=== PATIENT | male | born 1930 | race Caucasian/White ===

== ENCOUNTER 2017-04-20 13:19 | Inpatient (IN) | payer OTHER ==
--- NOTE | 2017-04-20 13:35 | PDOC ---
History of Present Illness - General Chief Complaint: Pain Stated Complaint: ABD PAIN Time Seen by Provider: 04/20/17 13:33 History Source: Patient Exam Limitations: Clinical Condition, Dementia - History of Present Illness Initial Comments: 04/20/17 14:03 Patient is a 87M with history of CHF with pacemaker, benign intracranial tumor, and diverticulitis sent here today by his PMD for dehydration. He's also complaining today of abdominal pain and shortness of breath. His son is complaining of AMS. At 01/27, he was found to be on too little diuretics with resultant severe leg, ankle and foot swelling, so his diuretics were increased. His PMD evaluation suggested dehydration so he was sent into the hospital. His abdominal pain has been going on for the past several weeks and is located in the suprapubic region. He denies nausea, vomiting, fevers, and chills. He endorses constipation, last bowel movement 1-2 days ago. His shortness of breath has been for the past 2 weeks as well. He denies associated chest pain, endorses cough. His son states that while he has some baseline dementia, but that has also worsened the past couple of weeks. Past History - Past Medical History Allergies/Adverse Reactions: Allergies Allergy/AdvReac Type Severity Reaction Status Date / Time No Known Drug Allergies Allergy Verified 04/20/17 13:23 Home Medications: Ambulatory Orders Furosemide [Lasix -] 40 mg PO BID 02/22/16 Metoprolol Succinate 50 mg PO DAILY 02/22/16 Potassium Chloride 20 meq PO HS 02/22/16 Simvastatin [Zocor -] 40 mg PO HS 02/22/16 Warfarin Na [Coumadin -] 5 mg PO HS 02/22/16 Metolazone [Zaroxolyn -] 2.5 mg PO DAILY 04/20/17 Anemia: No Asthma: No Cancer: No Cardiac Disorders: Yes CVA: No COPD: (hx pneumonia- MULTIPLE) CHF: No Dementia: No Diabetes: No GI Disorders: No Disorders: No HTN: Yes Hypercholesterolemia: Yes Liver Disease: No Seizures: No Thyroid Disease: No - Surgical History Abdominal Surgery: No Appendectomy: Yes Cardiac Surgery: Yes (PACEMAKER) Cholecystectomy: No Lung Surgery: No Neurologic Surgery: No Orthopedic Surgery: Yes (wrist) - Psycho/Social/Smoking Cessation Hx Anxiety: No Suicidal Ideation: No Smoking Status: No Smoking History: Never smoked Number of Cigarettes Smoked Daily: 0 Information on smoking cessation initiated: No Hx Alcohol Use: No Drug/Substance Use Hx: No Substance Use Type: None Hx Substance Use Treatment: No Review of Systems - Review of Systems Comments:: 04/20/17 14:15 GENERAL/CONSTITUTIONAL: No fever or chills. HEAD, EYES, EARS, NOSE AND THROAT: No change in vision. No ear pain or discharge. No sore throat. CARDIOVASCULAR: No chest pain. Positive for shortness of breath RESPIRATORY: Positive for cough. Negative for wheezing, or hemoptysis. GASTROINTESTINAL: No nausea, vomiting, diarrhea. Positive for constipation. GENITOURINARY: No dysuria, frequency, or change in urination. SKIN: No rash NEUROLOGIC: No headache, vertigo, loss of consciousness, or change in strength/ sensation. ENDOCRINE: No increased thirst. Positive for 30 pound weight loss in past year ALLERGIC/IMMUNOLOGIC: No hives or skin allergy. *Physical Exam - Vital Signs Last Vital Signs Temp Pulse Resp BP Pulse Ox 97.5 F L 70 18 106/62 98 04/20/17 13:21 04/20/17 13:21 04/20/17 13:21 04/20/17 13:21 04/20/17 13:21 - Physical Exam Comments: 04/20/17 14:16 GENERAL: Awake, alert, and fully oriented, in no acute distress HEAD: No signs of trauma, normocephalic, atraumatic EYES: PERRLA, EOMI, sclera anicteric, conjunctiva clear ENT: Auricles normal inspection, hearing grossly normal, nares patent, oropharynx clear without exudates. Dry mucosa LUNGS: No distress, speaks full sentences, clear to auscultation bilaterally HEART: Regular rate and rhythm, normal S1 and S2, no murmurs, rubs or gallops, peripheral pulses normal and equal bilaterally. ABDOMEN: Suprapubic tenderness. No guarding, no rebound. No masses EXTREMITIES: Normal inspection, Normal range of motion, no edema. No clubbing or cyanosis. NEUROLOGICAL: Cranial nerves II through XII grossly intact. Normal speech, no focal sensorimotor deficits SKIN: Warm, Dry, no rashes or lesions noted. ED Treatment Course - LABORATORY CBC & Chemistry Diagram: 04/20/17 14:33 04/20/17 14:33 Medical Decision Making - Medical Decision Making 04/20/17 15:25 87M with history CHF s/p pacemaker, and diverticulitis sent here today by his PMD for dehydration. Associated AMS and lower abdominal pain. 04/20/17 16:11 Laboratory Tests 04/20/17 04/20/17 04/20/17 14:33 14:33 14:33 WBC 10.5 H D Sodium 130 L Potassium 3.1 L Chloride 76 L D Carbon Dioxide 43 H D BUN 94 H D Creatinine 1.6 H D Calcium 10.3 H Total Bilirubin 2.0 H D Troponin I 0.10 H B-Natriuretic Peptide 4648.76 H Lipase 459 H Urine Nitrite Negative Ur Leukocyte Esterase Negative Labs show leukocytosis, signs of dehydration, BUN 94 CR 1.6 positive trop to 0.1. Bili of 2.0. Elevated lipase. Elevated BNP. UA show no signs of infection. CT changed to without IV contrast due to Cr >1.5. EKG shows paced rhythm with PVCs. Normal rate, normal axis. No ST elevation equivalents. 04/20/17 20:[address] scan area, patient attempted to get up to go to the bathroom and fell, but was caught by his son before hitting floor. Placed back in bed and brought back to ED. Vital signs stable and normal. EKG shows no changes, still paced rhythm with no ST elevation equivalents. 04/20/17 20:[address] evidence of acute intracranial pathology. 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 The left mid abdominal mesentery is not well visualized on the current exam due to beam hardening artifact arising from intraluminal contrast within several small bowel loops. A 2.8 cm right renal cortical cyst is noted which demonstrates slightly increased intraluminal density in comparison to a 2013 CT study. This appearance is probably incidental in nature and secondary to a small amount of internal debris. Correlate with nonemergent sonography to exclude a developing soft tissue component. This cyst appears unchanged in overall size and configuration. Small bilateral inguinal hernias containing fat only. Very small umbilical hernia containing fat only. Stable at least moderate elevation of the left diaphragm. The partially imaged left upper chest demonstrates a small tubular focus which could be on the basis of bronchial mucoid impaction. Patient discussed with Dr Carranza. Admitted to observation. *DC/Admit/Observation/Transfer Diagnosis at time of Disposition: Dehydration - Discharge Dispostion Condition at time of disposition: Stable Admit: Yes
[2017-04-20] MEDS ORDERED: SODIUM CHLORIDE 500 ML IV STA ×2 (13:55→16:01)
--- NOTE | 2017-04-20 14:21 | PDOC ---
Attending Attestation - Resident Resident Name: Zach Choi - ED Attending Attestation I have performed the following: I have examined & evaluated the patient, The case was reviewed & discussed with the resident, I agree w/resident's findings & plan, Exceptions are as noted - HPI HPI: 04/20/17 14:14 87-year-old male with past medical history of coronary disease, CHF, pneumonia, hyperlipidemia, cardiac pacemaker, diverticulitis sent in from patient's office Dr. Hardin for weakness. Approximate one month ago, the patient has had significant fluid overload and his Lasix was doubled from 40 mg to 80 mg. Since then, the patient's been persistently urinating. Has persistent urinary frequency. In the last several days, the patient been having worsening lethargy and generalized weakness. Has recently developed superpubic discomfort. Denies fevers or chills. Denies headaches. Does have a history of brain tumor which is benign. Patient is also complaining of left-sided abdominal pain given the history of diverticulitis. Denies diarrhea. - Physicial Exam PE: 04/20/17 14:25 GENERAL: Awake, alert, and fully oriented, in no acute distress. HEAD: No signs of trauma EYES: PERRLA, EOMI, sclera anicteric, conjunctiva clear ENT: Auricles normal inspection, hearing grossly normal, nares patent, oropharynx clear without exudates. NECK: Normal ROM, supple, no lymphadenopathy, JVD, or masses LUNGS: Breath sounds equal, clear to auscultation bilaterally. No wheezes, and no crackles HEART: Regular rate and rhythm, normal S1 and S2, no murmurs, rubs or gallops ABDOMEN: TTP Suprapubic, LLQ. Soft, normoactive bowel sounds. No guarding, no rebound. No masses EXTREMITIES: Normal range of motion, no edema. No clubbing or cyanosis. No cords, erythema, or tenderness NEUROLOGICAL: Cranial nerves II through XII grossly intact. Normal speech, normal gait SKIN: Warm, Dry, normal turgor, no rashes or lesions noted. - Medical Decision Making 04/20/17 14:25 Vital Signs Temp Pulse Resp BP Pulse Ox 97.5 F L 70 18 106/62 98 04/20/17 13:21 04/20/17 13:21 04/20/17 13:21 04/20/17 13:21 04/20/17 13:21 I agree with the presence plan to rule out diverticulitis, urinary tract infection. The patient appears dry overall and essentially secondary to diuresis from Lasix. We'll obtain labs, trial IV fluids, urinalysis, CAT scan head and abdomen pelvis. Reassess. 04/20/17 16:00 CBC, BMP 04/20/17 14:33 04/20/17 14:33 CMP Sodium 130 mmol/L (136-145) L 04/20/17 14:33 Potassium 3.1 mmol/L (3.5-5.1) L 04/20/17 14:33 Chloride 76 mmol/L (98-107) L D 04/20/17 14:33 Carbon Dioxide 43 mmol/L (21-32) H D 04/20/17 14:33 Anion Gap 11 (8-16) 04/20/17 14:33 BUN 94 mg/dL (7-18) H D 04/20/17 14:33 Creatinine 1.6 mg/dL (0.7-1.3) H D 04/20/17 14:33 Creat Clearance w eGFR 41.19 (>60) 04/20/17 14:33 Random Glucose 105 mg/dL (74-106) 04/20/17 14:33 Calcium 10.3 mg/dL (8.5-10.1) H 04/20/17 14:33 Total Bilirubin 2.0 mg/dL (0.2-1.0) H D 04/20/17 14:33 AST 25 U/L (15-37) D 04/20/17 14:33 ALT 26 U/L (12-78) 04/20/17 14:33 Alkaline Phosphatase 111 U/L (45-117) D 04/20/17 14:33 Creatine Kinase 69 IU/L (39-308) 04/20/17 14:33 Troponin I 0.10 ng/ml (0.00-0.05) H 04/20/17 14:33 B-Natriuretic Peptide 4648.76 pg/ml (5-450) H 04/20/17 14:33 Total Protein 7.9 g/dl (6.4-8.2) D 04/20/17 14:33 Albumin 4.4 g/dl (3.4-5.0) D 04/20/17 14:33 Lipase 459 U/L (73-393) H 04/20/17 14:33 Pt noted to have MARIELY, elevated BNP. WBC 10.5 ECG is paced. Pt is also hemoconcentrated. BUN 94/ Cr 1.6 Pt likely with pre-renal failure in setting of over diuresis. Patient will need to be admitted to the hospital for further management. Heart Score/ECG Review - ECG Intrepretation Comment:: 04/20/17 16:00 Paced
[2017-04-20 15:04] LABS: BASOPHIL 0.4 % (0-2.0); EOSINOPHIL 0.6 % (0-4.5); MCH 28.7 pg (25.7-33.7); MCHC 33.5 g/dl (32.0-35.9); MEAN CELL VOLUME 85.5 fl (80-96); MEAN PLT VOLUME 11.1 fl (7.5-11.1); NEUTROPHILS 67.9 % (42.8-82.8); PLATELET COUNT 168 K/MM3 (134-434); RDW 17.9 % (11.9-15.9); WHITE BLOOD COUNT 10.5 K/mm3 (4.0-10.0)
[2017-04-20 15:07] LABS: URINE APPEARANCE CLEAR; URINE BILIRUBIN NEGATIVE (NEGATIVE); URINE BLOOD NEGATIVE (NEGATIVE); URINE COLOR LT. YELLOW; URINE GLUCOSE (UA) NEGATIVE (NEGATIVE); URINE KETONE NEGATIVE (NEGATIVE); URINE LEUK ESTERASE NEGATIVE (NEGATIVE); URINE NITRITE NEGATIVE (NEGATIVE); URINE PROTEIN NEGATIVE (NEGATIVE); URINE UROBILINOGEN 0.2 mg/dL (0.2-1.0)
[2017-04-20 15:45] LABS: ALBUMIN 4.4 g/dl (3.4-5.0); ANION GAP 11 (8-16); CALCIUM 10.3 mg/dL (8.5-10.1); CO2 43 mmol/L (21-32); CREATININE 1.6 mg/dL (0.7-1.3); GLUCOSE,RANDOM 105 mg/dL (74-106); SGOT/AST 25 U/L (15-37); SGPT/ALT 26 U/L (12-78); TOT PROT 7.9 g/dl (6.4-8.2)
[2017-04-20 15:49] LABS: ALK PHOS 111 U/L (45-117); CPK 69 IU/L (39-308)
[2017-04-20] MEDS ORDERED: POTASSIUM CHLORIDE ORAL LIQUID 20 MEQ/15 ML PO ONE (21:49)
[2017-04-20] MEDS ORDERED: POTASSIUM CHLORIDE TABS 20 MEQ TABLET.ER (FP) PO ONE ×2 (21:53)
--- NOTE | 2017-04-20 21:54 | HP ---
CHIEF COMPLAINT: Confusion, Weakness, AMS, Abdominal Pain PCP: Dr. Cee HISTORY OF PRESENT ILLNESS: This is a 87 y/o male with a past medical history of CHF, PM, Hypercholesterolemia. Who presents to the ED from the PMDs office for Dehydration, confusion, weakness, abdominal pain. Per ED records: His son is complaining of AMS. At 01/27, he was found to be on too little diuretics with resultant severe leg, ankle and foot swelling, so his diuretics were increased. His PMD evaluation suggested dehydration so he was sent into the hospital. His abdominal pain has been going on for the past several weeks and is located in the suprapubic region. He denies nausea, vomiting, fevers, and chills. He endorses constipation, last bowel movement 1-2 days ago. His shortness of breath has been for the past 2 weeks as well. He denies associated chest pain, endorses cough. His son states that while he has some baseline dementia, but that has also worsened the past couple of weeks. ER course was notable for: (1) NA- 130, K 3.1 (2) CT Brain- No acute ICH (3) CTAP- Left sided- colonic Diverticulosis Recent Travel: None PAST MEDICAL HISTORY: CHF Hypercholesterolemia Benign Intracranial Tumor Pneumonia Diverticulitis PAST SURGICAL HISTORY: Pacemaker Wrist Social History: Smoking: Never Alcohol: None Drugs: None Lives with family Family History: Non-Contributory Allergies No Known Drug Allergies Allergy (Verified 04/20/17 13:23) HOME MEDICATIONS: Home Medications Medication Instructions Recorded Furosemide [Lasix -] 40 mg PO BID 02/22/16 Metoprolol Succinate 50 mg PO DAILY 02/22/16 Potassium Chloride 20 meq PO HS 02/22/16 Simvastatin [Zocor -] 40 mg PO HS 02/22/16 Warfarin Na [Coumadin -] 5 mg PO HS 02/22/16 Metolazone [Zaroxolyn -] 2.5 mg PO DAILY 04/20/17 REVIEW OF SYSTEMS CONSTITUTIONAL: Absent: fever, chills, diaphoresis, generalized weakness, malaise, loss of appetite, weight change HEENT: Absent: rhinorrhea, nasal congestion, throat pain, throat swelling, difficulty swallowing, mouth swelling, ear pain, eye pain, visual changes CARDIOVASCULAR: Absent: chest pain, syncope, palpitations, irregular heart rate, lightheadedness , peripheral edema RESPIRATORY: Absent: cough, shortness of breath, dyspnea with exertion, orthopnea, wheezing, stridor, hemoptysis GASTROINTESTINAL: abdominal pain Absent: abdominal distension, nausea, vomiting, diarrhea, constipation, melena, hematochezia GENITOURINARY: Absent: dysuria, frequency, urgency, hesitancy, hematuria, flank pain, genital pain MUSCULOSKELETAL: Absent: myalgia, arthralgia, joint swelling, back pain, neck pain SKIN: Absent: rash, itching, pallor HEMATOLOGIC/IMMUNOLOGIC: Absent: easy bleeding, easy bruising, lymphadenopathy, frequent infections ENDOCRINE: Absent: unexplained weight gain, unexplained weight loss, heat intolerance, cold intolerance NEUROLOGIC: mental status changes Absent: headache, focal weakness or paresthesias, dizziness, unsteady gait, seizure, bladder or bowel incontinence PSYCHIATRIC: Absent: anxiety, depression, suicidal or homicidal ideation, hallucinations. PHYSICAL EXAMINATION Vital Signs - 24 hr 04/20/17 04/20/17 04/20/17 13:21 17:21 19:19 Temperature 97.5 F L Pulse Rate 70 Pulse Rate [ 70 56 L Apical] Respiratory 18 18 Rate Blood Pressure 106/62 Blood Pressure 99/52 109/58 [Left Arm] O2 Sat by Pulse 98 100 100 Oximetry (%) GENERAL: Awake, alert, and fully oriented, in no acute distress. HEAD: Normal with no signs of trauma. EYES: Pupils equal, round and reactive to light, extraocular movements intact, sclera anicteric, conjunctiva clear. No lid lag. EARS, NOSE, THROAT: Ears normal, nares patent, oropharynx clear without exudates. Dry mucous membranes. NECK: Normal range of motion, supple without lymphadenopathy, JVD, or masses. LUNGS: Breath sounds equal, clear to auscultation bilaterally. No wheezes, and no crackles. No accessory muscle use. HEART: Regular rate and rhythm, normal S1 and S2 without murmur, rub or gallop. ABDOMEN: Soft, nontender, not distended, normoactive bowel sounds, no guarding, no rebound, no masses. No hepatomegaly or splenomegaly. MUSCULOSKELETAL: Normal range of motion at all joints. No bony deformities or tenderness. No CVA tenderness. UPPER EXTREMITIES: 2+ pulses, warm, well-perfused. No cyanosis. No clubbing. No peripheral edema. LOWER EXTREMITIES: 2+ pulses, warm, well-perfused. No calf tenderness. No peripheral edema. NEUROLOGICAL: Cranial nerves II-XII intact. Normal speech. Gait not observed. PSYCHIATRIC: Cooperative. Good eye contact. Appropriate mood and affect. SKIN: Warm, dry, no rashes or lesions noted, normal capillary refill. Tenting, poor turgor, Laboratory Results - last 24 hr 04/20/17 04/20/17 04/20/17 14:33 14:33 14:33 WBC 10.5 H D RBC 5.66 H Hgb 16.2 D Hct 48.4 MCV 85.5 MCH 28.7 MCHC 33.5 RDW 17.9 H Plt Count 168 D MPV 11.1 D Neutrophils % 67.9 Lymphocytes % 20.7 Monocytes % 10.4 H Eosinophils % 0.6 Basophils % 0.4 Sodium 130 L Potassium 3.1 L Chloride 76 L D Carbon Dioxide 43 H D Anion Gap 11 BUN 94 H D Creatinine 1.6 H D Creat Clearance w eGFR 41.19 Random Glucose 105 Calcium 10.3 H Total Bilirubin 2.0 H D AST 25 D ALT 26 Alkaline Phosphatase 111 D Creatine Kinase 69 Troponin I 0.10 H B-Natriuretic Peptide 4648.76 H Total Protein 7.9 D Albumin 4.4 D Lipase 459 H Urine Color Lt. yellow Urine Appearance Clear Urine pH 6.0 Ur Specific [place] 1.010 Urine Protein Negative Urine Glucose (UA) Negative Urine Ketones Negative Urine Blood Negative Urine Nitrite Negative Urine Bilirubin Negative Urine Urobilinogen 0.2 Ur Leukocyte Esterase Negative Diagnostic Testin04/20/17 20:[address] evidence of acute intracranial pathology. 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 The left mid abdominal mesentery is not well visualized on the current exam due to beam hardening artifact arising from intraluminal contrast within several small bowel loops. A 2.8 cm right renal cortical cyst is noted which demonstrates slightly increased intraluminal density in comparison to a 2013 CT study. This appearance is probably incidental in nature and secondary to a small amount of internal debris. Correlate with nonemergent sonography to exclude a developing soft tissue component. This cyst appears unchanged in overall size and configuration. Small bilateral inguinal hernias containing fat only. Very small umbilical hernia containing fat only. Stable at least moderate elevation of the left diaphragm. The partially imaged left upper chest demonstrates a small tubular focus which could be on the basis of bronchial mucoid impaction. ASSESSMENT/PLAN: This is a 87 y/o male with a PMHx of: CHF with PM, Hypercholesterolemia, Benign Intracranial Tumor, Diverticulitis, Pneumonia. Placed on observation for Dehydration for further evaluation of their emergent condition. Problem List - Problem (1) Dehydration Assessment/Plan: - Likely due to overuse of Diuretics - NS bolus given in ED - Continue gentle IVF - Monitor CBC, BMP in am - Monitor vitals - Hold Lasix, Zaroxolyn Code(s): E86.0 - DEHYDRATION (2) Hyponatremia Assessment/Plan: - Likely secondary to Dehydration vs Diuretics - NS bolus given in ED - Na Corrected- 131 - Will start D5NS@42cc/hr, closely monitor for HF - Repeat BMP in am - Monitor vitals Code(s): E87.1 - HYPO-OSMOLALITY AND HYPONATREMIA (3) Hypokalemia Assessment/Plan: - Likely due to dehydration - Repleted in ED - BMP in am - Continue Potassium - EKG- reviewed - Monitor vitals Code(s): E87.6 - HYPOKALEMIA (4) A-fib Assessment/Plan: - Code(s): I48.91 - UNSPECIFIED ATRIAL FIBRILLATION (5) CHF (congestive heart failure) Assessment/Plan: - Controlled - Chest Xray- reviewed - Hold diuretics secondary to Acute Dehydration, hyponatremia - Continue to monitor for HF - BNP- 4600 Code(s): I50.9 - HEART FAILURE, UNSPECIFIED (6) Hypercholesteremia Assessment/Plan: - On Simvastatin (NF) changed to Lipitor 20mg - Monitor LFTs Code(s): E78.00 - PURE HYPERCHOLESTEROLEMIA, UNSPECIFIED (7) DVT prophylaxis Assessment/Plan: - OOB - SCDs Code(s): [id number] - Visit type - Emergency Visit Emergency Visit: Yes ED Registration Date: 04/20/17 Care time: The patient presented to the Emergency Department on the above date and was hospitalized for further evaluation of their emergent condition. - New Patient This patient is new to me today: Yes Date on this admission: 04/20/17 - Critical Care Critical Care patient: No
[2017-04-20] MEDS ORDERED: ATORVASTATIN CA 20 MG TABLET (FP) PO ONE (22:07)
[2017-04-20] MEDS ORDERED: ATORVASTATIN CA 40 MG TABLET (FP) ONE (22:37)
[2017-04-20 23:11] LABS: INR 2.17 (0.82-1.09); PROTHROMBIN TIME (PATIENT) 24.2 SEC (9.98-11.88)
[2017-04-20 23:18] LABS: TROPONIN I 0.1 ng/ml (0.00-0.05)
[2017-04-20] MEDS: DEXTROSE 5%-NORMAL SALINE 1,000 ML IV SCH (23:31)
[2017-04-21] MEDS ORDERED: WARFARIN NA 5 MG TABLET (UD) PO ONE (00:15)
[2017-04-21 02:30] VITALS: BMI 24.0
[2017-04-21] MEDS ORDERED: INSULIN DETEMIR 100 UNITS/ML MDV SQ ONE (08:46)
[2017-04-21] MEDS ORDERED: PT OWN MED DRAWER 7, Y5N ONE (08:47)
[2017-04-21 08:52] LABS: BASOPHIL 0.3 % (0-2.0); EOSINOPHIL 1.2 % (0-4.5); MCH 28.3 pg (25.7-33.7); MCHC 32.9 g/dl (32.0-35.9); MEAN PLT VOLUME 9.9 fl (7.5-11.1); NEUTROPHILS 70.1 % (42.8-82.8); PLATELET COUNT 137 K/MM3 (134-434); WHITE BLOOD COUNT 7.9 K/mm3 (4.0-10.0)
[2017-04-21 08:57] LABS: INR 2.12 (0.82-1.09); PROTHROMBIN TIME (PATIENT) 23.7 SEC (9.98-11.88)
[2017-04-21 09:17] LABS: ANION GAP 11 (8-16); CALCIUM 9.4 mg/dL (8.5-10.1); CO2 41 mmol/L (21-32); CREATININE 1.4 mg/dL (0.7-1.3); GLUCOSE,RANDOM 119 mg/dL (74-106); MAGNESIUM 2.5 mg/dL (1.8-2.4); PHOSPHOROUS 2.7 mg/dL (2.5-4.9)
[2017-04-21] MEDS: METOPROLOL SUCCINATE 50 MG TAB.SR.24H (FP) PO SCH (09:18)
[2017-04-21] MEDS: KCL 10 MEQ IVPB 100 ML IVPB SCH ×3 (11:09→14:00)
--- NOTE | 2017-04-21 13:03 | EKG ---
Test Reason : Blood Pressure : / mmHG Vent. Rate : 070 BPM Atrial Rate : 070 BPM P-R Int : 000 ms QRS Dur : 220 ms QT Int : 592 ms P-R-T Axes : 000 256 072 degrees QTc Int : 639 ms Ventricular-paced rhythm ABNORMAL ECG WHEN COMPARED WITH ECG OF 20-APR-2017 14:11, PREMATURE VENTRICULAR COMPLEXES ARE NO LONGER PRESENT Confirmed by GUERA MONTOYA MD ([id number]) on 04/21/2017 1:03:28 PM Referred By: Confirmed By:GUERA MONTOYA MD
--- NOTE | 2017-04-21 13:14 | PN ---
Physical Exam: SUBJECTIVE: Patient seen and examined. Feels weak. Complaining of no BM x 1.5 wks. Son at bedside reports that patient has been more forgetful over past month , but since yesterday has seemed "even more out of it than normal." Also notes that he has lost 35 lbs since September. OBJECTIVE: Vital Signs Period Temp Pulse Resp BP Sys/Esposito Pulse Ox Last 24 Hr 16 100 GENERAL: The patient is awake, alert, and fully oriented, in no acute distress. HEAD: Normal with no signs of trauma. EYES: PERRL, extraocular movements intact, sclera anicteric, conjunctiva clear. No ptosis. ENT: Ears normal, nares patent, oropharynx clear without exudates, moist mucous membranes. NECK: Trachea midline, full range of motion, supple. LUNGS: Breath sounds equal, clear to auscultation bilaterally, no wheezes, no crackles, no accessory muscle use. HEART: Regular rate and rhythm, S1, S2 without murmur, rub or gallop. ABDOMEN: Soft, nontender, nondistended, normoactive bowel sounds, no guarding, no rebound, no hepatosplenomegaly, no masses. EXTREMITIES: 2+ pulses, warm, well-perfused, no edema. NEUROLOGICAL: Cranial nerves II through XII grossly intact. Normal speech, gait not observed. PSYCH: Normal mood, normal affect. SKIN: Warm, dry, normal turgor, no rashes or lesions noted Active Medications Generic Name Dose Route Start Last Admin Trade Name Freq PRN Reason Stop Dose Admin Atorvastatin Calcium 20 mg 04/21/17 22:00 Lipitor - PO HS GEORGE Dextrose/Sodium Chloride 1,000 mls @ 42 mls/hr 04/20/17 22:15 04/20/17 23:31 D5-Ns - IV 42 mls/hr ASDIR GEORGE Administration Metoprolol Succinate 50 mg 04/21/17 10:00 04/21/17 09:18 Toprol Xl - PO 50 mg DAILY GEORGE Administration Potassium Chloride 20 meq 04/21/17 22:00 K-Dur - PO HS GEORGE Warfarin Sodium 5 mg 04/21/17 18:00 Coumadin - PO DAILY@1800 [facility] ASSESSMENT/PLAN: Diagnostic Testin04/20/17 20:[address] evidence of acute intracranial pathology. 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 The left mid abdominal mesentery is not well visualized on the current exam due to beam hardening artifact arising from intraluminal contrast within several small bowel loops. A 2.8 cm right renal cortical cyst is noted which demonstrates slightly increased intraluminal density in comparison to a 2013 CT study. This appearance is probably incidental in nature and secondary to a small amount of internal debris. Correlate with nonemergent sonography to exclude a developing soft tissue component. This cyst appears unchanged in overall size and configuration. Small bilateral inguinal hernias containing fat only. Very small umbilical hernia containing fat only. Stable at least moderate elevation of the left diaphragm. The partially imaged left upper chest demonstrates a small tubular focus which could be on the basis of bronchial mucoid impaction. ASSESSMENT/PLAN: 87 year old male with a history of Afib s/p PPM on warfarin, CHF, HLD, "benign intracranial tumor", and diverticulitis admitted with dehydration and electrolyte derangement s/p over-diuresis. 1. Dehydration -Hold Lasix, Zarolxolyn -Continue gentle IVF -Replete electrolytes 2. Hyponatremia -Improved with hydration 3. Hypokalemia -KCl 10 mEq IVPB x 3 -Repeat BMP in PM 4. Renal insufficiency -Suspect secondary to over-diuresis -Improving with hydration -Avoid nephrotoxic meds as able 5. Weakness -May be referable to above, however also with weight loss and cognitive decline -Fell in CT yesterday without injury -PT -Outpatient neuro evaluation 6. Atrial fibrillation -Ventricular-paced rhythm -Continue warfarin 7. CHF -Volume-depleted -Holding diuretics 8. HLD -Continue statin 9. Constipation -Miralax, colace -Abdomen soft, tolerating oral fluids -Consider AXR if persistent (history of SBO) 10. F/E/N -Fluids and electrolyte repletion as above -Dietary evaluation (very poor po intake) 11. Ppx -Warfarin DISPO: Requires inpatient services. Discussed discharge planning with son at length and patient is not amenable to rehab placement or aide services. Visit type - Emergency Visit Emergency Visit: Yes ED Registration Date: 04/21/17 Care time: The patient presented to the Emergency Department on the above date and was hospitalized for further evaluation of their emergent condition. - New Patient This patient is new to me today: Yes Date on this admission: 04/22/17 - Critical Care Critical Care patient: No
--- NOTE | 2017-04-21 13:20 | EKG ---
Test Reason : Blood Pressure : / mmHG Vent. Rate : 070 BPM Atrial Rate : 056 BPM P-R Int : 000 ms QRS Dur : 184 ms QT Int : 544 ms P-R-T Axes : 000 269 072 degrees QTc Int : 587 ms Ventricular-paced rhythm WITH OCCASIONAL PREMATURE VENTRICULAR COMPLEXES PACEMAKER IS SENSING AND PACING APPROPRIATELY. BASELINE ARTIFACTS WHEN COMPARED WITH ECG OF 12-MAY-2014 10:19, PREMATURE VENTRICULAR COMPLEXES ARE NOW PRESENT REPEAT EKG IF CLINICALLY INDICATED Confirmed by GUERA MONTOYA MD ([id number]) on 04/21/2017 1:19:51 PM Referred By: Confirmed By:GUERA MONTOYA MD
[2017-04-21] MEDS: POLYETHYLENE GLYCOL 3350 119 GM BTL PO SCH (15:38)
[2017-04-21] MEDS: DOCUSATE SODIUM 100 MG CAPSULE (FP) PO SCH ×2 (15:39→21:26)
[2017-04-21] MEDS: WARFARIN NA 5 MG TABLET (UD) PO SCH (17:07)
[2017-04-21 18:55] LABS: ANION GAP 12 (8-16); CALCIUM 9.9 mg/dL (8.5-10.1); CO2 40 mmol/L (21-32); CREATININE 1.3 mg/dL (0.7-1.3); GLUCOSE,RANDOM 131 mg/dL (74-106)
[2017-04-21] MEDS: POTASSIUM CHLORIDE TABS 20 MEQ TABLET.ER (FP) PO SCH (21:26)
[2017-04-21] MEDS: ATORVASTATIN CA 20 MG TABLET (FP) PO SCH (21:26)
[2017-04-22] MEDS: DEXTROSE 5%-NORMAL SALINE 1,000 ML IV SCH ×2 (04:59→23:16)
[2017-04-22] MEDS: DOCUSATE SODIUM 100 MG CAPSULE (FP) PO SCH ×3 (06:14→21:39)
--- NOTE | 2017-04-22 07:21 | PN ---
Physical Exam: SUBJECTIVE: Patient seen and examined. Complains of constipation for >1.5 weeks. Also complains of burning on urination ("like fire"). Feels weak. OBJECTIVE: Vital Signs Period Temp Pulse Resp BP Sys/Esposito Pulse Ox Last 24 Hr 97.5 F-98.2 F 70-94 16-20 94-123/53-73 100-100 GENERAL: The patient is awake, alert, and fully oriented, weak appearing. HEAD: Normal with no signs of trauma. EYES: PERRL, extraocular movements intact, sclera anicteric, conjunctiva clear. No ptosis. ENT: Ears normal, nares patent, oropharynx clear without exudates, moist mucous membranes. NECK: Trachea midline, full range of motion, supple. LUNGS: Breath sounds equal, clear to auscultation bilaterally, no wheezes, no crackles, no accessory muscle use. HEART: Regular rate and rhythm, S1, S2 without murmur, rub or gallop. ABDOMEN: Soft, suprapubic tenderness, nondistended, normoactive bowel sounds, no guarding, no rebound, no hepatosplenomegaly, no masses. EXTREMITIES: 2+ pulses, warm, well-perfused, no edema. NEUROLOGICAL: Cranial nerves II through XII grossly intact. Normal speech, gait not observed. PSYCH: Normal mood, normal affect. SKIN: Warm, dry, normal turgor, no rashes or lesions noted Laboratory Results - last 24 hr 04/21/17 18:00 Sodium 134 L Potassium 3.6 D Chloride 82 L Carbon Dioxide 40 H Anion Gap 12 BUN 74 H Creatinine 1.3 Random Glucose 131 H Calcium 9.9 Active Medications Generic Name Dose Route Start Last Admin Trade Name Williamq PRN Reason Stop Dose Admin Atorvastatin Calcium 20 mg 04/21/17 22:00 04/21/17 21:26 Lipitor - PO 20 mg HS GEORGE Administration Docusate Sodium 100 mg 04/21/17 14:00 04/22/17 06:14 Colace - PO 100 mg TID GEORGE Administration Dextrose/Sodium Chloride 1,000 mls @ 42 mls/hr 04/20/17 22:15 04/22/17 04:59 D5-Ns - IV Not Given ASDIR GEORGE Metoprolol Succinate 50 mg 04/21/17 10:00 04/21/17 09:18 Toprol Xl - PO 50 mg DAILY GEORGE Administration Polyethylene Glycol 17 gm 04/21/17 14:00 04/21/17 15:38 Miralax (For Daily Use) - PO 17 gm DAILY GEORGE Administration Potassium Chloride 20 meq 04/21/17 22:00 04/21/17 21:26 K-Dur - PO 20 meq HS GEORGE Administration Warfarin Sodium 5 mg 04/21/17 18:00 04/21/17 17:07 Coumadin - PO 5 mg DAILY@1800 GEORGE Administration Diagnostic Testin04/20/17 20:[address] evidence of acute intracranial pathology. 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 The left mid abdominal mesentery is not well visualized on the current exam due to beam hardening artifact arising from intraluminal contrast within several small bowel loops. A 2.8 cm right renal cortical cyst is noted which demonstrates slightly increased intraluminal density in comparison to a 2013 CT study. This appearance is probably incidental in nature and secondary to a small amount of internal debris. Correlate with nonemergent sonography to exclude a developing soft tissue component. This cyst appears unchanged in overall size and configuration. Small bilateral inguinal hernias containing fat only. Very small umbilical hernia containing fat only. Stable at least moderate elevation of the left diaphragm. The partially imaged left upper chest demonstrates a small tubular focus which could be on the basis of bronchial mucoid impaction. ASSESSMENT/PLAN: 87 year old male with a history of Afib s/p PPM on warfarin, CHF, HLD, meningioma, and diverticulitis admitted with dehydration and electrolyte derangement s/p over-diuresis. 1. Dehydration -Holding Lasix, Zarolxolyn -Improved s/p gentle IVF; stop fluids today -Replete electrolytes as needed 2. Hyponatremia -Improved with hydration 3. Hypokalemia -S/p KCl 10 mEq IVPB x 3 -Improved 4. Renal insufficiency -Suspect secondary to over-diuresis -Improved with hydration -Avoid nephrotoxic meds as able 5. Weakness -May be referable to above, however also with weight loss and cognitive decline -Fell in CT yesterday without injury -PT -Neurology evaluation 6. Atrial fibrillation -Ventricular-paced rhythm -Continue warfarin 7. CHF -Volume-depleted -Holding diuretics 8. HLD -Continue statin 9. Constipation -AXR to rule out SBO, ileus -Milk of Magnesia 30 mL x 1 -On Miralax, colace -Consider enema if unsuccessful -Abdomen soft, tolerating oral fluids 10. F/E/N -Fluids and electrolyte repletion as above -Dietary evaluation (very poor po intake) 11. Ppx -Warfarin DISPO: Requires inpatient services. Discussed discharge planning with son at length and patient is not amenable to rehab placement or aide services.
[2017-04-22 08:20] LABS: BASOPHIL 0.5 % (0-2.0); EOSINOPHIL 2.4 % (0-4.5); MCH 28.3 pg (25.7-33.7); MCHC 32.6 g/dl (32.0-35.9); MEAN CELL VOLUME 86.8 fl (80-96); MEAN PLT VOLUME 10.4 fl (7.5-11.1); NEUTROPHILS 64.1 % (42.8-82.8); PLATELET COUNT 138 K/MM3 (134-434); RDW 18.1 % (11.9-15.9); WHITE BLOOD COUNT 8.3 K/mm3 (4.0-10.0)
[2017-04-22 08:24] LABS: INR 2.13 (0.82-1.09); PROTHROMBIN TIME (PATIENT) 23.8 SEC (9.98-11.88)
[2017-04-22 08:40] LABS: ANION GAP 9 (8-16); CO2 41 mmol/L (21-32); CREATININE 1.3 mg/dL (0.7-1.3); GLUCOSE,RANDOM 100 mg/dL (74-106)
[2017-04-22] MEDS ORDERED: MAGNESIUM HYDROX 2400MG/30ML ORAL SUSPENSION 30 ML CUP PO ONE (10:00)
[2017-04-22] MEDS: POLYETHYLENE GLYCOL 3350 119 GM BTL PO SCH (10:36)
[2017-04-22] MEDS: METOPROLOL SUCCINATE 50 MG TAB.SR.24H (FP) PO SCH (10:36)
--- NOTE | 2017-04-22 12:48 | CONSULT ---
Consult - text type - Consultation Consultation Note: Neurology HISTORY OF PRESENT ILLNESS: This is a 87 y/o male with a past medical history of CHF, PM, Hypercholesterolemia. Who presents to the ED from the PMDs office for Dehydration, confusion, weakness, abdominal pain. Per ED records: His son is complaining of AMS. At 01/27, he was found to be on too little diuretics with resultant severe leg, ankle and foot swelling, so his diuretics were increased. His PMD evaluation suggested dehydration so he was sent into the hospital. His abdominal pain has been going on for the past several weeks and is located in the suprapubic region. Reportedly, he has some baseline dementia, but that has also worsened the past couple of weeks. His labs were notable for Na of 130, CT head completed in ER did not show acute changes. 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 He was able to tell me he 's at [facility] as well as date and name of President. Seemed to be cognitively intact. Active Medications Atorvastatin Calcium (Lipitor -) 20 mg PO HS [facility] Last Admin: 04/21/17 21:26 Dose: 20 mg Docusate Sodium (Colace -) 100 mg PO TID [facility] Last Admin: 04/22/17 06:14 Dose: 100 mg Dextrose/Sodium Chloride (D5-Ns -) 1,000 mls @ 42 mls/hr IV ASDIR [facility] Last Admin: 04/22/17 04:59 Dose: Not Given Metoprolol Succinate (Toprol Xl -) 50 mg PO DAILY [facility] Last Admin: 04/22/17 10:36 Dose: 50 mg Polyethylene Glycol (Miralax (For Daily Use) -) 17 gm PO DAILY [facility] Last Admin: 04/22/17 10:36 Dose: 17 gm Potassium Chloride (K-Dur -) 20 meq PO HS [facility] Last Admin: 04/21/17 21:26 Dose: 20 meq Warfarin Sodium (Coumadin -) 5 mg PO DAILY@1800 [facility] Last Admin: 04/21/17 17:07 Dose: 5 mg PAST MEDICAL HISTORY: CHF Hypercholesterolemia Benign Intracranial Tumor Pneumonia Diverticulitis PAST SURGICAL HISTORY: Pacemaker Wrist Social History: Smoking: Never Alcohol: None Drugs: None Lives with family Family History: Non-Contributory Allergies No Known Drug Allergies Allergy (Verified 04/20/17 13:23) REVIEW OF SYSTEMS CONSTITUTIONAL: Absent: fever, chills, diaphoresis, generalized weakness, malaise, loss of appetite, weight change HEENT: Absent: rhinorrhea, nasal congestion, throat pain, throat swelling, difficulty swallowing, mouth swelling, ear pain, eye pain, visual changes CARDIOVASCULAR: Absent: chest pain, syncope, palpitations, irregular heart rate, lightheadedness , peripheral edema RESPIRATORY: Absent: cough, shortness of breath, dyspnea with exertion, orthopnea, wheezing, stridor, hemoptysis GASTROINTESTINAL: abdominal pain Absent: abdominal distension, nausea, vomiting, diarrhea, constipation, melena, hematochezia GENITOURINARY: Absent: dysuria, frequency, urgency, hesitancy, hematuria, flank pain, genital pain MUSCULOSKELETAL: Absent: myalgia, arthralgia, joint swelling, back pain, neck pain SKIN: Absent: rash, itching, pallor HEMATOLOGIC/IMMUNOLOGIC: Absent: easy bleeding, easy bruising, lymphadenopathy, frequent infections ENDOCRINE: Absent: unexplained weight gain, unexplained weight loss, heat intolerance, cold intolerance NEUROLOGIC: mental status changes Absent: headache, focal weakness or paresthesias, dizziness, unsteady gait, seizure, bladder or bowel incontinence PSYCHIATRIC: Absent: anxiety, depression, suicidal or homicidal ideation, hallucinations. PHYSICAL EXAMINATION Vital Signs Temperature 97.3 F L 04/22/17 08:17 Pulse Rate 70 04/22/17 08:17 Respiratory Rate 16 04/22/17 09:30 Blood Pressure 124/59 04/22/17 08:17 O2 Sat by Pulse Oximetry (%) 99 04/22/17 09:30 GENERAL: Awake, alert, and fully oriented, in no acute distress. HEAD: Normal with no signs of trauma. EYES: Pupils equal, round and reactive to light, extraocular movements intact, sclera anicteric, conjunctiva clear. No lid lag. EARS, NOSE, THROAT: Ears normal, nares patent, oropharynx clear without exudates. Dry mucous membranes. NECK: Normal range of motion, supple without lymphadenopathy, JVD, or masses. LUNGS: Breath sounds equal, clear to auscultation bilaterally. No wheezes, and no crackles. No accessory muscle use. HEART: Regular rate and rhythm, normal S1 and S2 without murmur, rub or gallop. ABDOMEN: Soft, nontender, not distended, normoactive bowel sounds, no guarding, no rebound, no masses. No hepatomegaly or splenomegaly. MUSCULOSKELETAL: Normal range of motion at all joints. No bony deformities or tenderness. No CVA tenderness. UPPER EXTREMITIES: 2+ pulses, warm, well-perfused. No cyanosis. No clubbing. No peripheral edema. LOWER EXTREMITIES: 2+ pulses, warm, well-perfused. No calf tenderness. No peripheral edema. NEUROLOGICAL: Cranial nerves II-XII intact. Normal speech. Able to tell me place, time, President. Strength intact, sensory normal. Gait deferred PSYCHIATRIC: Cooperative. Good eye contact. Appropriate mood and affect. SKIN: Warm, dry, no rashes or lesions noted, normal capillary refill. Tenting, poor turgor, Laboratory Results - last 24 hr 04/20/17 04/20/17 04/20/17 14:33 14:33 14:33 WBC 10.5 H D RBC 5.66 H Hgb 16.2 D Hct 48.4 MCV 85.5 MCH 28.7 MCHC 33.5 RDW 17.9 H Plt Count 168 D MPV 11.1 D Neutrophils % 67.9 Lymphocytes % 20.7 Monocytes % 10.4 H Eosinophils % 0.6 Basophils % 0.4 Sodium 130 L Potassium 3.1 L Chloride 76 L D Carbon Dioxide 43 H D Anion Gap 11 BUN 94 H D Creatinine 1.6 H D Creat Clearance w eGFR 41.19 Random Glucose 105 Calcium 10.3 H Total Bilirubin 2.0 H D AST 25 D ALT 26 Alkaline Phosphatase 111 D Creatine Kinase 69 Troponin I 0.10 H B-Natriuretic Peptide 4648.76 H Total Protein 7.9 D Albumin 4.4 D Lipase 459 H Urine Color Lt. yellow Urine Appearance Clear Urine pH 6.0 Ur Specific Doyle 1.010 Urine Protein Negative Urine Glucose (UA) Negative Urine Ketones Negative Urine Blood Negative Urine Nitrite Negative Urine Bilirubin Negative Urine Urobilinogen 0.2 Ur Leukocyte Esterase Negative Radiology: CT Brain No CT evidence of acute intracranial pathology. 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 The left mid abdominal mesentery is not well visualized on the current exam due to beam hardening artifact arising from intraluminal contrast within several small bowel loops. A 2.8 cm right renal cortical cyst is noted which demonstrates slightly increased intraluminal density in comparison to a 2013 CT study. This appearance is probably incidental in nature and secondary to a small amount of internal debris. Correlate with nonemergent sonography to exclude a developing soft tissue component. This cyst appears unchanged in overall size and configuration. Small bilateral inguinal hernias containing fat only. Very small umbilical hernia containing fat only. Stable at least moderate elevation of the left diaphragm. The partially imaged left upper chest demonstrates a small tubular focus which could be on the basis of bronchial mucoid impaction. ASSESSMENT/PLAN: This is a 87 y/o male with a PMHx of: CHF with PM, Hypercholesterolemia, Benign Intracranial Tumor, Diverticulitis, Pneumonia. Placed on observation for Dehydration for further evaluation of their emergent condition. Plan 87 y/o male with a past medical history of CHF, PM, Hypercholesterolemia. Who presents to the ED from the PMDs office for Dehydration, confusion, weakness, abdominal pain. Per ED records: His son is complaining of AMS. At 01/27, he was found to be on too little diuretics with resultant severe leg, ankle and foot swelling, so his diuretics were increased. His PMD evaluation suggested dehydration so he was sent into the hospital. His abdominal pain has been going on for the past several weeks and is located in the suprapubic region. Reportedly, he has some baseline dementia, but that has also worsened the past couple of weeks. His labs were notable for Na of 130, CT head completed in ER did not show acute changes. During my evaluation, he was awake, alert, responsive. He was able to tell me he's at [facility] as well as date and name of President. Seemed to be cognitively intact. Dehydration likely 2/2 to Diuresis, IVF as needed but want to avoid hyponatremia as well Monitor CMP, recheck NA levels Mental status appears improved CT head stable, meningioma noted and no change in size Lipitor 20mg for cholesterol can be continued Expect continued improvement
[2017-04-22] MEDS ORDERED: MINERAL OIL ENEMA 133 ML ENEMA PR ONE (15:01)
[2017-04-22] MEDS: WARFARIN NA 5 MG TABLET (UD) PO SCH (17:26)
[2017-04-22] MEDS: ATORVASTATIN CA 20 MG TABLET (FP) PO SCH (21:39)
[2017-04-22] MEDS: POTASSIUM CHLORIDE TABS 20 MEQ TABLET.ER (FP) PO SCH (21:39)
[2017-04-23] MEDS: DOCUSATE SODIUM 100 MG CAPSULE (FP) PO SCH ×4 (05:58→21:40)
[2017-04-23 07:30] LABS: BASOPHIL 0.6 % (0-2.0); EOSINOPHIL 1.8 % (0-4.5); MCH 28.6 pg (25.7-33.7); MCHC 33.1 g/dl (32.0-35.9); MEAN CELL VOLUME 86.4 fl (80-96); MEAN PLT VOLUME 9.8 fl (7.5-11.1); NEUTROPHILS 66.3 % (42.8-82.8); PLATELET COUNT 141 K/MM3 (134-434); RDW 18.6 % (11.9-15.9); WHITE BLOOD COUNT 9.7 K/mm3 (4.0-10.0)
[2017-04-23 07:36] LABS: URINE APPEARANCE CLEAR; URINE BILIRUBIN NEGATIVE (NEGATIVE); URINE BLOOD NEGATIVE (NEGATIVE); URINE COLOR LTYELLOW; URINE GLUCOSE (UA) NEGATIVE (NEGATIVE); URINE KETONE NEGATIVE (NEGATIVE); URINE LEUK ESTERASE NEGATIVE (NEGATIVE); URINE NITRITE NEGATIVE (NEGATIVE); URINE PROTEIN NEGATIVE (NEGATIVE); URINE UROBILINOGEN 4.0 E.U/dl mg/dL (0.2-1.0)
[2017-04-23 07:51] LABS: INR 2.24 (0.82-1.09); PROTHROMBIN TIME (PATIENT) 25.1 SEC (9.98-11.88)
[2017-04-23 08:25] LABS: ALBUMIN 3.6 g/dl (3.4-5.0); ALK PHOS 109 U/L (45-117); ANION GAP 12 (8-16); CALCIUM 9.9 mg/dL (8.5-10.1); CO2 37 mmol/L (21-32); CREATININE 1.2 mg/dL (0.7-1.3); GLUCOSE,RANDOM 127 mg/dL (74-106); SGOT/AST 27 U/L (15-37); SGPT/ALT 27 U/L (12-78); TOT PROT 6.8 g/dl (6.4-8.2)
[2017-04-23] MEDS: METOPROLOL SUCCINATE 50 MG TAB.SR.24H (FP) PO SCH (10:29)
[2017-04-23] MEDS: POLYETHYLENE GLYCOL 3350 119 GM BTL PO SCH (10:29)
[2017-04-23] MEDS ORDERED: MAGNESIUM CITRATE 300 ML BOTTLE PO ONE (12:04)
--- NOTE | 2017-04-23 12:07 | PN ---
Physical Exam: SUBJECTIVE: Patient seen and examined at bedside. C/o "sharp, stabbing" 9/10 LUQ pain which was relieved with deep palpation. OBJECTIVE: Vital Signs Period Temp Pulse Resp BP Sys/Esposito Pulse Ox Last 24 Hr 96.7 F-98.1 F 69-71 16-20 107-129/54-68 97-99 GENERAL: The patient is awake, alert, and fully oriented, in no acute distress. LUNGS: Breath sounds equal, clear to auscultation bilaterally, no wheezes, no crackles, no accessory muscle use. HEART: Regular rate and rhythm, S1, S2 without murmur, rub or gallop. ABDOMEN: Soft, nontender, nondistended, normoactive bowel sounds. RECTAL: Large volume of soft stool present in vault. Prostate size normal without palpable nodules. EXTREMITIES: 2+ pulses, warm, well-perfused, no edema. NEUROLOGICAL: Cranial nerves II through XII grossly intact. Normal speech, gait steady. PSYCH: Normal mood, normal affect. SKIN: Warm, dry, normal turgor, no rashes or lesions noted Laboratory Results - last 24 hr 04/23/17 04/23/17 04/23/17 05:59 06:00 06:00 WBC 9.7 RBC 5.25 Hgb 15.0 Hct 45.3 MCV 86.4 MCH 28.6 MCHC 33.1 RDW 18.6 H Plt Count 141 MPV 9.8 Neutrophils % 66.3 Lymphocytes % 22.5 Monocytes % 8.8 Eosinophils % 1.8 Basophils % 0.6 INR 2.24 H Sodium Potassium Chloride Carbon Dioxide Anion Gap BUN Creatinine Creat Clearance w eGFR Random Glucose Calcium Total Bilirubin AST ALT Alkaline Phosphatase Total Protein Albumin Lipase Urine Color Ltyellow Urine Appearance Clear Urine pH 8.0 D Urine Protein Negative Urine Glucose (UA) Negative Urine Ketones Negative Urine Blood Negative Urine Nitrite Negative Urine Bilirubin Negative Urine Urobilinogen 4.0 e.u/dl Ur Leukocyte Esterase Negative 04/23/17 04/23/17 06:00 06:00 WBC RBC Hgb Hct MCV MCH MCHC RDW Plt Count MPV Neutrophils % Lymphocytes % Monocytes % Eosinophils % Basophils % INR Sodium 140 Potassium 3.5 Chloride 91 L Carbon Dioxide 37 H Anion Gap 12 BUN 54 H Creatinine 1.2 Creat Clearance w eGFR 57.41 Random Glucose 127 H D Calcium 9.9 Total Bilirubin 1.0 D AST 27 ALT 27 Alkaline Phosphatase 109 Total Protein 6.8 Albumin 3.6 Lipase 406 H Cancelled Urine Color Urine Appearance Urine pH Urine Protein Urine Glucose (UA) Urine Ketones Urine Blood Urine Nitrite Urine Bilirubin Urine Urobilinogen Ur Leukocyte Esterase Active Medications Generic Name Dose Route Start Last Admin Trade Name Freq PRN Reason Stop Dose Admin Atorvastatin Calcium 20 mg 04/21/17 22:00 04/22/17 21:39 Lipitor - PO 20 mg HS GEORGE Administration Docusate Sodium 100 mg 04/21/17 14:00 04/23/17 05:58 Colace - PO 100 mg TID GEORGE Administration Glycerin 1 each 04/23/17 12:04 Glycerin Suppository Adult - LA 04/23/17 12:05 ONCE ONE Dextrose/Sodium Chloride 1,000 mls @ 42 mls/hr 04/20/17 22:15 04/22/17 23:16 D5-Ns - IV 42 mls/hr ASDIR GEORGE Administration Magnesium Citrate 300 ml 04/23/17 12:04 Citroma - PO 04/23/17 12:05 ONCE ONE Metoprolol Succinate 50 mg 04/21/17 10:00 04/23/17 10:29 Toprol Xl - PO 50 mg DAILY GEORGE Administration Polyethylene Glycol 17 gm 04/21/17 14:00 04/23/17 10:29 Miralax (For Daily Use) - PO 17 gm DAILY GEORGE Administration Potassium Chloride 20 meq 04/21/17 22:00 04/22/17 21:39 K-Dur - PO 20 meq HS GEORGE Administration Warfarin Sodium 5 mg 04/21/17 18:00 04/22/17 17:26 Coumadin - PO 5 mg DAILY@1800 GEORGE Administration ASSESSMENT/PLAN: A: 87yo man with with CHF, afib, hld now overdiuresis resulting in MARIELY, hypokalemia , hyponatremia, and constipation. P: MARIELY- likely from overdiuresis - resolving with IV hydration - remains azotemic currently 54- was 96 on admission - Cr 1.2 with baseline 1.1 - D/C IVF - hold nephrotoxic drugs Hypokalemia - resolved - likely from overdiuresis - continue to hold Lasix Hyponatremia - resolved with gentle hydration - likely from diuresis - monitor BMP Constipation - large volume soft brown stool in vault - no BM s/p Miralax - Mag citrate - glycerin LA Weakness - none present - ?hyponatremia - appreciate neuro consult - PT Afib - Continue Toprol - INR- 2.24 - Continue Coumadin - [id number] score -5 CHF - hold lasix - appears euvolemic Hld - continue Lipitor F/E/N - stop IVF given appears euvolemic with h/o CHF - replete prn - Regular diet PPX - Coumadin Dispo- Requires continued observation of acute medical conditions. Visit type - Emergency Visit Emergency Visit: Yes ED Registration Date: 04/21/17 Care time: The patient presented to the Emergency Department on the above date and was hospitalized for further evaluation of their emergent condition. - New Patient This patient is new to me today: Yes Date on this admission: 04/23/17 - Critical Care Critical Care patient: No
[2017-04-23] MEDS ORDERED: GLYCERIN 1 RECTAL SUPPOSITORY, ADULT RC ONE ×2 (12:15→14:45)
[2017-04-23] MEDS: WARFARIN NA 5 MG TABLET (UD) PO SCH (17:20)
--- NOTE | 2017-04-23 18:08 | DS ---
Physical Exam: SUBJECTIVE: Patient seen and examined at bedside OBJECTIVE: Vital Signs Period Temp Pulse Resp BP Sys/Esposito Pulse Ox Last 24 Hr 97.4 F-98.1 F 70-71 16-20 107-118/54-68 97-97 PHYSICAL EXAM GENERAL: The patient is awake, alert, and fully oriented, in no acute distress. LUNGS: Breath sounds equal, clear to auscultation bilaterally, no wheezes, no crackles, no accessory muscle use. HEART: Regular rate and rhythm, S1, S2 without murmur, rub or gallop. ABDOMEN: Soft, nontender, nondistended, normoactive bowel sounds. RECTAL: Large volume of soft stool present in vault. Prostate size normal without palpable nodules. EXTREMITIES: 2+ pulses, warm, well-perfused, no edema. NEUROLOGICAL: Cranial nerves II through XII grossly intact. Normal speech, gait steady. PSYCH: Normal mood, normal affect. SKIN: Warm, dry, normal turgor, no rashes or lesions noted LABS Laboratory Results - last 24 hr 04/23/17 04/23/17 04/23/17 05:59 06:00 06:00 WBC 9.7 RBC 5.25 Hgb 15.0 Hct 45.3 MCV 86.4 MCH 28.6 MCHC 33.1 RDW 18.6 H Plt Count 141 MPV 9.8 Neutrophils % 66.3 Lymphocytes % 22.5 Monocytes % 8.8 Eosinophils % 1.8 Basophils % 0.6 INR 2.24 H Sodium Potassium Chloride Carbon Dioxide Anion Gap BUN Creatinine Creat Clearance w eGFR Random Glucose Calcium Total Bilirubin AST ALT Alkaline Phosphatase Total Protein Albumin Lipase Urine Color Ltyellow Urine Appearance Clear Urine pH 8.0 D Ur Specific Harrison 1.015 Urine Protein Negative Urine Glucose (UA) Negative Urine Ketones Negative Urine Blood Negative Urine Nitrite Negative Urine Bilirubin Negative Urine Urobilinogen 4.0 e.u/dl Ur Leukocyte Esterase Negative 04/23/17 04/23/17 06:00 06:00 WBC RBC Hgb Hct MCV MCH MCHC RDW Plt Count MPV Neutrophils % Lymphocytes % Monocytes % Eosinophils % Basophils % INR Sodium 140 Potassium 3.5 Chloride 91 L Carbon Dioxide 37 H Anion Gap 12 BUN 54 H Creatinine 1.2 Creat Clearance w eGFR 57.41 Random Glucose 127 H D Calcium 9.9 Total Bilirubin 1.0 D AST 27 ALT 27 Alkaline Phosphatase 109 Total Protein 6.8 Albumin 3.6 Lipase 406 H Cancelled Urine Color Urine Appearance Urine pH Ur Specific Harrison Urine Protein Urine Glucose (UA) Urine Ketones Urine Blood Urine Nitrite Urine Bilirubin Urine Urobilinogen Ur Leukocyte Esterase HOSPITAL COURSE: Date of Admission:04/21/17 Date of Discharge: 04/23/17 Minutes to complete discharge: 35 Discharge Summary Reason For Visit: DEHYDRATION Current Active Problems A-fib (Acute) CHF (congestive heart failure) (Acute) COPD (chronic obstructive pulmonary disease) (Acute) DVT prophylaxis (Acute) Dehydration (Acute) Hypercholesteremia (Acute) Hypokalemia (Acute) Hyponatremia (Acute) Hospital Course: This is a 87 y/o male with a past medical history of CHF, PM, Hypercholesterolemia who presented to the ED from the PMDs office for Dehydration, confusion, weakness, abdominal pain. Per ED records: His son complained of AMS. At 01/27, he was found to be on too little diuretics with resultant severe leg, ankle and foot swelling, so his diuretics were increased. His PMD evaluation suggested dehydration so he was sent into the hospital. His abdominal pain has been going on for the past several weeks and is located in the suprapubic region. He denies nausea, vomiting, fevers, and chills. He endorses constipation, last bowel movement 1-2 days before admission. His shortness of breath had been for the past 2 weeks as well. He denied associated chest pain, endorses cough. His son states that while he has some baseline dementia, but that had also worsened the past couple of weeks. MARIELY- likely from overdiuresis - resolved with IV hydration - remains azotemic currently 54- was 96 on admission - Cr 1.2 with baseline 1.1 - D/C IVF - hold nephrotoxic drugs Hypokalemia - resolved - likely from overdiuresis - hold Lasix until f/u on 04/25 with PMD Hyponatremia - resolved with gentle hydration - likely from diuresis Constipation - large volume soft brown stool in vault - large BM s/p Mag citrate Weakness - resolved - ?hyponatremia - appreciate neuro consult Afib - Continue Toprol - INR- 2.24 - Continue Coumadin - [id number] score -5 CHF - hold lasix until f/u on 04/25 with PMD - appears euvolemic Hld - continue Lipitor Condition: Stable - Instructions Diet, Activity, Other Instructions: Eat a well balanced diet. Ensure is NOT a substitute for food. Do NOT take your Lasix and metolazone until you follow up with Dr. Duffy on April 25. Resume all other medications. Return to ER for worsening pain, weakness, increased confusion or any other concerns. Thank you for choosing us to provide your medical care. Referrals: Titus Quijano MD [Primary Care Provider] - Disposition: HOME - Home Medications Comprehensive Discharge Medication List: Ambulatory Orders Medication Instructions Recorded Metoprolol Succinate 50 mg PO DAILY 02/22/16 Potassium Chloride 20 meq PO HS 02/22/16 Simvastatin [Zocor -] 40 mg PO HS 02/22/16 Warfarin Na [Coumadin -] 5 mg PO HS 02/22/16 This patient is new to me today: Yes Date on this admission: 04/23/17 Emergency Visit: Yes ED Registration Date: 04/21/17 Care time: The patient presented to the Emergency Department on the above date and was hospitalized for further evaluation of their emergent condition. Critical Care patient: No - Discharge Referral Referred to [facility] Med P.C.: Yes Physician Referral: Titus Galeano MD ([facility] Med)
[2017-04-23] MEDS: POTASSIUM CHLORIDE TABS 20 MEQ TABLET.ER (FP) PO SCH (21:38)
[2017-04-23] MEDS: ATORVASTATIN CA 20 MG TABLET (FP) PO SCH (21:38)
[2017-04-23] MEDS: DEXTROSE 5%-NORMAL SALINE 1,000 ML IV SCH (21:47)
[2017-04-24] MEDS: DOCUSATE SODIUM 100 MG CAPSULE (FP) PO SCH (06:00)
[2017-04-24 07:19] VITALS: TEMP 97.5
[2017-04-24 07:59] LABS: BASOPHIL 0.7 % (0-2.0); EOSINOPHIL 2.8 % (0-4.5); MCH 28.7 pg (25.7-33.7); MEAN CELL VOLUME 86.9 fl (80-96); MEAN PLT VOLUME 10.1 fl (7.5-11.1); NEUTROPHILS 67.3 % (42.8-82.8); PLATELET COUNT 136 K/MM3 (134-434); RDW 18.7 % (11.9-15.9); WHITE BLOOD COUNT 9.1 K/mm3 (4.0-10.0)
[2017-04-24 08:14] LABS: INR 2.39 (0.82-1.09); PROTHROMBIN TIME (PATIENT) 26.8 SEC (9.98-11.88)
[2017-04-24 08:46] LABS: ANION GAP 8 (8-16); CALCIUM 9.7 mg/dL (8.5-10.1); CO2 37 mmol/L (21-32); GLUCOSE,RANDOM 109 mg/dL (74-106)
--- NOTE | 2017-04-24 09:59 | PN ---
Progress Note (short form) - Note Progress Note: Neurology HISTORY OF PRESENT ILLNESS: This is a 87 y/o male with a past medical history of CHF, PM, Hypercholesterolemia. Who presents to the ED from the PMDs office for Dehydration, confusion, weakness, abdominal pain. Per ED records: His son is complaining of AMS. At 01/27, he was found to be on too little diuretics with resultant severe leg, ankle and foot swelling, so his diuretics were increased. His PMD evaluation suggested dehydration so he was sent into the hospital. His abdominal pain has been going on for the past several weeks and is located in the suprapubic region. Reportedly, he has some baseline dementia, but that has also worsened the past couple of weeks. His labs were notable for Na of 130, CT head completed in ER did not show acute changes. 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 He was able to tell me he 's at [facility] as well as date and name of President. Seemed to be cognitively intact. Was complianing of addominal issues and staff difficulty overnight. Otherwise, neurologically stable at this time. Active Medications Atorvastatin Calcium (Lipitor -) 20 mg PO HS [facility] Last Admin: 04/23/17 21:38 Dose: 20 mg Docusate Sodium (Colace -) 100 mg PO TID [facility] Last Admin: 04/24/17 06:00 Dose: Not Given Dextrose/Sodium Chloride (D5-Ns -) 1,000 mls @ 42 mls/hr IV ASDIR [facility] Last Admin: 04/23/17 21:47 Dose: 42 mls/hr Metoprolol Succinate (Toprol Xl -) 50 mg PO DAILY [facility] Last Admin: 04/23/17 10:29 Dose: 50 mg Polyethylene Glycol (Miralax (For Daily Use) -) 17 gm PO DAILY [facility] Last Admin: 04/23/17 10:29 Dose: 17 gm Potassium Chloride (K-Dur -) 20 meq PO HS [facility] Last Admin: 04/23/17 21:38 Dose: 20 meq Warfarin Sodium (Coumadin -) 5 mg PO DAILY@1800 [facility] Last Admin: 04/23/17 17:20 Dose: 5 mg PHYSICAL EXAMINATION Last Vital Signs Temp Pulse Resp BP Pulse Ox 97.5 F L 70 20 119/52 97 04/24/17 07:17 04/24/17 07:17 04/24/17 07:17 04/24/17 07:17 04/23/17 21:00 GENERAL: Awake, alert, and fully oriented, in no acute distress. HEAD: Normal with no signs of trauma. EYES: Pupils equal, round and reactive to light, extraocular movements intact, sclera anicteric, conjunctiva clear. No lid lag. EARS, NOSE, THROAT: Ears normal, nares patent, oropharynx clear without exudates. Dry mucous membranes. NECK: Normal range of motion, supple without lymphadenopathy, JVD, or masses. LUNGS: Breath sounds equal, clear to auscultation bilaterally. No wheezes, and no crackles. No accessory muscle use. HEART: Regular rate and rhythm, normal S1 and S2 without murmur, rub or gallop. ABDOMEN: Soft, nontender, not distended, normoactive bowel sounds, no guarding, no rebound, no masses. No hepatomegaly or splenomegaly. MUSCULOSKELETAL: Normal range of motion at all joints. No bony deformities or tenderness. No CVA tenderness. UPPER EXTREMITIES: 2+ pulses, warm, well-perfused. No cyanosis. No clubbing. No peripheral edema. LOWER EXTREMITIES: 2+ pulses, warm, well-perfused. No calf tenderness. No peripheral edema. NEUROLOGICAL: Cranial nerves II-XII intact. Normal speech. Able to tell me place, time, President. Strength intact, sensory normal. Gait deferred PSYCHIATRIC: Cooperative. Good eye contact. Appropriate mood and affect. SKIN: Warm, dry, no rashes or lesions noted, normal capillary refill. Tenting, poor turgor, CBCD WBC 9.1 K/mm3 (4.0-10.0) 04/24/17 06:00 RBC 5.17 M/mm3 (4.00-5.60) 04/24/17 06:00 Hgb 14.8 GM/dL (11.7-16.9) 04/24/17 06:00 Hct 44.9 % (35.4-49) 04/24/17 06:00 MCV 86.9 fl (80-96) 04/24/17 06:00 MCHC 33.0 g/dl (32.0-35.9) 04/24/17 06:00 RDW 18.7 % (11.9-15.9) H 04/24/17 06:00 Plt Count 136 K/MM3 (134-434) 04/24/17 06:00 MPV 10.1 fl (7.5-11.1) 04/24/17 06:00 CMP Sodium 139 mmol/L (136-145) 04/24/17 06:00 Potassium 3.5 mmol/L (3.5-5.1) 04/24/17 06:00 Chloride 94 mmol/L (98-107) L 04/24/17 06:00 Carbon Dioxide 37 mmol/L (21-32) H 04/24/17 06:00 Anion Gap 8 (8-16) 04/24/17 06:00 BUN 38 mg/dL (7-18) H D 04/24/17 06:00 Creatinine 1.0 mg/dL (0.7-1.3) 04/24/17 06:00 Creat Clearance w eGFR 57.41 (>60) 04/23/17 06:00 Calcium 9.7 mg/dL (8.5-10.1) 04/24/17 06:00 Total Bilirubin 1.0 mg/dL (0.2-1.0) D 04/23/17 06:00 AST 27 U/L (15-37) 04/23/17 06:00 ALT 27 U/L (12-78) 04/23/17 06:00 Alkaline Phosphatase 109 U/L (45-117) 04/23/17 06:00 Total Protein 6.8 g/dl (6.4-8.2) 04/23/17 06:00 Albumin 3.6 g/dl (3.4-5.0) 04/23/17 06:00 Radiology: CT Brain No CT evidence of acute intracranial pathology. 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 The left mid abdominal mesentery is not well visualized on the current exam due to beam hardening artifact arising from intraluminal contrast within several small bowel loops. A 2.8 cm right renal cortical cyst is noted which demonstrates slightly increased intraluminal density in comparison to a 2013 CT study. This appearance is probably incidental in nature and secondary to a small amount of internal debris. Correlate with nonemergent sonography to exclude a developing soft tissue component. This cyst appears unchanged in overall size and configuration. Small bilateral inguinal hernias containing fat only. Very small umbilical hernia containing fat only. Stable at least moderate elevation of the left diaphragm. The partially imaged left upper chest demonstrates a small tubular focus which could be on the basis of bronchial mucoid impaction. ASSESSMENT/PLAN: This is a 87 y/o male with a PMHx of: CHF with PM, Hypercholesterolemia, Benign Intracranial Tumor, Diverticulitis, Pneumonia. Placed on observation for Dehydration for further evaluation of their emergent condition. Plan 87 y/o male with a past medical history of CHF, PM, Hypercholesterolemia. Who presents to the ED from the PMDs office for Dehydration, confusion, weakness, abdominal pain. Per ED records: His son is complaining of AMS. At 01/27, he was found to be on too little diuretics with resultant severe leg, ankle and foot swelling, so his diuretics were increased. His PMD evaluation suggested dehydration so he was sent into the hospital. His abdominal pain has been going on for the past several weeks and is located in the suprapubic region. Reportedly, he has some baseline dementia, but that has also worsened the past couple of weeks. His labs were notable for Na of 130, CT head completed in ER did not show acute changes. During my evaluation, he was awake, alert, responsive. He was able to tell me he's at [facility] as well as date and name of President. Seemed to be cognitively intact. Dehydration likely 2/2 to Diuresis, IVF as needed but want to avoid hyponatremia as well Monitor CMP, recheck NA levels Mental status appears improved CT head stable, meningioma noted and no change in size Lipitor 20mg for cholesterol can be continued Neurologically stable, no further rec'd at this time.
[2017-04-24] MEDS: POLYETHYLENE GLYCOL 3350 119 GM BTL PO SCH (10:07)
[2017-04-24] MEDS: METOPROLOL SUCCINATE 50 MG TAB.SR.24H (FP) PO SCH (10:07)
--- NOTE | 2017-04-24 10:58 | HOSP ---
Subjective - Review of Symptoms Subjective: pt seen and examined, complaints of some mild lightheadedness following x3 bowel movements since last night following bowel regimen administration for constipation. Denies palpitation, sob, chest pain, visual disturbances. Son at bedside. Physical Examination Vital Signs: Vital Signs Temperature 97.5 F L 04/24/17 07:17 Pulse Rate 70 04/24/17 07:17 Respiratory Rate 20 04/24/17 07:17 Blood Pressure 119/52 04/24/17 07:17 O2 Sat by Pulse Oximetry (%) 97 04/23/17 21:00 Constitutional: Yes: Calm HENT: Yes: Atraumatic Cardiovascular: Yes: Regular Rate and Rhythm, S1, S2 Respiratory: Yes: Regular, CTA Bilaterally Labs: CBC, BMP 04/24/17 06:00 04/24/17 06:00 Hospitalist Encounter Assessment: Patient seen on day of discharge. VSS, BMP wnl, dehydration improved Discussed with pt to keep scheduled appt with PCP tomorrow, son is aware, pcp to determine when to resume lasix. Per son, pt did not take his diuretics for some time causing initial overload issue. All questions answered without issue
[2017-04-24 11:32] VITALS: BP 134/95; PULSE 72
== END 2017-04-24 11:28 | disposition home or self-care (01) | DRG 683 ==
LOC: JER 13:19 → JERBED 21:50 → J8W 04-21 00:05 → OBSVTOIN 04-21 11:12
PROVIDERS: ADMIT Internal Medicine; ATTEND Nurse Practitioner Acute Care
DX: N17.9 Acute kidney failure, unspecified (principal); E87.1 Hypo-osmolality and hyponatremia; E86.0 Dehydration; I50.9 Heart failure, unspecified; Z95.0 Presence of cardiac pacemaker; I25.10 Atherosclerotic heart disease of native coronary artery without angina pectoris; E78.5 Hyperlipidemia, unspecified; I48.91 Unspecified atrial fibrillation; E87.6 Hypokalemia; E87.8 Other disorders of electrolyte and fluid balance, not elsewhere classified; D32.0 Benign neoplasm of cerebral meninges; K59.00 Constipation, unspecified; T50.2X5A Adverse effect of carbonic-anhydrase inhibitors, benzothiadiazides and other diuretics, initial encounter
CPT/HCPCS: 36415; 70450-TC; 71010-TC; 74020-TC; 74176-TC; 80048; 80053; 81003; 83690; 83735; 83880; 84100; 84484; 85025; 85610; 87086; 93005; 93010; 94010; 99285-25; G0378

== ENCOUNTER 2017-05-09 10:54 | Emergency (ER) | payer OTHER ==
[2017-05-09 10:59] VITALS: BMI 28.6
--- NOTE | 2017-05-09 11:08 | PDOC ---
History of Present Illness - General History Source: Patient Exam Limitations: No Limitations - History of Present Illness Initial Comments: 05/09/17 11:43 The patient is a 87 year old male, with a significant past medical history of coronary disease, CHF, pneumonia, hyperlipidemia, cardiac pacemaker, on coumadin , and diverticulitis who presents to the emergency department with LEFT eye hemorrhage for about 2 days. The patient reports waking up with his subconjunctival hemorrhage. He denies any vision changes. He denies any eye pain. He denies any recent fevers, chills, headache or dizziness. He denies any recent nausea, vomit, diarrhea or constipation. He denies any recent chest pain or shortness of breath. He denies any recent dysuria, frequency, urgency or hematuria. Allergies: NKA Past surgical history: None reported. Social History: Nonsmoker. Social EtOH use and denies recreational drug use. Primary Care Physician: <Yobani Malik - Last Filed: 05/09/17 11:43> <Freddy Altamirano - Last Filed: 05/09/17 14:04> - General Chief Complaint: Eye Problem Stated Complaint: LT EYE INJURY Time Seen by Provider: 05/09/17 11:07 Past History <Yobani Malik - Last Filed: 05/09/17 11:43> - Past Medical History Anemia: No Cardiac Disorders: Yes COPD: (hx pneumonia- MULTIPLE) HTN: Yes Hypercholesterolemia: Yes Other medical history: BENIGN TUMOR IN HEAD. - Surgical History Appendectomy: Yes Cardiac Surgery: Yes (PACEMAKER, STENT) Orthopedic Surgery: Yes (wrist) - Suicide/Smoking/Psychosocial Hx Smoking Status: No Smoking History: Never smoked Number of Cigarettes Smoked Daily: 0 Hx Alcohol Use: Yes (SOCIAL) Drug/Substance Use Hx: No Substance Use Type: None Hx Substance Use Treatment: No <Freddy Altamirano - Last Filed: 05/09/17 14:04> - Past Medical History Allergies/Adverse Reactions: Allergies Allergy/AdvReac Type Severity Reaction Status Date / Time No Known Drug Allergies Allergy Verified 05/09/17 10:59 Home Medications: Ambulatory Orders Metoprolol Succinate 50 mg PO DAILY 02/22/16 Potassium Chloride 20 meq PO HS 02/22/16 Simvastatin [Zocor -] 40 mg PO HS 07/05/16 Warfarin Na [Coumadin -] 5 mg PO HS 02/22/16 Furosemide [Lasix] 40 mg PO DAILY 05/09/17 Warfarin Sodium [Coumadin] 2.5 mg PO DAILY #7 tablet 05/09/17 Review of Systems - Review of Systems Able to Perform ROS?: Yes Comments:: 05/09/17 11:43 GENERAL/CONSTITUTIONAL: No fever or chills. No weakness. HEAD, EYES, EARS, NOSE AND THROAT: +left eye hemorrhage. No change in vision. No ear pain or discharge. No sore throat. CARDIOVASCULAR: No chest pain or shortness of breath. RESPIRATORY: No cough, wheezing, or hemoptysis. GASTROINTESTINAL: No nausea, vomiting, diarrhea or constipation. GENITOURINARY: No dysuria, frequency, or change in urination. MUSCULOSKELETAL: No joint or muscle swelling or pain. No neck or back pain. SKIN: No rash NEUROLOGIC: No headache, vertigo, loss of consciousness, or change in strength/ sensation. ENDOCRINE: No increased thirst. No abnormal weight change. HEMATOLOGIC/LYMPHATIC: No anemia, easy bleeding, or history of blood clots. ALLERGIC/IMMUNOLOGIC: No hives or skin allergy. <Yobani Malik - Last Filed: 05/09/17 11:43> *Physical Exam - Vital Signs Last Vital Signs Temp Pulse Resp BP Pulse Ox 98.2 F 88 20 136/77 99 05/09/17 10:56 05/09/17 10:56 05/09/17 10:56 05/09/17 10:56 05/09/17 10:56 - Physical Exam Comments: 05/09/17 11:43 GENERAL: Awake, alert, and fully oriented, in no acute distress HEAD: No signs of trauma EYES: PERRLA, EOMI, Left eye subconjunctival hemorrhage. ENT: Auricles normal inspection, hearing grossly normal, nares patent, oropharynx clear without exudates. Moist mucosa NECK: Normal ROM, supple, no lymphadenopathy, JVD, or masses LUNGS: Breath sounds equal, clear to auscultation bilaterally. No wheezes, and no crackles HEART: Regular rate and rhythm, normal S1 and S2, no murmurs, rubs or gallops ABDOMEN: Soft, nontender, normoactive bowel sounds. No guarding, no rebound. No masses EXTREMITIES: Some swelling below the knees. Normal range of motion. No clubbing or cyanosis. No cords, erythema, or tenderness NEUROLOGICAL: Cranial nerves II through XII grossly intact. Normal speech, normal gait SKIN: Warm, Dry, normal turgor, no rashes or lesions noted. <Yobani Malik - Last Filed: 05/09/17 11:43> - Vital Signs Last Vital Signs Temp Pulse Resp BP Pulse Ox 98.2 F 88 20 136/77 99 05/09/17 10:56 05/09/17 10:56 05/09/17 10:56 05/09/17 10:56 05/09/17 10:56 <Freddy Altamirano - Last Filed: 05/09/17 14:04> ED Treatment Course - LABORATORY CBC & Chemistry Diagram: 05/09/17 11:37 05/09/17 11:37 <Yobani Malik - Last Filed: 05/09/17 11:43> - LABORATORY CBC & Chemistry Diagram: 05/09/17 11:37 05/09/17 11:37 <Freddy Altamirano - Last Filed: 05/09/17 14:04> Medical Decision Making - Medical Decision Making 05/09/17 13:[address] Christian (PMD) DC home, no coumadin til Sunday night, 2.5 mg daily, blood work in the office on Sunday <Freddy Altamirano - Last Filed: 05/09/17 14:04> *DC/Admit/Observation/Transfer - Attestations Scribe Attestion: 05/09/17 11:43 Documentation prepared by Yobani Malik, acting as medical staff physician for Freddy Altamirano DO. <Yobani Malik - Last Filed: 05/09/17 11:43> - Discharge Dispostion Admit: No - Attestations Physician Attestion: 05/09/17 11:08 I, Dr. Freddy Altamirano, attest that this document has been prepared under my direction and personally reviewed by me in its entirety. I further attest, that it accurately reflects all work, treatment, procedures and medical decision -making performed by me. <Freddy Altamirano - Last Filed: 05/09/17 14:04> Diagnosis at time of Disposition: Elevated INR CHF (congestive heart failure) Qualifiers: Congestive heart failure type: combined Congestive heart failure chronicity: chronic Qualified Code(s): I50.42 - Chronic combined systolic (congestive) and diastolic (congestive) heart failure Subconjunctival bleed Qualifiers: Laterality: left Qualified Code(s): H11.32 - Conjunctival hemorrhage, left eye - Discharge Dispostion Disposition: HOME Condition at time of disposition: Unchanged/Unknown - Patient Instructions Printed Discharge Instructions: DI for Subconjunctival Hemorrhage Additional Instructions: Mr Marin - I spoke with your doctor. No Coumadin until Sunday.... take 2.5 mg at night before bed and go to the office on sunday to get your level checked. Return to us if any problems. See your Eye Doctor as planned this afternoon- Best- Dr. Freddy Altamirano
[2017-05-09 11:44] LABS: BASOPHIL 1.1 % (0-2.0); EOSINOPHIL 2.4 % (0-4.5); MCHC 32.5 g/dl (32.0-35.9); MEAN CELL VOLUME 89.2 fl (80-96); MEAN PLT VOLUME 8.8 fl (7.5-11.1); NEUTROPHILS 64.8 % (42.8-82.8); PLATELET COUNT 162 K/MM3 (134-434); RDW 20.5 % (11.9-15.9); WHITE BLOOD COUNT 6.5 K/mm3 (4.0-10.0)
[2017-05-09 12:02] LABS: ACTIVATED PTT 71.5 SECONDS (26.9-34.4)
[2017-05-09 12:03] LABS: INR 6.56 (0.82-1.09)
[2017-05-09] MEDS ORDERED: PHYTONADIONE 10 MG/1 ML AMP IVPB ONE (12:03)
[2017-05-09 12:10] LABS: ANION GAP 3 (8-16); CALCIUM 9.8 mg/dL (8.5-10.1); CO2 30 mmol/L (21-32); GLUCOSE,RANDOM 114 mg/dL (74-106)
[2017-05-09] MEDS ORDERED: PHYTONADIONE 10 MG/1 ML AMP ONE (12:12)
--- NOTE | 2017-05-09 12:13 | EKG ---
Test Reason : Blood Pressure : / mmHG Vent. Rate : 070 BPM Atrial Rate : 073 BPM P-R Int : 000 ms QRS Dur : 176 ms QT Int : 468 ms P-R-T Axes : 000 261 085 degrees QTc Int : 505 ms Ventricular-paced rhythm ABNORMAL ECG WHEN COMPARED WITH ECG OF 20-APR-2017 19:21, NO SIGNIFICANT CHANGE WAS FOUND Confirmed by YARY BERRIOS MD ([id number]) on 05/09/2017 12:13:20 PM Referred By: Confirmed By:YARY BERRIOS MD
[2017-05-09 14:54] VITALS: BP 136/78; PULSE 84; TEMP 98.7
== END 2017-05-09 14:58 | disposition home or self-care (01) ==
LOC: JER 10:54
PROC: 3E033GC Introduction of Other Therapeutic Substance into Peripheral Vein, Percutaneous Approach (ICD-10-PCS; principal; 2017-05-09)
DX: I50.42 Chronic combined systolic (congestive) and diastolic (congestive) heart failure (principal); R79.1 Abnormal coagulation profile; H11.32 Conjunctival hemorrhage, left eye; I50.9 Heart failure, unspecified; E78.5 Hyperlipidemia, unspecified; Z95.0 Presence of cardiac pacemaker; Z79.01 Long term (current) use of anticoagulants
CPT/HCPCS: 36415; 71010-TC; 80048; 83880; 85025; 85610; 85730; 86850; 86900; 86901; 93005; 93010; 96374; 99283-25

== ENCOUNTER 2018-05-13 11:18 | Observation (INO) | payer BC ==
--- NOTE | 2018-05-13 12:09 | PDOC ---
Attending Attestation - Resident Resident Name: Cristobal Washington - ED Attending Attestation I have performed the following: I have examined & evaluated the patient, The case was reviewed & discussed with the resident, I agree w/resident's findings & plan, Exceptions are as noted - HPI HPI: 05/13/18 15:55 This is an 88-year-old male who presents emergency department due to head injury. He is currently on vitamins. Apparently he went upstairs to his bathroom last evening, and had an unwitnessed fall. His immediately responded and he did not demonstrate a loss of consciousness. Patient is not amnestic. Patient was kept home because he was thought to be stable. Recently he was brought to emergency department today was because he had continual bleeding from his head abrasion. No intractable vomiting. - Physicial Exam PE: 05/13/18 15:57 GENERAL: The patient is in no acute distress. HEAD: (+) head trauma noted EYES: PERRLA, EOMI, sclera anicteric, conjunctiva clear. ENT: Ears normal, nares patent, oropharynx clear without exudates. NECK: Normal range of motion, supple without midline tenderness to palpation LUNGS: Breath sounds equal, clear to auscultation bilaterally. No wheezes, and no crackles. HEART:Regular rate and rhythm, normal S1 and S2 without murmur, rub or gallop. ABDOMEN: Soft, nontender, normoactive bowel sounds. No guarding, no rebound. No masses palpable. EXTREMITIES: Normal range of motion, no edema. NEUROLOGICAL: Cranial nerves II through XII grossly intact. Normal speech. No focal neurological deficits. - Medical Decision Making 05/13/18 14:25 Laboratory Tests 05/13/18 12:[address]51 H* Ct reviewed by me and is concerning for bleed Radiology contacted for expedited study 05/13/18 14:29 [address]ble to speak with Dr Montilla States pt has meningioma and this is stable 05/13/18 15:58 05/13/18 15:58 Laboratory Tests 05/13/18 05/13/18 12:40 12:40 WBC 7.6 Hgb 14.2 Hct 42.8 Plt Count 136 BUN 21 H Creatinine 1.3 Will Admit
--- NOTE | 2018-05-13 12:35 | PDOC ---
History of Present Illness - General Chief Complaint: Injury Stated Complaint: HEAD INJURY Time Seen by Provider: 05/13/18 12:03 Past History - Past Medical History Allergies/Adverse Reactions: Allergies Allergy/AdvReac Type Severity Reaction Status Date / Time No Known Drug Allergies Allergy Verified 05/09/17 10:59 Home Medications: Ambulatory Orders Potassium Chloride 20 meq PO DAILY 02/22/16 Simvastatin [Zocor -] 40 mg PO HS 02/22/16 Warfarin Na [Coumadin -] 5 mg PO HS 02/22/16 Furosemide [Lasix] 80 mg PO DAILY 05/09/17 Anemia: No Cardiac Disorders: Yes (CHF, PPM) COPD: (hx pneumonia- MULTIPLE) HTN: Yes Hypercholesterolemia: Yes - Surgical History Appendectomy: Yes Cardiac Surgery: Yes (PACEMAKER, STENT) Orthopedic Surgery: Yes (wrist) - Suicide/Smoking/Psychosocial Hx Smoking Status: No Smoking History: Never smoked Number of Cigarettes Smoked Daily: 0 Hx Alcohol Use: Yes (SOCIAL) Drug/Substance Use Hx: No Substance Use Type: None Hx Substance Use Treatment: No *Physical Exam - Vital Signs Last Vital Signs Temp Pulse Resp BP Pulse Ox 98.3 F 88 18 139/73 95 05/13/18 11:22 05/13/18 11:22 05/13/18 11:22 05/13/18 11:22 05/13/18 11:22 ED Treatment Course - LABORATORY CBC & Chemistry Diagram: 05/13/18 12:40 05/13/18 12:40 *DC/Admit/Observation/Transfer Diagnosis at time of Disposition: Elevated INR Clavicle fracture Qualifiers: Encounter type: initial encounter Clavicle location: lateral end Fracture type : closed Fracture alignment: nondisplaced Laterality: left Qualified Code(s): S42.035A - Nondisplaced fracture of lateral end of left clavicle, initial encounter for closed fracture Laceration of forehead, left, complicated Qualifiers: Encounter type: initial encounter Qualified Code(s): S01.81XA - Laceration without foreign body of other part of head, initial encounter - Discharge Dispostion Decision to Admit order: Yes - Referrals - Patient Instructions - Post Discharge Activity
[2018-05-13 12:57] LABS: BASO % 0.7 % (0-2.0); EOS % 1.7 % (0-4.5); HEMATOCRIT 42.8 % (35.4-49); HEMOGLOBIN 14.2 GM/dL (11.7-16.9); LYMPH % 18.2 % (8-40); MCH 29.3 pg (25.7-33.7); MCHC 33.1 g/dl (32.0-35.9); MEAN CELL VOLUME 88.7 fl (80-96); MEAN PLT VOLUME 10.5 fl (7.5-11.1); MONO % 8.9 % (3.8-10.2); NEUT % 70.5 % (42.8-82.8); PLATELET COUNT 136 K/MM3 (134-434); RBC 4.83 M/mm3 (4.00-5.60); RDW 18.2 % (11.9-15.9); WHITE BLOOD COUNT 7.6 K/mm3 (4.0-10.0)
[2018-05-13 13:20] LABS: ANION GAP 5 MMOL/L (8-16); BLOOD UREA NITROGEN 21 mg/dL (7-18); CALCIUM 9.1 mg/dL (8.5-10.1); CHLORIDE 107 mmol/L (98-107); CO2 31 mmol/L (21-32); CREATININE 1.3 mg/dL (0.55-1.3); GLUCOSE,RANDOM 185 mg/dL (74-106); POTASSIUM 3.8 mmol/L (3.5-5.1); SODIUM 144 mmol/L (136-145)
[2018-05-13 14:18] LABS: INR 4.51 (0.83-1.09)
[2018-05-13] MEDS ORDERED: traMADol HCL 50 MG TABLET PO ONE (17:54)
[2018-05-13] MEDS ORDERED: traMADol HCL 50 MG TABLET ONE (18:28)
--- NOTE | 2018-05-13 18:36 | HP ---
CHIEF COMPLAINT:s/p fall PCP:Froylan HISTORY OF PRESENT ILLNESS: 88M with history of Atrial fibrillation on coumadin, PPM, HLD, meningioma, presents to the hospital s/p fall last night. Patient does not remember the event but per she responded immediately and patient was found down on his left side. no loss of consciousness. He was able to get up and has been able to ambulate, although, he complains of minor right knee pain. He came to the hospital because the left head laceration kept bleeding and complaining of left shoulder pain. left shoulder Xray shows Wound closed in ER with dermabond and now stopped. The son believes his father fell because his leg got stuck in his pants as he was putting it on. Per the family the patient has some short term memory loss ands its not unusual for him to be forgetful of events like this. Had Head CT in ER which shows stable meningioma. Left shoulder Xray shows small acute fracture in distal clavicle. INR supratherapeutic to 4.5. ER concern for right knee hemarthrosis. Knee Xray requested. Ambulates with cane at home. Patient denies starting new meds that may interact with coumadin or changing his diet or a change in the amount of leafy greens. ER course was notable for: (1)Labs (2)Xray Recent Travel:Denies PAST MEDICAL HISTORY: CHF Hypercholesterolemia Meningioma PAST SURGICAL HISTORY: PPM Wrist surgery Social History: Smoking:Denies Alcohol:Denies Drugs: Denies Family History:NA Allergies No Known Drug Allergies Allergy (Verified 05/09/17 10:59) HOME MEDICATIONS: Home Medications Medication Instructions Recorded Potassium Chloride 20 meq PO DAILY 02/22/16 Simvastatin [Zocor -] 40 mg PO HS 02/22/16 Warfarin Na [Coumadin -] 5 mg PO HS 02/22/16 Furosemide [Lasix] 80 mg PO DAILY 05/09/17 REVIEW OF SYSTEMS CONSTITUTIONAL: Absent: fever, chills, diaphoresis, generalized weakness, malaise, loss of appetite, weight change HEENT: Absent: rhinorrhea, nasal congestion, throat pain, throat swelling, difficulty swallowing, mouth swelling, ear pain, eye pain, visual changes Present: Left head laceration CARDIOVASCULAR: Absent: chest pain, syncope, palpitations, irregular heart rate, lightheadedness , peripheral edema RESPIRATORY: Absent: cough, shortness of breath, dyspnea with exertion, orthopnea, wheezing, stridor, hemoptysis GASTROINTESTINAL: Absent: abdominal pain, abdominal distension, nausea, vomiting, diarrhea, constipation, melena, hematochezia GENITOURINARY: Absent: dysuria, frequency, urgency, hesitancy, hematuria, flank pain, genital pain MUSCULOSKELETAL: Absent: back pain, neck pain Present: Right knee pain, left shoulder pain SKIN: Absent: rash, itching, pallor HEMATOLOGIC/IMMUNOLOGIC: Absent: easy bleeding, easy bruising, lymphadenopathy, frequent infections ENDOCRINE: Absent: unexplained weight gain, unexplained weight loss, heat intolerance, cold intolerance NEUROLOGIC: Absent: headache, focal weakness or paresthesias, dizziness, unsteady gait, seizure, mental status changes, bladder or bowel incontinence PSYCHIATRIC: Absent: anxiety, depression, suicidal or homicidal ideation, hallucinations. PHYSICAL EXAMINATION Vital Signs - 24 hr 05/13/18 05/13/18 05/13/18 11:22 17:06 18:32 Temperature 98.3 F 98.9 F 98.2 F Pulse Rate 88 Pulse Rate [ 80 66 Left] Respiratory 18 18 18 Rate Blood Pressure 139/73 Blood Pressure 143/61 129/56 L [Left Arm] O2 Sat by Pulse 95 98 100 Oximetry (%) GENERAL: Awake, alert, and fully oriented, in no acute distress. HEAD: Right sided laceration. Dry and clean EYES: Pupils equal, round and reactive to light, extraocular movements intact EARS, NOSE, THROAT: Moist mucous membranes. NECK: Normal range of motion, supple LUNGS: Breath sounds equal, clear to auscultation bilaterally. No wheezes, and no crackles HEART: Irregular ABDOMEN: Soft, nontender, not distended, normoactive bowel sounds. MUSCULOSKELETAL: Normal range of motion at all joints. No bony deformities or tenderness. No CVA tenderness. UPPER EXTREMITIES:warm, well-perfused. Left arm in splint. neurovascularly intact 2+ pulses. LOWER EXTREMITIES: warm, well-perfused. neurovascularly intact some varicose veins. right knee non tender. slightly red knee. good range of motion. Able to ambulate with a cane with mild pain. Pitting edema of bilateral lower extremities. NEUROLOGICAL: Cranial nerves II-XII intact. Normal speech. ambulating with cane without difficulty PSYCHIATRIC: Cooperative. Good eye contact. Appropriate mood and affect. SKIN: Warm, dry, normal turgor Laboratory Results - last 24 hr 05/13/18 05/13/18 05/13/18 12:40 12:40 12:40 WBC 7.6 RBC 4.83 Hgb 14.2 Hct 42.8 MCV 88.7 MCH 29.3 MCHC 33.1 RDW 18.2 H Plt Count 136 MPV 10.5 D Absolute Neuts (auto) 5.4 Neutrophils % 70.5 Lymphocytes % 18.2 Monocytes % 8.9 Eosinophils % 1.7 Basophils % 0.7 Nucleated RBC % 0 PT with INR 51.00 H INR 4.51 H* Sodium 144 Potassium 3.8 Chloride 107 Carbon Dioxide 31 Anion Gap 5 L BUN 21 H Creatinine 1.3 Creat Clearance w eGFR 52.22 Random Glucose 185 H Calcium 9.1 Creatine Kinase 137 Troponin I 0.07 H CXR: no acute pathology Left shoulder X-Ray: acute fracture of distal clavicle. Head CT: no acute pathology. unchanged calcified meningioma (unchanged from 2016) ASSESSMENT/PLAN: 88M with history of CHF Afib on coumadin presents s/p fall found to have clavicular fracture and supratherapeutic INR. left clavicular fracture s/p fall: left shoulder in a splint Continue splint outpatient orthopedics follow up pain control Supratherapeutic INR: Hold coumadin tonight recheck INR in AM Trend CBC Afib:s/p PPM Rate controlled Hold Coumadin tonight Concern for hemarthrosis of right knee by ED: doubt patient has hemarthosis but will check Knee Xray Trend CBC Troponinemia: Troponin 0.07 Always elevated at baseline previously 0.10 denies chest pain or cardiac symptoms EKG non ischemic Will stop trending Meningioma: Stable outpatient follow up CHF: Not in acute exacerbation restart lasix 80mg po daily HLD: Restart statin on formulary Hyperglycemia:Could be reactive Check HbA1C Check BGM TIDAC off ISS FEN: no IVF no electrolyte issues but restart potassium 20MeQ daily sodium controlled diet PPx: supratherapeutic INR/SCDs no GI PPx indicated PT consult Case discussed with Dr. Carranza Visit type - Emergency Visit Emergency Visit: Yes Care time: The patient presented to the Emergency Department on the above date and was hospitalized for further evaluation of their emergent condition. - New Patient This patient is new to me today: Yes Date on this admission: 05/13/18 - Critical Care Critical Care patient: No Hospitalist Screening - Colonoscopy Questionnaire Colonoscopy Questionnaire: Colonoscopy Questionnaire - Patient: 50 - 75 years old and never had a screening colonoscopy: No History of colon or rectal polyps, or CA: No History of IBD, Crohn's disease or UC: No History of abdominal radiation therapy as a child: No - Relative: 1 with colon or rectal CA, or polyps at age 60 or younger: No Colon or rectal CA diagnosed at age 45 or younger: No Multiple relatives with colon or rectal CA: No - Outcome: Screening Result: Negative Screen
[2018-05-13] MEDS ORDERED: ACETAMINOPHEN 325 MG TABLET (FP) PO PRN (18:51)
[2018-05-13] MEDS ORDERED: ATORVASTATIN CA 20 MG TABLET (FP) PO SCH (22:00)
--- NOTE | 2018-05-14 02:44 | PDOC ---
*Physical Exam - Vital Signs Last Vital Signs Temp Pulse Resp BP Pulse Ox 98.1 F 76 18 136/52 L 100 05/13/18 22:31 05/13/18 22:31 05/13/18 22:31 05/13/18 22:31 05/13/18 18:32 ED Treatment Course - LABORATORY CBC & Chemistry Diagram: 05/13/18 12:40 05/13/18 12:40 - ADDITIONAL ORDERS Additional order review: Laboratory Results 05/13/18 12:40 Sodium 144 Potassium 3.8 Chloride 107 Carbon Dioxide 31 Anion Gap 5 L BUN 21 H Creatinine 1.3 Creat Clearance w eGFR 52.22 Random Glucose 185 H Calcium 9.1 Creatine Kinase 137 Troponin I 0.07 H 05/13/18 12:40 RBC 4.83 MCV 88.7 MCHC 33.1 RDW 18.2 H MPV 10.5 D Neutrophils % 70.5 Lymphocytes % 18.2 Monocytes % 8.9 Eosinophils % 1.7 Basophils % 0.7 - Medications Given in the ED: ED Medications Discontinued Medications Generic Name Dose Route Start Last Admin Trade Name Mariangel PRN Reason Stop Dose Admin Tramadol HCl 50 mg 05/13/18 17:54 05/13/18 18:34 Ultram - PO 05/13/18 17:55 50 mg ONCE ONE Administration Medical Decision Making - Medical Decision Making I as approached by radiology technologist regarding an aberrant knee film order for this patient. Looking through the chart and speaking with the patient, it appears that he has right knee pain. I noticed that the order was for a left knee film so I cancelled the order and place a right knee film to aid the medicine team. 05/14/18 02:40 *DC/Admit/Observation/Transfer Diagnosis at time of Disposition: Elevated INR Clavicle fracture Qualifiers: Encounter type: initial encounter Clavicle location: lateral end Fracture type : closed Fracture alignment: nondisplaced Laterality: left Qualified Code(s): S42.035A - Nondisplaced fracture of lateral end of left clavicle, initial encounter for closed fracture Laceration of forehead, left, complicated Qualifiers: Encounter type: initial encounter Qualified Code(s): S01.81XA - Laceration without foreign body of other part of head, initial encounter - Referrals - Patient Instructions - Post Discharge Activity
[2018-05-14 04:08] VITALS: BMI 27.8
--- NOTE | 2018-05-14 06:42 | PN ---
Teaching Attending Note Name of Resident: Tae Goodwin ATTENDING PHYSICIAN STATEMENT I saw and evaluated the patient. I reviewed the resident's note and discussed the case with the resident. I agree with the resident's findings and plan as documented. SUBJECTIVE: 88 y/o M presenting to hospital s/p Fall at home. History significant for A fib on coumadin and meningioma. On evaluation in ED patient found to have head laceration, left clavicular fracture and there was concern for hemarthrosis due to supratherapeutic INR and referred for observation. OBJECTIVE: Gen: A&Ox3 in NAD HEENT: Right laceration, PERRLA, EOMI CVS: Irregular rhythm Abd: Soft, NT, BS+ Ext: right knee swollen , nontender, ROM slightly limited secondary to pain Neuro: No focal deficits. ASSESSMENT AND PLAN: Supratherapeutic INR s/p fall with head trauma continue to monitor closely, neurochecks. Hold coumadin and repeat INR in Am. Left clavicular fracture no surgical indications, splint and refer to Ortho. Follow knee xray. Case d/w resident and plans agreed on.
[2018-05-14 07:41] LABS: HEMATOCRIT 41.7 % (35.4-49); HEMOGLOBIN 13.4 GM/dL (11.7-16.9); MCH 28.4 pg (25.7-33.7); MEAN CELL VOLUME 88.7 fl (80-96); MEAN PLT VOLUME 10.2 fl (7.5-11.1); PLATELET COUNT 116 K/MM3 (134-434); WHITE BLOOD COUNT 7.1 K/mm3 (4.0-10.0)
[2018-05-14 07:44] LABS: INR 3.5 (0.83-1.09); PROTHROMBIN TIME (PATIENT) 39.5 SEC (9.7-13.0)
[2018-05-14 07:46] LABS: ACTIVATED PTT 55.6 SECONDS (25.2-36.5)
[2018-05-14 07:53] LABS: ANION GAP 6 MMOL/L (8-16); BLOOD UREA NITROGEN 17 mg/dL (7-18); CALCIUM 9.1 mg/dL (8.5-10.1); CHLORIDE 108 mmol/L (98-107); CO2 29 mmol/L (21-32); CREATININE 0.9 mg/dL (0.55-1.3); GLUCOSE,RANDOM 82 mg/dL (74-106); MAGNESIUM 2.3 mg/dL (1.8-2.4); PHOSPHOROUS 2.5 mg/dL (2.5-4.9); POTASSIUM 3.8 mmol/L (3.5-5.1); SODIUM 144 mmol/L (136-145)
[2018-05-14] MEDS ORDERED: POTASSIUM CHLORIDE TABS 20 MEQ TABLET.ER (FP) PO SCH (10:00)
[2018-05-14] MEDS ORDERED: FUROSEMIDE 40 MG TABLET (FP) PO SCH (10:00)
--- NOTE | 2018-05-14 10:58 | EKG ---
Test Reason : Blood Pressure : / mmHG Vent. Rate : 078 BPM Atrial Rate : 394 BPM P-R Int : 000 ms QRS Dur : 086 ms QT Int : 394 ms P-R-T Axes : 000 -13 -73 degrees QTc Int : 449 ms Atrial-sensed ventricular-paced rhythm WITH FREQUENT PREMATURE VENTRICULAR COMPLEXES ABNORMAL ECG Confirmed by MD MARIAM, KELLY ([id number]) on 05/14/2018 10:57:57 AM Referred By: Confirmed By:KELLY BECERRA MD
--- NOTE | 2018-05-14 11:55 | PN ---
Physical Exam: SUBJECTIVE: Patient seen and examined at bedside this morning. He is alert and oriented to person (knows full name and date of ), and place ([facility]). Does not remember falling, and is unsure how long his left shoulder has been hurting him. States right shoulder has been hurting him for the past 2- 3 months. Admits right knee pain for past year. Today denies headache, change in vision, fevers, chills, shortness of breath, chest pain, palpitations, abdominal pain, nausea, vomiting, diarrhea. OBJECTIVE: Vital Signs Period Temp Pulse Resp BP Sys/Esposito Pulse Ox Last 24 Hr 98 F-98.9 F 66-88 18-18 129-143/52-74 95-100 GENERAL: The patient is awake, alert, and oriented to person (knows full name and date of ), and place ([facility]). No acute distress. HEAD: Bruise over right side forehead. Tender to palpation. EYES: PERRLA, extraocular movements intact, sclera anicteric, conjunctiva non- injected b/l. ENT: Oropharynx clear without exudates, erythema, or lesions. Moist mucous membranes. NECK: Supple without lymphadenopathy or thyromegaly. LUNGS: Good inspiratory effort. Breath sounds equal, clear to auscultation bilaterally. No wheezes, no crackles, no accessory muscle use. HEART: Regular rate and rhythm, S1, S2 without murmur, rub or gallop. ABDOMEN: Soft, nontender, nondistended, normoactive bowel sounds, no guarding, no rebound. Liver edge palpated 3 cm below right costal margin. MUSCULOSKELETAL: B/L shoulders and right clavicle tender to palpation. Passive range of motion intact b/l upper extremities EXTREMITIES: 2+ radial and dorsalis pedis pulses b/l. No edema b/l lower extremities. NEUROLOGICAL: Cranial nerves II through XII grossly intact. Normal speech. Stable gait without cane or walker observed for approx 10 feet. PSYCH: Mood and affect appropriate upon my encounter today. SKIN: Warm, dry. Echymosis noted over right forehead. Laboratory Results - last 24 hr 05/13/18 05/13/18 05/13/18 12:40 12:40 12:40 WBC 7.6 RBC 4.83 Hgb 14.2 Hct 42.8 MCV 88.7 MCH 29.3 MCHC 33.1 RDW 18.2 H Plt Count 136 MPV 10.5 D Absolute Neuts (auto) 5.4 Neutrophils % 70.5 Lymphocytes % 18.2 Monocytes % 8.9 Eosinophils % 1.7 Basophils % 0.7 Nucleated RBC % 0 PT with INR 51.00 H INR 4.51 H* PTT (Actin FS) Sodium 144 Potassium 3.8 Chloride 107 Carbon Dioxide 31 Anion Gap 5 L BUN 21 H Creatinine 1.3 Creat Clearance w eGFR 52.22 POC Glucometer Random Glucose 185 H Hemoglobin A1c % Calcium 9.1 Phosphorus Magnesium Creatine Kinase 137 Troponin I 0.07 H 05/14/18 05/14/18 05/14/18 06:06 06:30 06:30 WBC 7.1 RBC 4.70 Hgb 13.4 Hct 41.7 MCV 88.7 MCH 28.4 MCHC 32.0 RDW 18.0 H Plt Count 116 L MPV 10.2 Absolute Neuts (auto) Neutrophils % Lymphocytes % Monocytes % Eosinophils % Basophils % Nucleated RBC % PT with INR 39.50 H INR 3.50 H PTT (Actin FS) 55.6 H Sodium Potassium Chloride Carbon Dioxide Anion Gap BUN Creatinine Creat Clearance w eGFR POC Glucometer 80 Random Glucose Hemoglobin A1c % Calcium Phosphorus Magnesium Creatine Kinase Troponin I 05/14/18 05/14/18 06:30 06:30 WBC RBC Hgb Hct MCV MCH MCHC RDW Plt Count MPV Absolute Neuts (auto) Neutrophils % Lymphocytes % Monocytes % Eosinophils % Basophils % Nucleated RBC % PT with INR INR PTT (Actin FS) Sodium 144 Potassium 3.8 Chloride 108 H Carbon Dioxide 29 Anion Gap 6 L BUN 17 Creatinine 0.9 Creat Clearance w eGFR > 60 POC Glucometer Random Glucose 82 Hemoglobin A1c % 6.2 Calcium 9.1 Phosphorus 2.5 Magnesium 2.3 Creatine Kinase Troponin I 0.07 H Active Medications Generic Name Dose Route Start Last Admin Trade Name Freq PRN Reason Stop Dose Admin Acetaminophen 650 mg 05/13/18 18:51 Tylenol - PO Q4H PRN PAIN LEVEL 1-5 Atorvastatin Calcium 20 mg 05/13/18 22:00 05/13/18 23:00 Lipitor - PO 20 mg HS GEORGE Administration Furosemide 80 mg 05/14/18 10:00 05/14/18 10:42 Lasix - PO 80 mg DAILY GEORGE Administration Potassium Chloride 20 meq 05/14/18 10:00 05/14/18 10:42 K-Dur - PO 20 meq DAILY GEORGE Administration ASSESSMENT/PLAN: Patient is an 88 year old female with history of congestive heart failure, Afib on Coumadin with pacemaker, presents after unwitnessed fall. Unwitnessed, fall -Likely mechanical in etiology. -EKG showed ventricular paced rhythm with prematuvre ventricular complexes. -Left clavicle fracture noted on Xray. Tender to palpation, however passive range of motion intact in b/l upper extremities. -F/U Orthopedic surgery consult (Dr. Nguyen) -F/U PT evaluation -Continue shoulder splint -Pain control with Tylenol 650mg PO Q6H PRN CHF Lasix 80mg PO daily Afib -Coumadin for anticoagulation (held as INR upon admission was 4.51 -> 3.5) -Will hold until HLD -Atorvastatin 20mg PO HS FEN -No IV fluids. Patient tolerates oral intake. Encourage judicious hydration. -Will follow CMP -Sodium controlled diet. Prophylaxis -INR supratherapeutic. Will hold Coumadin. Disposition: Continue observation in medical surgical floor.
[2018-05-14 14:37] VITALS: BP 140/77; PULSE 72; TEMP 98.3
--- NOTE | 2018-05-14 15:28 | PN ---
Teaching Attending Note Name of Resident: Papi Weeks ATTENDING PHYSICIAN STATEMENT I saw and evaluated the patient. I reviewed the resident's note and discussed the case with the resident. I agree with the resident's findings and plan as documented. SUBJECTIVE: No fever or chills . No Cp, no pain in knees. has pain in L shoulder. OBJECTIVE: NAD, awake , alert , knows his name, age and location . CV: RRR Lungs: CTAB \ext no edema . R knee with effusion , slight erythema, no TTP . MS : TTP in L shoulder over distal clavicle ASSESSMENT AND PLAN: 88 y/o man with h/o HTN, A fib, PPM , meningioma, OA and mild short term memory loss who presented after a fall and was found to have hypercoagulable state and L clavicular Fx and R knee effusion 1- Fall ; likely mechanical per family. 2- L clavicular Fx. sling. otrho eval 3- R knee effusion : could be due to trauma in setting of OA, no pain, no restricted range of motion, No Fx on xray . hemarthrosis is less likely but can 't be r/o. no increased warmth or leukocytosis /fever to indicate septic joint - orhto eval - monitor knee 4- Comadin coagulopathy: hold coumadin . monitor INR 5- H/o CHF, not clear of type : stable, no exacerbation . cont home lasix. 6- Elevated trop: chronic , no CP, remained stable. EKG with paced rhythm, TWI in III, better compared to EKG form 2017 . no further e/u dispo : dc is pending ortho eval. possibly today
--- NOTE | 2018-05-14 17:33 | DS ---
Physical Exam: SUBJECTIVE: Patient seen and examined at bedside this morning. He is alert and oriented. Does not remember falling, and is unsure how long his left shoulder has been hurting him. States right shoulder has been hurting him for the past 2- 3 months. Admits right knee pain for past year. Today denies headache, change in vision, fevers, chills, shortness of breath, chest pain, palpitations, abdominal pain, nausea, vomiting, diarrhea. OBJECTIVE: Vital Signs Period Temp Pulse Resp BP Sys/Esposito Pulse Ox Last 24 Hr 98 F-98.4 F 66-89 18-20 129-140/52-77 95-100 PHYSICAL EXAM GENERAL: The patient is awake, alert, and oriented to person (knows full name and date of ), and place ([facility]). No acute distress. HEAD: Bruise over left side forehead. Tender to palpation. EYES: PERRLA, extraocular movements intact, sclera anicteric, conjunctiva non- injected b/l. ENT: Oropharynx clear without exudates, erythema, or lesions. Moist mucous membranes. NECK: Supple without lymphadenopathy or thyromegaly. LUNGS: Good inspiratory effort. Breath sounds equal, clear to auscultation bilaterally. No wheezes, no crackles, no accessory muscle use. HEART: Regular rate and rhythm, S1, S2 without murmur, rub or gallop. ABDOMEN: Soft, nontender, nondistended, normoactive bowel sounds, no guarding, no rebound. Liver edge palpated 3 cm below right costal margin. MUSCULOSKELETAL: B/L shoulders and right clavicle tender to palpation. Passive range of motion intact b/l upper extremities EXTREMITIES: 2+ radial and dorsalis pedis pulses b/l. No edema b/l lower extremities. NEUROLOGICAL: Cranial nerves II through XII grossly intact. Normal speech. Stable gait without cane or walker observed for approx 10 feet. PSYCH: Mood and affect appropriate upon my encounter today. SKIN: Warm, dry. Echymosis noted over left forehead. LABS Laboratory Results - last 24 hr 05/14/18 05/14/18 05/14/18 06:06 06:30 06:30 WBC 7.1 RBC 4.70 Hgb 13.4 Hct 41.7 MCV 88.7 MCH 28.4 MCHC 32.0 RDW 18.0 H Plt Count 116 L MPV 10.2 PT with INR 39.50 H INR 3.50 H PTT (Actin FS) 55.6 H Sodium Potassium Chloride Carbon Dioxide Anion Gap BUN Creatinine Creat Clearance w eGFR POC Glucometer 80 Random Glucose Hemoglobin A1c % Calcium Phosphorus Magnesium Troponin I 05/14/18 05/14/18 06:30 06:30 WBC RBC Hgb Hct MCV MCH MCHC RDW Plt Count MPV PT with INR INR PTT (Actin FS) Sodium 144 Potassium 3.8 Chloride 108 H Carbon Dioxide 29 Anion Gap 6 L BUN 17 Creatinine 0.9 Creat Clearance w eGFR > 60 POC Glucometer Random Glucose 82 Hemoglobin A1c % 6.2 Calcium 9.1 Phosphorus 2.5 Magnesium 2.3 Troponin I 0.07 H HOSPITAL COURSE: Date of Admission:05/13/18 Date of Discharge: 05/14/18 Patient is an 88 year old male with history of congestive heart failure, Afib on Coumadin with pacemaker, presents after unwitnessed fall. CT head was negative for intracranial hemorrhage or edema, or skull fracture. Left frontal scalp injury noted. Stable calcified left frontal meningioma. Shoulder xray showed acute fracture of distal superior aspect left clavicle. Chest xray showed no acute lung disease. Knee xray showed no acute fracture or dislocation. Patient's INR was 4.51 upon admission. Coumadin was held, and INR decreased to 3.50 with morning labs. Discussed with orthopedic surgeon who recommended arm sling, and outpatient follow up for clavicular fracture, in addition to outpatient follow up for knee as there was no fracture noted on Xray and patient walking well (60 feet) with PT evaluation. Patient's Coumadin was held. Discussed with patient's son at bedside and Dr. Quijano that patient will follow up in next 1-2 days with PCP and recheck INR to discuss reinstating Coumadin at that appointment. Discussed importance of maintaining left arm in sling. Patient discharged to follow up with PCP in 1-2 days, and orthopedic surgeon within 1 week after discharge. Minutes to complete discharge: 35 Discharge Summary Reason For Visit: INR/FRACTURED CLAVICULE Current Active Problems Clavicle fracture (Acute) Elevated INR (Acute) Knee effusion (Acute) Laceration of forehead, left, complicated (Acute) Condition: Stable - Instructions Diet, Activity, Other Instructions: You were brought to the emergency after a fall. CAT scan of your head showed no bleeding within the brain or fracture of the skull. Xray of your shoulder showed you have a fracture of your left clavicle. You will need to wear a sling over your shoulder. The sling will help keep the shoulder stable so it can heal. You will need to follow up with the orthopedic surgeon Dr. Nguyen within 3-4 days after discharge to further evaluate your shoulder and knee. Your INR was elevated (4.51). We held your dose and today it went down to 3.5. You will need to follow up with Dr. Quijano you need blood work ( INR) in 2 days on 05/16 , fax results to Dr. Quijano In the meantime stop taking Coumadin until your advised to do so per Dr. felder depending on next INR value Continue Atorvastatin 20mg daily Continue Lasix 80mg daily Follow up with Dr. Quijano within the next 1-2 days after discharge to discuss the INR and Coumadin. Follow up with Dr. Nguyen within one week of discharge to follow up your clavicle fracture and your knees. Please return to the nearest emergency department if you experience fevers, chills, worsening pain in knees or shoulder, any falls, or loss of consciousness. place an MEHRAN wrap on your right knee, or one of the splints form the pharmacy. and follow with Dr. gutierrez in 3-4 days after dc Referrals: Titus Quijano MD [Primary Care Provider] - 05/16/18 Austen Nguyen MD [Staff Physician] - 1 Week Disposition: HOME - Home Medications Comprehensive Discharge Medication List: Ambulatory Orders Simvastatin [Zocor -] 40 mg PO HS 02/22/16 Furosemide [Lasix] 80 mg PO BID 05/14/18 Miscellaneous Medical Supply [[facility] Order[facility] Potassium Chloride 20 meq PO DAILY 05/14/18 This patient is new to me today: Yes Date on this admission: 05/14/18 Emergency Visit: Yes ED Registration Date: 05/13/18 Care time: The patient presented to the Emergency Department on the above date and was hospitalized for further evaluation of their emergent condition. Critical Care patient: No - Discharge Referral Referred to [facility] Med P.C.: Yes Physician Referral: Titus Galeano MD ([facility])
== END 2018-05-14 17:50 | disposition home or self-care (01) ==
LOC: JER 11:18 → JERBED 22:00 → J7W 05-14 03:33
PROVIDERS: ADMIT Internal Medicine; ATTEND Internal Medicine
DX: R79.1 Abnormal coagulation profile (principal); S42.035A Nondisplaced fracture of lateral end of left clavicle, initial encounter for closed fracture; S01.81XA Laceration without foreign body of other part of head, initial encounter; M25.561 Pain in right knee; I11.0 Hypertensive heart disease with heart failure; E78.5 Hyperlipidemia, unspecified; I50.9 Heart failure, unspecified; I48.91 Unspecified atrial fibrillation; M25.461 Effusion, right knee; D32.9 Benign neoplasm of meninges, unspecified; Z79.01 Long term (current) use of anticoagulants; Z95.0 Presence of cardiac pacemaker; Z95.5 Presence of coronary angioplasty implant and graft; W18.30XA Fall on same level, unspecified, initial encounter; Y93.9 Activity, unspecified; Y92.008 Other place in unspecified non-institutional (private) residence as the place of occurrence of the external cause
CPT/HCPCS: 36415; 70450-TC; 71045-TC-FY; 73030-TC-LT-FY; 73562-TC-RT-FY; 80048; 82550; 82962; 83036; 83735; 84100; 84484; 85025; 85027; 85610; 85730; 93005; 93010; 97116-GP; 97161-GP; 99285-25; G0378

== ENCOUNTER 2019-02-12 12:16 | Observation (INO) | payer BC ==
[2019-02-12 13:26] LABS: BASO % 0.9 % (0-2.0); EOS % 1.6 % (0-4.5); HEMATOCRIT 44.6 % (35.4-49); HEMOGLOBIN 14.3 GM/dL (11.7-16.9); MCH 28.7 pg (25.7-33.7); MCHC 32.1 g/dl (32.0-35.9); MEAN CELL VOLUME 89.6 fl (80-96); MEAN PLT VOLUME 10.1 fl (7.5-11.1); NEUT % 76.5 % (42.8-82.8); PLATELET COUNT 115 K/MM3 (134-434); RBC 4.98 M/mm3 (4.00-5.60); RDW 17.8 % (11.9-15.9)
[2019-02-12 13:36] LABS: INR 1.74 (0.83-1.09); PROTHROMBIN TIME (PATIENT) 20.7 SEC (9.7-13.0)
[2019-02-12 13:48] LABS: BLOOD UREA NITROGEN 17.4 mg/dL (7-18); CALCIUM 9.7 mg/dL (8.5-10.1); POTASSIUM 3.8 mmol/L (3.5-5.1)
--- NOTE | 2019-02-12 14:50 | PDOC ---
History of Present Illness - General Chief Complaint: Injury Stated Complaint: FALL Time Seen by Provider: 02/12/19 13:10 History Source: Patient, Family (Son at bedside) Exam Limitations: No Limitations - History of Present Illness Initial Comments: HPI: 88 y/o male presenting to [facility] ER after possible syncopal episode and fall from standing height. Pt recalls walking from his patio into his kitchen then next recalls being on floor with . Believes he may have lost consciousness for approx. 1 min. Denies experiencing chest pain or SOB prior to the episode. Believes he may have felt lightheaded. Endorses pain to right forehead and right lateral chest wall after the fall. Also endorsing trace bleeding from right nare. Pt is anticoagulated on Coumadin for A-fib. Pts son at bedside reports this is the third similar episode this year. Pacemaker Information: Make: [employer] Talat (Miner) Pacemaker. Make Accent 2109 Pacemaker. SN [id number] Miner Pacemaker (St. Talat) Interrogation: [id number] PCP: Dr. Looney Sonography Technician: Dr. Colon Medical Hx: - CHF - PM - Hypercholesterolemia - Left Likely Meningioma, stable - Afib (on Coumadin) - H/o Diverticulitis Surgical Hx: - Pacemaker placed at [facility] approx. 15 years ago Review of Systems: In addition to that documented in the HPI above, the additional ROS was obtained : Constitutional: Denies fevers or chills Head: Denies vision changes ENMT: Denies sore throat CV: Denies chest pain Resp: Denies SOB GI: Denies vomiting or diarrhea : Denies painful urination, hematuria, or increased urinary frequency MSK: Denies recent trauma Skin: Denies new rashes Neuro: Denies new numbness or tingling or weakness Endocrine: Denies polyuria Heme: Denies bleeding or bruising MDM: *Reviewed vital signs, nursing notes, and prior visit documentation (if available). 88 y/o male presenting s/p syncopal episode with brief LOC. Third episode of similar in this past year. Afebrile. Vitals unremarkable for hypotension or tachycardia. Physical exam as described above. Laceration to hand will likely require closure with sutures. Concern for cardiac etiology given Will obtain head and c-spine CT given age and anticoagulated state secondary to coumadin. CT unremarkable for cervical injury or acute intracranial pathology. Known lesion is stable and unchanged. INR subtherapeutic. CMP unremarkable for electrolyte derangement. EKG revealed paced rhythm. Troponin mildly elevated but at baseline previously established in [employer]. Miner pv design and installation technician interrogate pacemaker and reported no arrhythmia or pacemaker malfunction. CXR unremarkable for acute cardiopulmonary pathology; heart reportedly larger than previous study. Low suspicion for acute clinical significance. Rib xray series unremarkable for acute fracture. Laceration repaired with sutures. Bleeding controlled. Extremity splinted with sugar tong ortho glass splint to help reduce tension on wound. Tetanus booster administered. Telephone discussion with Dr. Packer. Verbally appraised of the pts HPI, ED course, and current plan of management. Will admit the pt for observation on telemetry. Cristobal Washington M.D., PGY1 Emergency Medicine Resident Past History - Past Medical History Allergies/Adverse Reactions: Allergies Allergy/AdvReac Type Severity Reaction Status Date / Time No Known Drug Allergies Allergy Verified 02/12/19 12:38 Home Medications: Ambulatory Orders Simvastatin [Zocor -] 40 mg PO HS 02/22/16 Furosemide [Lasix] 80 mg PO BID 05/14/18 Miscellaneous Medical Supply [Outpatient Order] 1 each ASDIR #1 misc Potassium Chloride 20 meq PO DAILY 05/14/18 Warfarin Sodium 4 mg PO DAILY 02/12/19 Anemia: No Cardiac Disorders: Yes (CHF, PPM) COPD: (hx pneumonia- MULTIPLE) CHF: Yes HTN: Yes Hypercholesterolemia: Yes - Surgical History Appendectomy: Yes Cardiac Surgery: Yes (PACEMAKER, STENT) Orthopedic Surgery: Yes (wrist) - Suicide/Smoking/Psychosocial Hx Smoking Status: No Smoking History: Never smoked Number of Cigarettes Smoked Daily: 0 Information on smoking cessation initiated: No Hx Alcohol Use: No Drug/Substance Use Hx: No Substance Use Type: None Hx Substance Use Treatment: No *Physical Exam - Vital Signs Last Vital Signs Temp Pulse Resp BP Pulse Ox 70 16 107/74 98 02/12/19 12:41 02/12/19 12:41 02/12/19 12:41 02/12/19 12:41 Procedures - Additional Procedures Progress: PROCEDURE NOTE: Wound closure with sutures PROCEDURE PRODUCTION CONTROL CLERK: Cristobal Washington M.D. resident INDICATION: 5cm Bleeding laceration on dorsum of right hand CONSENT: Verbal consent was obtained from pt prior to the procedure. Indications, risks, and benefits were explained at length. PROCEDURE SUMMARY: Patient was positioned appropriately. 5cc lidocaine 2% without epinephrine was used as a local anesthetic. 60 cc sterile water was used for irrigation. Wound thoroughly irrigated and explored; no foreign bodies found. Patient was sterile draped with wound exposed. 8 x 5-0 nylon sutures were placed with good approximation. Procedure tolerated without complications. Layer closure and hemostasis was achieved. Wound dressed with bacitracin and sterile gauze. Wrist was splinted with sugar tong orthocast to prevent stress on the wound. Post suture instructions provided. EBL: <5cc. Post procedure care and follow up instructions provided verbally. Pt expressed understanding. ED Treatment Course - LABORATORY CBC & Chemistry Diagram: 02/12/19 13:14 02/12/19 13:14 - ADDITIONAL ORDERS Additional order review: Laboratory Results 02/12/19 02/12/19 13:14 13:14 PT with INR 20.70 H INR 1.74 H Sodium 144 Potassium 3.8 Chloride 110 H Carbon Dioxide 28 Anion Gap 7 L BUN 17.4 Creatinine 1.0 Est GFR (CKD-EPI)AfAm 78.08 Est GFR (CKD-EPI)NonAf 67.37 Random Glucose 98 Calcium 9.7 Creatine Kinase 57 Troponin I 0.07 H 02/12/19 13:14 RBC 4.98 MCV 89.6 MCHC 32.1 RDW 17.8 H MPV 10.1 Neutrophils % 76.5 Lymphocytes % 13.0 D Monocytes % 8.0 Eosinophils % 1.6 Basophils % 0.9 - RADIOLOGY Radiology Studies Ordered: Category Date Time Status CERVICAL SPINE CT W/O CONTR [CT] Stat CT Scan 02/12/19 13:[address] WITHOUT CONTRAST [CT] Stat CT Scan 02/12/19 13:13 Completed CHEST PA & LAT [RAD] Stat Radiology 02/12/19 13:32 Ordered RIBS RIGHT SIDE [RAD] Stat Radiology 02/12/19 14:47 Ordered *DC/Admit/Observation/Transfer Diagnosis at time of Disposition: Syncope and collapse, Anticoagulant long-term use - Discharge Dispostion Condition at time of disposition: Stable Decision to Admit order: Yes - Referrals - Patient Instructions - Post Discharge Activity
--- NOTE | 2019-02-12 15:08 | EKG ---
Test Reason : Blood Pressure : / mmHG Vent. Rate : 072 BPM Atrial Rate : 081 BPM P-R Int : 000 ms QRS Dur : 186 ms QT Int : 476 ms P-R-T Axes : 000 238 074 degrees QTc Int : 521 ms Ventricular-paced rhythm WITH FREQUENT PREMATURE VENTRICULAR COMPLEXES ABNORMAL ECG WHEN COMPARED WITH ECG OF 13-MAY-2018 15:44, VENT. RATE HAS DECREASED BY 6 BPM Confirmed by YASH JULES, YARY ([id number]) on 02/12/2019 3:08:06 PM Referred By: Confirmed By:YARY BERRIOS MD
[2019-02-12] MEDS ORDERED: DIPHTH,PERTUSS(ACELL),TET 0.5 ML DISP.SYRIN IM ONE ×2 (15:42→15:57)
--- NOTE | 2019-02-12 15:44 | HP ---
CHIEF COMPLAINT: "i fell" PCP: Dr. Looney Vacuum Drier Operator: Dr. Colon HISTORY OF PRESENT ILLNESS: This is an 88 yo M with PMH of CHF, St Talat PM for af, af on coumadin, HLD, Left brain lesion Likely Meningioma-stable, who presented s/p fall with syncope. Fall occurred at home shortly after patient got up from sitting. he denies prodrome of lightheadedness, flushing, sweating, palpitations or cp. he struck r side of forehead, r chest wall and r hand, resulting in a cut on his knuckle. he was discovered by his almost immediately. loc must have lasted 1 min. son states tehre were 3 other falls this year: 1 mechanical and 2 associated with positional change. Currently denies chest, SOB, lightheadedness , h/a, ringing in ears, trouble swallowing, weight gain, loss of appetite, n/v/d /c, bowel or bladder incontinence. patient is noncompliant with home lasix and has been developing worsening b/l le edema. he has not had his pacemaker checked in 10 yrs. no recent cardiology f/u. Pacemaker Information: Make: St Talat (Miner) Pacemaker. Model: Accent DR 2110 Pacemaker. SN [id number]. Recent Travel: denies PAST MEDICAL HISTORY: as above PAST SURGICAL HISTORY:Pacemaker placed at [facility] approx. 15 years ago Social History: lives with Smoking: denies Alcohol: 1 shot of whiskey every morning Drugs: denies Family History: htn hld Allergies No Known Drug Allergies Allergy (Verified 02/12/19 12:38) HOME MEDICATIONS: Home Medications Medication Instructions Recorded Simvastatin [Zocor -] 40 mg PO HS 02/22/16 Furosemide [Lasix] 80 mg PO BID 05/14/18 Miscellaneous Medical Supply 1 each ASDIR #1 [facility] 05/14/18 [Outpatient Order] Potassium Chloride 20 meq PO DAILY 05/14/18 REVIEW OF SYSTEMS CONSTITUTIONAL: Absent: fever, chills HEENT: Absent: rhinorrhea, nasal congestion, throat painvisual changes CARDIOVASCULAR: Absent: chest pain, palpitations, lightheadedness RESPIRATORY: Absent: cough, shortness of breath, dyspnea with exertion, orthopnea, wheezing, stridor, hemoptysis GASTROINTESTINAL: Absent: abdominal pain, abdominal distension, nausea, vomiting, diarrhea, constipation, melena, hematochezia GENITOURINARY: Absent: dysuria MUSCULOSKELETAL: Absent: myalgia, arthralgia SKIN: Absent: rash, itching, pallor HEMATOLOGIC/IMMUNOLOGIC: Absent: lymphadenopathy, frequent infections ENDOCRINE: Absent: unexplained weight gain, unexplained weight loss, heat intolerance, cold intolerance NEUROLOGIC: Absent: headache, focal weakness or paresthesias PSYCHIATRIC: Absent: anxiety, depression PHYSICAL EXAMINATION Vital Signs - 24 hr 02/12/19 12:41 Pulse Rate 70 Respiratory 16 Rate Blood Pressure 107/74 O2 Sat by Pulse 98 Oximetry (%) GENERAL: Awake, alert, and fully oriented, in no acute distress. HEAD: Normal with no signs of trauma. r sided forehead abrasion EYES: Pupils equal, round and reactive to light, extraocular movements intact, sclera anicteric, conjunctiva clear. No lid lag. EARS, NOSE, THROAT: Moist mucous membranes. NECK: supple LUNGS: Breath sounds equal, clear to auscultation bilaterally. HEART: Regular rate and rhythm, normal S1 and S2 ABDOMEN: Soft, nontender, not distended, normoactive bowel sounds, no guarding, no rebound, no masses. MUSCULOSKELETAL: No CVA tenderness. UPPER EXTREMITIES: 2+ pulses, warm, well-perfused. No cyanosis. No clubbing. b/ l 2+ pedal edema. R knuckle laceration LOWER EXTREMITIES: 2+ pulses, warm, well-perfused. No calf tenderness. No peripheral edema. NEUROLOGICAL: Cranial nerves II-XII intact. Normal speech. strength 5/5, sensation intact, patellar reflexs 1+ b/l PSYCHIATRIC: Cooperative. Good eye contact. Appropriate mood and affect. SKIN: Warm, dry Laboratory Results - last 24 hr 02/12/19 02/12/19 02/12/19 13:14 13:14 13:14 WBC 8.0 RBC 4.98 Hgb 14.3 Hct 44.6 MCV 89.6 MCH 28.7 MCHC 32.1 RDW 17.8 H Plt Count 115 L MPV 10.1 Absolute Neuts (auto) 6.1 Neutrophils % 76.5 Lymphocytes % 13.0 D Monocytes % 8.0 Eosinophils % 1.6 Basophils % 0.9 Nucleated RBC % 0 PT with INR 20.70 H INR 1.74 H Sodium 144 Potassium 3.8 Chloride 110 H Carbon Dioxide 28 Anion Gap 7 L BUN 17.4 Creatinine 1.0 Est GFR (CKD-EPI)AfAm 78.08 Est GFR (CKD-EPI)NonAf 67.37 Random Glucose 98 Calcium 9.7 Creatine Kinase 57 Troponin I 0.07 H ASSESSMENT/PLAN: This is an 88 yo M with PMH of CHF, St Talat PM for af, af on coumadin, HLD, Left brain lesion Likely Meningioma-stable, who presented s/p fall with syncope. fall and syncope RUE laceration CHF af on coumadin s/p pacemaker subtherapeutic inr HLD brain meningioma -sustect orthostatic etiology; f/u orthostatic vitals -interogate pavemaker; ekg v paced wit pvcs -carotid dopplers, tte -tfts -cardio consult -ct head appreciated no acute pathology -f/u spep -resume home meds Problem List - Problem (1) Syncope Code(s): R55 - SYNCOPE AND COLLAPSE (2) Anticoagulant long-term use Code(s): Z79.01 - RESIDENTIAL (CURRENT) USE OF ANTICOAGULANTS (3) Syncope and collapse Code(s): R55 - SYNCOPE AND COLLAPSE (4) A-fib Code(s): I48.91 - UNSPECIFIED ATRIAL FIBRILLATION (5) CHF (congestive heart failure) Code(s): I50.9 - HEART FAILURE, UNSPECIFIED Qualifiers: Qualified Code(s): I50.42 - Chronic combined systolic (congestive) and diastolic (congestive) heart failure (6) Hypercholesteremia Code(s): E78.00 - PURE HYPERCHOLESTEROLEMIA, UNSPECIFIED (7) Laceration of forehead, left, complicated Code(s): S01.81XA - LACERATION W/O FOREIGN BODY OF OTH PART OF HEAD, INIT ENCNTR Qualifiers: Encounter type: initial encounter Qualified Code(s): S01.81XA - Laceration without foreign body of other part of head, initial encounter Visit type - Emergency Visit Emergency Visit: Yes ED Registration Date: 02/12/19 Care time: The patient presented to the Emergency Department on the above date and was hospitalized for further evaluation of their emergent condition. - New Patient This patient is new to me today: Yes Date on this admission: 02/12/19 - Critical Care Critical Care patient: No
--- NOTE | 2019-02-12 16:13 | PDOC ---
Documentation entered by Betzaida Melgar SCRIBE, acting as scribe for Azeb Carrero MD. Azeb Carrero MD: This documentation has been prepared by the Talia rosenberg Adrianna, SCRIBE, under my direction and personally reviewed by me in its entirety. I confirm that the documentation accurately reflects all work, treatment, procedures, and medical decision making performed by me. Attending Attestation - Resident Resident Name: Cristobal Washington - ED Attending Attestation I have performed the following: I have examined & evaluated the patient, The case was reviewed & discussed with the resident, I agree w/resident's findings & plan, Exceptions are as noted - HPI HPI: The patient is an 88 year old male, with a significant PMH of Medical CHF, PM, Hypercholesterolemia, Left Likely Meningioma (stable), Afib (on Coumadin), and Diverticulitis, who presents to the ED s/p unwitnessed fall earlier today. Patient notes he was walking from his garden into his kitchen when he possibly syncopized and fell. He does not recall the event. Patient presents with abrasions to his face and his right knuckles. He endorses some right forehead and right rib pain. He denies feeling dizzy or SOB prior to the episode. Patient 's son at bedside notes this is his 3rd fall in the past 2 months. Allergies: NKA, NKDA Surgical History: pacemaker Social History: Lives at home with PCP: Dr. Cee Counter Supply Worker: Dr. Colon 02/12/19 15:37 - Physicial Exam PE: 02/12/19 16:10 GENERAL: The patient is in no acute distress, hard of hearing HEAD: evidence of trauma. ENT: Ears normal, nares patent, oropharynx clear without exudates. Moist mucous membranes. NECK: Normal range of motion, supple, no midline tenderness to palpation LUNGS: Breath sounds equal, clear to auscultation bilaterally. No wheezes, and no crackles. HEART: Regular rate and rhythm, normal S1 and S2 without murmur, rub or gallop. ABDOMEN: Soft, nontender, normoactive bowel sounds. EXTREMITIES: Normal range of motion, no edema. NEUROLOGICAL: Cranial nerves II through XII grossly intact. Normal speech. No focal neurological deficits. SKIN: Laceration dorsum of the right hand, abrasions forehead - Medical Decision Making 02/12/19 14:15 Mr. Marin is a yosi 88 yo M who presents to the ER s/p fall from standing height Pt has now apparently had 3 falls Pt fell while going from the kitchen to the back yard No memory of events No reported chest pain or dizziness No post ictal phase No vomiting No headache at this time No focal weakness or numbness DD: Mechanical fall, syncope, vasovagal episode Will do: Labs EKG CXR CT head Suture repair reassess V paced, rate of 72 bpm, 02/12/19 15:21 Laboratory Tests 02/12/19 02/12/19 02/12/19 13:14 13:14 13:14 WBC 8.0 Hgb 14.3 Hct 44.6 Plt Count 115 L INR 1.74 H BUN 17.4 Creatinine 1.0 Creatine Kinase 57 Troponin I 0.07 H DTAP given CTs pending 02/12/19 15:53 02/12/19 16:10 Will admit given repeated falls Will have pt pacemaker interrogated 02/12/19 16:12 EXAM#: TYPE/EXAM: RESULT: [id number] CT/HEAD CT WITHOUT CONTRAST Status post fall. IMPRESSION: No significant interval change or acute intracranial pathology is identified. Reported By: John Dela Cruz MD 02/12/19 14:26 EXAM#: TYPE/EXAM: RESULT: [id number] CT/CERVICAL SPINE CT W/O CONTRAST Status post fall. IMPRESSION: The alignment is satisfactory. No gross fracture or subluxation is seen. No jumped facets are identified. C6-C7 moderate degenerative disc disease with anterior and mild posterior spur formation slightly narrowing the neuroforamina. Multiple lucent foci in the vertebral bodies that may be on the basis of osteopenia/osteoporosis. An infiltrative process such as multiple myeloma cannot be excluded. Correlate clinically. Reported By: John Dela Cruz MD 02/12/19 14:26 02/12/19 16:29
--- NOTE | 2019-02-12 16:34 | PN ---
Teaching Attending Note Name of Resident: Татьяна Avila ATTENDING PHYSICIAN STATEMENT I saw and evaluated the patient. I reviewed the resident's note and discussed the case with the resident. I agree with the resident's findings and plan as documented with exceptions below. SUBJECTIVE: 88 yom with PMhx of CHF(?systolic, last stress test with ?fixed defect/EF 48%), Afib on coumadin, s/p PPM (last check 5 years ago), HLD, Right frontal meningioma comes with unwitnessed fall. Patient reports was sitting outside, had his breakfast, attempted to get up to get some water, next thing remembers is being on the floor with bruises on right hand and right side of face. found patient on the floor, awake, full responsive. NO confusion, bowel or urinary incontinence. Patient denies any dizziness, chest pain, visual disturbances or weakness prior to episode. has a glass of whiskey daily. No recent fevers, chills, URI like illness, decreased PO intake, abdominal or urinary symptoms. Similar prior episodes, one in 04/2018 with clavicular fracture and another since then. Per son, episodes have been related with standing from sitting position. No recent PPM check in last 5 years. Also inconsitent in taking his medications including lasix per son. Pos leg swelling with no recent increase, but no new orthopnea, PND or weight gain noted. OBJECTIVE: Vital Signs Period Temp Pulse Resp BP Sys/Esposito Pulse Ox Last 24 Hr 98.0 F 67-70 16-18 107-155/74-90 98-100 Intake & Output 02/09/19 02/10/19 02/11/19 02/12/19 23:59 23:59 23:59 23:59 Weight 200 lb GENERAL: Awake, alert, and fully oriented, in no acute distress. HEAD: Bruising over right face and nose EYES: PERRL, EOMI, facial symmetry, tanned flushed face EARS, NOSE, THROAT: bruise over right nose, No pharngeal erythema, moist mucous membrane NECK:neck vein distension LUNGS: Breath sounds equal, clear to auscultation bilaterally. No wheezes, and no crackles. No accessory muscle use. HEART: Regular rate and rhythm, normal S1 and S2 ABDOMEN: Soft, nontender, not distended, normoactive bowel sounds, no guarding, no rebound, no masses. MUSCULOSKELETAL: Normal range of motion at all joints. Right chest wall tenderness. No CVA tenderness. UPPER EXTREMITIES: 2+ pulses, warm, well-perfused. No cyanosis. No clubbing. No peripheral edema. Ecchymosis with bleeding on dorsum of right hand LOWER EXTREMITIES: varicosities, 1+ pedal edema, no calf tenderness, pos pulses NEUROLOGICAL: AAOx3, facial symmetry, tongue midline, EOMI, PERRL, no pronator drift, sensation intact and symmetric to light touch, toes downgoing, DTR b/l symmetryCranial nerves II-XII intact. Normal speech. gait not observed PSYCHIATRIC: Cooperative. Good eye contact. Appropriate mood and affect. SKIN: Warm, dry, normal turgor, no rashes or lesions noted, normal capillary refill. Home Medications Medication Instructions Recorded Simvastatin [Zocor -] 40 mg PO HS 02/22/16 Furosemide [Lasix] 80 mg PO BID 05/14/18 Miscellaneous Medical Supply 1 each ASDIR #1 [facility] [place] 05/14/18 [Outpatient Order] Potassium Chloride 20 meq PO DAILY 05/14/18 Laboratory Results - last 24 hr 02/12/19 02/12/19 02/12/19 13:14 13:14 13:14 WBC 8.0 RBC 4.98 Hgb 14.3 Hct 44.6 MCV 89.6 MCH 28.7 MCHC 32.1 RDW 17.8 H Plt Count 115 L MPV 10.1 Absolute Neuts (auto) 6.1 Neutrophils % 76.5 Lymphocytes % 13.0 D Monocytes % 8.0 Eosinophils % 1.6 Basophils % 0.9 Nucleated RBC % 0 PT with INR 20.70 H INR 1.74 H Sodium 144 Potassium 3.8 Chloride 110 H Carbon Dioxide 28 Anion Gap 7 L BUN 17.4 Creatinine 1.0 Est GFR (CKD-EPI)AfAm 78.08 Est GFR (CKD-EPI)NonAf 67.37 Random Glucose 98 Calcium 9.7 Creatine Kinase 57 Troponin I 0.07 H EKG v pacing with PVCs CT brain/CT spine results reviewed CXR prelim unchanged, follow up official read rib xray read pending ASSESSMENT AND PLAN: 88 yom with PMHx of CHF (?systolic), Afib on coumadin, s/p PPM, HLD, meningioma , prior unwitnessed falls comes with unwitnessed fall +/- syncope -Unwitnessed fall, r/o syncope, less likely seizure based on presentation -Elevated Troponin, ?demand from above, similar prior values, low suspicion for ACS -CHF (?systolic, given last stress test with fixed defect and EF 48%) -lucent foci on C spine xrays, likely osteopenia/osteoporosis -Afib on coumadin, s/p PPM -HLD -Meningioma Plan: Events with postural change each time as discussed with son. ?postural hypotension compounded by diuretics. Check orthostatics. Hold lasix today. PPM interrogation 2D echo, carotid US. Cardiology input, trend trop, telemetry. Monitor volume status, check BNP. Follow up rib xrays, Incentive spirometry, fall precautions, PT eval. Lucent foci on C-spine CT. Check SPEP/UPEP. No anemia or renal dysfunction noted. Outpatient follow up. Continue statin. Continue home coumadin dose, daily INR DVTPPX on coumadin Dispo pending above w/u and clinical improvement. Plan discussed with patient and son at bedside in detail, all questions answered. Total admit time 65 min.
[2019-02-12 17:22] LABS: N-TERMINAL BNP 4132.1 pg/ml (5-450)
[2019-02-12] MEDS ORDERED: FUROSEMIDE 40 MG/4 ML INJECTABLE VIAL IVPUSH SCH (17:30)
[2019-02-12] MEDS: WARFARIN NA 2 MG TABLET (UD) PO SCH (18:58)
[2019-02-12] MEDS: ATORVASTATIN CA 40 MG TABLET (FP) PO SCH (22:30)
[2019-02-12 23:37] VITALS: BMI 27.8
[2019-02-13 07:20] LABS: HEMATOCRIT 41.8 % (35.4-49); HEMOGLOBIN 13.6 GM/dL (11.7-16.9); MCHC 32.5 g/dl (32.0-35.9); MEAN CELL VOLUME 89.2 fl (80-96); MEAN PLT VOLUME 9.9 fl (7.5-11.1); PLATELET COUNT 118 K/MM3 (134-434); RBC 4.69 M/mm3 (4.00-5.60); RDW 17.4 % (11.9-15.9)
[2019-02-13 07:49] LABS: INR 1.99 (0.83-1.09); PROTHROMBIN TIME (PATIENT) 23.7 SEC (9.7-13.0)
[2019-02-13 07:55] LABS: BLOOD UREA NITROGEN 17.3 mg/dL (7-18); CALCIUM 9.3 mg/dL (8.5-10.1); CREATININE 0.9 mg/dL (0.55-1.3); PHOSPHOROUS 2.8 mg/dL (2.5-4.9); POTASSIUM 3.8 mmol/L (3.5-5.1)
[2019-02-13] MEDS ORDERED: ARTIFICIAL TEARS (POLYVINYL ALCOHOL) OPTH DROPS OU PRN (08:00)
--- NOTE | 2019-02-13 08:52 | PN ---
Teaching Attending Note Name of Resident: Татьяна Avila ATTENDING PHYSICIAN STATEMENT I saw and evaluated the patient. I reviewed the resident's note and discussed the case with the resident. I agree with the resident's findings and plan as documented with exceptions below. SUBJECTIVE: Patient seen and examined. overall better, no dizziness or concerns. right hand and right chest wall pain. No complaints otherwise. OBJECTIVE: Vital Signs Period Temp Pulse Resp BP Sys/Esposito Pulse Ox Last 24 Hr 97.8 F-98.9 F 67-76 16-22 107-158/73-91 96-100 Intake & Output 02/10/19 02/11/19 02/12/19 02/13/19 23:59 23:59 23:59 23:59 Intake Total 250 120 Output Total 200 Balance 250 -80 Weight 167 lb 8 oz General: lying in bed, getting echo, no acute distress necK: neck vein distension Chest: CTAB, no rales or wheezing. tenderness right mid lower lateral chest wall , no crepitus noted Abdomen:soft, NT, ND, pos bowel sounds Extremities: right hand laceration s/p sutures, able to move right wrist/elbow/ fingers but with pain on dorsum of right hand, varicosities with 1+ pedal edema neuro: AAOx3, unchanged exam Home Medications Medication Instructions Recorded Simvastatin [Zocor -] 40 mg PO HS 02/22/16 Furosemide [Lasix] 80 mg PO BID 05/14/18 Miscellaneous Medical Supply 1 each ASDIR #1 [facility] [place] 05/14/18 [Outpatient Order] Potassium Chloride 20 meq PO DAILY 05/14/18 Warfarin Sodium 4 mg PO DAILY 02/12/19 Acetaminophen [Tylenol] 325 mg PO DAILY PRN 02/13/19 Active Medications Acetaminophen (Tylenol -) 650 mg PO Q4H PRN PRN Reason: PAIN Artificial Tears (Artificial Tears) 1 drop OU QID PRN PRN Reason: DRY EYES Atorvastatin Calcium (Lipitor -) 40 mg PO HS [facility] Last Admin: 02/12/19 22:30 Dose: 40 mg Enoxaparin Sodium (Lovenox -) 40 mg SQ DAILY [facility] Furosemide (Lasix -) 40 mg PO BID@0600,1400 [facility] Warfarin Sodium (Coumadin -) 4 mg PO DAILY@1800 [facility] Last Admin: 02/12/19 18:58 Dose: 4 mg Laboratory Results - last 24 hr 02/12/19 02/12/19 02/12/19 13:14 13:14 13:14 WBC 8.0 RBC 4.98 Hgb 14.3 Hct 44.6 MCV 89.6 MCH 28.7 MCHC 32.1 RDW 17.8 H Plt Count 115 L MPV 10.1 Absolute Neuts (auto) 6.1 Neutrophils % 76.5 Lymphocytes % 13.0 D Monocytes % 8.0 Eosinophils % 1.6 Basophils % 0.9 Nucleated RBC % 0 PT with INR 20.70 H INR 1.74 H Sodium 144 Potassium 3.8 Chloride 110 H Carbon Dioxide 28 Anion Gap 7 L BUN 17.4 Creatinine 1.0 Est GFR (CKD-EPI)AfAm 78.08 Est GFR (CKD-EPI)NonAf 67.37 Random Glucose 98 Calcium 9.7 Phosphorus Magnesium Creatine Kinase 57 Troponin I 0.07 H B-Natriuretic Peptide 4132.1 H TSH Free T4 02/12/19 02/13/19 02/13/19 19:03 07:00 07:00 WBC 8.0 RBC 4.69 Hgb 13.6 Hct 41.8 MCV 89.2 MCH 29.0 MCHC 32.5 RDW 17.4 H Plt Count 118 L MPV 9.9 Absolute Neuts (auto) Neutrophils % Lymphocytes % Monocytes % Eosinophils % Basophils % Nucleated RBC % PT with INR 23.70 H INR 1.99 H Sodium Potassium Chloride Carbon Dioxide Anion Gap BUN Creatinine Est GFR (CKD-EPI)AfAm Est GFR (CKD-EPI)NonAf Random Glucose Calcium Phosphorus Magnesium Creatine Kinase Troponin I 0.08 H B-Natriuretic Peptide 4348.0 H TSH Free T4 02/13/19 02/13/19 07:00 07:00 WBC RBC Hgb Hct MCV MCH MCHC RDW Plt Count MPV Absolute Neuts (auto) Neutrophils % Lymphocytes % Monocytes % Eosinophils % Basophils % Nucleated RBC % PT with INR INR Sodium 144 Potassium 3.8 Chloride 110 H Carbon Dioxide 26 Anion Gap 8 BUN 17.3 Creatinine 0.9 Est GFR (CKD-EPI)AfAm 88.69 Est GFR (CKD-EPI)NonAf 76.52 Random Glucose 65 L Calcium 9.3 Phosphorus 2.8 Magnesium 2.0 Creatine Kinase Troponin I B-Natriuretic Peptide TSH 1.11 Free T4 1.31 H Telemetry: V pacing with occasional [place] beats ASSESSMENT AND PLAN: 88 yom with PMHx of CHF (?systolic), Afib on coumadin, s/p PPM, HLD, meningioma , prior unwitnessed falls comes with unwitnessed fall +/- syncope -Unwitnessed fall, r/o syncope, less likely seizure based on presentation -Elevated Troponin, ?demand from above, similar prior values, low suspicion for ACS -CHF (?systolic, given last stress test with fixed defect and EF 48%) -Right hand laceration s/p sutures. -lucent foci on C spine xrays, likely osteopenia/osteoporosis -Afib on coumadin, s/p PPM -HLD -Meningioma Plan: Improved, orthostatics neg. patient advised to avoid sudden postural changes. PPM interrogation, Cardiology input, 2D echo. resume lasix at 40 mg BID. Carotid duplex. S/p right hand laceration sutures. Check right wrist/hand xrays. Rib xrays noted, incentive spirometry. fall precautions PT eval Continue statin, coumadin, daily INR. Follow up SPEP, outpatient follow up. Dispo pending above w/u in 24 hours if no new concerns. Plan discussed with patient and nursing, all questions answered.
[2019-02-13] MEDS ORDERED: ENOXAPARIN NA (PORCINE) 40 MG/0.4 ML DISP.SYRIN SQ SCH (10:00)
--- NOTE | 2019-02-13 10:37 | CON.CARD ---
Cardiology Consult (text) - Consultation Consultation Note: cc: fall hpi: 88 m hx chf, hld, afib, ppm ([facility]), here s/p fall. Yesterday was walking in garden and felt weak and collapsed. No prodrome sxs. No cp, sob palps dizzy loc pnd orthopnea, le edema. Fell to ground but no LOC. Came to ER for eval, feels well now. pmh: per hpi psh: ppm social: no tob fam: no premature cad ros: per hpi; all others normal meds: Home Medications Medication Instructions Recorded Simvastatin [Zocor -] 40 mg PO HS 02/22/16 Furosemide [Lasix] 80 mg PO BID 05/14/18 Miscellaneous Medical Supply 1 each ASDIR #1 [facility] 05/14/18 [Outpatient Order] Potassium Chloride 20 meq PO DAILY 05/14/18 Warfarin Sodium 4 mg PO DAILY 02/12/19 Acetaminophen [Tylenol] 325 mg PO DAILY PRN 02/13/19 pe: Vital Signs Period Temp Pulse Resp BP Sys/Esposito Pulse Ox Last 24 Hr 97.4 F-98.9 F 67-76 16-22 107-158/71-91 96-100 nad no jvd rrr s1s2 no mrg cta bl nl eff aao3 no le e/c/c abd nt nd pos bs no jaundice diaphoresis pos dp pt no carotid bruits Current Medications Generic Name Dose Route Start Last Admin Trade Name Freq PRN Reason Stop Dose Admin Acetaminophen 650 mg 02/12/19 17:01 Tylenol - PO Q4H PRN PAIN Artificial Tears 1 drop 02/13/19 08:00 Artificial Tears OU QID PRN DRY EYES Atorvastatin Calcium 40 mg 02/12/19 22:00 02/12/19 22:30 Lipitor - PO 40 mg HS [facility] Administration Enoxaparin Sodium 40 mg 02/13/19 10:00 02/13/19 10:03 Lovenox - SQ 40 mg DAILY [facility] Administration Furosemide 40 mg 02/13/19 14:00 Lasix - PO BID@0600,1400 [facility] Warfarin Sodium 4 mg 02/12/19 18:00 02/12/19 18:58 Coumadin - PO 4 mg DAILY@1800 [facility] Administration Laboratory Last Values WBC 8.0 K/mm3 (4.0-10.0) 02/13/19 07:00 RBC 4.69 M/mm3 (4.00-5.60) 02/13/19 07:00 Hgb 13.6 GM/dL (11.7-16.9) 02/13/19 07:00 Hct 41.8 % (35.4-49) 02/13/19 07:00 MCV 89.2 fl (80-96) 02/13/19 07:00 MCH 29.0 pg (25.7-33.7) 02/13/19 07:00 MCHC 32.5 g/dl (32.0-35.9) 02/13/19 07:00 RDW 17.4 % (11.9-15.9) H 02/13/19 07:00 Plt Count 118 K/MM3 (134-434) L 02/13/19 07:00 MPV 9.9 fl (7.5-11.1) 02/13/19 07:00 Absolute Neuts (auto) 6.1 K/mm3 (1.5-8.0) 02/12/19 13:14 Neutrophils % 76.5 % (42.8-82.8) 02/12/19 13:14 Lymphocytes % 13.0 % (8-40) D 02/12/19 13:14 Monocytes % 8.0 % (3.8-10.2) 02/12/19 13:14 Eosinophils % 1.6 % (0-4.5) 02/12/19 13:14 Basophils % 0.9 % (0-2.0) 02/12/19 13:14 Nucleated RBC % 0 % (0-0) 02/12/19 13:14 PT with INR 23.70 SEC (9.7-13.0) H 02/13/19 07:00 INR 1.99 (0.83-1.09) H 02/13/19 07:00 Sodium 144 mmol/L (136-145) 02/13/19 07:00 Potassium 3.8 mmol/L (3.5-5.1) 02/13/19 07:00 Chloride 110 mmol/L (98-107) H 02/13/19 07:00 Carbon Dioxide 26 mmol/L (21-32) 02/13/19 07:00 Anion Gap 8 MMOL/L (8-16) 02/13/19 07:00 BUN 17.3 mg/dL (7-18) 02/13/19 07:00 Creatinine 0.9 mg/dL (0.55-1.3) 02/13/19 07:00 Est GFR (CKD-EPI)AfAm 88.69 02/13/19 07:00 Est GFR (CKD-EPI)NonAf 76.52 02/13/19 07:00 Random Glucose 65 mg/dL (74-106) L 02/13/19 07:00 Calcium 9.3 mg/dL (8.5-10.1) 02/13/19 07:00 Phosphorus 2.8 mg/dL (2.5-4.9) 02/13/19 07:00 Magnesium 2.0 mg/dL (1.8-2.4) 02/13/19 07:00 Creatine Kinase 57 U/L (26-308) 02/12/19 13:14 Troponin I 0.08 ng/ml (0.00-0.05) H 02/12/19 19:03 B-Natriuretic Peptide 4348.0 pg/ml (5-450) H 02/12/19 19:03 TSH 1.11 uIU/ml (0.358-3.74) 02/13/19 07:00 Free T4 1.31 ng/dl (0.76-1.16) H 02/13/19 07:00 ecg: vp strategy cxr: no chf tele: vp strategy a/p: 88 m hx chf, hld, afib, ppm ([facility]), here s/p fall. fall: -seems mechanical -no signs acs, chf -ortho vitals unremarkable -echo and carotids pending -PT eval -pacemaker check chronic chf: -stable, cont home lasix -echo pending to see lvef hld: -cont statin afib: -cont ac with coumadin ppm: -nl fcn on tele, can check while here elevated trops: -borderline trop elevation with flat trend and nl ck, similar to prior baseline values here, not c/w acs
--- NOTE | 2019-02-13 12:28 | ECHO ---
Name: ROSA GARCIA Exam:Adult Echocardiogram Study Date: 02/13/2019 08:19 AM Age: 88 yrs Reason For Study: SYNCOPE Height: 65 in Weight: 200 lb BSA: 2.0 m2 MMode/2D Measurements & Calculations IVSd: 0.77 cm Ao root diam: 3.3 cm LVIDd: 4.8 cm LA dimension: 3.6 cm LVIDs: 3.4 cm LVPWd: 0.81 cm EDV(Teich): 107.3 ml LVOT diam: 2.2 cm ESV(Teich): 48.3 ml Doppler Measurements & Calculations MV E max richard: 81.9 cm/sec Ao V2 max: 106.2 cm/sec MV A max richard: 23.7 cm/sec Ao max P.5 mmHg MV E/A: 3.5 Ao V2 mean: 70.0 cm/sec MV dec time: 0.17 sec Ao mean P.3 mmHg Ao V2 VTI: 19.7 cm PHIL(I,D): 1.8 cm2 AI P1/2t: 353.6 msec PHIL(V,D): 1.7 cm2 AI max richard: 249.8 cm/sec LV V1 max P.90 mmHg AI max P.0 mmHg LV V1 mean P.40 mmHg AI dec slope: 206.9 cm/sec2 LV V1 max: 47.4 cm/sec LV V1 mean: 29.2 cm/sec LV V1 VTI: 9.2 cm SV(LVOT): 35.7 ml TR max richard: 323.1 cm/sec TR max P.0 mmHg Med Peak E' Richard: 6.6 cm/sec Med E/e': 12.4 Lat Peak E' Richard: 5.7 cm/sec Lat E/e': 14.3 Procedure A complete two-dimensional transthoracic echocardiogram was performed (2D, M-mode, Doppler and color flow Doppler). The study was technically difficult with many images being suboptimal in quality. Left Ventricle The left ventricular size, thickness and function are normal. The left ventricular ejection fraction is normal. Ejection Fraction = 55-60%. Regional wall motion abnormalities cannot be excluded due to limi lennox visualization. Right Ventricle The right ventricle is not well visualized. Atria Normal left and right atrial size and function. There is a catheter/pacemaker lead seen in the right atrium. Mitral Valve There is no mitral regurgitation noted. Tricuspid Valve There is mild tricuspid regurgitation. There is mild pulmonary hypertension. Aortic Valve No hemodynamically significant valvular aortic stenosis. Trace aortic regurgitation. Pulmonic Valve There is no pulmonic valvular regurgitation. Great Vessels The aortic root is normal size. Pericardium/Pleura There is no pericardial effusion. Interpretation Summary The study was technically difficult with many images being suboptimal in quality. The left ventricular size, thickness and function are normal The right ventricle is not well visualized. There is a pacemaker lead seen in the right ventricle and atrium. There is mild tricuspid regurgitation. There is mild pulmonary hypertension. Trace aortic regurgitation. MD Yoel Amaral 02/13/2019 12:28 PM
--- NOTE | 2019-02-13 12:40 | PN ---
Physical Exam: SUBJECTIVE: Patient seen and examined resting in bed nad, afebrile hemodynamically stable. no acute events. no complains. denies dizziness, loc, cp, palpitations, h/a OBJECTIVE: Vital Signs Period Temp Pulse Resp BP Sys/Esposito Pulse Ox Last 24 Hr 97.4 F-98.9 F 67-76 16-22 107-158/71-91 96-100 GENERAL: Awake, alert, and fully oriented, in no acute distress. HEAD: Normal with no signs of trauma. r sided forehead abrasion EYES: Pupils equal, round and reactive to light, extraocular movements intact, sclera anicteric, conjunctiva clear. No lid lag. EARS, NOSE, THROAT: Moist mucous membranes. NECK: supple LUNGS: Breath sounds equal, clear to auscultation bilaterally. HEART: Regular rate and rhythm, normal S1 and S2 ABDOMEN: Soft, nontender, not distended, normoactive bowel sounds, no guarding, no rebound, no masses. MUSCULOSKELETAL: No CVA tenderness. UPPER EXTREMITIES: 2+ pulses LOWER EXTREMITIES: 2+ pulses, warm, well-perfused. No calf tenderness. No peripheral edema. NEUROLOGICAL: Cranial nerves II-XII intact. Normal speech. strength 5/5, sensation intact, patellar reflexs 1+ b/l PSYCHIATRIC: Cooperative. Good eye contact. Appropriate mood and affect. SKIN: Warm, dry Laboratory Results - last 24 hr 02/12/19 02/12/19 02/12/19 13:14 13:14 13:14 WBC 8.0 RBC 4.98 Hgb 14.3 Hct 44.6 MCV 89.6 MCH 28.7 MCHC 32.1 RDW 17.8 H Plt Count 115 L MPV 10.1 Absolute Neuts (auto) 6.1 Neutrophils % 76.5 Lymphocytes % 13.0 D Monocytes % 8.0 Eosinophils % 1.6 Basophils % 0.9 Nucleated RBC % 0 PT with INR 20.70 H INR 1.74 H Sodium 144 Potassium 3.8 Chloride 110 H Carbon Dioxide 28 Anion Gap 7 L BUN 17.4 Creatinine 1.0 Est GFR (CKD-EPI)AfAm 78.08 Est GFR (CKD-EPI)NonAf 67.37 Random Glucose 98 Calcium 9.7 Phosphorus Magnesium Creatine Kinase 57 Troponin I 0.07 H B-Natriuretic Peptide 4132.1 H TSH Free T4 0602/13/19 02/13/19 19:03 07:00 07:00 WBC 8.0 RBC 4.69 Hgb 13.6 Hct 41.8 MCV 89.2 MCH 29.0 MCHC 32.5 RDW 17.4 H Plt Count 118 L MPV 9.9 Absolute Neuts (auto) Neutrophils % Lymphocytes % Monocytes % Eosinophils % Basophils % Nucleated RBC % PT with INR 23.70 H INR 1.99 H Sodium Potassium Chloride Carbon Dioxide Anion Gap BUN Creatinine Est GFR (CKD-EPI)AfAm Est GFR (CKD-EPI)NonAf Random Glucose Calcium Phosphorus Magnesium Creatine Kinase Troponin I 0.08 H B-Natriuretic Peptide 4348.0 H TSH Free T4 02/13/19 02/13/19 07:00 07:00 WBC RBC Hgb Hct MCV MCH MCHC RDW Plt Count MPV Absolute Neuts (auto) Neutrophils % Lymphocytes % Monocytes % Eosinophils % Basophils % Nucleated RBC % PT with INR INR Sodium 144 Potassium 3.8 Chloride 110 H Carbon Dioxide 26 Anion Gap 8 BUN 17.3 Creatinine 0.9 Est GFR (CKD-EPI)AfAm 88.69 Est GFR (CKD-EPI)NonAf 76.52 Random Glucose 65 L Calcium 9.3 Phosphorus 2.8 Magnesium 2.0 Creatine Kinase Troponin I B-Natriuretic Peptide TSH 1.11 Free T4 1.31 H Active Medications Generic Name Dose Route Start Last Admin Trade Name Freq PRN Reason Stop Dose Admin Acetaminophen 650 mg 02/12/19 17:01 Tylenol - PO Q4H PRN PAIN Artificial Tears 1 drop 02/13/19 08:00 Artificial Tears OU QID PRN DRY EYES Atorvastatin Calcium 40 mg 02/12/19 22:00 02/12/19 22:30 Lipitor - PO 40 mg HS [facility] Administration Enoxaparin Sodium 40 mg 02/13/19 10:00 02/13/19 10:03 Lovenox - SQ 40 mg DAILY [facility] Administration Furosemide 40 mg 02/13/19 14:00 Lasix - PO BID@0600,1400 [facility] Warfarin Sodium 4 mg 02/12/19 18:00 02/12/19 18:58 Coumadin - PO 4 mg DAILY@1800 [facility] Administration ASSESSMENT/PLAN: This is an 88 yo M with PMH of CHF, [facility] PM for af, af on coumadin, HLD, Left brain lesion Likely Meningioma-stable, who presented s/p fall with syncope. fall and syncope RUE laceration CHF af on coumadin s/p pacemaker subtherapeutic inr HLD brain meningioma -v paced on tele -orthostatic vitals negative -pacemaker interrogated: 20 episodes of nsvt and multiple episodes of af/a tach : NSVT most likely etiology of syncope. patient should be placed on BB and possibly amiodarone. pacemaker settings need to be adjusted -F/u cardio recs regarding above arrhythmias but patient -carotid dopplers w/o hemodynamically significant lesions; tte mild mr tr, normal ef, rv not visualized -tfts borderline elevated free t4; would repeat outpatient -cardio consult appreciated: not in acute mckenna failure -ct head appreciated no acute pathology -f/u spep -resume home meds Problem List - Problems (1) Syncope Code(s): R55 - SYNCOPE AND COLLAPSE (2) Anticoagulant long-term use Code(s): Z79.01 - ALF (CURRENT) USE OF ANTICOAGULANTS (3) Syncope and collapse Code(s): R55 - SYNCOPE AND COLLAPSE (4) A-fib Code(s): I48.91 - UNSPECIFIED ATRIAL FIBRILLATION (5) CHF (congestive heart failure) Code(s): I50.9 - HEART FAILURE, UNSPECIFIED (6) Hypercholesteremia Code(s): E78.00 - PURE HYPERCHOLESTEROLEMIA, UNSPECIFIED (7) Laceration of forehead, left, complicated Code(s): S01.81XA - LACERATION W/O FOREIGN BODY OF OTH PART OF HEAD, INIT ENCNTR Qualifiers: Encounter type: initial encounter Qualified Code(s): S01.81XA - Laceration without foreign body of other part of head, initial encounter Visit type - Emergency Visit Emergency Visit: Yes ED Registration Date: 02/12/19 Care time: The patient presented to the Emergency Department on the above date and was hospitalized for further evaluation of their emergent condition. - New Patient This patient is new to me today: No - Critical Care Critical Care patient: No - Discharge Referral Referred to [facility] No
[2019-02-13] MEDS: FUROSEMIDE 40 MG TABLET (FP) PO SCH (13:32)
[2019-02-13] MEDS: ACETAMINOPHEN 325 MG TABLET (FP) PO PRN ×2 (13:32→21:24)
[2019-02-13] MEDS: WARFARIN NA 2 MG TABLET (UD) PO SCH (17:33)
[2019-02-13] MEDS: ATORVASTATIN CA 40 MG TABLET (FP) PO SCH (21:24)
[2019-02-14] MEDS: FUROSEMIDE 40 MG TABLET (FP) PO SCH (05:52)
[2019-02-14] MEDS: ACETAMINOPHEN 325 MG TABLET (FP) PO PRN (05:53)
[2019-02-14 05:56] LABS: INR 2.45 (0.83-1.09); PROTHROMBIN TIME (PATIENT) 29.2 SEC (9.7-13.0)
[2019-02-14 06:08] LABS: CALCIUM 9.2 mg/dL (8.5-10.1); MAGNESIUM 1.9 mg/dL (1.8-2.4); PHOSPHOROUS 2.7 mg/dL (2.5-4.9); POTASSIUM 3.7 mmol/L (3.5-5.1)
[2019-02-14 06:19] VITALS: TEMP 97.7
--- NOTE | 2019-02-14 08:42 | PN ---
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 - Current Medication List Current Medications: Active Medications Acetaminophen (Tylenol -) 650 mg PO Q4H PRN PRN Reason: PAIN Last Admin: 02/14/19 05:53 Dose: 650 mg Artificial Tears (Artificial Tears) 1 drop OU QID PRN PRN Reason: DRY EYES Last Admin: 02/13/19 21:24 Dose: 1 drop Atorvastatin Calcium (Lipitor -) 40 mg PO HS [facility] Last Admin: 02/13/19 21:24 Dose: 40 mg Enoxaparin Sodium (Lovenox -) 40 mg SQ DAILY [facility] Last Admin: 02/13/19 10:03 Dose: 40 mg Furosemide (Lasix -) 40 mg PO BID@0600,1400 [facility] Last Admin: 02/14/19 05:52 Dose: 40 mg Warfarin Sodium (Coumadin -) 4 mg PO DAILY@1800 [facility] Last Admin: 02/13/19 17:33 Dose: 4 mg - Objective Vital Signs: Vital Signs Temperature 97.7 F 02/14/19 06:00 Pulse Rate 70 02/14/19 06:00 Respiratory Rate 18 02/14/19 06:00 Blood Pressure 143/85 02/14/19 06:00 O2 Sat by Pulse Oximetry (%) 98 02/14/19 06:00 Constitutional: Yes: No Distress Cardiovascular: Yes: Pulse Irregular Respiratory: Yes: CTA Bilaterally Gastrointestinal: Yes: Soft Edema: No Neurological: Yes: Alert Labs: CBC, BMP 02/13/19 07:00 02/14/19 05:20 INR, PTT INR 2.45 (0.83-1.09) H 02/14/19 05:20 - ....Imaging EKG: Image Reviewed Assessment/Plan ecg: vp of technology cxr: no chf tele: vp of technology a/p: 88 m hx chf, hld, afib, ppm ([facility]), here s/p fall. Fall: -seems mechanical -no signs acs, chf -ortho vitals unremarkable -echo and carotids pending -PT eval -pacemaker check shows AF with occasional RVR but no VT or sustained rhythms to explain sx Chronic chf: -stable, cont home lasix -echo pending to see lvef Hld: -cont statin AF: -cont ac with coumadin, goal 2-3 PPM: -As above. Elevated trops: -borderline trop elevation with flat trend and nl ck, similar to prior baseline values here, not c/w acs
--- NOTE | 2019-02-14 09:28 | DS ---
Physical Exam: SUBJECTIVE: Patient seen and examined, no complaints. Right hand pain better. no new dizziness, chest pain, palpitations or dyspnea noted OBJECTIVE: Vital Signs Period Temp Pulse Resp BP Sys/Esposito Pulse Ox Last 24 Hr 97.4 F-98.2 F 70-73 16-20 114-149/64-85 98-98 telemetry V pacing with intermittent lower elwha beats, no tachy or meño events noed PHYSICAL EXAM GENERAL: lying in bed in no acute distress HEENT; small bruises over nose and right side of face CVS:S1S2 regular Chest: Good air entry, no rales or wheezing Musculoskeletal: right chest wall tenderness improved, no crepitus or swelling noted Extremities: right hand laceration with sutures, no active bleed, pos swelling, no tenderness or fluctuation noted, generalized ecchymotic areas Abdomen:Soft, obese, NT throughout LABS Laboratory Results - last 24 hr 02/14/19 02/14/19 05:20 05:20 PT with INR 29.20 H INR 2.45 H Sodium 142 Potassium 3.7 Chloride 107 Carbon Dioxide 29 Anion Gap 6 L BUN 21.0 H Creatinine 1.0 Est GFR (CKD-EPI)AfAm 78.08 Est GFR (CKD-EPI)NonAf 67.37 Random Glucose 106 Calcium 9.2 Phosphorus [address] head/C-spine: IMPRESSION: No significant interval change or acute intracranial pathology is identified. CT scan of the cervical spine without intravenous contrast Coronal and sagittal reconstruction images were obtained. No prior is available for comparison. No gross fracture, subluxation or prevertebral soft tissue swelling is seen. No jumped facets are identified. C6-C7 moderate degenerative disc disease with anterior and mild posterior spur formation. Marked left facet hypertrophy at C5-C6 level and mild bilateral facet hypertrophy at C6-C7 level. Note is made of multiple lucent foci in the vertebral bodies that may be on the basis of osteopenia /osteoporosis. Visualized portion of the airway appears unremarkable. No gross enlarged lymph nodes are identified. Lung windows at the thoracic inlet appear unremarkable. IMPRESSION: The alignment is satisfactory. No gross fracture or subluxation is seen. No jumped facets are identified. C6- C7 moderate degenerative disc disease with anterior and mild posterior spur formation slightly narrowing the neuroforamina. Multiple lucent foci in the vertebral bodies that may be on the basis of osteopenia/osteoporosis. An infiltrative process such as multiple myeloma cannot be excluded. Correlate clinically. CXR:Single view of the chest reveals a large heart, elevated left hemidiaphragm , double lead pacemaker and some atelectatic changes at the bases. There are degenerative changes. The bones and soft tissues are intact. Correlation recommended. Since the prior study of 05/30/2018 there is a larger heart. Ribs xray: 3 views of the right ribs have been submitted. A marker has not been placed with their is pain. A gross fracture is not seen and there is no sign of blastic or lytic changes. There is a prominent heart, fullness of the mindi and double lead pacemaker. The right lung is clear. If symptoms persist , further imaging and orthopedic consultation may be of help. Carotid Duplex: Bilateral carotid Doppler ultrasound Grayscale, pulsed Doppler and color Doppler interrogation of both carotid and both vertebral arteries was performed. The right common carotid, internal and external external carotid artery were identified with a peak systolic velocity of 50, 35 and 80 cm/sec, respectively. The left common carotid, internal and external carotid artery were identified with a peak systolic velocity of 5, 40 and 70 cm/sec, respectively. Flow in the physiologic direction was documented in both vertebral arteries. Impression: Mild intimal thickening and minimal plaque buildup at the common carotid bifurcation, bilaterally without evidence of hemodynamically significant stenosis, bilaterally Right hand/wrist xray: 3 views of the right hand and wrist reveal loss of bone density, degenerative changes, soft tissue swelling and no sign of a foreign body or soft tissue air. If symptoms persist, further imaging and orthopedic consultation the of help. 2D echo: suboptimal study LV thickness/size/function normal RV not well visualized Mild TR/Pul HTN, trace AR. 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 Prior similar episodes x 2 within last year on positional change per son. Was found on the floor on his right side by . He had minimal troponin elevation with no concerning EKG changes. He was watched on telemetry and had V paced rhythm with occasional lower elwha beats with no concerns. He was seen by cardiology. He had 2D echo and carotid duplex as above. He also had PPM interrogation with Afib with occasional rapid rate and no additional intervention recommended by cardiology. He was continued on home lasix and warfarin (Son expressed concerns about non compliance). His trauma work up including CT head/C-spine/Rib xray/CXR/right hand/wrist xrays were neg for acute process. He had right hand laceration that was sutured in the ED. He was evaluated by physical therapy. He was incidentally noted with lucencies on vertebrae on CT C-spine likely osteopenia/osteoporosis. His SPEP is sent results are currently pending and will need outpatient follow up. Condition: Stable - Instructions Diet, Activity, Other Instructions: You were admitted with unwitnessed, unsure if you passed out. You had right hand laceration that was sutured. YOu were on cardiac catheterization technologist with no events. You had 2D echo and carotid ultrasound. Your Pacemaker was interrogated and you were noted with occasional episodes of fast heart rate but no events in the hospital. You were seen by cardiology. MEDICATIONS: Continue all your medications as before. Warfarin 4 mg daily and INR check on Sunday02/17/2019 with your doctor to advise further dosing. WOUND CARE: Keep right hand wound area clean Warm compresses to right hand as able Follow up with your doctor in 7-10 days for suture removal. If you notice any new redness, worsening swelling, discharge or increased pain, notify your doctor or come to the ED. Incentive spirometry every hour as able. FOLLOW UP: INR check on 02/17/2019, then coumadin per your doctor's instructions Thyroid panel check in 2-3 weeks. With PCP In 1 week (SPEP results are pending, please discuss with your doctor) With endodontist Dr. Colon in 1 week (It is very important to resume follow up and keep your pacemaker and heart condition monitored) PENDING TEST: Your blood test "SPEP" has been sent results of which are pending, please have your doctor follow up on the results. If you notice any new dizziness, chest pain, palpitations, increased pain/ redness/swelling/discharge from right hand site or any new concerns, please call 911 or come to the ED. Referrals: Titus Quijano MD [Primary Care Provider] - 1 Week Gordy Colon MD [Staff Physician] - 1 Week Disposition: VNS/HOME HEALTH CARE - Home Medications Comprehensive Discharge Medication List: Ambulatory Orders Simvastatin [Zocor -] 40 mg PO HS 02/22/16 Furosemide [Lasix] 80 mg PO BID 05/14/18 Potassium Chloride 20 meq PO DAILY 05/14/18 Warfarin Sodium 4 mg PO DAILY 02/12/19 Acetaminophen [Tylenol] 325 mg PO DAILY PRN 02/13/19 This patient is new to me today: No Emergency Visit: Yes ED Registration Date: 02/12/19 Care time: The patient presented to the Emergency Department on the above date and was hospitalized for further evaluation of their emergent condition. Critical Care patient: No - Discharge Referral Referred to [facility] No
[2019-02-14 12:42] VITALS: BP 142/81; PULSE 72
== END 2019-02-14 12:49 | disposition home health service (06) ==
LOC: JER 12:16 → JERBED 15:30 → J4S 22:11
PROVIDERS: ADMIT Hospitalist; ATTEND Hospitalist
PROC: 0HQFXZZ Repair Right Hand Skin, External Approach (ICD-10-PCS; principal; 2019-02-12)
PROC: 3E013GC Introduction of Other Therapeutic Substance into Subcutaneous Tissue, Percutaneous Approach (ICD-10-PCS; 2019-02-12)
PROC: 3E0234Z Introduction of Serum, Toxoid and Vaccine into Muscle, Percutaneous Approach (ICD-10-PCS; 2019-02-12)
DX: R55 Syncope and collapse (principal); I48.91 Unspecified atrial fibrillation; I50.42 Chronic combined systolic (congestive) and diastolic (congestive) heart failure; E78.5 Hyperlipidemia, unspecified; R77.8 Other specified abnormalities of plasma proteins; S61.411A Laceration without foreign body of right hand, initial encounter; S00.81XA Abrasion of other part of head, initial encounter; Z95.0 Presence of cardiac pacemaker; Z95.5 Presence of coronary angioplasty implant and graft; Z79.01 Long term (current) use of anticoagulants; W18.39XA Other fall on same level, initial encounter; Y93.89 Activity, other specified; Y92.008 Other place in unspecified non-institutional (private) residence as the place of occurrence of the external cause
CPT/HCPCS: 12002-25; 36415; 70450-TC; 71046-TC-FY; 71101-TC-RT-FY; 72125-TC; 73110-TC-RT-FY; 73130-TC-RT-FY; 80048; 82550; 83735; 83880; 84100; 84155; 84165; 84439; 84443; 84484; 85025; 85027; 85610; 90471; 90715; 93005; 93010; 93306-TC; 93880-TC; 96372; 97116-GP; 97161-GP; 99284-25; G0378

== ENCOUNTER 2019-05-13 13:48 | Inpatient (IN) | payer BC, OTHER ==
--- NOTE | 2019-05-13 15:09 | PDOC ---
History of Present Illness - General Chief Complaint: Edema Stated Complaint: EDEMA Time Seen by Provider: 05/13/19 14:36 History Source: Patient, Spouse ( present at bedside.), Old Records Exam Limitations: No Limitations - History of Present Illness Initial Comments: HPI: 89 y/o male presenting to [facility] ER from [facility] for evaluation of warmth, tenderness, swelling, and redness to left lower extremity. Pt reports the symptoms started spontaneously two days ago. Denies trauma to the area. Denies insect bite or other puncture. Denies recent travel. No weeping or purulent discharge. Area has felt warm and then cold but pt denies fevers, chills, or diaphoresis. Pt is anticoagulated on Coumadin. Pacemaker Information: Make: [employer] (Miner) Pacemaker. [address] Pacemaker. SN [id number]. Miner Pacemaker ([employer]. Talat) Interrogation: [id number] PCP: Dr. Cee Equipment Scheduler: Dr. Cooln Medical Hx: - CHF - PM - Hypercholesterolemia - Left Likely Meningioma, stable -Afib - Diverticulitis - Pacemaker placed at [facility] approx. 15 years ago Review of Systems: In addition to that documented in the HPI above, the additional ROS was obtained : Constitutional: Denies fevers or chills Head: Denies vision changes ENMT: Denies sore throat CV: Denies chest pain Resp: Denies SOB GI: Denies vomiting or diarrhea : Denies painful urination MSK: Denies recent trauma Skin: Per HPI Neuro: Denies new numbness or tingling or weakness Endocrine: Denies polyuria Heme: Denies bleeding or bruising Physical Examination: Constitutional: Well-developed, well-nourished elderly adult male in no acute distress or obvious discomfort. Found semi-fowlers on hospital bed. Answered all questions appropriately and completely. Speech was non-labored, non- pressured. Head: Normocephalic. No obvious external signs of trauma. Cardiovascular / Chest: Irregularly irregular rate and rhythm. No murmur, rubs, clicks, or gallops. Peripheral pulses: radial pulses full. Respiratory: Breathing unlabored. Equal chest rise and fall. Clear to auscultation bilaterally. No stridor, no wheezing, no rhonchi. Gastrointestinal: abdomen is soft, non-tender, non-distended. Neuro: Alert and oriented x4. Moving all four extremities spontaneously. Skin/MSK: Erythema and edema to left foot, ankle, and coon; extends to knee. 2x areas of possible fluctuance vs cyst to lateral aspect of left knee. Area diffusely tender to palpation. No discharge. No lymphatic streaking. No puncture or other open wounds. Psych: Affect: appropriate. Mood: normal. MDM: *Reviewed vital signs, nursing notes, and prior visit documentation (if available). 89 y/o male presenting with unilateral swelling to L lower extremity. Family initially reports no trauma but son arrived later, who reported the pt fell last on a single step in his dining room. Also report pts diuretic was increased last week. Afebrile. Vitals unremarkable for hypotension or tachycardia. Physical exam as described above. Soft tissue U/S noted the soft tissue swelling but unable to identify etiology. DVT study negative. Plain films showed likely soft tissue swelling per ED wet read. Radiology report pending. Mild leukocytosis with elevated ESR and CRP. Suspect likely erysipelas. CMP revealed elevated BUN/Cr. Suspect MARIELY secondary to diuretic change. Ordered Unasyn for abx coverage. Ordered LR bolus and maintenance fluid for rehydration. T. Bili elevated. No recent values to compare. Will discuss with inpatient team. Pt signed out to resident Dr. Post after he was verbally appraised of the pt s HPI, current ED course, and plan of management. Will f/u on pending admission. Cristobal Washington M.D., PGY2 Emergency Medicine Resident Past History - Past Medical History Allergies/Adverse Reactions: Allergies Allergy/AdvReac Type Severity Reaction Status Date / Time No Known Drug Allergies Allergy Verified 02/12/19 12:38 Home Medications: Ambulatory Orders Simvastatin [Zocor -] 40 mg PO HS 02/22/16 Furosemide [Lasix] 80 mg PO BID 05/14/18 Potassium Chloride 20 meq PO DAILY 05/14/18 Warfarin Sodium 4 mg PO DAILY 02/12/19 Acetaminophen [Tylenol] 325 mg PO DAILY PRN 02/13/19 Metolazone [Zaroxolyn -] 2.5 mg PO DAILY 05/13/19 Anemia: No Cardiac Disorders: Yes (CHF, PPM, AF) COPD: No CHF: Yes HTN: Yes Hypercholesterolemia: Yes - Surgical History Appendectomy: Yes Cardiac Surgery: Yes (PACEMAKER, STENT) Orthopedic Surgery: Yes (wrist) - Immunization History Immunization Up to Date: Yes - Suicide/Smoking/Psychosocial Hx Smoking Status: No Smoking History: Unknown if ever smoked Have you smoked in the past 12 months: No Number of Cigarettes Smoked Daily: 0 Hx Alcohol Use: Yes (has 2 glasses of whiskey + 1 glass of wine/day) Drug/Substance Use Hx: No Substance Use Type: None Hx Substance Use Treatment: No *Physical Exam - Vital Signs Last Vital Signs Temp Pulse Resp BP Pulse Ox 98.5 F 73 18 111/49 L 97 05/13/19 13:54 05/13/19 13:54 05/13/19 13:54 05/13/19 13:54 05/13/19 13:54 ED Treatment Course - LABORATORY CBC & Chemistry Diagram: 05/13/19 15:00 05/13/19 15:00 - RADIOLOGY Radiology Studies Ordered: Category Date Time Status CHEST X-RAY PORTABLE* [RAD] Stat Radiology 05/13/19 15:00 Ordered DUPLEX VASCUL US-1 LEG [US] Stat Ultrasound 05/13/19 15:00 Ordered SOFT TISSUE EXTREMITY US [US] Stat Ultrasound 05/13/19 15:01 Ordered *DC/Admit/Observation/Transfer Diagnosis at time of Disposition: Erysipelas, MARIELY (acute kidney injury), Elevated bilirubin - Discharge Dispostion Condition at time of disposition: Stable Decision to Admit order: Yes - Referrals Referrals: Titus Quijano MD [Primary Care Provider] - - Patient Instructions - Post Discharge Activity
--- NOTE | 2019-05-13 15:35 | PDOC ---
Attending Attestation - Resident Resident Name: Cristobal Washington - ED Attending Attestation I have performed the following: I have examined & evaluated the patient, The case was reviewed & discussed with the resident, I agree w/resident's findings & plan - HPI HPI: 05/13/19 15:35 89 y/o male h/o CHF, PPM, HLD, meningioma, Afib on coumadin, diverticulitis, presenting to [facility] ER from Dr[facility] for evaluation of warmth, tenderness, swelling, and redness to left lower extremity x 2 days. however + mechanical fall about 5 days ago, where he may have missed a step when walking in his home. son noted, he has had frequent falls x several months. no known head injury or LOC or recent fall since initial event 5 d ago. Denies insect bite or other puncture. Denies recent travel. No weeping or purulent discharge. he also noted 2 nodules in the are of the left lateral leg, that are new. Area has felt warm and then cold but pt denies fevers, chills, or diaphoresis. Pt is anticoagulated on Coumadin. Pacemaker Information: Make: [employer]at (Miner) Pacemaker. Make [employer] 2109 Pacemaker. SN [id number]. Miner Pacemaker (St. Talat) Interrogation: [phone] PCP: Dr. Cee [employer] Specialist: Dr. Colon 05/13/19 21:11 - Physicial Exam PE: 05/13/19 15:34 Agree with the resident's HPI and PE as documented in the electronic medical record. NAD, well appearing, EOMI, PERRL, MMM, nl conjunctiva, anicteric; neck supple. lungs clear, RRR, abdomen soft nontender. Back nontender. FISHER x4, no focal neuro deficits. + peripheral edema. normal color for ethnicity, WWP. left lateral leg below knee with 2 moderately sized, mobile SQ nodular lesions, no skin changes there LLE laterally with erythema and warmth, tender to palp - Medical Decision Making 05/13/19 15:32 Vital Signs Temp Pulse Resp BP Pulse Ox 98.5 F 73 18 111/49 L 97 05/13/19 13:54 05/13/19 13:54 05/13/19 13:54 05/13/19 13:54 05/13/19 13:54 ddx soft tissue infection, cellulitis, abscess SQ nodules, cysts, DVT area demarcated no DVT SQ nodules noted, unclear etiology, could be traumatic in nature IV abx, unasyn appropriate, monitor clinically remote fall as possible traumatic nidus for infection. neuro intact, defer further imaging/CT head. MARIELY noted, Cr 1.6, likely in setting of over diuresis and gentle hydration given , close monitor. med management, admit to hospitalist service 05/13/19 21:11 05/13/19 21:13 Heart Score/ECG Review #1 ECG reviewed & interpreted by me at: 15:30 General ECG Interpretation: Normal Rate Compared to previous ECG there are: No significant change 05/13/19 15:52 v paced rhythm, appropriate discordance and nonspecific T wave abnormalities, similar to prior.
--- NOTE | 2019-05-13 15:41 | EKG ---
Test Reason : Blood Pressure : / mmHG Vent. Rate : 070 BPM Atrial Rate : 208 BPM P-R Int : 000 ms QRS Dur : 194 ms QT Int : 526 ms P-R-T Axes : 000 220 074 degrees QTc Int : 568 ms Ventricular-paced rhythm ABNORMAL ECG WHEN COMPARED WITH ECG OF 12-FEB-2019 13:21, PREMATURE VENTRICULAR COMPLEXES ARE NO LONGER PRESENT VENT. RATE HAS DECREASED BY 2 BPM Confirmed by MD JOSE, INGRID ([id number]) on 05/13/2019 3:41:43 PM Referred By: Confirmed By:INGRID GARCIA MD
[2019-05-13 15:45] LABS: BASO % 1.2 % (0-2.0); EOS % 0.2 % (0-4.5); HEMATOCRIT 44.8 % (35.4-49); HEMOGLOBIN 14.3 GM/dL (11.7-16.9); MCH 28.8 pg (25.7-33.7); MEAN CELL VOLUME 90.2 fl (80-96); MEAN PLT VOLUME 9.9 fl (7.5-11.1); MONO % 13.3 % (3.8-10.2); NEUT % 68.3 % (42.8-82.8); PLATELET COUNT 231 K/MM3 (134-434); RBC 4.97 M/mm3 (4.00-5.60); RDW 15.9 % (11.9-15.9); WHITE BLOOD COUNT 11.6 K/mm3 (4.0-10.0)
[2019-05-13 16:03] LABS: ALBUMIN 3.8 g/dl (3.4-5.0); BILIRUBIN,TOTAL 2.5 mg/dL (0.2-1); BLOOD UREA NITROGEN 47.8 mg/dL (7-18); CALCIUM 10.4 mg/dL (8.5-10.1); CREATININE 1.6 mg/dL (0.55-1.3); POTASSIUM 4.1 mmol/L (3.5-5.1); TOT PROT 7.6 g/dl (6.4-8.2)
[2019-05-13 16:05] LABS: INR 2.02 (0.83-1.09)
[2019-05-13 17:21] LABS: ERYTHROCYTE SEDIMENTATION RATE 31 mm/hr (0-20)
[2019-05-13] MEDS ORDERED: AMPICILLIN NA/SULBACTAM NA 3 GM in SODIUM CHLORIDE 100 ML IVPB ONE (18:48)
[2019-05-13] MEDS ORDERED: LACTATED RINGERS SOLUTION 1000 ML INFUS.BAG IV ONE (18:49)
[2019-05-13] MEDS ORDERED: oxyCODONE HCL 5 MG TABLET PO ONE (18:50)
[2019-05-13] MEDS ORDERED: LACTATED RINGERS SOLUTION 1,000 ML/1,000 ML INFUS.BAG IV SCH (19:00)
[2019-05-13] MEDS ORDERED: oxyCODONE HCL 5 MG TABLET ONE (19:04)
--- NOTE | 2019-05-13 21:14 | HP ---
CHIEF COMPLAINT: LLE swelling PCP: Dr. Quijano HISTORY OF PRESENT ILLNESS: 89 y.o. M PMH A-fib s/p pacemaker placed ~15 yrs ago, CHF,HLD, stable meningioma , diverticulitis presenting from PCPs office for LLE erythema and edema for the past 2 days. Patient is a poor historian but as per his nephew has a fall from standing on 05/08/19 which may have been inciting factor for current presentation as pt fell on his leg- patient does not remember falling. The leg is mildly painful and warm. No discharge present from LLE however there are 2 firm nonmobile nodules present on lateral left knee which he has not noticed before. Pt denies having had any insect bites to his leg recently. Denies CP/ SOB/ fevers/ headaches/ chills/ N/V. ER course was notable for: (1) WBC 11.6; ESR 31, CRP 6.2 (2) T. Bili 2.5 (3) Cr 1.6 (baseline 1.0) (4) LLE U/S: 3 subcutaneous soft tissue nodules: 1st 6.1x3.8x2, 2nd 4.7x2.6x1.7 ; 3rd 2.1x1.8x1.4 (5) Oxycodone 5mg given in ED (6) + orthostatics: standing 104/46; sitting 114/60; supine 116/59 Recent Travel: denies PAST MEDICAL HISTORY: as per HPI PAST SURGICAL HISTORY: pacemaker placed 15 yrs ago Social History: Smoking: denies Alcohol: occasional Drugs: denies Allergies No Known Drug Allergies Allergy (Verified 02/12/19 12:38) HOME MEDICATIONS: Home Medications Medication Instructions Recorded Simvastatin [Zocor -] 40 mg PO HS 02/22/16 Furosemide [Lasix] 80 mg PO BID 05/14/18 Potassium Chloride 20 meq PO DAILY 05/14/18 Warfarin Sodium 4 mg PO DAILY 02/12/19 Acetaminophen [Tylenol] 325 mg PO DAILY PRN 02/13/19 Metolazone [Zaroxolyn -] 2.5 mg PO DAILY 05/13/19 REVIEW OF SYSTEMS CONSTITUTIONAL: Absent: fever, chills, diaphoresis, generalized weakness, malaise, loss of appetite, weight change HEENT: Absent: rhinorrhea, nasal congestion, throat pain, throat swelling, difficulty swallowing, mouth swelling, ear pain, eye pain, visual changes CARDIOVASCULAR: Absent: chest pain, syncope, palpitations, irregular heart rate, lightheadedness , peripheral edema RESPIRATORY: Absent: cough, shortness of breath, dyspnea with exertion, orthopnea, wheezing, stridor, hemoptysis GASTROINTESTINAL: Absent: abdominal pain, abdominal distension, nausea, vomiting, diarrhea, constipation, melena, hematochezia GENITOURINARY: Absent: dysuria, frequency, urgency, hesitancy, hematuria, flank pain, genital pain MUSCULOSKELETAL: Absent: myalgia, arthralgia, joint swelling, back pain, neck pain SKIN: Absent: rash, itching, pallor HEMATOLOGIC/IMMUNOLOGIC: Absent: easy bleeding, easy bruising, lymphadenopathy, frequent infections ENDOCRINE: Absent: unexplained weight gain, unexplained weight loss, heat intolerance, cold intolerance NEUROLOGIC: Absent: headache, focal weakness or paresthesias, dizziness, unsteady gait, seizure, mental status changes, bladder or bowel incontinence PSYCHIATRIC: Absent: anxiety, depression, suicidal or homicidal ideation, hallucinations. PHYSICAL EXAMINATION Vital Signs - 24 hr 05/13/19 05/13/19 13:54 17:44 Temperature 98.5 F 98.0 F Pulse Rate 73 Pulse Rate [ 77 Apical] Respiratory 18 20 Rate Blood Pressure 111/49 L Blood Pressure 101/57 L [Right Arm] O2 Sat by Pulse 97 100 Oximetry (%) GENERAL: In no acute distress. AOx2, oriented to self and place but not time. HEENT: No lymphadenopathy LUNGS: CTABL no wheezing/ crackles noted, no incr work of breathing HEART: Regular rate and rhythm, normal S1 and S2 without murmurs ABDOMEN: Soft, non distended. Mildly TTP RUQ and midepigastric region. Mild hepatomegaly noted on exam ~2cm below costal margin. UPPER EXTREMITIES: 2+ pulses, well-perfused. No cyanosis. No clubbing. No peripheral edema. LOWER EXTREMITIES: LLE clearly demarcated erythema below knee; LLE warm to palpation up to knee. 2 Left knee subcutaneous firm, nonmobile nodules present. 2+ pulses, well-perfused. No calf tenderness. PSYCHIATRIC: Cooperative. Good eye contact. Appropriate mood and affect. Laboratory Results - last 24 hr 05/13/19 05/13/19 05/13/19 15:00 15:00 15:00 WBC 11.6 H Corrected WBC (auto) RBC 4.97 Hgb 14.3 Hct 44.8 MCV 90.2 MCH 28.8 MCHC 32.0 RDW 15.9 Plt Count 231 D MPV 9.9 Absolute Neuts (auto) 8.0 Neutrophils % 68.3 Lymphocytes % 17.0 D Monocytes % 13.3 H Eosinophils % 0.2 D Basophils % 1.2 Nucleated RBC % 0 Platelet Estimate Platelet Comment ESR 31 H PT with INR 24.00 H INR 2.02 H Sodium Potassium Chloride Carbon Dioxide Anion Gap BUN Creatinine Est GFR (CKD-EPI)AfAm Est GFR (CKD-EPI)NonAf Random Glucose Calcium Total Bilirubin AST ALT Alkaline Phosphatase C-Reactive Protein 6.2 H Total Protein Albumin 05/13/19 05/13/19 15:00 15:00 WBC Cancelled Corrected WBC (auto) Cancelled RBC Cancelled Hgb Cancelled Hct Cancelled MCV Cancelled MCH Cancelled MCHC Cancelled RDW Cancelled Plt Count Cancelled MPV Cancelled Absolute Neuts (auto) Cancelled Neutrophils % Cancelled Lymphocytes % Cancelled Monocytes % Cancelled Eosinophils % Cancelled Basophils % Cancelled Nucleated RBC % Cancelled Platelet Estimate Cancelled Platelet Comment Cancelled ESR PT with INR INR Sodium 133 L Potassium 4.1 Chloride 86 L Carbon Dioxide 35 H Anion Gap 12 BUN 47.8 H Creatinine 1.6 H Est GFR (CKD-EPI)AfAm 43.93 Est GFR (CKD-EPI)NonAf 37.90 Random Glucose 111 H Calcium 10.4 H Total Bilirubin 2.5 H AST 37 ALT 13 Alkaline Phosphatase 141 H C-Reactive Protein Total Protein 7.6 Albumin 3.8 ASSESSMENT/PLAN: 89 y.o. M PMH A-fib s/p pacemaker placed ~15 yrs ago, CHF,HLD, stable meningioma , diverticulitis presenting for LLE edema & erythema found to have cellulitis of LLE. #LLE Cellulitis -F/u LLE non-contrast CT -S/p Unasyn 3g in ED, zosyn & vanc -Now on ceftriaxone -LLE Duplex negative for DVT -F/u urine & blood cx -WBC 11.6 #LLE subcutaneous nodules -Incidental finding on LLE XR -F/u LLE CT #MARIELY -Cr 1.6; baseline 1.0 -S/p 1L bolus LR in ED -C/w gentle hydration -Holding Lasix- pt was recently increased to 40mg BID -F/u renal U/S #Contraction alkalosis -Elevated CO2 (35) -Likely d/t over-diuresis -Holding diuretics #Elevated T. Bili -F/u RUQ U/S #CHF -Echo 01/2019: EF 55-60%. Mild TR, mild pulm HTN, trace AR #A-fib -On coumadin #HLD -C/w simvastatin #Hx meningioma -Stable #FEN -LR@75mL/ hr -Monitor lytes -NPO for U/S #DVT PPX -on coumadin Visit type - Emergency Visit Emergency Visit: Yes ED Registration Date: 05/13/19 Care time: The patient presented to the Emergency Department on the above date and was hospitalized for further evaluation of their emergent condition. - New Patient This patient is new to me today: Yes Date on this admission: 05/14/19 - Critical Care Critical Care patient: No ATTENDING PHYSICIAN STATEMENT I saw and evaluated the patient. I reviewed the resident's note and discussed the case with the resident. I agree with the resident's findings and plan as documented. SUBJECTIVE: OBJECTIVE: ASSESSMENT AND PLAN:
--- NOTE | 2019-05-13 21:17 | PN ---
Teaching Attending Note Name of Resident: Calli Chan ATTENDING PHYSICIAN STATEMENT I saw and evaluated the patient. I reviewed the resident's note and discussed the case with the resident. I agree with the resident's findings and plan as documented. SUBJECTIVE: 89 yo man w/ A-fib s/p pacemaker, CHF, HLD, stable meningioma, sent from pcp office for worsening left lower ext erythema for last 2 days. Patient denied any fevers or chills. He is not a very good historian and info is obtained mainly from EMR OBJECTIVE: Last Vital Signs Temp Pulse Resp BP Pulse Ox 97.9 F 72 18 135/70 93 L 05/14/19 01:40 05/14/19 01:40 05/14/19 01:40 05/14/19 01:40 05/13/19 21:05 gen - nontoxic heent - moist mucous membranes cv-[id number]+[id number] chest clear abdomen -soft ext -left lower extremity erythema, tenderness to palpation, swelling Abnormal Lab Results 05/13/19 05/13/19 05/13/19 15:00 15:00 15:00 WBC 11.6 H Monocytes % 13.3 H ESR 31 H PT with INR 24.00 H INR 2.02 H Sodium Chloride Carbon Dioxide BUN Creatinine Random Glucose Calcium Total Bilirubin Alkaline Phosphatase C-Reactive Protein 6.2 H 05/13/19 15:00 WBC Monocytes % ESR PT with INR INR Sodium 133 L Chloride 86 L Carbon Dioxide 35 H BUN 47.8 H Creatinine 1.6 H Random Glucose 111 H Calcium 10.4 H Total Bilirubin 2.5 H Alkaline Phosphatase 141 H C-Reactive Protein imaging reviewed lower ext u/s showed bakers cyst negative for dvt ASSESSMENT AND PLAN: #left lower extremity cellulitis. 3 subcutaneous masses- lateral left knee- bakers cysts? -med/surg -blood cultures x2 -vancomycin -ceftriaxone -id for abx -leg elevation -f/u ct of left lower ext to evaluate 3 left lateral knee masses #chronic chf s/p pacemaker -stable, cont home lasix #Hld -cont statin #AF -cont ac with coumadin, goal 2-3 -check inr
[2019-05-13] MEDS ORDERED: VANCOMYCIN 1 GM in D5W (PRE-DOCKED) 1,000 MG/250 ML IVPB ONE (21:21)
[2019-05-13 21:27] VITALS: BMI 25.9
[2019-05-13] MEDS ORDERED: cefTRIAXone SODIUM 1 GM VIAL ONE (21:59)
[2019-05-13] MEDS ORDERED: DEXTROSE 5%-WATER - 50 ML IVPB ONE (21:59)
[2019-05-13] MEDS: CEFTRIAXONE 1 GM in DEXTROSE 5%-WATER - 50 ML IVPB SCH (22:07)
[2019-05-13] MEDS: ATORVASTATIN CA 20 MG TABLET (FP) PO SCH (22:07)
[2019-05-13] MEDS: SODIUM CHLORIDE 1,000 ML IV SCH (22:14)
[2019-05-14 02:24] LABS: PH,URINE 6.5 (5.0-8.0); URINE APPEARANCE CLEAR; URINE BILIRUBIN NEGATIVE (NEGATIVE); URINE COLOR YELLOW; URINE GLUCOSE (UA) NEGATIVE (NEGATIVE); URINE KETONE NEGATIVE (NEGATIVE); URINE LEUK ESTERASE NEGATIVE (NEGATIVE); URINE NITRITE NEGATIVE (NEGATIVE); URINE PROTEIN NEGATIVE (NEGATIVE)
[2019-05-14 08:13] LABS: ALBUMIN 3.4 g/dl (3.4-5.0); BLOOD UREA NITROGEN 47.4 mg/dL (7-18); CREATININE 1.4 mg/dL (0.55-1.3); MAGNESIUM 2.4 mg/dL (1.8-2.4); PHOSPHOROUS 2.9 mg/dL (2.5-4.9); TOT PROT 6.7 g/dl (6.4-8.2)
[2019-05-14 08:26] LABS: HEMATOCRIT 41.2 % (35.4-49); HEMOGLOBIN 13.6 GM/dL (11.7-16.9); MCH 29.5 pg (25.7-33.7); MCHC 32.9 g/dl (32.0-35.9); MEAN CELL VOLUME 89.5 fl (80-96); MEAN PLT VOLUME 9.8 fl (7.5-11.1); PLATELET COUNT 217 K/MM3 (134-434); RDW 16.1 % (11.9-15.9); WHITE BLOOD COUNT 11.2 K/mm3 (4.0-10.0)
[2019-05-14 08:37] LABS: INR 2.43 (0.83-1.09); PROTHROMBIN TIME (PATIENT) 28.9 SEC (9.7-13.0)
[2019-05-14] MEDS ORDERED: POTASSIUM CHLORIDE TABS 20 MEQ TABLET.ER (FP) PO ONE (08:59)
[2019-05-14] MEDS ORDERED: cefTRIAXone SODIUM 1 GM VIAL ONE (10:33)
[2019-05-14] MEDS ORDERED: DEXTROSE 5%-WATER - 50 ML IVPB ONE (10:33)
[2019-05-14] MEDS: CEFTRIAXONE 1 GM in DEXTROSE 5%-WATER - 50 ML IVPB SCH (10:38)
[2019-05-14] MEDS: KCL 10 MEQ IVPB 10 MEQ/100 ML INFUS.BAG IVPB SCH ×3 (10:39→14:49)
[2019-05-14] MEDS: POTASSIUM CHLORIDE TABS 20 MEQ TABLET.ER (FP) PO SCH ×2 (10:40→22:19)
--- NOTE | 2019-05-14 10:42 | PN ---
Progress Note (short form) - Note Progress Note: ID CONSULT DICTATED CELLULITIS L LE ? HEMATOMAS AZOTEMIA AWAIT C/S EMPIRIC [id number]/ VANCOMYCIN
--- NOTE | 2019-05-14 17:32 | CONS ---
DATE OF CONSULTATION: DATE OF DICTATION: 05/14/2019 HISTORY OF PRESENT ILLNESS: The patient is an 89-year-old male evaluated for cellulitis of the left lower extremity. He was admitted to the hospital on May 13, 2019, but with a 2-day history of worsening erythema, warmth, and swelling of the left lower extremity. He had apparently fallen approximately 5 days prior to admission. He was evaluated at [facility] where he was diagnosed with cellulitis. He was also noted to have 3 areas of soft tissue swelling on the lateral aspect of the left lower extremity. He denies any purulent drainage, no associated fevers or chills. No prior history of serious soft tissue infection requiring hospitalization or history of MRSA. PAST MEDICAL HISTORY: Positive for diverticulitis, atrial fibrillation, congestive heart failure, hyperlipidemia, meningioma. PAST SURGICAL HISTORY: Status post permanent pacemaker. ALLERGIES: No known allergies. LABORATORY DATA: White count 11.2, hematocrit 41.2, platelets 217, creatinine 1.4. Urinalysis negative leukocyte esterase. Chest x-ray negative. IMAGING: Imaging of the left lower extremity showed discrete soft tissue masses. PHYSICAL EXAMINATION: General: On exam, he is awake, in no acute distress. Not acutely toxic appearing. Vital signs: Temperature 98, blood pressure 137/69, pulse 83 regular, respirations 20 per minute. HEENT: Sclerae anicteric. Cardiovascular: Heart sounds S1, S2. Lungs: Clear. Abdomen: Soft, nontender. Extremities: Examination of the left lower extremity, there is erythema and swelling of the left lower extremity from below the knee to the ankle area. It is more pronounced distally. There are 3 areas of soft tissue swelling approximately golf ball sized on the lateral aspect of the left lower extremity. These areas are slightly fluctuant, nontender. No expressible pus. IMPRESSION: 1. Cellulitis of the left lower extremity. 2. Possible hematoma versus soft tissue abscesses of the left lower extremity. 3. Azotemia. Await cultures. Empiric antibiotic coverage with vancomycin and ceftriaxone. Surgical evaluation. Elevation. Analgesics. Will follow. Thank you for the kind referral. EZRA ESQUIVEL M.D. [id number]
[2019-05-14] MEDS: WARFARIN NA 2 MG TABLET (UD) PO SCH (18:46)
--- NOTE | 2019-05-14 19:02 | PN ---
Physical Exam: SUBJECTIVE: Patient seen and examined OBJECTIVE: Vital Signs Period Temp Pulse Resp BP Sys/Esposito Pulse Ox Last 24 Hr 97.5 F-98.7 F 72-85 18-20 123-138/57-82 93-94 GENERAL: The patient is awake, alert, and fully oriented, in no acute distress. HEAD: Normal with no signs of trauma. EYES: PERRL, extraocular movements intact, sclera anicteric, conjunctiva clear. No ptosis. ENT: Ears normal, nares patent, oropharynx clear without exudates, moist mucous membranes. NECK: Trachea midline, full range of motion, supple. LUNGS: Breath sounds equal, clear to auscultation bilaterally, no wheezes, no crackles, no accessory muscle use. HEART: Regular rate and rhythm, S1, S2 without murmur, rub or gallop. ABDOMEN: Soft, nontender, nondistended, normoactive bowel sounds, no guarding, no rebound, no hepatosplenomegaly, no masses. EXTREMITIES: 2+ pulses, warm, well-perfused, no edema. NEUROLOGICAL: Cranial nerves II through XII grossly intact. Normal speech, gait not observed. PSYCH: Normal mood, normal affect. SKIN: Warm, dry, normal turgor, no rashes or lesions noted Laboratory Results - last 24 hr 05/14/19 05/14/19 05/14/19 01:50 01:50 04:30 WBC RBC Hgb Hct MCV MCH MCHC RDW Plt Count MPV PT with INR INR Sodium Potassium Chloride Carbon Dioxide Anion Gap BUN Creatinine Est GFR (CKD-EPI)AfAm Est GFR (CKD-EPI)NonAf Random Glucose Calcium Phosphorus Magnesium Total Bilirubin Direct Bilirubin AST ALT Alkaline Phosphatase Total Protein Albumin Urine Color Yellow Urine Appearance Clear Urine pH 6.5 Ur Specific [place] 1.011 Urine Protein Negative Urine Glucose (UA) Negative Urine Ketones Negative Urine Blood Negative Urine Nitrite Negative Urine Bilirubin Negative Urine Urobilinogen 1.0 Ur Leukocyte Esterase Negative Ur Random Creatinine 34.0 Ur Random Sodium 86 05/14/19 05/14/19 05/14/19 06:12 06:12 06:12 WBC 11.2 H RBC 4.60 Hgb 13.6 Hct 41.2 MCV 89.5 MCH 29.5 MCHC 32.9 RDW 16.1 H Plt Count 217 MPV 9.8 PT with INR 28.90 H INR 2.43 H Sodium 134 L Potassium 3.0 L Chloride 85 L Carbon Dioxide 40 H Anion Gap 9 BUN 47.4 H Creatinine 1.4 H Est GFR (CKD-EPI)AfAm 51.62 Est GFR (CKD-EPI)NonAf 44.54 Random Glucose 108 H Calcium 10.0 Phosphorus 2.9 Magnesium 2.4 Total Bilirubin 2.0 H Direct Bilirubin AST 11 L ALT 10 L Alkaline Phosphatase 122 H Total Protein 6.7 Albumin 3.4 Urine Color Urine Appearance Urine pH Ur Specific [place] Urine Protein Urine Glucose (UA) Urine Ketones Urine Blood Urine Nitrite Urine Bilirubin Urine Urobilinogen Ur Leukocyte Esterase Ur Random Creatinine Ur Random Sodium 05/14/19 06:12 WBC RBC Hgb Hct MCV MCH MCHC RDW Plt Count MPV PT with INR INR Sodium Potassium Chloride Carbon Dioxide Anion Gap BUN Creatinine Est GFR (CKD-EPI)AfAm Est GFR (CKD-EPI)NonAf Random Glucose Calcium Phosphorus Magnesium Total Bilirubin Direct Bilirubin 1.0 H AST ALT Alkaline Phosphatase Total Protein Albumin Urine Color Urine Appearance Urine pH Ur Specific [place] Urine Protein Urine Glucose (UA) Urine Ketones Urine Blood Urine Nitrite Urine Bilirubin Urine Urobilinogen Ur Leukocyte Esterase Ur Random Creatinine Ur Random Sodium Active Medications Generic Name Dose Route Start Last Admin Trade Name Freq PRN Reason Stop Dose Admin Atorvastatin Calcium 20 mg 05/13/19 22:00 05/13/19 22:07 Lipitor - PO 20 mg HS GEORGE Administration Sodium Chloride 1,000 mls @ 42 mls/hr 05/13/19 21:30 05/13/19 22:14 Normal Saline - IV 42 mls/hr ASDIR GEORGE Administration Ceftriaxone Sodium 2 gm/ 100 mls @ 200 mls/hr 05/15/19 10:00 Dextrose IVPB DAILY GEORGE Protocol Vancomycin HCl 1,000 mg in 250 mls @ 200 mls/hr 05/15/19 00:00 Vancomycin (Pre-Docked) IVPB Q24H GEORGE Protocol Potassium Chloride 40 meq 05/14/19 10:00 05/14/19 10:40 K-Dur - PO 05/14/19 22:01 Not Given BID GEORGE Warfarin Sodium 4 mg 05/14/19 18:00 05/14/19 18:46 Coumadin - PO 4 mg DAILY@1800 GEORGE Administration ASSESSMENT/PLAN: ATTENDING PHYSICIAN STATEMENT I saw and evaluated the patient. I reviewed the resident's note and discussed the case with the resident. I agree with the resident's findings and plan as documented. SUBJECTIVE: OBJECTIVE: ASSESSMENT AND PLAN:
--- NOTE | 2019-05-14 19:46 | PN ---
Teaching Attending Note Name of Resident: Padma Lea ATTENDING PHYSICIAN STATEMENT I saw and evaluated the patient. I reviewed the resident's note and discussed the case with the resident. I agree with the resident's findings and plan as documented. SUBJECTIVE: Discomfort LLE for 3-4m days with erythema/tenderness. No fever/ chills. OBJECTIVE: Afebrile, Hemodynamically Stable Last Vital Signs Temp Pulse Resp BP Pulse Ox 97.5 F L 85 18 123/82 94 L 05/14/19 16:15 05/14/19 16:15 05/14/19 16:15 05/14/19 16:15 05/14/19 09:00 HEENT: Atraumatic, Normocephalic HEART: S1, S2, RRR LUNGS: Clear to auscultation ABDOMEN: Soft, non-tender. Bowel Sounds nromal. EXTREMITIES: LLE swelling on lateral aspect of kneee with erythema/tenderness distal to knee. NEURO: AAO x 3. TONE/POWER normal all 4 extremities. Laboratory Results - last 24 hr 05/14/19 05/14/19 05/14/19 01:50 01:50 04:30 WBC RBC Hgb Hct MCV MCH MCHC RDW Plt Count MPV PT with INR INR Sodium Potassium Chloride Carbon Dioxide Anion Gap BUN Creatinine Est GFR (CKD-EPI)AfAm Est GFR (CKD-EPI)NonAf Random Glucose Calcium Phosphorus Magnesium Total Bilirubin Direct Bilirubin AST ALT Alkaline Phosphatase Total Protein Albumin Urine Color Yellow Urine Appearance Clear Urine pH 6.5 Ur Specific [place] 1.011 Urine Protein Negative Urine Glucose (UA) Negative Urine Ketones Negative Urine Blood Negative Urine Nitrite Negative Urine Bilirubin Negative Urine Urobilinogen 1.0 Ur Leukocyte Esterase Negative Ur Random Creatinine 34.0 Ur Random Sodium 86 05/14/19 05/14/19 05/14/19 06:12 06:12 06:12 WBC 11.2 H RBC 4.60 Hgb 13.6 Hct 41.2 MCV 89.5 MCH 29.5 MCHC 32.9 RDW 16.1 H Plt Count 217 MPV 9.8 PT with INR 28.90 H INR 2.43 H Sodium 134 L Potassium 3.0 L Chloride 85 L Carbon Dioxide 40 H Anion Gap 9 BUN 47.4 H Creatinine 1.4 H Est GFR (CKD-EPI)AfAm 51.62 Est GFR (CKD-EPI)NonAf 44.54 Random Glucose 108 H Calcium 10.0 Phosphorus 2.9 Magnesium 2.4 Total Bilirubin 2.0 H Direct Bilirubin AST 11 L ALT 10 L Alkaline Phosphatase 122 H Total Protein 6.7 Albumin 3.4 Urine Color Urine Appearance Urine pH Ur Specific [place] Urine Protein Urine Glucose (UA) Urine Ketones Urine Blood Urine Nitrite Urine Bilirubin Urine Urobilinogen Ur Leukocyte Esterase Ur Random Creatinine Ur Random Sodium 05/14/19 06:12 WBC RBC Hgb Hct MCV MCH MCHC RDW Plt Count MPV PT with INR INR Sodium Potassium Chloride Carbon Dioxide Anion Gap BUN Creatinine Est GFR (CKD-EPI)AfAm Est GFR (CKD-EPI)NonAf Random Glucose Calcium Phosphorus Magnesium Total Bilirubin Direct Bilirubin 1.0 H AST ALT Alkaline Phosphatase Total Protein Albumin Urine Color Urine Appearance Urine pH Ur Specific [place] Urine Protein Urine Glucose (UA) Urine Ketones Urine Blood Urine Nitrite Urine Bilirubin Urine Urobilinogen Ur Leukocyte Esterase Ur Random Creatinine Ur Random Sodium Current Medications Generic Name Dose Route Start Last Admin Trade Name Freq PRN Reason Stop Dose Admin Atorvastatin Calcium 20 mg 05/13/19 22:00 05/13/19 22:07 Lipitor - PO 20 mg HS GEORGE Administration Sodium Chloride 1,000 mls @ 42 mls/hr 05/13/19 21:30 05/13/19 22:14 Normal Saline - IV 42 mls/hr ASDIR GEORGE Administration Ceftriaxone Sodium 2 gm/ 100 mls @ 200 mls/hr 05/15/19 10:00 Dextrose IVPB DAILY GEORGE Protocol Vancomycin HCl 1,000 mg in 250 mls @ 200 mls/hr 05/15/19 00:00 Vancomycin (Pre-Docked) IVPB Q24H GEORGE Protocol Potassium Chloride 40 meq 05/14/19 10:00 05/14/19 10:40 K-Dur - PO 05/14/19 22:01 Not Given BID GEORGE Warfarin Sodium 4 mg 05/14/19 18:00 05/14/19 18:46 Coumadin - PO 4 mg DAILY@1800 GEORGE Administration Home Medications Medication Instructions Recorded Simvastatin [Zocor -] 40 mg PO HS 02/22/16 Furosemide [Lasix] 40 mg PO BID 05/14/18 Potassium Chloride 20 meq PO DAILY 05/14/18 Warfarin Sodium 4 mg PO DAILY 02/12/19 Acetaminophen [Tylenol] 325 mg PO DAILY PRN 02/13/19 Metolazone [Zaroxolyn -] 2.5 mg PO DAILY 05/13/19 ASSESSMENT AND PLAN: 89 year old male with Atrial Fibrillation, s/p PPM, HLD, Meningioma (Stable), referred to ED by PCP with LLE erythema/swelling for 3-4 days, found to have masseses/collections in subcutaneous tissue of LLE. LLE US/Duplex - No DVT, Ijmenez's Cyst, 3 subcutaneous masses (lat to L knee) 1. LLE Cellulitis with possible Abscesses Afberil, Hemodynamically Stable Blood Cx pending IV Ceftriaxone/Vanco MRI for further characterization of masses ? abscesses 2. MARIELY - resolving with IV hydration. 3. HLD - Continue Statin 4. Atrial Fibrillation - Continue Coumadin. INR therapeutic. 5. R Renal Cysts - incidental finding on US - for out-patient follow up. 6. Hypokalemia - repleted. DVT Px - on Coumadin
[2019-05-14] MEDS: ATORVASTATIN CA 20 MG TABLET (FP) PO SCH (22:19)
[2019-05-14] MEDS: SODIUM CHLORIDE 1,000 ML IV SCH (22:19)
[2019-05-14] MEDS: VANCOMYCIN 1 GRAM (PRE-DOCKED) 1,000 MG/250 ML BAG IVPB SCH (23:00)
[2019-05-15] MEDS ORDERED: MELATONIN 5 MG TABLETS PO ONE (00:53)
[2019-05-15 06:56] LABS: BASO % 1.1 % (0-2.0); EOS % 0.5 % (0-4.5); HEMATOCRIT 41.8 % (35.4-49); HEMOGLOBIN 13.7 GM/dL (11.7-16.9); LYMPH % 11.5 % (8-40); MCH 29.3 pg (25.7-33.7); MCHC 32.6 g/dl (32.0-35.9); MEAN CELL VOLUME 89.8 fl (80-96); MEAN PLT VOLUME 9.7 fl (7.5-11.1); MONO % 11.3 % (3.8-10.2); NEUT % 75.6 % (42.8-82.8); PLATELET COUNT 223 K/MM3 (134-434); RBC 4.66 M/mm3 (4.00-5.60); RDW 15.9 % (11.9-15.9); WHITE BLOOD COUNT 12.3 K/mm3 (4.0-10.0)
[2019-05-15 07:48] LABS: BLOOD UREA NITROGEN 56.9 mg/dL (7-18); CALCIUM 9.8 mg/dL (8.5-10.1); CREATININE 1.5 mg/dL (0.55-1.3); POTASSIUM 3.8 mmol/L (3.5-5.1)
[2019-05-15] MEDS ORDERED: SODIUM CHLORIDE 1,000 ML IV SCH (10:00)
[2019-05-15 10:24] LABS: INR 2.39 (0.83-1.09); PROTHROMBIN TIME (PATIENT) 28.4 SEC (9.7-13.0)
--- NOTE | 2019-05-15 11:38 | PN ---
Physical Exam: SUBJECTIVE: Patient seen and examined OBJECTIVE: Vital Signs Period Temp Pulse Resp BP Sys/Esposito Pulse Ox Last 24 Hr 97.5 F-98.3 F 83-85 18-20 99-138/57-82 95 GENERAL: The patient is awake, alert, and fully oriented, in no acute distress. HEAD: Normal with no signs of trauma. EYES: PERRL, extraocular movements intact, sclera anicteric, conjunctiva clear. No ptosis. ENT: Ears normal, nares patent, oropharynx clear without exudates, moist mucous membranes. NECK: Trachea midline, full range of motion, supple. LUNGS: Breath sounds equal, clear to auscultation bilaterally, no wheezes, no crackles, no accessory muscle use. HEART: Regular rate and rhythm, S1, S2 without murmur, rub or gallop. ABDOMEN: Soft, nontender, nondistended, normoactive bowel sounds, no guarding, no rebound, no hepatosplenomegaly, no masses. EXTREMITIES: 2+ pulses, warm, well-perfused, no edema. NEUROLOGICAL: Cranial nerves II through XII grossly intact. Normal speech, gait not observed. PSYCH: Normal mood, normal affect. SKIN: Warm, dry, normal turgor, no rashes or lesions noted Laboratory Results - last 24 hr 05/15/19 05/15/19 05/15/19 06:10 06:10 08:49 WBC 12.3 H RBC 4.66 Hgb 13.7 Hct 41.8 MCV 89.8 MCH 29.3 MCHC 32.6 RDW 15.9 Plt Count 223 MPV 9.7 Absolute Neuts (auto) 9.3 H Neutrophils % 75.6 Lymphocytes % 11.5 D Monocytes % 11.3 H Eosinophils % 0.5 D Basophils % 1.1 Nucleated RBC % 0 PT with INR 28.40 H INR 2.39 H Sodium 139 Potassium 3.8 Chloride 93 L Carbon Dioxide 35 H Anion Gap 11 BUN 56.9 H Creatinine 1.5 H Est GFR (CKD-EPI)AfAm 47.49 Est GFR (CKD-EPI)NonAf 40.98 Random Glucose 148 H Calcium 9.8 Active Medications Generic Name Dose Route Start Last Admin Trade Name Freq PRN Reason Stop Dose Admin Atorvastatin Calcium 20 mg 05/13/19 22:00 05/14/19 22:19 Lipitor - PO 20 mg HS GEORGE Administration Ceftriaxone Sodium 2 gm/ 100 mls @ 200 mls/hr 05/15/19 10:00 Dextrose IVPB DAILY GEORGE Protocol Vancomycin HCl 1,000 mg in 250 mls @ 200 mls/hr 05/15/19 00:00 05/14/19 23:00 Vancomycin (Pre-Docked) IVPB 200 mls/hr Q24H GEORGE Administration Protocol Sodium Chloride 1,000 mls @ 75 mls/hr 05/15/19 10:00 Normal Saline - IV ASDIR GEORGE Warfarin Sodium 4 mg 05/14/19 18:00 05/14/19 18:46 Coumadin - PO 4 mg DAILY@1800 GEORGE Administration ASSESSMENT/PLAN: ATTENDING PHYSICIAN STATEMENT I saw and evaluated the patient. I reviewed the resident's note and discussed the case with the resident. I agree with the resident's findings and plan as documented. SUBJECTIVE: OBJECTIVE: ASSESSMENT AND PLAN:
[2019-05-15] MEDS ORDERED: DEXTROSE 5%-WATER 100 ML IVPB ONE (11:41)
[2019-05-15] MEDS: CEFTRIAXONE 2 GM in DEXTROSE 5%-WATER 100 ML IVPB SCH (11:53)
--- NOTE | 2019-05-15 14:01 | DS ---
Physical Exam: SUBJECTIVE: 05/15/19 Patient seen and examined. He reports feeling dizzy earlier this morning when he was walking and turned around. When he is sitting or lying down, he is asymptomatic. He has not had this happen before. The discomfort in his legs is minimal. He denies headache, chest pain, abdominal pain, nausea, vomiting, or diarrhea. 05/16/19 Patient seen and examined. Today he reports mild pain at the lateral aspect of the anterior lower extremity. He denies fever, chills, n/v/d. OBJECTIVE: Vital Signs Period Temp Pulse Resp BP Sys/Esposito Pulse Ox Last 24 Hr 97.5 F-98.3 F 83-85 18-20 99-138/57-82 95 PHYSICAL EXAM GENERAL: The patient is awake, alert, and fully oriented, in no acute distress. HEAD: Normal with no signs of trauma. EYES: PERRL, extraocular movements intact, sclera anicteric, conjunctiva clear. ENT: Ears normal, nares patent, moist mucous membranes. NECK: Trachea midline, full range of motion, supple. LUNGS: Breath sounds equal, clear to auscultation bilaterally, no wheezes, no crackles, no accessory muscle use. HEART: Regular rate and rhythm, S1, S2 without murmur, rub or gallop. ABDOMEN: Soft, nontender, nondistended, normoactive bowel sounds EXTREMITIES: LLE edema erythema, and warmth below knee, more significant in foot NEUROLOGICAL: Cranial nerves II through XII grossly intact. Normal speech, gait not observed. PSYCH: Normal mood, normal affect. SKIN: Warm, dry, normal turgor, no rashes or lesions noted, except as above LABS Laboratory Results - last 24 hr 05/15/19 05/15/19 05/15/19 06:10 06:10 08:49 WBC 12.3 H RBC 4.66 Hgb 13.7 Hct 41.8 MCV 89.8 MCH 29.3 MCHC 32.6 RDW 15.9 Plt Count 223 MPV 9.7 Absolute Neuts (auto) 9.3 H Neutrophils % 75.6 Lymphocytes % 11.5 D Monocytes % 11.3 H Eosinophils % 0.5 D Basophils % 1.1 Nucleated RBC % 0 PT with INR 28.40 H INR 2.39 H Sodium 139 Potassium 3.8 Chloride 93 L Carbon Dioxide 35 H Anion Gap 11 BUN 56.9 H Creatinine 1.5 H Est GFR (CKD-EPI)AfAm 47.49 Est GFR (CKD-EPI)NonAf 40.98 Random Glucose 148 H Calcium 9.8 HOSPITAL COURSE: Mr. Marin is an 89 y/o male with paroxysmal a-fib s/p PPM (15 years ago) on Warfarin (therapeutic INR), diastolic CHF, HLD, CAD s/p stent, and stable meningioma who presents with LLE erythema and edema for the last 2 days. Patient denies fall or insect bites but family reports history of recent falls. CT of lower extremity showed edema and separate lobulated septated mass lateral to the knee joint (4.0x2.4cm) and another similar one at the lateral calf ( 5.8x3.6cm). MRI was suggested for further evaluation but pt has pacemaker model that has not been tested for MRI compatibility. No gas was identified. U/S negative for DVT but Jimenez's cyst noted. Pt has mild leukocytosis 11-12, ESR 31 , CRP 6.2 with no fevers. Preliminary blood cultures are negative. He is being treated for cellulitis with Vancomycin and Ceftriaxone. There has been improvement in erythema and edema since admission. Orthostatics were done at presentation and patient was positive. He had an MARIELY Cr 1.6 (baseline 1.0) and was given IV fluids with no improvement. He was also hypokalemic at 3.0 and was repleted. Right renal cysts noted. Total bilirubin was 2.5. U/S did not show hepatomegaly or acute pathology. Right renal cysts were noted. Date of Admission:05/13/19 Date of Discharge: 05/17/19 Discharge Summary Reason For Visit: ACUTE KIDNEY INJURY Current Active Problems MARIELY (acute kidney injury) (Acute) Elevated bilirubin (Acute) Erysipelas (Acute) Condition: Stable - Instructions Diet, Activity, Other Instructions: Hospital visit: You were admitted to the hospital for a skin infection in your leg. You were treated with antibiotics, and it is improving. The bumps on your knee were also evaluated and are stable right now. You had low blood pressure when you stood up quickly, so you were given fluids and monitored. You had a cyst on your kidney that did not need emergent treatment. You will need to follow up with a extractor operator solvent process (kidney doctor) to see if you need any other tests done. You also had low potassium in your blood and it was supplemented. You will need to follow up with your doctor to repeat those labs. Medications: Resume your home medications. You are prescribed Follow up with the following: Dr. Quijano, primary care, next week to check your blood electrolytes Dr. Rascon, infectious disease, in the next 1-[address] Soler, surgery, in the next 1-[address] Salazar, cardiology, in the next 1 month to check your orthostatic hypotension and medications Dr. Lovett, nephrology, in the next 1 month for the right side renal cyst Other instructions: It is important that you keep your leg elevated and wrapped as much as possible over the next few days. Take your antibiotics to completion. If the bumps near your knee get bigger, go to the emergency room. Return to the emergency room if your leg becomes warmer, more red, or more swollen, if you have a fever above 101, chest pain, nausea, or vomiting that does not resolve with medication. Disposition: HOME - Home Medications Comprehensive Discharge Medication List: Ambulatory Orders Simvastatin [Zocor -] 40 mg PO HS 02/22/16 Furosemide [Lasix] 40 mg PO BID 05/14/18 Potassium Chloride 20 meq PO DAILY 05/14/18 Warfarin Sodium 4 mg PO DAILY 02/12/19 Acetaminophen [Tylenol] 325 mg PO DAILY PRN 02/13/19 Metolazone [Zaroxolyn -] 2.5 mg PO DAILY 05/13/19 ATTENDING PHYSICIAN STATEMENT I saw and evaluated the patient. I reviewed the resident's note and discussed the case with the resident. I agree with the resident's findings and plan as documented. SUBJECTIVE: OBJECTIVE: ASSESSMENT AND PLAN:
[2019-05-15] MEDS: WARFARIN NA 2 MG TABLET (UD) PO SCH (18:16)
--- NOTE | 2019-05-15 18:39 | PN ---
Teaching Attending Note Name of Resident: Padma Lea ATTENDING PHYSICIAN STATEMENT I saw and evaluated the patient. I reviewed the resident's note and discussed the case with the resident. I agree with the resident's findings and plan as documented. SUBJECTIVE: Improving LLE erythema/tenderness. No fever/chills. OBJECTIVE: Afebrile, Hemodynamically Stable Last Vital Signs Temp Pulse Resp BP Pulse Ox 97.5 F L 73 18 97/54 L 95 05/15/19 16:30 05/15/19 16:30 05/15/19 16:30 05/15/19 16:30 05/15/19 09:00 HEART: S1, S2, RRR LUNGS: Clear to auscultation ABDOMEN: Soft, non-tender. Bowel Sounds normal. EXTREMITIES: LLE swelling on lateral aspect of knee with erythema/tenderness distal to knee. NEURO: AAO x 3. TONE/POWER normal all 4 extremities. Laboratory Results - last 24 hr 05/15/19 05/15/19 05/15/19 06:10 06:10 08:49 WBC 12.3 H RBC 4.66 Hgb 13.7 Hct 41.8 MCV 89.8 MCH 29.3 MCHC 32.6 RDW 15.9 Plt Count 223 MPV 9.7 Absolute Neuts (auto) 9.3 H Neutrophils % 75.6 Lymphocytes % 11.5 D Monocytes % 11.3 H Eosinophils % 0.5 D Basophils % 1.1 Nucleated RBC % 0 PT with INR 28.40 H INR 2.39 H Sodium 139 Potassium 3.8 Chloride 93 L Carbon Dioxide 35 H Anion Gap 11 BUN 56.9 H Creatinine 1.5 H Est GFR (CKD-EPI)AfAm 47.49 Est GFR (CKD-EPI)NonAf 40.98 Random Glucose 148 H Calcium 9.8 Current Medications Generic Name Dose Route Start Last Admin Trade Name Freq PRN Reason Stop Dose Admin Atorvastatin Calcium 20 mg 05/13/19 22:00 05/14/19 22:19 Lipitor - PO 20 mg HS GEORGE Administration Ceftriaxone Sodium 2 gm/ 100 mls @ 200 mls/hr 05/15/19 10:00 05/15/19 11:53 Dextrose IVPB 200 mls/hr DAILY GEORGE Administration Protocol Vancomycin HCl 1,000 mg in 250 mls @ 200 mls/hr 05/15/19 00:00 05/14/19 23:00 Vancomycin (Pre-Docked) IVPB 200 mls/hr Q24H GEORGE Administration Protocol Sodium Chloride 1,000 mls @ 75 mls/hr 05/15/19 10:00 05/15/19 11:53 Normal Saline - IV 75 mls/hr ASDIR GEORGE Administration Warfarin Sodium 4 mg 05/14/19 18:00 05/15/19 18:16 Coumadin - PO 4 mg DAILY@1800 GEORGE Administration Home Medications Medication Instructions Recorded Simvastatin [Zocor -] 40 mg PO HS 02/22/16 Furosemide [Lasix] 40 mg PO BID 05/14/18 Potassium Chloride 20 meq PO DAILY 05/14/18 Warfarin Sodium 4 mg PO DAILY 02/12/19 Acetaminophen [Tylenol] 325 mg PO DAILY PRN 02/13/19 Metolazone [Zaroxolyn -] 2.5 mg PO DAILY 05/13/19 ASSESSMENT AND PLAN: 89 year old male with Atrial Fibrillation, s/p PPM, HLD, Meningioma (Stable), referred to ED by PCP with LLE erythema/swelling for 3-4 days, found to have masseses/collections in subcutaneous tissue of LLE. LLE US/Duplex - No DVT, Jimenez's Cyst, 3 subcutaneous masses (lat to L knee) 1. LLE Cellulitis with possible Abscesses Afberile, Hemodynamically Stable Blood Cx negative Continue IV Ceftriaxone/Vanco CT LLE - septated/lobulated masses lateral to L knee and calf. MRI for further characterization of masses ? abscesses - unable to be performed due to patient's PPM Surgery consult for LE subcutaneous masses/collections 2. MARIELY - resolving with IV hydration - continue. 3. HLD - Continue Statin 4. Atrial Fibrillation - Continue Coumadin. INR therapeutic. 5. R Renal Cysts - incidental finding on US - for out-patient follow up. 6. Hypokalemia - repleted. DVT Px - on Coumadin
--- NOTE | 2019-05-15 19:20 | PN ---
Physical Exam: SUBJECTIVE: Patient seen and examined OBJECTIVE: Vital Signs Period Temp Pulse Resp BP Sys/Esposito Pulse Ox Last 24 Hr 97.5 F-98.3 F 73-83 18-20 97-116/53-57 95-95 GENERAL: The patient is awake, alert, and fully oriented, in no acute distress. HEAD: Normal with no signs of trauma. EYES: PERRL, extraocular movements intact, sclera anicteric, conjunctiva clear. No ptosis. ENT: Ears normal, nares patent, oropharynx clear without exudates, moist mucous membranes. NECK: Trachea midline, full range of motion, supple. LUNGS: Breath sounds equal, clear to auscultation bilaterally, no wheezes, no crackles, no accessory muscle use. HEART: Regular rate and rhythm, S1, S2 without murmur, rub or gallop. ABDOMEN: Soft, nontender, nondistended, normoactive bowel sounds, no guarding, no rebound, no hepatosplenomegaly, no masses. EXTREMITIES: 2+ pulses, warm, well-perfused, no edema. NEUROLOGICAL: Cranial nerves II through XII grossly intact. Normal speech, gait not observed. PSYCH: Normal mood, normal affect. SKIN: Warm, dry, normal turgor, no rashes or lesions noted Laboratory Results - last 24 hr 05/15/19 05/15/19 05/15/19 06:10 06:10 08:49 WBC 12.3 H RBC 4.66 Hgb 13.7 Hct 41.8 MCV 89.8 MCH 29.3 MCHC 32.6 RDW 15.9 Plt Count 223 MPV 9.7 Absolute Neuts (auto) 9.3 H Neutrophils % 75.6 Lymphocytes % 11.5 D Monocytes % 11.3 H Eosinophils % 0.5 D Basophils % 1.1 Nucleated RBC % 0 PT with INR 28.40 H INR 2.39 H Sodium 139 Potassium 3.8 Chloride 93 L Carbon Dioxide 35 H Anion Gap 11 BUN 56.9 H Creatinine 1.5 H Est GFR (CKD-EPI)AfAm 47.49 Est GFR (CKD-EPI)NonAf 40.98 Random Glucose 148 H Calcium 9.8 Active Medications Generic Name Dose Route Start Last Admin Trade Name Freq PRN Reason Stop Dose Admin Atorvastatin Calcium 20 mg 05/13/19 22:00 05/14/19 22:19 Lipitor - PO 20 mg HS GEORGE Administration Ceftriaxone Sodium 2 gm/ 100 mls @ 200 mls/hr 05/15/19 10:00 05/15/19 11:53 Dextrose IVPB 200 mls/hr DAILY GEORGE Administration Protocol Vancomycin HCl 1,000 mg in 250 mls @ 200 mls/hr 05/15/19 00:00 05/14/19 23:00 Vancomycin (Pre-Docked) IVPB 200 mls/hr Q24H GEORGE Administration Protocol Sodium Chloride 1,000 mls @ 75 mls/hr 05/15/19 10:00 05/15/19 11:53 Normal Saline - IV 75 mls/hr ASDIR GEORGE Administration Warfarin Sodium 4 mg 05/14/19 18:00 05/15/19 18:16 Coumadin - PO 4 mg DAILY@1800 GEORGE Administration ASSESSMENT/PLAN: ATTENDING PHYSICIAN STATEMENT I saw and evaluated the patient. I reviewed the resident's note and discussed the case with the resident. I agree with the resident's findings and plan as documented. SUBJECTIVE: OBJECTIVE: ASSESSMENT AND PLAN:
[2019-05-15] MEDS: ATORVASTATIN CA 20 MG TABLET (FP) PO SCH (21:25)
[2019-05-16] MEDS: VANCOMYCIN 1 GRAM (PRE-DOCKED) 1,000 MG/250 ML BAG IVPB SCH (00:55)
[2019-05-16 08:15] LABS: EOS % 1.7 % (0-4.5); HEMATOCRIT 40.1 % (35.4-49); HEMOGLOBIN 13.3 GM/dL (11.7-16.9); LYMPH % 18.1 % (8-40); MCH 29.8 pg (25.7-33.7); MCHC 33.3 g/dl (32.0-35.9); MEAN CELL VOLUME 89.4 fl (80-96); MEAN PLT VOLUME 10.2 fl (7.5-11.1); MONO % 9.7 % (3.8-10.2); NEUT % 69.5 % (42.8-82.8); PLATELET COUNT 219 K/MM3 (134-434); RBC 4.48 M/mm3 (4.00-5.60); RDW 15.9 % (11.9-15.9); WHITE BLOOD COUNT 10.4 K/mm3 (4.0-10.0)
[2019-05-16 08:25] LABS: INR 2.28 (0.83-1.09); PROTHROMBIN TIME (PATIENT) 27.1 SEC (9.7-13.0)
[2019-05-16 08:40] LABS: BILIRUBIN,TOTAL 1.2 mg/dL (0.2-1); BLOOD UREA NITROGEN 50.2 mg/dL (7-18); CALCIUM 9.7 mg/dL (8.5-10.1); CREATININE 1.1 mg/dL (0.55-1.3); POTASSIUM 3.6 mmol/L (3.5-5.1); TOT PROT 6.1 g/dl (6.4-8.2)
[2019-05-16] MEDS ORDERED: DEXTROSE 5%-WATER 100 ML IVPB ONE (10:23)
[2019-05-16] MEDS: CEFTRIAXONE 2 GM in DEXTROSE 5%-WATER 100 ML IVPB SCH (10:25)
--- NOTE | 2019-05-16 11:23 | PN ---
Progress Note, Physician History of Present Illness: AWAKE, ALERT IN BED NO C/O LEG PAIN NO FEVER/ CHILLS WBC IMPROVED 10.4 - Current Medication List Current Medications: Active Medications Atorvastatin Calcium (Lipitor -) 20 mg PO HS GEORGE Last Admin: 05/15/19 21:25 Dose: 20 mg Ceftriaxone Sodium 2 gm/ (Dextrose) 100 mls @ 200 mls/hr IVPB DAILY GEORGE; Protocol Last Admin: 05/16/19 10:25 Dose: 200 mls/hr Vancomycin HCl (Vancomycin (Pre-Docked)) 1,000 mg in 250 mls @ 200 mls/hr IVPB Q24H GEORGE; Protocol Last Admin: 05/16/19 00:55 Dose: 200 mls/hr Warfarin Sodium (Coumadin -) 4 mg PO DAILY@1800 GEORGE Last Admin: 05/15/19 18:16 Dose: 4 mg - Objective Vital Signs: Vital Signs Temperature 98.1 F 05/16/19 06:00 Pulse Rate 84 05/16/19 06:00 Respiratory Rate 20 05/16/19 06:00 Blood Pressure 118/58 L 05/16/19 06:00 O2 Sat by Pulse Oximetry (%) 97 05/15/19 21:00 Constitutional: Yes: No Distress Eyes: Yes: Conjunctiva Clear Cardiovascular: Yes: Regular Rate and Rhythm, S1, S2 Respiratory: Yes: CTA Bilaterally Gastrointestinal: Yes: Normal Bowel Sounds, Soft. No: Tenderness Extremities: Yes: Other (DECREASED ERYTHEMA L LE; SUBCUTANEOUS SWELLINGS IMPROVED) Labs: CBC, BMP 05/16/19 06:47 05/16/19 06:47 INR, PTT INR 2.28 (0.83-1.09) H 05/16/19 06:47 Assessment/Plan CELLULITIS L LE IMPROVED SOFT TISSUE SWELLINGS IMPROVED LEUKOCYTOSIS IMPROVED AZOTEMIA RESOLVED CONTINUE CEFTRIAXONE/ VANCOMYCIN
--- NOTE | 2019-05-16 12:37 | CONSULT ---
- Consultation REQUESTING PROVIDER: Reinier JULES CONSULT REQUEST: We have been asked to surgically evaluate this patient for LLE STS PCP:Alberto Hills MD HISTORY OF PRESENT ILLNESS:89 y/o male on oral anticoagulation came to the [facility] ED b/o pain and swelling and redness of his LLE after a ? fall ? at home or some trivial injury. He is a fair historian as is his . PMHx: HLD/HTNAF PSHx: PPPM, SW to chest Home Medications Medication Instructions Recorded Simvastatin [Zocor -] 40 mg PO HS 02/22/16 Furosemide [Lasix] 40 mg PO BID 05/14/18 Potassium Chloride 20 meq PO DAILY 05/14/18 Warfarin Sodium 4 mg PO DAILY 02/12/19 Acetaminophen [Tylenol] 325 mg PO DAILY PRN 02/13/19 Metolazone [Zaroxolyn -] 2.5 mg PO DAILY 05/13/19 Allergies Allergy/AdvReac Type Severity Reaction Status Date / Time No Known Drug Allergies Allergy Verified 02/12/19 12:38 PHYSICAL EXAM: GENERAL: Awake, alert, and fully oriented, in no acute distress. HEAD: Normal with no signs of trauma. EYES: sclera anicteric, conjunctiva clear. NECK: Normal ROM, supple without lymphadenopathy, JVD, or masses. ABDOMEN: Soft, nontender, not distended, normoactive bowel sounds, no guarding, no rebound, no masses. No organomegaly. MUSCULOSKELETAL: Normal ROM at all joints. No bony deformities or tenderness. No CVA tenderness. UPPER EXTREMITIES: 2+ pulses, warm, well-perfused. No cyanosis. Cap refill <2 seconds. No peripheral edema. LOWER EXTREMITIES: 2+ pulses, warm, well-perfused. No calf tenderness. Venous varicosities are present b/l. No peripheral edema. LLE STS and erythema and TTP ; 2 soft tissue masses which are ballotable. NEUROLOGICAL: Normal speech, gait not observed. PSYCH: Cooperative. Good eye contact. Appropriate mood and affect. SKIN: Warm, dry, normal turgor, no rashes or lesions noted. Vital Signs Temperature 98.1 F 05/16/19 06:00 Pulse Rate 84 05/16/19 06:00 Respiratory Rate 20 05/16/19 06:00 Blood Pressure 118/58 L 05/16/19 06:00 O2 Sat by Pulse Oximetry (%) 97 05/15/19 21:00 Lab Results WBC 10.4 K/mm3 (4.0-10.0) H 05/16/19 06:47 RBC 4.48 M/mm3 (4.00-5.60) 05/16/19 06:47 Hgb 13.3 GM/dL (11.7-16.9) 05/16/19 06:47 Hct 40.1 % (35.4-49) 05/16/19 06:47 MCV 89.4 fl (80-96) 05/16/19 06:47 MCHC 33.3 g/dl (32.0-35.9) 05/16/19 06:47 RDW 15.9 % (11.9-15.9) 05/16/19 06:47 Plt Count 219 K/MM3 (134-434) 05/16/19 06:47 Sodium 138 mmol/L (136-145) 05/16/19 06:47 Potassium 3.6 mmol/L (3.5-5.1) 05/16/19 06:47 Chloride 93 mmol/L (98-107) L 05/16/19 06:47 Carbon Dioxide 36 mmol/L (21-32) H 05/16/19 06:47 Anion Gap 9 MMOL/L (8-16) 05/16/19 06:47 BUN 50.2 mg/dL (7-18) H 05/16/19 06:47 Creatinine 1.1 mg/dL (0.55-1.3) 05/16/19 06:47 Random Glucose 125 mg/dL (74-106) H 05/16/19 06:47 Calcium 9.7 mg/dL (8.5-10.1) 05/16/19 06:47 INR 2.28 (0.83-1.09) H 05/16/19 06:47 Limited imaging studies reviewed; MRI cannot be done b/o PPM. IMP: ? post traumatic ? soft tissue collections (hematoma) LLE; ? improving. PLAN: Would advise leg elevation and light MEHRAN wrap w/ 4" MEHRAN and bed rest w/ ankle elevated above the level of the chest; continue present tx. including IVAB 's. Austen Soler MD FACS
[2019-05-16] MEDS: WARFARIN NA 2 MG TABLET (UD) PO SCH (17:58)
--- NOTE | 2019-05-16 19:07 | PN ---
Teaching Attending Note Name of Resident: Padma Lea ATTENDING PHYSICIAN STATEMENT I saw and evaluated the patient. I reviewed the resident's note and discussed the case with the resident. I agree with the resident's findings and plan as documented. SUBJECTIVE: Improving LLE erythema/tenderness. No fever/chills. OBJECTIVE: Afebrile, Hemodynamically Stable Last Vital Signs Temp Pulse Resp BP Pulse Ox 97.7 F 75 20 135/74 97 05/16/19 16:03 05/16/19 16:03 05/16/19 16:03 05/16/19 16:03 05/16/19 09:00 HEART: S1, S2, RRR LUNGS: Clear to auscultation ABDOMEN: Soft, non-tender. Bowel Sounds normal. EXTREMITIES: LLE swelling on lateral aspect of knee and another area of swelling on lateal calf, with improving erythema/tenderness distal to knee. NEURO: AAO x 3. TONE/POWER normal all 4 extremities. Laboratory Results - last 24 hr 05/16/19 05/16/19 05/16/19 06:47 06:47 06:47 WBC 10.4 H RBC 4.48 Hgb 13.3 Hct 40.1 MCV 89.4 MCH 29.8 MCHC 33.3 RDW 15.9 Plt Count 219 MPV 10.2 Absolute Neuts (auto) 7.2 Neutrophils % 69.5 Lymphocytes % 18.1 D Monocytes % 9.7 Eosinophils % 1.7 D Basophils % 1.0 Nucleated RBC % 0 PT with INR 27.10 H INR 2.28 H Sodium 138 Potassium 3.6 Chloride 93 L Carbon Dioxide 36 H Anion Gap 9 BUN 50.2 H Creatinine 1.1 Est GFR (CKD-EPI)AfAm 69.10 Est GFR (CKD-EPI)NonAf 59.62 Random Glucose 125 H Calcium 9.7 Total Bilirubin 1.2 H AST 13 L ALT 10 L Alkaline Phosphatase 117 Total Protein 6.1 L Albumin 3.0 L Current Medications Generic Name Dose Route Start Last Admin Trade Name Freq PRN Reason Stop Dose Admin Atorvastatin Calcium 20 mg 05/13/19 22:00 05/15/19 21:25 Lipitor - PO 20 mg HS GEORGE Administration Ceftriaxone Sodium 2 gm/ 100 mls @ 200 mls/hr 05/15/19 10:00 05/16/19 10:25 Dextrose IVPB 200 mls/hr DAILY GEORGE Administration Protocol Vancomycin HCl 1,000 mg in 250 mls @ 200 mls/hr 05/15/19 00:00 05/16/19 00:55 Vancomycin (Pre-Docked) IVPB 200 mls/hr Q24H GEORGE Administration Protocol Warfarin Sodium 4 mg 05/14/19 18:00 05/16/19 17:58 Coumadin - PO 4 mg DAILY@1800 GEORGE Administration Home Medications Medication Instructions Recorded Simvastatin [Zocor -] 40 mg PO HS 02/22/16 Furosemide [Lasix] 40 mg PO BID 05/14/18 Potassium Chloride 20 meq PO DAILY 05/14/18 Warfarin Sodium 4 mg PO DAILY 02/12/19 Acetaminophen [Tylenol] 325 mg PO DAILY PRN 02/13/19 Metolazone [Zaroxolyn -] 2.5 mg PO DAILY 05/13/19 ASSESSMENT AND PLAN: 89 year old male with Atrial Fibrillation, s/p PPM, HLD, Meningioma (Stable), referred to ED by PCP with LLE erythema/swelling for 3-4 days, found to have masseses/collections in subcutaneous tissue of LLE. LLE US/Duplex - No DVT, Jimenez's Cyst, 3 subcutaneous masses (lat to L knee) 1. LLE Cellulitis with possible Hematomas Afberile, Hemodynamically Stable Blood Cx negative Continue IV Ceftriaxone/Vanco CT LLE - septated/lobulated masses lateral to L knee and calf. MRI suggested for further characterization of masses ? abscesses - but unable to be performed due to patient's MRI incompatible PPM Surgery consult for LE subcutaneous masses/collections - recommend leg elevation , light MEHRAN wrap. 2. MARIELY - resolved with IV hydration - continue. Lasix and Metolazone held 3. HLD - Continue Statin. 4. Atrial Fibrillation - Continue Coumadin. INR therapeutic. 5. R Renal Cysts - incidental finding on US - for out-patient follow up. 6. Hypokalemia - repleted. DVT Px - on Coumadin Dispo - PT eval and Orthostatic vitals.
[2019-05-16] MEDS: ATORVASTATIN CA 20 MG TABLET (FP) PO SCH (22:06)
[2019-05-17] MEDS: VANCOMYCIN 1 GRAM (PRE-DOCKED) 1,000 MG/250 ML BAG IVPB SCH (00:31)
[2019-05-17 07:57] LABS: INR 2.14 (0.83-1.09); PROTHROMBIN TIME (PATIENT) 25.4 SEC (9.7-13.0)
[2019-05-17] MEDS ORDERED: DEXTROSE 5%-WATER 100 ML IVPB ONE (09:25)
[2019-05-17] MEDS: CEFTRIAXONE 2 GM in DEXTROSE 5%-WATER 100 ML IVPB SCH (09:30)
--- NOTE | 2019-05-17 14:43 | PN ---
Physical Exam: SUBJECTIVE: Patient seen and examined OBJECTIVE: Vital Signs Period Temp Pulse Resp BP Sys/Esposito Pulse Ox Last 24 Hr 97.3 F-98 F 75-81 16-20 116-145/57-74 97-97 GENERAL: The patient is awake, alert, and fully oriented, in no acute distress. HEAD: Normal with no signs of trauma. EYES: PERRL, extraocular movements intact, sclera anicteric, conjunctiva clear. No ptosis. ENT: Ears normal, nares patent, oropharynx clear without exudates, moist mucous membranes. NECK: Trachea midline, full range of motion, supple. LUNGS: Breath sounds equal, clear to auscultation bilaterally, no wheezes, no crackles, no accessory muscle use. HEART: Regular rate and rhythm, S1, S2 without murmur, rub or gallop. ABDOMEN: Soft, nontender, nondistended, normoactive bowel sounds, no guarding, no rebound, no hepatosplenomegaly, no masses. EXTREMITIES: 2+ pulses, warm, well-perfused, no edema. NEUROLOGICAL: Cranial nerves II through XII grossly intact. Normal speech, gait not observed. PSYCH: Normal mood, normal affect. SKIN: Warm, dry, normal turgor, no rashes or lesions noted Laboratory Results - last 24 hr 05/17/19 06:09 PT with INR 25.40 H INR 2.14 H Active Medications Generic Name Dose Route Start Last Admin Trade Name Freq PRN Reason Stop Dose Admin Atorvastatin Calcium 20 mg 05/13/19 22:00 05/16/19 22:06 Lipitor - PO 20 mg HS GEORGE Administration Ceftriaxone Sodium 2 gm/ 100 mls @ 200 mls/hr 05/15/19 10:00 05/17/19 09:30 Dextrose IVPB 200 mls/hr DAILY GEORGE Administration Protocol Vancomycin HCl 1,000 mg in 250 mls @ 200 mls/hr 05/15/19 00:00 05/17/19 00:31 Vancomycin (Pre-Docked) IVPB 200 mls/hr Q24H GEORGE Administration Protocol Warfarin Sodium 4 mg 05/14/19 18:00 05/16/19 17:58 Coumadin - PO 4 mg DAILY@1800 GEORGE Administration ASSESSMENT/PLAN: Visit type - Emergency Visit Emergency Visit: No - New Patient This patient is new to me today: No - Critical Care Critical Care patient: No ATTENDING PHYSICIAN STATEMENT I saw and evaluated the patient. I reviewed the resident's note and discussed the case with the resident. I agree with the resident's findings and plan as documented. SUBJECTIVE: OBJECTIVE: ASSESSMENT AND PLAN:
--- NOTE | 2019-05-17 15:00 | PN ---
Progress Note, Physician History of Present Illness: AWAKE, ALERT IN BED NO C/O LEG PAIN NO FEVER/ CHILLS - Current Medication List Current Medications: Active Medications Atorvastatin Calcium (Lipitor -) 20 mg PO HS [facility] Last Admin: 05/16/19 22:06 Dose: 20 mg Ceftriaxone Sodium 2 gm/ (Dextrose) 100 mls @ 200 mls/hr IVPB DAILY GEORGE; Protocol Last Admin: 05/17/19 09:30 Dose: 200 mls/hr Vancomycin HCl (Vancomycin (Pre-Docked)) 1,000 mg in 250 mls @ 200 mls/hr IVPB Q24H GEORGE; Protocol Last Admin: 05/17/19 00:31 Dose: 200 mls/hr Warfarin Sodium (Coumadin -) 4 mg PO DAILY@1800 GEORGE Last Admin: 05/16/19 17:58 Dose: 4 mg - Objective Vital Signs: Vital Signs Temperature 97.5 F L 05/17/19 09:22 Pulse Rate 77 05/17/19 09:22 Respiratory Rate 16 05/17/19 09:22 Blood Pressure 116/73 05/17/19 09:22 O2 Sat by Pulse Oximetry (%) 97 05/17/19 09:00 Constitutional: Yes: No Distress Eyes: Yes: Conjunctiva Clear Cardiovascular: Yes: Regular Rate and Rhythm, S1, S2 Respiratory: Yes: CTA Bilaterally Gastrointestinal: Yes: Normal Bowel Sounds, Soft Extremities: Yes: Other (L LE ERYTHEMA/ SWELLINGS IMPROVED) Labs: CBC, BMP 05/16/19 06:47 05/16/19 06:47 INR, PTT INR 2.14 (0.83-1.09) H 05/17/19 06:09 Assessment/Plan CELLULITIS L LE IMPROVED SOFT TISSUE SWELLINGS IMPROVED LEUKOCYTOSIS IMPROVED AZOTEMIA RESOLVED SUBSTITUTE KEFLEX 500MG PO Q6H X7D OUTPATIENT F/U
[2019-05-17 15:31] VITALS: BP 138/67; PULSE 78; TEMP 98.2
--- NOTE | 2019-05-17 15:58 | DS ---
Physical Exam: SUBJECTIVE: Patient seen and examined OBJECTIVE: Vital Signs Period Temp Pulse Resp BP Sys/Esposito Pulse Ox Last 24 Hr 97.3 F-98.2 F 75-81 16-20 116-145/57-74 97-97 PHYSICAL EXAM GENERAL: The patient is awake, alert, and fully oriented, in no acute distress. HEAD: Normal with no signs of trauma. EYES: PERRL, extraocular movements intact, sclera anicteric, conjunctiva clear. ENT: Ears normal, nares patent, oropharynx clear without exudates, moist mucous membranes. NECK: Trachea midline, full range of motion, supple. LUNGS: Breath sounds equal, clear to auscultation bilaterally, no wheezes, no crackles, no accessory muscle use. HEART: Regular rate and rhythm, S1, S2 without murmur, rub or gallop. ABDOMEN: Soft, nontender, nondistended, normoactive bowel sounds, no guarding, no rebound, no hepatosplenomegaly, no masses. EXTREMITIES: 2+ pulses, warm, well-perfused, no edema. NEUROLOGICAL: Cranial nerves II through XII grossly intact. Normal speech, gait not observed. PSYCH: Normal mood, normal affect. SKIN: Warm, dry, normal turgor, no rashes or lesions noted. LABS Laboratory Results - last 24 hr 05/17/19 06:09 PT with INR 25.40 H INR 2.14 H HOSPITAL COURSE: Date of Admission:05/13/19 Date of Discharge: 05/17/19 Discharge Summary Reason For Visit: ACUTE KIDNEY INJURY Current Active Problems MARIELY (acute kidney injury) (Acute) Elevated bilirubin (Acute) Erysipelas (Acute) Condition: Stable - Instructions Diet, Activity, Other Instructions: Hospital visit: You were admitted to the hospital for a skin infection in your leg. You were treated with antibiotics, and it is improving. The bumps on your knee were also evaluated and are stable right now. You had low blood pressure when you stood up quickly, so you were given fluids and monitored. You had a cyst on your kidney that did not need emergent treatment. You will need to follow up with a paper baler (kidney doctor) to see if you need any other tests done. You also had low potassium in your blood and it was supplemented. You will need to follow up with your doctor to repeat those labs. Medications: Resume your home medications. You are prescribed Cephalexin[Keflex] to be taken for 7days Follow up with the following: Dr. Quijano, primary care, next week to check your blood electrolytes Dr. Rascon, infectious disease, in the next 1-[address] Soler, surgery, in the next 1-[address] Salazar, cardiology, in the next 1 month to check your orthostatic hypotension and medications Dr. Lovett, nephrology, in the next 1 month for the right side renal cyst Other instructions: -It is important that you keep your leg elevated and wrapped(foot to knee) as much as possible over the next few days. Okay to unwrap during showers. Take your antibiotics to completion. If the bumps near your knee get bigger, go to the emergency room. -stay hydrated, drink ~8 glasses of water daily Return to the emergency room if your leg becomes warmer, more red, or more swollen, if you have a fever above 101, chest pain, nausea, or vomiting that does not resolve with medication. Referrals: José Rascon MD [Staff Physician] - Austen Soler MD [Staff Physician] - Titus Quijano MD [Primary Care Provider] - Gordy Colon MD [Staff Physician] - Adrian Lovett MD [Staff Physician] - Disposition: HOME - Home Medications Comprehensive Discharge Medication List: Ambulatory Orders Simvastatin [Zocor -] 40 mg PO HS 02/22/16 Furosemide [Lasix] 40 mg PO BID 05/14/18 Potassium Chloride 20 meq PO DAILY 05/14/18 Warfarin Sodium 4 mg PO DAILY 02/12/19 Acetaminophen [Tylenol] 325 mg PO DAILY PRN 02/13/19 Metolazone [Zaroxolyn -] 2.5 mg PO DAILY 05/13/19 Cephalexin Monohydrate [Keflex -] 500 mg PO Q6H 7 Days #28 capsule 05/17/19 ATTENDING PHYSICIAN STATEMENT I saw and evaluated the patient. I reviewed the resident's note and discussed the case with the resident. I agree with the resident's findings and plan as documented. SUBJECTIVE: OBJECTIVE: ASSESSMENT AND PLAN:
--- NOTE | 2019-05-17 16:09 | PN ---
Teaching Attending Note Name of Resident: Santos Li ATTENDING PHYSICIAN STATEMENT I saw and evaluated the patient. I reviewed the resident's note and discussed the case with the resident. I agree with the resident's findings and plan as documented. SUBJECTIVE: Improving LLE erythema/tenderness. No fever/chills. OBJECTIVE: Afebrile, Hemodynamically Stable Last Vital Signs Temp Pulse Resp BP Pulse Ox 98.2 F 78 18 138/67 97 05/17/19 15:00 05/17/19 15:00 05/17/19 15:00 05/17/19 15:00 05/17/19 09:00 HEART: S1, S2, RRR LUNGS: Clear to auscultation ABDOMEN: Soft, non-tender. Bowel Sounds normal. EXTREMITIES: LLE swelling on lateral aspect of knee and another area of swelling on lateral calf, with improving erythema/tenderness distal to knee. Now MEHRAN Bandages applied and leg elevated. NEURO: AAO x 3. TONE/POWER normal all 4 extremities. Laboratory Results - last 24 hr 05/17/19 06:09 PT with INR 25.40 H INR 2.14 H Current Medications Generic Name Dose Route Start Last Admin Trade Name Freq PRN Reason Stop Dose Admin Atorvastatin Calcium 20 mg 05/13/19 22:00 05/16/19 22:06 Lipitor - PO 20 mg HS GEORGE Administration Ceftriaxone Sodium 2 gm/ 100 mls @ 200 mls/hr 05/15/19 10:00 05/17/19 09:30 Dextrose IVPB 200 mls/hr DAILY GEORGE Administration Protocol Vancomycin HCl 1,000 mg in 250 mls @ 200 mls/hr 05/15/19 00:00 05/17/19 00:31 Vancomycin (Pre-Docked) IVPB 200 mls/hr Q24H GEORGE Administration Protocol Warfarin Sodium 4 mg 05/14/19 18:00 05/16/19 17:58 Coumadin - PO 4 mg DAILY@1800 GEORGE Administration Discharge Medications Medication Instructions Recorded Simvastatin [Zocor -] 40 mg PO HS 02/22/16 Furosemide [Lasix] 40 mg PO BID 05/14/18 Potassium Chloride 20 meq PO DAILY 05/14/18 Warfarin Sodium 4 mg PO DAILY 02/12/19 Acetaminophen [Tylenol] 325 mg PO DAILY PRN 02/13/19 Metolazone [Zaroxolyn -] 2.5 mg PO DAILY 05/13/19 Cephalexin Monohydrate [Keflex -] 500 mg PO Q6H 7 Days #28 capsule 05/17/19 ASSESSMENT AND PLAN: 89 year old male with Atrial Fibrillation, s/p PPM, HLD, Meningioma (Stable), referred to ED by PCP with LLE erythema/swelling for 3-4 days, found to have masses/collections in subcutaneous tissue of LLE. LLE US/Duplex - No DVT, Jimenez's Cyst, 3 subcutaneous masses (lat to L knee) 1. LLE Cellulitis with possible Hematomas Afebrile, Hemodynamically Stable Blood Cx negative CT LLE - septated/lobulated masses lateral to L knee and calf. MRI suggested for further characterization of masses ? abscesses - but unable to be performed due to patient's MRI incompatible PPM Treated with IV Ceftriaxone/Vanco with good effect. Swelling/tenderness/ erythema improving. Lateral leg subcutaneous lesions still palpable. Surgery consult for LE subcutaneous masses/collections - recommend leg elevation , light MEHRAN wrap. Medically stable for discharge on oral Abx as recommended by ID - Keflex for 7 additional days. 2. MARIELY sec to insensible losses due to cellulitis - resolved with IV hydration - continue. Lasix and Metolazone to resume on discharge with out-patient labs on 05/19/19 3. HLD - Continue Statin. 4. Atrial Fibrillation - Continue Coumadin. INR therapeutic. 5. R Renal Cysts - incidental finding on US - for out-patient Urology follow up. 6. Hypokalemia - repleted. DVT Px - on Coumadin Medically stable for discharge with Surgery and Urology follow up and repeat labs including BMP and INR on 05/19/19.
[2019-05-17] MEDS: WARFARIN NA 2 MG TABLET (UD) PO SCH (17:07)
== END 2019-05-17 17:28 | disposition home or self-care (01) | DRG 603 ==
LOC: JER 13:48 → JERBED 19:05 → J8W 20:44
PROVIDERS: ADMIT Internal Medicine
DX: L03.116 Cellulitis of left lower limb (principal); N17.9 Acute kidney failure, unspecified; E87.3 Alkalosis; E78.00 Pure hypercholesterolemia, unspecified; I48.91 Unspecified atrial fibrillation; D32.9 Benign neoplasm of meninges, unspecified; E78.5 Hyperlipidemia, unspecified; N28.1 Cyst of kidney, acquired; E87.6 Hypokalemia; D72.829 Elevated white blood cell count, unspecified; R79.89 Other specified abnormal findings of blood chemistry; Z79.01 Long term (current) use of anticoagulants; Z95.0 Presence of cardiac pacemaker
CPT/HCPCS: 36415; 71045-TC-FY; 73562-TC-LT-FY; 73590-TC-LT-FY; 73610-TC-LT-FY; 73700-TC-RT; 76700-TC; 76882-TC-RT-FY; 80048; 80053; 81003; 82248; 82565; 83735; 84100; 84300; 85025; 85027; 85610; 85651; 86140; 87040; 93005; 93010; 93971-TC; 97116-GP; 97161-GP; 99285-25; J7030

== ENCOUNTER 2019-06-08 12:48 | Inpatient (IN) | payer BC, OTHER ==
--- NOTE | 2019-06-08 13:08 | PDOC ---
History of Present Illness - General Chief Complaint: Pain, Acute Stated Complaint: KNEE PAIN Time Seen by Provider: 06/08/19 13:07 History Source: Patient Exam Limitations: No Limitations - History of Present Illness Initial Comments: 06/08/19 13:07 Patt Marin is an 89M with PMH CHF, CAD s/p stents/pacemaker non-MRI compatible 15 years ago, on Coumadin, presenting with repeat fall and weakness. Medical history discussed with patient and patient's son and at bedside. Son reports that patient has been feeling weak and refused to get out of bed for the last month due to tiredness. Today got up to walk to bathroom and fell forward onto his who was walking in front of him, bumped his head onto the back of hers and they both collapsed to the ground. denies that patient lost consciousness, was unresponsive, or was confused after the fall. When questioned about the incident, patient remembers the fall today, denies hurting his arms, legs, head, or back. When asked how he feels, says he feels well. Denies chest pain, palpitations, shortness of breath, abdominal pain, urinary symptoms, N/V/C/D. Denies any pain in his legs, and says that he can walk with his cane. Per son, patient had a fall one month ago and presented to [facility] ER with left leg swelling and cellulitis. After discharge, patient returned home but has been feeling weak ever since. Patient and family both report patient not eating or drinking enough. Has had multiple falls in the last few months. Son is concerned about both parents, says they do not tell him if they feel sick or injured, wants to get them a safer house. Has a known history of a benign brain tumor, as well as walking pneumonia. On coumadin for an unspecified reason, no history of AFIB. Son notes that mental status has been worsening the last few days, more forgetful and does not remember events that just happened, normally very astute. Past History - Past Medical History Allergies/Adverse Reactions: Allergies Allergy/AdvReac Type Severity Reaction Status Date / Time No Known Drug Allergies Allergy Verified 02/12/19 12:38 Home Medications: Ambulatory Orders Simvastatin [Zocor -] 40 mg PO HS 02/22/16 Furosemide [Lasix] 40 mg PO BID 05/14/18 Potassium Chloride 20 meq PO DAILY 05/14/18 Warfarin Sodium 4 mg PO DAILY 02/12/19 Acetaminophen [Tylenol] 325 mg PO DAILY PRN 02/13/19 Metolazone [Zaroxolyn -] 2.5 mg PO DAILY 05/13/19 Cephalexin Monohydrate [Keflex -] 500 mg PO Q6H 7 Days #28 capsule 05/17/19 Anemia: No Cancer: (stable meningimoma) Cardiac Disorders: Yes (CHF, PPM, AF) COPD: No CHF: Yes HTN: Yes Hypercholesterolemia: Yes - Surgical History Appendectomy: Yes Cardiac Surgery: Yes (PACEMAKER, STENT) Orthopedic Surgery: Yes (wrist) - Immunization History Immunization Up to Date: Yes - Psycho Social/Smoking Cessation Hx Smoking Status: No Smoking History: Never smoked Have you smoked in the past 12 months: No Number of Cigarettes Smoked Daily: 0 Hx Alcohol Use: Yes (has 2 glasses of whiskey + 1 glass of wine/day) Drug/Substance Use Hx: No Substance Use Type: None Hx Substance Use Treatment: No Review of Systems - Review of Systems Able to Perform ROS?: Yes Constitutional: Yes: Loss of Appetite, Weakness. No: Fever HEENTM: No: Symptoms Reported Respiratory: No: Symptoms reported Cardiac (ROS): No: Symptoms Reported ABD/GI: No: Symptoms Reported : No: Symptoms Reported Musculoskeletal: No: Symptoms Reported Integumentary: No: Symptoms Reported Neurological: Yes: Unsteady Gait Endocrine: No: Symptoms Reported Hematologic/Lymphatic: No: Symptoms Reported All Other Systems: Reviewed and Negative *Physical Exam - Vital Signs Last Vital Signs Temp Pulse Resp BP Pulse Ox 97.2 F L 69 19 110/68 98 06/08/19 12:52 06/08/19 12:52 06/08/19 12:52 06/08/19 12:52 06/08/19 12:52 - Physical Exam General Appearance: Yes: Nourished, Appropriately Dressed. No: Apparent Distress HEENT: positive: EOMI, SURESH, Normal Voice, Pharynx Normal, Hearing Grossly Normal. negative: Scleral Icterus (R), Scleral Icterus (L), Pharyngeal Erythema , Tonsillar Exudate, Tonsillar Erythema Neck: positive: Supple. negative: Tender, Decreased range of motion, Lymphadenopathy (R), Lymphadenopathy (L) Respiratory/Chest: positive: Lungs Clear, Normal Breath Sounds. negative: Chest Tender, Respiratory Distress, Accessory Muscle Use, Crackles, Rales, Rhonchi Cardiovascular: positive: Regular Rhythm, Regular Rate. negative: Murmur Gastrointestinal/Abdominal: positive: Normal Bowel Sounds, Flat, Soft. negative : Tender, Distended Musculoskeletal: positive: Normal Inspection. negative: CVA Tenderness Extremity: positive: Delayed Capillary Refill, Other (LLE: thinner than RLE, multiple large ecchymoses, no bony tenderness or deformity, full ROM at knee and ankle. BLE: pulses present, sensation intact to LT, moves spontaneously. BUE : normal exam) Integumentary: positive: Normal Color, Dry, Warm Neurologic: negative: Fully Oriented (alert to person, does not know place or time), Alert (short term memory deficit, does not remember events that occur immediately prior), Normal Response (decreased response) ED Treatment Course - LABORATORY CBC & Chemistry Diagram: 06/10/19 06:50 06/10/19 06:50 Medical Decision Making - Medical Decision Making 06/08/19 13:07 Patt Marin is an 89M with PMH CHF, CAD s/p stents/pacemaker non-MRI compatible 15 years ago, on Coumadin, presenting with repeat fall and weakness. Patient presentation concerning for infectious etiology such as PNA vs. UTI, anemia, ICH given fall history, malnutrition, cardiac syncope. Full evaluation of syncope/AMS: CMP CBC CP UA/UC ECG CXR CT head and C-spine 06/08/19 15:35 BUN 127, Cr 2.2, highly concerning for MARIELY and likely cause of AMS. Will obtain renal US to evaluate for hydro and then place Pepper if evidence of an obstructive etiology. ECG shows ventricular paced rhythm, HR 70, QTc 574. 06/08/19 15:41 Troponin 0.14, will trend. 06/08/19 16:42 Hydration with 1L LR now. 06/08/19 16:47 Renal US shows bilateral renal cysts, no hydro. Bedside US shows bladder volume 200cc, non-distended. INR 4.28, on Coumadin. CXR read: Comparison 05/13/2019. Stable mild elevation left hemidiaphragm unchanged from . Cardiomegaly with dual lead left axillary atrial and ventricular pacemaker in place. Apical lordotic projection with no infiltrate, mass or effusion in the lungs Impression: No infiltrate or edema in the lungs, no signs of pneumonia, no congestive changes, no suspicious findings. CT Head: FINDINGS: Again noted is a hyperdense dural based mass lesion along lateral margin of the left frontal lobe measuring 1.5 x 0.9 cm compatible with a meningioma. Again noted is moderate cerebral atrophy and chronic deep white matter periventricular ischemic change. There is no evidence of any intracerebral hemorrhage, or midline shift. There is no evidence of an acute subdural hematoma. No CT evidence of acute infarct. No fractures are identified. CT C-spine: IMPRESSION: No CT evidence of acute findings. Consider MRI of the cervical spine if clinically warranted. Patient unable to recall getting CT scan today. 06/08/19 18:00 Patient requires inpatient admission for AMS in the setting of creatinine and BUN elevation significantly elevated from baseline with no prior known renal disease, concerning for new renal pathology that needs evaluation and treatment. Patient producing urine, not distended bladder, post-renal etiology unlikely. Likely requires nephrology evaluation for pre- or intra- renal cause. CT head and other labs show no evidence of ICH, worsening mass lesion, or electrolyte abnormalities as cause of AMS. Signed out to Carolyn with Hospitalist team regarding admission to Med-Surg under Dr. Tae Goodwin. Discharge - Discharge Information Problems reviewed: Yes Clinical Impression/Diagnosis: MARIELY (acute kidney injury), Syncope and collapse, Hyperuricemia Fall Qualifiers: Encounter type: subsequent encounter Qualified Code(s): W19.XXXD - Unspecified fall, subsequent encounter - Follow up/Referral - Patient Discharge Instructions - Post Discharge Activity
--- NOTE | 2019-06-08 13:10 | PDOC ---
Attending Attestation - Resident Resident Name: Mark Simms - HPI HPI: 06/08/19 15:26 Pt presents to the ED after brought in by family for worsening confusion since discharge from hospital 10 days ago. Patient has no complaints, but family reports that he has been that he has been increasingly confused and lethargic. Family also reports frequent falls, the most recent of which was today. Patient is on coumadin for "pacemaker" as per his family. 06/08/19 15:31 - Physicial Exam PE: 06/08/19 15:30 Agree with resident exam. Patient is alert and oriented and in no acute distress. HEENT: normocephalic, atraumatic. Cv: RRR no m/r/g Pulm: CTA b/l Abdomen: soft, non distended, non tender, without guarding or rebound. 06/08/19 15:32 - Medical Decision Making 06/08/19 15:33 Pt presens to the ED after brought in by family for generalized malaise. Differential included infection, intracranial mass or bleed, electrolyte disturbance. Labs show acute renal failure with uremia. Will give IV hydration, measure post void residual with US, consider placing nelson. Will check renal US. Will check CT head and C spine. 06/08/19 15:36
[2019-06-08] MEDS ORDERED: SODIUM CHLORIDE 0.9% 500 ML INFUS.BAG IV ONE (13:53)
[2019-06-08 14:38] LABS: BASO % 0.7 % (0-2.0); EOS % 0.5 % (0-4.5); HEMATOCRIT 52.5 % (35.4-49); LYMPH % 16.2 % (8-40); MCH 28.7 pg (25.7-33.7); MCHC 32.4 g/dl (32.0-35.9); MEAN CELL VOLUME 88.5 fl (80-96); MEAN PLT VOLUME 10.5 fl (7.5-11.1); NEUT % 75.6 % (42.8-82.8); PLATELET COUNT 184 K/MM3 (134-434); RBC 5.93 M/mm3 (4.00-5.60); RDW 15.4 % (11.9-15.9); WHITE BLOOD COUNT 10.9 K/mm3 (4.0-10.0)
[2019-06-08 14:51] LABS: PROTHROMBIN TIME (PATIENT) 51.3 SEC (9.7-13.0)
[2019-06-08 15:14] LABS: ALBUMIN 3.5 g/dl (3.4-5.0); BILIRUBIN,TOTAL 1.3 mg/dL (0.2-1); CALCIUM 9.9 mg/dL (8.5-10.1); CREATININE 2.2 mg/dL (0.55-1.3); N-TERMINAL BNP 2891.6 pg/ml (5-450); POTASSIUM 3.7 mmol/L (3.5-5.1); TOT PROT 7.2 g/dl (6.4-8.2)
[2019-06-08 15:16] LABS: BLOOD UREA NITROGEN 127.4 mg/dL (7-18)
[2019-06-08 16:30] LABS: INR 4.28 (0.83-1.09)
[2019-06-08] MEDS ORDERED: LACTATED RINGERS SOLUTION 1000 ML INFUS.BAG IV ONE (16:34)
--- NOTE | 2019-06-08 18:31 | HP ---
CHIEF COMPLAINT: altered mental status, weakness and syncopy PCP:Dr. Quijano HISTORY OF PRESENT ILLNESS: Mr. Marin is a 89 year old male with history of congestive heart failure, coronary artery disease s/p stents/pacemaker non-MRI compatible 15 years ago, atrial fibrillation on Coumadin, and a benign brain tumor who presented with altered mental status changes, weakness and s/p fall. No family at bedside to obtain history and as per reports patient has been feeling weak and refused to get out of bed for the last month due to fatigue. Today he got up to walk to bathroom and fell forward onto his who was walking in front of him, bumped his head onto the back of hers and they both collapsed to the ground. It was reported that patient did not lose consciousness, was not unresponsive, or was confused after the fall. Per son as reported in chart patient had a fall one month ago and presented to [facility] ER with left leg swelling and cellulitis. After discharge, patient returned home but has been feeling weak ever since. It was reported patient has not been eating or drinking enough and has had multiple falls in the last few months. On my evaluation he denies chest pain,palpitations,or shortness of breath. He reports pain to his right knee. He is confused and oriented to self and place. Lab findings notable for hemoglobin 17.5, hematocrit 52.5, troponin 0.14( troponin elevated at baseline 0.10). BNP 2891, creatinine 2.2(last creatinine on 05/14 was 0.9) and INR of 4.28. CT scan of head showed stable appearance mass lesion in left frontal lobe probably meningioma. CT C-spine no CT evidence of acute findings. CXR with no infiltrate or CHF changes. ECG - ventricular paced rhythm, QTc 574. ER course was notable for: (1)Acute renal insufficiency, Renal US with no hydronephrosis, bilateral renal cysts, IVF infusing (2)Elevated INR (4.28) on coumadin (3)Elevated troponin and BNP , CXR with no CHF changes (4)Mild Leukocytosis, CXR with no infiltrate Recent Travel: unable to obtain PAST MEDICAL HISTORY: congestive heart failure atrial fibrillation CAD s/p stents pacemaker non-MRI compatible placed 15 years ago benign brain tumor PAST SURGICAL HISTORY: not reported Social History: Smoking:no Alcohol:yes Drugs: no Allergies No Known Drug Allergies Allergy (Verified 02/12/19 12:38) HOME MEDICATIONS: Home Medications Medication Instructions Recorded Simvastatin [Zocor -] 40 mg PO HS 02/22/16 Furosemide [Lasix] 40 mg PO BID 05/14/18 Potassium Chloride 20 meq PO DAILY 05/14/18 Warfarin Sodium 4 mg PO DAILY 02/12/19 Acetaminophen [Tylenol] 325 mg PO DAILY PRN 02/13/19 Metolazone [Zaroxolyn -] 2.5 mg PO DAILY 05/13/19 Cephalexin Monohydrate [Keflex -] 500 mg PO Q6H 7 Days #28 capsule 05/17/19 REVIEW OF SYSTEMS CONSTITUTIONAL: Absent: fever, chills, diaphoresis, generalized weakness, malaise, loss of appetite, weight change HEENT: Absent: rhinorrhea, nasal congestion, throat pain, throat swelling, difficulty swallowing, mouth swelling, ear pain, eye pain, visual changes CARDIOVASCULAR: Absent: chest pain, syncope, palpitations, irregular heart rate, lightheadedness , peripheral edema RESPIRATORY: Absent: cough, shortness of breath, dyspnea with exertion, orthopnea, wheezing, stridor, hemoptysis GASTROINTESTINAL: Absent: abdominal pain, abdominal distension, nausea, vomiting, diarrhea, constipation, melena, hematochezia GENITOURINARY: Absent: dysuria, frequency, urgency, hesitancy, hematuria, flank pain, genital pain MUSCULOSKELETAL: Absent: myalgia, arthralgia, joint swelling, back pain, neck pain SKIN: Absent: rash, itching, pallor HEMATOLOGIC/IMMUNOLOGIC: Absent: easy bleeding, easy bruising, lymphadenopathy, frequent infections ENDOCRINE: Absent: unexplained weight gain, unexplained weight loss, heat intolerance, cold intolerance NEUROLOGIC: Absent: headache, focal weakness or paresthesias, dizziness, unsteady gait, seizure, mental status changes, bladder or bowel incontinence PSYCHIATRIC: Absent: anxiety, depression, suicidal or homicidal ideation, hallucinations. PHYSICAL EXAMINATION Vital Signs - 24 hr 06/08/19 12:52 Temperature 97.2 F L Pulse Rate 69 Respiratory 19 Rate Blood Pressure 110/68 O2 Sat by Pulse 98 Oximetry (%) GENERAL: awake alert and oriented to self and place confused no acute distress HEAD: normal EYES: pupils equal round and reactive to light EARS, NOSE, THROAT: ears normal nares patent oropharynx clear without exudates NECK: no JVD LUNGS: breath sounds equal clear to auscultation bilaterally no rales no use of accessory muscles HEART: regular rate and rhythm normal S1 and S2 ABDOMEN: soft nontender not distended MUSCULOSKELETAL: moving upper and lower extremities UPPER EXTREMITIES: 2+ pulses warm well-perfused no cyanosis LOWER EXTREMITIES: 2+ pulses warm well-perfused no pitting edema no cyanosis no swelling NEUROLOGICAL: no neuro focal deficits PSYCHIATRIC: cooperative good eye contact SKIN: warm dry no rashes or lesions noted Laboratory Results - last 24 hr 06/08/19 06/08/19 06/08/19 14:29 14:29 14:29 WBC 10.9 H RBC 5.93 H Hgb 17.0 H Hct 52.5 H D MCV 88.5 MCH 28.7 MCHC 32.4 RDW 15.4 Plt Count 184 MPV 10.5 Absolute Neuts (auto) 8.3 H Neutrophils % 75.6 Lymphocytes % 16.2 Monocytes % 7.0 Eosinophils % 0.5 Basophils % 0.7 Nucleated RBC % 0 PT with INR INR PTT (Actin FS) 61.5 H Sodium Potassium Chloride Carbon Dioxide Anion Gap BUN Creatinine Est GFR (CKD-EPI)AfAm Est GFR (CKD-EPI)NonAf Random Glucose Calcium Total Bilirubin AST ALT Alkaline Phosphatase Creatine Kinase 58 Troponin I 0.14 H B-Natriuretic Peptide Total Protein Albumin 06/08/19 06/08/19 14:29 14:29 WBC RBC Hgb Hct MCV MCH MCHC RDW Plt Count MPV Absolute Neuts (auto) Neutrophils % Lymphocytes % Monocytes % Eosinophils % Basophils % Nucleated RBC % PT with INR 51.30 H INR 4.28 H* PTT (Actin FS) Sodium 133 L Potassium 3.7 Chloride 86 L Carbon Dioxide 36 H Anion Gap 11 BUN 127.4 H* Creatinine 2.2 H Est GFR (CKD-EPI)AfAm 29.89 Est GFR (CKD-EPI)NonAf 25.79 Random Glucose 144 H Calcium 9.9 Total Bilirubin 1.3 H AST 44 H ALT 20 Alkaline Phosphatase 111 Creatine Kinase Troponin I B-Natriuretic Peptide 2891.6 H Total Protein 7.2 Albumin 3.5 ASSESSMENT/PLAN: In summary 89 year old male with history of congestive heart failure(unclear if diastolic versus systolic) , coronary artery disease s/p stents/pacemaker non- MRI compatible 15 years ago, atrial fibrillation on Coumadin and a benign brain tumor who presented with altered mental status changes, weakness and s/p fall. He was found to have new acute renal insufficeincy, elevated BNP, troponin 0.14 and mild leukocytosis. #1 Altered Mental Status in setting of Acute Renal Insufficiency BUN 127/ Creatinine 2.2 (last creatinine on 05/14 was0.9, renal US with no hydronephrosis, bilateral renal cysts Holding oral lasix and metolazone - nelson , strict I&O's - IVF NS at 75cc/hr - Renal Consulted-Dr. Lovett consulted #2 Chronic Congestive Heart Failure Elevated BNP 2891 On clinical exam appears euvolemic and has no Holding lasix and metolazone in setting of acute renal insufficiency - Cardiology consulted-Dr. Colon #3 Elevated Troponin/ History Coronary Artery Disease/Stents Asymptomatic of chest pain ECG - ventricular paced rhythm, QTc 574, no acute ischemia Troponin 0.14(at baseline has elevated troponin of 0.10) -Continue to trend troponins -Continue with statin therapy -Not on aspirin as on systemic anticoagulation -Cardiology consulted- Dr. Colon #4 Atrial Fibrillation Rate controlled on no rate control meds -Resume coumadin when INR therapeutic at 2.0-3.0 #5 Pacemaker -Suggest interrogation -Cardiology consulted- Dr. Colon #6 Elevated INR on Coumadin , INR 4.28 -Hold coumadin tonight, resume when INR therapeutic level -Repeat PT/INR in am #7 Mild Leukocytosis no signs of acute infection clinically, had left leg cellulitis last month, hospitalized [facility] and treated afebrile -pending UA and culture #8 Altered Mental Status/ Hx of Meningioma -Neuro checks -Neurology consulted- Dr. Vela DVT INR supratherapeutic, Coumadin on hold -SCD's/TEDS FEN -low sodium diet -IVF NS at 75cc/hr -monitor electrolytes Visit type - Emergency Visit Emergency Visit: Yes ED Registration Date: 06/08/19 Care time: The patient presented to the Emergency Department on the above date and was hospitalized for further evaluation of their emergent condition. - New Patient This patient is new to me today: Yes Date on this admission: 06/08/19 - Critical Care Critical Care patient: No
[2019-06-08] MEDS: SODIUM CHLORIDE 1,000 ML IV SCH (20:05)
[2019-06-08] MEDS: ATORVASTATIN CA 20 MG TABLET (FP) PO SCH (22:38)
[2019-06-09 07:45] LABS: HEMATOCRIT 47.6 % (35.4-49); MCH 29.6 pg (25.7-33.7); MCHC 33.6 g/dl (32.0-35.9); MEAN CELL VOLUME 88.2 fl (80-96); MEAN PLT VOLUME 10.6 fl (7.5-11.1); PLATELET COUNT 156 K/MM3 (134-434); RDW 15.4 % (11.9-15.9); WHITE BLOOD COUNT 10.1 K/mm3 (4.0-10.0)
[2019-06-09 07:56] LABS: PROTHROMBIN TIME (PATIENT) 65.1 SEC (9.7-13.0)
[2019-06-09 08:26] LABS: CALCIUM 9.9 mg/dL (8.5-10.1); CREATININE 1.7 mg/dL (0.55-1.3); MAGNESIUM 2.6 mg/dL (1.8-2.4); POTASSIUM 3.2 mmol/L (3.5-5.1)
[2019-06-09] MEDS ORDERED: POTASSIUM CHLORIDE TABS 20 MEQ TABLET.ER (FP) PO ONE (08:31)
[2019-06-09 08:37] LABS: BLOOD UREA NITROGEN 117.6 mg/dL (7-18)
[2019-06-09 09:46] LABS: INR 5.42 (0.83-1.09)
[2019-06-09] MEDS: SODIUM CHLORIDE 1,000 ML IV SCH ×2 (10:09→21:43)
[2019-06-09] MEDS: ACETAMINOPHEN 325 MG TABLET (FP) PO PRN (10:10)
--- NOTE | 2019-06-09 10:18 | CON.CARD ---
Consult Consult Specialty:: Cardiology Referred by:: Dr. Yancey Reason for Consultation:: Fall/AF - History of Present Illness Chief Complaint: fall, AF History of Present Illness: 89M CAD, hx PCI, AF s/p PPM on coumadin, with recurrent falls. Now admitted with progressive weakness, poor PO intake as per family reports and recurrent fall at home. He has no recollection of the fall. Denies CP,SOB, palps. PMH: Mengioma Of note, found to be in ARF with BUN 127 and creat 2/2. He is on Lasix and Zarox at home. BNP also 2,891; TnI .14, .12 Last admission 01/2019 also after a fall: [facility] PPM interrogated AF no events Echo January 2009: Normal LVEF, Mild TR, Mild PHTN, Trace AR. - History Source History Provided By: Medical Record Limitations to Obtaining History: Clinical Condition - Past Medical History HOME HEALTH AIDE: No: Alzheimer's, CVA, Dementia, Migraine, Multiple Sclerosis, Peripheral Neuropathy, Parkinson's, Seizure, Syncope, TIA, Vertigo, Other Cardio/Vascular: Yes: AFIB Pulmonary: Yes: Other (Mild PHTN) Gastrointestinal: No: Ascites, Cancer, Constipation, Crohn's Disease, Diverticulitis, Diverticulosis, Esophageal Varices, Gastritis, GERD, GI Bleed, Hemorrhoids, Hiatal Hernia, Inflamatory Bowel Disease, Irritable Bowel Disease, Pancreatitis, Peptic Ulcer Disease, Ulcerative Colitis, Other Hepatobiliary: No: Cirrhosis, Cholelithiasis, Cholecystitis, Choledocholithiasis , Hepatitis A, Hepatitis B, Hepatitis C, Other Renal/: Yes: Renal Failure Heme/Onc: No: Anemia, B12 Deficiency, Bleeding Disorder, Cancer, Current Chemotherapy, Current Radiation Therapy, Hemochromatosis, Hypercoaguable State, Myeloproliferative Synd, Sickle Cell Disease, Sickle Cell Trait, Thrombocytopenia, Other Infectious Disease: No: AIDS, C-Diff, Herpes Zoster, HIV, MRSA, STD's, Tuberculosis, VREF, Other Psych: No: Addictions, Anxiety, Bipolar, Depression, Panic, Psychosis, Schizophrenia, Other Musculoskeletal: No: Bursitis, Chronic low back pain, Hemiparesis, Hemiplegia, Osteoarthritis, Paraplegia, Other ENT: No: Allergic Rhinitis, Sinusitis, Other Endocrine: No: [place]'s Disease, [place]'s Disease, Diabetes Insipidus, Diabetes Mellitus, Hyperparathyroidism, Hyperthyroidism, Hypothyroidism, Osteopenia, SIADH, Other Dermatology: No: Basal Cell, Cellulitis, Eczema, Melanoma, Psoriasis, Squamous Cell, Other - Alcohol/Substance Use Hx Alcohol Use: Yes (has 2 glasses of whiskey + 1 glass of wine/day) - Smoking History Smoking history: Never smoked Have you smoked in the past 12 months: No Aproximately how many cigarettes per day: 0 - Social History Usual Living Arrangement: With Spouse History of Recent Travel: No Home Medications - Allergies Allergies/Adverse Reactions: Allergies Allergy/AdvReac Type Severity Reaction Status Date / Time No Known Drug Allergies Allergy Verified 02/12/19 12:38 - Home Medications Home Medications: Ambulatory Orders Simvastatin [Zocor -] 40 mg PO HS 02/22/16 Furosemide [Lasix] 40 mg PO BID 05/14/18 Potassium Chloride 20 meq PO DAILY 05/14/18 Warfarin Sodium 4 mg PO DAILY 02/12/19 Acetaminophen [Tylenol] 325 mg PO DAILY PRN 02/13/19 Metolazone [Zaroxolyn -] 2.5 mg PO DAILY 05/13/19 Cephalexin Monohydrate [Keflex -] 500 mg PO Q6H 7 Days #28 capsule 05/17/19 Family Medical History Family History: Unremarkable Review of Systems - Review of Systems Constitutional: reports: No Symptoms Eyes: reports: No Symptoms HENT: reports: No Symptoms Neck: reports: No Symptoms Cardiovascular: reports: No Symptoms Respiratory: reports: No Symptoms Gastrointestinal: reports: No Symptoms Genitourinary: reports: No Symptoms Breasts: reports: No Symptoms Reported Musculoskeletal: reports: No Symptoms Integumentary: reports: No Symptoms Neurological: reports: No Symptoms Endocrine: reports: No Symptoms Hematology/Lymphatic: reports: No Symptoms Psychiatric: reports: No Symptoms Vital Signs: Vital Signs Temperature 97.0 F L 06/09/19 10:06 Pulse Rate 71 06/09/19 10:06 Respiratory Rate 18 06/09/19 10:06 Blood Pressure 118/45 L 06/09/19 10:06 O2 Sat by Pulse Oximetry (%) 97 06/09/19 04:00 Constitutional: Yes: No Distress, Calm Eyes: Yes: Conjunctiva Clear Respiratory: Yes: CTA Bilaterally Gastrointestinal: Yes: Soft (NT) Cardiovascular: Yes: Pulse Irregular JVD: No Carotid Bruit: No PMI: Non-Displaced Heart Sounds: Yes: S1, S2 Edema: No Peripheral Pulses WNL: Yes Neurological: Yes: Alert, Oriented ...Motor Strength: WNL - Other Data Labs, Other Data: CBC, BMP 06/09/19 06:30 06/09/19 06:30 INR, PTT INR 5.42 (0.83-1.09) H* 06/09/19 06:30 Troponin, BNP 06/08/19 06/08/19 06/08/19 14:29 14:29 19:05 Troponin I 0.14 H 0.12 H B-Natriuretic Peptide 2891.6 H 06/09/19 06/09/19 06:30 07:43 Troponin I Cancelled 0.12 H B-Natriuretic Peptide Troponin, BNP 06/08/19 06/08/19 06/08/19 14:29 14:29 19:05 Troponin I 0.14 H 0.12 H B-Natriuretic Peptide 2891.6 H 06/09/19 06/09/19 06:30 07:43 Troponin I Cancelled 0.12 H B-Natriuretic Peptide Laboratory Tests 06/08/19 06/08/19 06/08/19 14:29 14:29 19:05 WBC Hgb Plt Count INR Sodium Potassium BUN 127.4 H* Creatinine 2.2 H Magnesium Creatine Kinase 58 Troponin I 0.14 H 0.12 H B-Natriuretic Peptide 2891.6 H 06/09/19 06/09/19 06/09/19 06:30 06:30 06:30 WBC 10.1 H Hgb 16.0 Plt Count 156 INR 5.42 H* Sodium 138 Potassium 3.2 L BUN 117.6 H* Creatinine 1.7 H Magnesium 2.6 H Creatine Kinase Troponin I B-Natriuretic Peptide 06/09/19 07:43 WBC Hgb Plt Count INR Sodium Potassium BUN Creatinine Magnesium Creatine Kinase Troponin I 0.12 H B-Natriuretic Peptide ECG: AF 94bpm, nsst Echo: Report Reviewed Stress Echo: Report Reviewed (Normal EF, Mild TR, Mild PHTN, Trace AR (January 2019 ).) Imaging - Results Cat Scan: Report Reviewed EKG: Image Reviewed Assessment/Plan IMP: Meningioma Atrial fibrillation s/p PPM, on coumadin CAD w/ h/o PCI Acute renal failure Equivocal TnI Elevated BNP REC: 1. Holter 2. Gentle hydration, hold diurectics. Check orthostatics. 3. Elevated INR, hold Coumadin. Need to reassess [facility] Coumadin safety given hx recurrent falls. 4. TnI is equivocal elevated in setting ARF and chronic PHTN. Does not represent ACS. BNP also not clinically meaningful in this setting.
--- NOTE | 2019-06-09 11:25 | CON.NEURO ---
Consult - History of Present Illness History of Present Illness: 89 year old male with history of congestive heart failure, coronary artery disease s/p stents/pacemaker non-MRI compatible 15 years ago, atrial fibrillation on Coumadin, and a benign brain tumor who presented with altered mental status changes, weakness and s/p fall. as per family multiple falls last few months , and worsening cognitive decline as per sopn; typically converses and communicates ( speaks 4 languages etc) Lab findings notable for hemoglobin 17.5, hematocrit 52.5, troponin 0.14( troponin elevated at baseline 0.10). BNP 2891, creatinine 2.2(last creatinine on 05/14 was 0.9) and INR of 4.28. CT scan of head showed stable appearance mass lesion in left frontal lobe probably meningioma. CT C-spine no CT evidence of acute findings. CXR with no infiltrate or CHF changes. ECG - ventricular paced rhythm, QTc 574. - Past Medical History STOCK BLENDER: No: Alzheimer's, CVA, Dementia, Migraine, Multiple Sclerosis, Peripheral Neuropathy, Parkinson's, Seizure, Syncope, TIA, Vertigo, Other Cardio/Vascular: Yes: AFIB Pulmonary: Yes: Other (Mild PHTN) Gastrointestinal: No: Ascites, Cancer, Constipation, Crohn's Disease, Diverticulitis, Diverticulosis, Esophageal Varices, Gastritis, GERD, GI Bleed, Hemorrhoids, Hiatal Hernia, Inflamatory Bowel Disease, Irritable Bowel Disease, Pancreatitis, Peptic Ulcer Disease, Ulcerative Colitis, Other Hepatobiliary: No: Cirrhosis, Cholelithiasis, Cholecystitis, Choledocholithiasis , Hepatitis A, Hepatitis B, Hepatitis C, Other Renal/: Yes: Renal Failure Infectious Disease: No: AIDS, C-Diff, Herpes Zoster, HIV, MRSA, STD's, Tuberculosis, VREF, Other Psych: No: Addictions, Anxiety, Bipolar, Depression, Panic, Psychosis, Schizophrenia, Other Musculoskeletal: No: Bursitis, Chronic low back pain, Hemiparesis, Hemiplegia, Osteoarthritis, Paraplegia, Other ENT: No: Allergic Rhinitis, Sinusitis, Other Endocrine: No: [place]'s Disease, [place]'s Disease, Diabetes Insipidus, Diabetes Mellitus, Hyperparathyroidism, Hyperthyroidism, Hypothyroidism, Osteopenia, SIADH, Other Dermatology: No: Basal Cell, Cellulitis, Eczema, Melanoma, Psoriasis, Squamous Cell, Other - Alcohol/Substance Use Hx Alcohol Use: Yes (has 2 glasses of whiskey + 1 glass of wine/day) - Smoking History Smoking history: Never smoked Have you smoked in the past 12 months: No Aproximately how many cigarettes per day: 0 - Social History Usual Living Arrangement: With Spouse History of Recent Travel: No Home Medications - Allergies Allergies/Adverse Reactions: Allergies Allergy/AdvReac Type Severity Reaction Status Date / Time No Known Drug Allergies Allergy Verified 02/12/19 12:38 - Home Medications Home Medications: Ambulatory Orders Simvastatin [Zocor -] 40 mg PO HS 02/22/16 Furosemide [Lasix] 40 mg PO BID 05/14/18 Potassium Chloride 20 meq PO DAILY 05/14/18 Warfarin Sodium 4 mg PO DAILY 02/12/19 Acetaminophen [Tylenol] 325 mg PO DAILY PRN 02/13/19 Metolazone [Zaroxolyn -] 2.5 mg PO DAILY 05/13/19 Cephalexin Monohydrate [Keflex -] 500 mg PO Q6H 7 Days #28 capsule 05/17/19 Physical Exam-Neuro Vital Signs: Vital Signs Temperature 97.0 F L 06/09/19 10:06 Pulse Rate 71 06/09/19 10:06 Respiratory Rate 18 06/09/19 10:06 Blood Pressure 118/45 L 06/09/19 10:06 O2 Sat by Pulse Oximetry (%) 97 06/09/19 04:00 Labs: CBC, BMP 06/09/19 06:30 06/09/19 06:30 INR, PTT INR 5.42 (0.83-1.09) H* 06/09/19 06:30 - Neuro Exam Level Of Consciousness: Yes: Alert (awake, basic follows commands, EOMi, mild R facial , distal LE withdraws to pian, planatars down ) Assessment/Plan 89 year old male with history of congestive heart failure, coronary artery disease s/p stents/pacemaker non-MRI compatible 15 years ago, atrial fibrillation on Coumadin, and a benign brain tumor who presented with altered mental status changes, weakness and s/p fall. as per family multiple falls last few months , and worsening cognitive decline as per sopn; typically converses and communicates ( speaks 4 languages etc) Lab findings notable for hemoglobin 17.5, hematocrit 52.5, troponin 0.14( troponin elevated at baseline 0.10). BNP 2891, creatinine 2.2(last creatinine on 05/14 was 0.9) and INR of 4.28. CT scan of head showed stable appearance mass lesion in left frontal lobe probably meningioma. CT C-spine no CT evidence of acute findings. CXR with no infiltrate or CHF changes. ECG - ventricular paced rhythm, QTc 574. AP : progressive cognitive decline/abnl gait, mild right sided facial weakness, drift no evidence of a myelopathy ? related to new stroke event, has pacemaker so unable to get MRI this may be his new baseline TSh NL , [facility] NL rehab ok cont AC for now DR CRUZ
--- NOTE | 2019-06-09 13:17 | PN ---
Physical Exam: SUBJECTIVE: Patient seen and examined at the bedside. denies pain, denies shortness of breath or chest pain. OBJECTIVE: Mr. Marin is a 89 year old male with history of congestive heart failure, coronary artery disease s/p stents/pacemaker non-MRI compatible 15 years ago, atrial fibrillation on Coumadin, and a benign brain tumor who presented with altered mental status changes, weakness and s/p fall. His coumadin levels are now elevated and his coumadin is on hold, further he has elevated troponins and worsening kidney failure. Vital Signs Period Temp Pulse Resp BP Sys/Esposito Pulse Ox Last 24 Hr 97.0 F-98.6 F 71-91 16-19 95-134/45-68 97-98 GENERAL: awake alert and oriented to self and place confused no acute distress HEAD: normal EYES: pupils equal round and reactive to light EARS, NOSE, THROAT: ears normal nares patent oropharynx clear without exudates NECK: no JVD LUNGS: breath sounds equal clear to auscultation bilaterally no rales no use of accessory muscles HEART: regular rate and rhythm ABDOMEN: soft nontender not distended MUSCULOSKELETAL: moving upper and lower extremities UPPER EXTREMITIES: 2+ pulses warm well-perfused no cyanosis LOWER EXTREMITIES: small area of swelling/edema/pain on left lateral. hematoma ? will doppler. NEUROLOGICAL: no neuro focal deficits PSYCHIATRIC: cooperative good eye contact SKIN: warm dry no rashes or lesions noted Laboratory Results - last 24 hr 06/08/19 06/08/19 06/08/19 14:29 14:29 14:29 WBC 10.9 H RBC 5.93 H Hgb 17.0 H Hct 52.5 H D MCV 88.5 MCH 28.7 MCHC 32.4 RDW 15.4 Plt Count 184 MPV 10.5 Absolute Neuts (auto) 8.3 H Neutrophils % 75.6 Lymphocytes % 16.2 Monocytes % 7.0 Eosinophils % 0.5 Basophils % 0.7 Nucleated RBC % 0 PT with INR INR PTT (Actin FS) 61.5 H Sodium Potassium Chloride Carbon Dioxide Anion Gap BUN Creatinine Est GFR (CKD-EPI)AfAm Est GFR (CKD-EPI)NonAf Random Glucose Calcium Magnesium Total Bilirubin AST ALT Alkaline Phosphatase Creatine Kinase 58 Troponin I 0.14 H B-Natriuretic Peptide Total Protein Albumin 10/20/19 10/20/19 10/20/19 14:29 14:29 19:05 WBC RBC Hgb Hct MCV MCH MCHC RDW Plt Count MPV Absolute Neuts (auto) Neutrophils % Lymphocytes % Monocytes % Eosinophils % Basophils % Nucleated RBC % PT with INR 51.30 H INR 4.28 H* PTT (Actin FS) Sodium 133 L Potassium 3.7 Chloride 86 L Carbon Dioxide 36 H Anion Gap 11 BUN 127.4 H* Creatinine 2.2 H Est GFR (CKD-EPI)AfAm 29.89 Est GFR (CKD-EPI)NonAf 25.79 Random Glucose 144 H Calcium 9.9 Magnesium Total Bilirubin 1.3 H AST 44 H ALT 20 Alkaline Phosphatase 111 Creatine Kinase Troponin I 0.12 H B-Natriuretic Peptide 2891.6 H Total Protein 7.2 Albumin 3.5 06/09/19 06/09/19 06/09/19 06:30 06:30 06:30 WBC 10.1 H RBC 5.40 Hgb 16.0 Hct 47.6 MCV 88.2 MCH 29.6 MCHC 33.6 RDW 15.4 Plt Count 156 MPV 10.6 Absolute Neuts (auto) Neutrophils % Lymphocytes % Monocytes % Eosinophils % Basophils % Nucleated RBC % PT with INR 65.10 H INR 5.42 H* PTT (Actin FS) Sodium 138 Potassium 3.2 L Chloride 90 L Carbon Dioxide 33 H Anion Gap 15 BUN 117.6 H* Creatinine 1.7 H Est GFR (CKD-EPI)AfAm 40.82 Est GFR (CKD-EPI)NonAf 35.22 Random Glucose 105 Calcium 9.9 Magnesium 2.6 H Total Bilirubin AST ALT Alkaline Phosphatase Creatine Kinase Troponin I B-Natriuretic Peptide Total Protein Albumin 06/09/19 06/09/19 06:30 07:43 WBC RBC Hgb Hct MCV MCH MCHC RDW Plt Count MPV Absolute Neuts (auto) Neutrophils % Lymphocytes % Monocytes % Eosinophils % Basophils % Nucleated RBC % PT with INR INR PTT (Actin FS) Sodium Potassium Chloride Carbon Dioxide Anion Gap BUN Creatinine Est GFR (CKD-EPI)AfAm Est GFR (CKD-EPI)NonAf Random Glucose Calcium Magnesium Total Bilirubin AST ALT Alkaline Phosphatase Creatine Kinase Troponin I Cancelled 0.12 H B-Natriuretic Peptide Total Protein Albumin Active Medications Generic Name Dose Route Start Last Admin Trade Name Freq PRN Reason Stop Dose Admin Acetaminophen 650 mg 06/09/19 08:17 06/09/19 10:10 Tylenol - PO 650 mg Q6H PRN Administration PAIN LEVEL 6-10 Atorvastatin Calcium 20 mg 06/08/19 22:00 06/08/19 22:38 Lipitor - PO 20 mg HS GEORGE Administration Sodium Chloride 1,000 mls @ 75 mls/hr 06/08/19 18:30 06/09/19 10:09 Normal Saline - IV 75 mls/hr ASDIR GEORGE Administration ASSESSMENT/PLAN: Problem List - Problems (1) Syncope and collapse Assessment/Plan: physical therapy, neuro consulted head ct with stable meningioma, unchanged Code(s): R55 - SYNCOPE AND COLLAPSE (2) MARIELY (acute kidney injury) Assessment/Plan: monitor kidney function and renal dose medications BUN 127/ Creatinine 2.2 (last creatinine on 05/14 was 0.9, renal US with no hydronephrosis, bilateral renal cysts On IVF NS at 75cc/hr hold lasix and metolazone Code(s): N17.9 - ACUTE KIDNEY FAILURE, UNSPECIFIED (3) Fall Assessment/Plan: physical therapy, fall precautions Code(s): W19.XXXA - UNSPECIFIED FALL, INITIAL ENCOUNTER Qualifiers: Encounter type: subsequent encounter Qualified Code(s): W19.XXXD - Unspecified fall, subsequent encounter (4) A-fib Assessment/Plan: Rate controlled currently. Resume coumadin when INR therapeutic at 2.0-3.0 Code(s): I48.91 - UNSPECIFIED ATRIAL FIBRILLATION (5) Elevated INR Assessment/Plan: hold coumadin Code(s): R79.1 - ABNORMAL COAGULATION PROFILE (6) CHF (congestive heart failure) Assessment/Plan: Elevated BNP 2891 On clinical exam appears euvolemic and has no pedal edema. Holding lasix and metolazone in setting of acute renal insufficiency Cardiology consulted, patient on a holter monitor Code(s): I50.9 - HEART FAILURE, UNSPECIFIED (7) Troponin level elevated Assessment/Plan: no chest pain, no shortness of breath ECG - ventricular paced rhythm, QTc 574, no acute ischemia -Continue to trend troponins -Continue with statin therapy -Not on aspirin as on systemic anticoagulation -Cardiology consulted and following. Code(s): R79.89 - OTHER SPECIFIED ABNORMAL FINDINGS OF BLOOD CHEMISTRY (8) Prophylactic measure Assessment/Plan: DVT INR supratherapeutic, Coumadin on hold SCD's/TEDS fen -low sodium diet -IVF NS at 75cc/hr -monitor electrolytes Code(s): Z29.9 - ENCOUNTER FOR PROPHYLACTIC MEASURES, UNSPECIFIED (9) DVT prophylaxis Assessment/Plan: hold all anticoaguation for elevated inr. Code(s): ZEE3983 - Visit type - Emergency Visit Emergency Visit: Yes ED Registration Date: 06/08/19 Care time: The patient presented to the Emergency Department on the above date and was hospitalized for further evaluation of their emergent condition. - New Patient This patient is new to me today: Yes Date on this admission: 06/09/19 - Critical Care Critical Care patient: No - Discharge Referral Referred to [facility] Med P.C.: No
--- NOTE | 2019-06-09 13:59 | CONSULT ---
Consult Consult Specialty:: Nephrology Reason for Consultation:: MARIELY - History of Present Illness Chief Complaint: s/p fall and weakness History of Present Illness: Pt is an 89 year old male with pmhx of cad, chf, benign brain tumor and a-fib who presents to the ER after fall and altered mental status. He was found to have MARIELY and I was called to evaluate him. He does not have history of CKD. He has had decreased PO intake. He was on diuretics at home for CHF. He had recently been treated for cullulitis. He has not used nsaids. He was also found to have elevated INR. Pt is awake and able to give some history. His son is at bedside and did assist. 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 (benigng brain tumor) Cardio/Vascular: Yes: AFIB, CAD, CHF Pulmonary: Yes: Other (Mild PHTN) Renal/: Yes: Renal Failure - Alcohol/Substance Use Hx Alcohol Use: Yes (has 2 glasses of whiskey + 1 glass of wine/day) - Smoking History Smoking history: Never smoked Have you smoked in the past 12 months: No Aproximately how many cigarettes per day: 0 - Social History Usual Living Arrangement: With Spouse History of Recent Travel: No Home Medications - Allergies Allergies/Adverse Reactions: Allergies Allergy/AdvReac Type Severity Reaction Status Date / Time No Known Drug Allergies Allergy Verified 02/12/19 12:38 - Home Medications Home Medications: Ambulatory Orders Simvastatin [Zocor -] 40 mg PO HS 02/22/16 Furosemide [Lasix] 40 mg PO BID 05/14/18 Potassium Chloride 20 meq PO DAILY 05/14/18 Warfarin Sodium 4 mg PO DAILY 02/12/19 Acetaminophen [Tylenol] 325 mg PO DAILY PRN 02/13/19 Metolazone [Zaroxolyn -] 2.5 mg PO DAILY 05/13/19 Cephalexin Monohydrate [Keflex -] 500 mg PO Q6H 7 Days #28 capsule 05/17/19 Family Medical History Family History: Denies Review of Systems - Review of Systems Constitutional: reports: Malaise. denies: Chills Eyes: reports: No Symptoms HENT: reports: No Symptoms Neck: reports: No Symptoms Cardiovascular: denies: Edema, Shortness of Breath Respiratory: denies: SOB on Exertion Gastrointestinal: reports: No Symptoms Genitourinary: reports: No Symptoms Integumentary: reports: Bruising Neurological: reports: No Symptoms Endocrine: reports: No Symptoms Hematology/Lymphatic: reports: No Symptoms Physical Exam Vital Signs: Vital Signs Temperature 97.0 F L 06/09/19 10:06 Pulse Rate 71 06/09/19 10:06 Respiratory Rate 18 06/09/19 10:06 Blood Pressure 118/45 L 06/09/19 10:06 O2 Sat by Pulse Oximetry (%) 97 06/09/19 04:00 Constitutional: Yes: Calm Eyes: Yes: Conjunctiva Clear HENT: Yes: Atraumatic Neck: Yes: Supple Cardiovascular: Yes: S1, S2 Respiratory: Yes: CTA Bilaterally Gastrointestinal: Yes: Soft Renal/: Yes: WNL Musculoskeletal: Yes: WNL Edema: No Neurological: Yes: Oriented Psychiatric: Yes: Oriented Labs: CBC, BMP 06/09/19 06:30 06/09/19 06:30 Laboratory Tests 05/15/19 05/16/19 06/08/19 06:10 06:47 14:29 WBC INR Sodium Potassium Carbon Dioxide BUN Creatinine 1.5 H 1.1 Troponin I 0.14 H B-Natriuretic Peptide 06/08/19 06/08/19 06/08/19 14:29 14:29 14:29 WBC 10.9 H INR 4.28 H* Sodium Potassium Carbon Dioxide 36 H BUN 127.4 H* Creatinine 2.2 H Troponin I B-Natriuretic Peptide 2891.6 H 06/08/19 06/09/19 06/09/19 19:05 06:30 06:30 WBC 10.1 H INR Sodium 138 Potassium 3.2 L Carbon Dioxide 33 H BUN 117.6 H* Creatinine 1.7 H Troponin I 0.12 H B-Natriuretic Peptide 06/09/19 07:43 WBC INR Sodium Potassium Carbon Dioxide BUN Creatinine Troponin I 0.12 H B-Natriuretic Peptide Imaging - Results Chest X-ray: Report Reviewed Ultrasound: Report Reviewed Problem List - Problems (1) MARIELY (acute kidney injury) Code(s): N17.9 - ACUTE KIDNEY FAILURE, UNSPECIFIED (2) Fall Code(s): W19.XXXA - UNSPECIFIED FALL, INITIAL ENCOUNTER Qualifiers: Encounter type: subsequent encounter Qualified Code(s): W19.XXXD - Unspecified fall, subsequent encounter (3) A-fib Code(s): I48.91 - UNSPECIFIED ATRIAL FIBRILLATION (4) CHF (congestive heart failure) Code(s): I50.9 - HEART FAILURE, UNSPECIFIED (5) Elevated INR Code(s): R79.1 - ABNORMAL COAGULATION PROFILE Assessment/Plan Current Medications Generic Name Dose Route Start Last Admin Trade Name Freq PRN Reason Stop Dose Admin Acetaminophen 650 mg 06/09/19 08:17 06/09/19 10:10 Tylenol - PO 650 mg Q6H PRN Administration PAIN LEVEL 6-10 Atorvastatin Calcium 20 mg 06/08/19 22:00 06/08/19 22:38 Lipitor - PO 20 mg HS GEORGE Administration Sodium Chloride 1,000 mls @ 75 mls/hr 06/08/19 18:30 06/09/19 10:09 Normal Saline - IV 75 mls/hr ASDIR GEORGE Administration Impression 1. hypokalemia 2. MARIELY 3. s/p fall 4. chf 5. 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 a-fib 7. cad Plan - renal function is improving with fluids - cont with saline - repeat lab sin am - replace potassium - check mag - send ua, urine lytes and urine pedal assembler - hold lasix and metlazone - monitor volume status - discussed plan with family
--- NOTE | 2019-06-09 15:57 | EKG ---
Test Reason : Blood Pressure : / mmHG Vent. Rate : 070 BPM Atrial Rate : 060 BPM P-R Int : 000 ms QRS Dur : 162 ms QT Int : 522 ms P-R-T Axes : 000 244 072 degrees QTc Int : 563 ms Ventricular-paced rhythm ABNORMAL ECG WHEN COMPARED WITH ECG OF 13-MAY-2019 15:27, NO SIGNIFICANT CHANGE WAS FOUND Confirmed by MAXWELL MURRELL MD ([id number]) on 06/09/2019 3:57:16 PM Referred By: Confirmed By:MAXWELL MURRELL MD
[2019-06-09] MEDS: KCL 10 MEQ IVPB 10 MEQ/100 ML INFUS.BAG IVPB SCH ×2 (16:15→18:27)
[2019-06-09 20:28] LABS: PH,URINE 5.5 (5.0-8.0); URINE APPEARANCE CLEAR; URINE BILIRUBIN NEGATIVE (NEGATIVE); URINE COLOR YELLOW; URINE GLUCOSE (UA) NEGATIVE (NEGATIVE); URINE KETONE NEGATIVE (NEGATIVE); URINE LEUK ESTERASE NEGATIVE (NEGATIVE); URINE NITRITE NEGATIVE (NEGATIVE); URINE PROTEIN NEGATIVE (NEGATIVE)
[2019-06-09] MEDS: ATORVASTATIN CA 20 MG TABLET (FP) PO SCH (21:42)
[2019-06-10 08:27] LABS: BASO % 0.6 % (0-2.0); EOS % 1.6 % (0-4.5); HEMATOCRIT 50.4 % (35.4-49); HEMOGLOBIN 16.7 GM/dL (11.7-16.9); LYMPH % 18.9 % (8-40); MCH 29.3 pg (25.7-33.7); MCHC 33.1 g/dl (32.0-35.9); MEAN CELL VOLUME 88.7 fl (80-96); MEAN PLT VOLUME 10.9 fl (7.5-11.1); MONO % 5.9 % (3.8-10.2); PLATELET COUNT 155 K/MM3 (134-434); RBC 5.69 M/mm3 (4.00-5.60); RDW 15.6 % (11.9-15.9); WHITE BLOOD COUNT 9.8 K/mm3 (4.0-10.0)
[2019-06-10 08:58] LABS: ALBUMIN 3.4 g/dl (3.4-5.0); BILIRUBIN,TOTAL 1.2 mg/dL (0.2-1); BLOOD UREA NITROGEN 84.2 mg/dL (7-18); CREATININE 1.4 mg/dL (0.55-1.3); MAGNESIUM 2.6 mg/dL (1.8-2.4); POTASSIUM 3.6 mmol/L (3.5-5.1); TOT PROT 6.8 g/dl (6.4-8.2)
--- NOTE | 2019-06-10 09:10 | PN ---
Progress Note, Physician Chief Complaint: states he feels very tired History of Present Illness: 89 year old male with history of congestive heart failure, coronary artery disease s/p stents/pacemaker non-MRI compatible 15 years ago, atrial fibrillation on Coumadin, and a benign brain tumor who presented with altered mental status changes, weakness and s/p fall. His coumadin levels are now elevated and his coumadin is on hold, further he has elevated troponins and worsening kidney failure. - Current Medication List Current Medications: Active Medications Acetaminophen (Tylenol -) 650 mg PO Q6H PRN PRN Reason: PAIN LEVEL 6-10 Last Admin: 06/09/19 10:10 Dose: 650 mg Atorvastatin Calcium (Lipitor -) 20 mg PO HS GEORGE Last Admin: 06/09/19 21:42 Dose: 20 mg Sodium Chloride (Normal Saline -) 1,000 mls @ 75 mls/hr IV ASDIR GEORGE Last Admin: 06/09/19 21:43 Dose: 75 mls/hr - Objective Vital Signs: Vital Signs Temperature 97.5 F L 06/10/19 06:00 Pulse Rate 70 06/10/19 06:00 Respiratory Rate 17 06/10/19 06:00 Blood Pressure 106/48 L 06/10/19 06:00 O2 Sat by Pulse Oximetry (%) 97 06/09/19 21:00 Additional Findings/Remarks: GENERAL: awake alert and oriented to self and place confused no acute distress HEAD: normal EYES: pupils equal round and reactive to light EARS, NOSE, THROAT: ears normal nares patent oropharynx clear without exudates NECK: no JVD LUNGS: breath sounds equal clear to auscultation bilaterally no rales no use of accessory muscles HEART: regular rate and rhythm ABDOMEN: soft nontender not distended MUSCULOSKELETAL: moving upper and lower extremities UPPER EXTREMITIES: 2+ pulses warm well-perfused no cyanosis LOWER EXTREMITIES: small area of swelling/edema/pain on left latera. NEUROLOGICAL: no neuro focal deficits PSYCHIATRIC: cooperative good eye contact SKIN: warm dry no rashes or lesions noted Labs: CBC, BMP 06/10/19 06:50 06/10/19 06:50 INR, PTT INR 5.42 (0.83-1.09) H* 06/09/19 06:30 Problem List - Problems (1) Pacemaker Code(s): Z95.0 - PRESENCE OF CARDIAC PACEMAKER (2) Stented coronary artery Assessment/Plan: Holter monitor continue TnI is equivocal elevated in setting ARF and chronic PHTN. Does not represent ACS coumdain on hold Code(s): Z95.5 - PRESENCE OF CORONARY ANGIOPLASTY IMPLANT AND GRAFT (3) MARIELY (acute kidney injury) Assessment/Plan: monitor kidney function avoid nephrotiopxic agents BUN 127/ Creatinine 2.2 (last creatinine on 05/14 was 0.9, renal US with no hydronephrosis, bilateral renal cysts c/w IVF NS at 75cc/hr hold lasix and metolazone Code(s): N17.9 - ACUTE KIDNEY FAILURE, UNSPECIFIED (4) Prophylactic measure Assessment/Plan: FEN low salt diet monitor electrolytes DVT coumdain on hold Dispo maintain as in patient discharge planning full code Code(s): Z29.9 - ENCOUNTER FOR PROPHYLACTIC MEASURES, UNSPECIFIED (5) A-fib Assessment/Plan: rate controlled holter monitor in place Code(s): I48.91 - UNSPECIFIED ATRIAL FIBRILLATION (6) CHF (congestive heart failure) Assessment/Plan: lasix/methalozine on hold Code(s): I50.9 - HEART FAILURE, UNSPECIFIED (7) Syncope and collapse Code(s): R55 - SYNCOPE AND COLLAPSE (8) Meningioma Assessment/Plan: head ct with stable meningioma, unchanged Code(s): D32.9 - BENIGN NEOPLASM OF MENINGES, UNSPECIFIED Visit type - Emergency Visit Emergency Visit: Yes ED Registration Date: 06/08/19 Care time: The patient presented to the Emergency Department on the above date and was hospitalized for further evaluation of their emergent condition. - New Patient This patient is new to me today: Yes Date on this admission: 06/12/19 - Critical Care Critical Care patient: No - Discharge Referral Referred to [facility] Med P.C.: No
[2019-06-10 10:49] LABS: PROTHROMBIN TIME (PATIENT) 56.8 SEC (9.7-13.0)
[2019-06-10 10:51] LABS: INR 4.76 (0.83-1.09)
[2019-06-10] MEDS ORDERED: POTASSIUM CHLORIDE TABS 20 MEQ TABLET.ER (FP) PO ONE (13:28)
--- NOTE | 2019-06-10 13:28 | PN ---
Progress Note, Physician History of Present Illness: Pt seen and examined at bedside. He is awake and alert. He denies shortness of breath. He has poor appetite. - Current Medication List Current Medications: Active Medications Acetaminophen (Tylenol -) 650 mg PO Q6H PRN PRN Reason: PAIN LEVEL 6-10 Last Admin: 06/09/19 10:10 Dose: 650 mg Atorvastatin Calcium (Lipitor -) 20 mg PO HS GEORGE Last Admin: 06/09/19 21:42 Dose: 20 mg Sodium Chloride (Normal Saline -) 1,000 mls @ 75 mls/hr IV ASDIR GEORGE Last Admin: 06/09/19 21:43 Dose: 75 mls/hr - Objective Vital Signs: Vital Signs Temperature 97.9 F 06/10/19 10:00 Pulse Rate 81 06/10/19 10:00 Respiratory Rate 16 06/10/19 10:00 Blood Pressure 108/58 L 06/10/19 10:00 O2 Sat by Pulse Oximetry (%) 97 06/10/19 09:00 Constitutional: Yes: Calm Eyes: Yes: Conjunctiva Clear HENT: Yes: Atraumatic Neck: Yes: Supple Cardiovascular: Yes: S1, S2 Respiratory: Yes: CTA Bilaterally Gastrointestinal: Yes: Soft Genitourinary: Yes: WNL Musculoskeletal: Yes: Other (left leg hematoma) Edema: No Neurological: Yes: Oriented Psychiatric: Yes: Oriented Labs: CBC, BMP 06/10/19 06:50 06/10/19 06:50 INR, PTT INR 4.76 (0.83-1.09) H* 06/10/19 09:36 Problem List - Problems (1) MARIELY (acute kidney injury) Code(s): N17.9 - ACUTE KIDNEY FAILURE, UNSPECIFIED (2) Fall Code(s): W19.XXXA - UNSPECIFIED FALL, INITIAL ENCOUNTER Qualifiers: Encounter type: subsequent encounter Qualified Code(s): W19.XXXD - Unspecified fall, subsequent encounter (3) A-fib Code(s): I48.91 - UNSPECIFIED ATRIAL FIBRILLATION (4) CHF (congestive heart failure) Code(s): I50.9 - HEART FAILURE, UNSPECIFIED (5) Elevated INR Code(s): R79.1 - ABNORMAL COAGULATION PROFILE Assessment/Plan Current Medications Generic Name Dose Route Start Last Admin Trade Name Freq PRN Reason Stop Dose Admin Acetaminophen 650 mg 06/09/19 08:17 06/09/19 10:10 Tylenol - PO 650 mg Q6H PRN Administration PAIN LEVEL 6-10 Atorvastatin Calcium 20 mg 06/08/19 22:00 06/09/19 21:42 Lipitor - PO 20 mg HS GEORGE Administration Sodium Chloride 1,000 mls @ 75 mls/hr 06/08/19 18:30 06/09/19 21:43 Normal Saline - IV 75 mls/hr ASDIR GEORGE Administration Impression 1. hypokalemia 2. MARIELY 3. s/p fall 4. chf 5. 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 a-fib 7. cad Plan - renal function is improving - change to 1/2 ns - repeat labs in am - diuretics on hold - will give another dose of potassium - monitor volume status - discussed plan with family
--- NOTE | 2019-06-10 13:59 | PN ---
Progress Note, Physician Chief Complaint: creatinine improved. Extensive bruising LLE - Current Medication List Current Medications: Active Medications Acetaminophen (Tylenol -) 650 mg PO Q6H PRN PRN Reason: PAIN LEVEL 6-10 Last Admin: 06/09/19 10:10 Dose: 650 mg Atorvastatin Calcium (Lipitor -) 20 mg PO HS GEORGE Last Admin: 06/09/19 21:42 Dose: 20 mg Sodium Chloride (1/2 Normal Saline) 1,000 mls @ 75 mls/hr IV ASDIR [facility] Potassium Chloride (K-Dur -) 40 meq PO ONCE ONE Stop: 06/10/19 13:29 - Objective Vital Signs: Vital Signs Temperature 97.9 F 06/10/19 10:00 Pulse Rate 81 06/10/19 10:00 Respiratory Rate 16 06/10/19 10:00 Blood Pressure 108/58 L 06/10/19 10:00 O2 Sat by Pulse Oximetry (%) 97 06/10/19 09:00 Constitutional: Yes: No Distress, Calm Eyes: Yes: Conjunctiva Clear Cardiovascular: Yes: Regular Rate and Rhythm Respiratory: Yes: CTA Bilaterally Gastrointestinal: Yes: Soft (NT) Edema: Yes Edema: LLE: 1+ Neurological: Yes: Alert, Oriented Labs: CBC, BMP 06/10/19 06:50 06/10/19 06:50 INR, PTT INR 4.76 (0.83-1.09) H* 06/10/19 09:36 Assessment/Plan IMP: Meningioma Atrial fibrillation s/p PPM, on coumadin CAD w/ h/o PCI Acute renal failure Equivocal TnI Elevated BNP REC: 1. Holter 2. Gentle hydration, hold diurectics. Not orthostatic by recorded vitals. 3. Elevated INR, hold Coumadin. 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 4. TnI is equivocal elevated in setting ARF and chronic PHTN. Does not represent ACS. BNP also not clinically meaningful in this setting. 5. Xrays LLE
[2019-06-10] MEDS: SODIUM CHLORIDE 0.45% 1,000 ML IV SCH (14:38)
[2019-06-10] MEDS ORDERED: ALPRAZolam 0.25 MG TABLET PO ONE (20:48)
--- NOTE | 2019-06-10 20:53 | HOSP ---
Subjective - Review of Symptoms Events since last encounter: patient seen and examined on the unit, agitated, anxious " wants to go home" nurse called family (son) spoke to patient unchanged. Redirecting was attempted , however unsuccessful, constantly getting up from w/c, risk for fall. will given xanax 0.25 mg x1 and monitor closely General: No: Chills, Night Sweats, Fatigue, Malaise, Appetite, Other HEENT: No: Head Aches, Visual Changes, Eye Pain, Ear Pain, Dysphasia, Sinus Congestion, Post Nasal Drip, Sore Throat, Other Pulmonary: No: Dyspnea, Cough, Pleuritic Chest Pain, Other Cardiovascular: No: Chest Pain, Palpitations, Orthopnea, Paroxysmal Noc. Dyspnea , Edema, Light Headedness, Other Gastrointestinal: No: Nausea, NOSYM, Vomiting, Abdominal Pain, Diarrhea, Constipation, Melena, Hematochezia, Other Musculoskeletal: No: No Symptoms, Back Pain, Crepitus, Decreased ROM, Extremity Pain, Joint Pain, Joint Swelling, Muscle Pain, Muscle Cramps, Muscle Weakness, Other Neurological: Yes: Other (anxious/ agitated ) Physical Examination Vital Signs: Vital Signs Temperature 97.9 F 06/10/19 20:23 Pulse Rate 74 06/10/19 20:23 Respiratory Rate 18 06/10/19 20:23 Blood Pressure 120/59 L 06/10/19 20:23 O2 Sat by Pulse Oximetry (%) 97 06/10/19 09:00 Constitutional: Yes: Anxious Eyes: Yes: Conjunctiva Clear, EOM Intact HENT: Yes: Atraumatic, Normocephalic Neck: Yes: Supple, Trachea Midline Cardiovascular: Yes: Regular Rate and Rhythm Respiratory: Yes: Regular, CTA Bilaterally Gastrointestinal: Yes: Normal Bowel Sounds, Soft Musculoskeletal: Yes: WNL Extremities: Yes: WNL Edema: No Peripheral Pulses WNL: Yes Neurological: Yes: Confusion, Other (anxious, agitated) Psychiatric: Yes: Agitated Labs: CBC, BMP 06/10/19 06:50 06/10/19 06:50 Hospitalist Encounter Assessment: Agitated/anxious - give xanax 0.25 mg x1 - monitor for safety/fall precaution
[2019-06-10] MEDS: ACETAMINOPHEN 325 MG TABLET (FP) PO PRN (21:06)
[2019-06-10] MEDS: ATORVASTATIN CA 20 MG TABLET (FP) PO SCH (21:08)
[2019-06-11] MEDS: SODIUM CHLORIDE 0.45% 1,000 ML IV SCH (04:12)
[2019-06-11 07:43] LABS: BASO % 0.3 % (0-2.0); EOS % 1.9 % (0-4.5); HEMOGLOBIN 13.5 GM/dL (11.7-16.9); LYMPH % 16.3 % (8-40); MCH 29.4 pg (25.7-33.7); MEAN CELL VOLUME 88.9 fl (80-96); MEAN PLT VOLUME 10.6 fl (7.5-11.1); MONO % 8.6 % (3.8-10.2); NEUT % 72.9 % (42.8-82.8); PLATELET COUNT 126 K/MM3 (134-434); RBC 4.61 M/mm3 (4.00-5.60); RDW 15.3 % (11.9-15.9); WHITE BLOOD COUNT 8.3 K/mm3 (4.0-10.0)
[2019-06-11 08:06] LABS: ALBUMIN 2.8 g/dl (3.4-5.0); BILIRUBIN,TOTAL 0.9 mg/dL (0.2-1); BLOOD UREA NITROGEN 54.6 mg/dL (7-18); CREATININE 1.1 mg/dL (0.55-1.3); MAGNESIUM 2.4 mg/dL (1.8-2.4); POTASSIUM 3.5 mmol/L (3.5-5.1); TOT PROT 5.6 g/dl (6.4-8.2)
[2019-06-11] MEDS: ACETAMINOPHEN 325 MG TABLET (FP) PO PRN (08:45)
--- NOTE | 2019-06-11 11:37 | PN ---
Progress Note (short form) - Note Progress Note: 89 year old male with history of congestive heart failure, coronary artery disease s/p stents/pacemaker non-MRI compatible 15 years ago, atrial fibrillation on Coumadin, and a benign brain tumor who presented with altered mental status changes, weakness and s/p fall. as per family multiple falls last few months , and worsening cognitive decline as per sopn; typically converses and communicates ( speaks 4 languages etc) Lab findings notable for hemoglobin 17.5, hematocrit 52.5, troponin 0.14( troponin elevated at baseline 0.10). BNP 2891, creatinine 2.2(last creatinine on 05/14 was 0.9) and INR of 4.28. CT scan of head showed stable appearance mass lesion in left frontal lobe probably meningioma. CT C-spine no CT evidence of acute findings. CXR with no infiltrate or CHF changes. ECG - ventricular paced rhythm, QTc 574. 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: Alzheimer's, CVA, Dementia, Migraine, Multiple Sclerosis, Peripheral Neuropathy, Parkinson's, Seizure, Syncope, TIA, Vertigo, Other Cardio/Vascular: Yes: AFIB Pulmonary: Yes: Other (Mild PHTN) Gastrointestinal: No: Ascites, Cancer, Constipation, Crohn's Disease, Diverticulitis, Diverticulosis, Esophageal Varices, Gastritis, GERD, GI Bleed, Hemorrhoids, Hiatal Hernia, Inflamatory Bowel Disease, Irritable Bowel Disease, Pancreatitis, Peptic Ulcer Disease, Ulcerative Colitis, Other Hepatobiliary: No: Cirrhosis, Cholelithiasis, Cholecystitis, Choledocholithiasis , Hepatitis A, Hepatitis B, Hepatitis C, Other Renal/: Yes: Renal Failure Infectious Disease: No: AIDS, C-Diff, Herpes Zoster, HIV, MRSA, STD's, Tuberculosis, VREF, Other Psych: No: Addictions, Anxiety, Bipolar, Depression, Panic, Psychosis, Schizophrenia, Other Musculoskeletal: No: Bursitis, Chronic low back pain, Hemiparesis, Hemiplegia, Osteoarthritis, Paraplegia, Other ENT: No: Allergic Rhinitis, Sinusitis, Other Endocrine: No: Tone's Disease, Jama's Disease, Diabetes Insipidus, Diabetes Mellitus, Hyperparathyroidism, Hyperthyroidism, Hypothyroidism, Osteopenia, SIADH, Other Dermatology: No: Basal Cell, Cellulitis, Eczema, Melanoma, Psoriasis, Squamous Cell, Other - Alcohol/Substance Use Hx Alcohol Use: Yes (has 2 glasses of whiskey + 1 glass of wine/day) - Smoking History Smoking history: Never smoked Have you smoked in the past 12 months: No Aproximately how many cigarettes per day: 0 - Social History Usual Living Arrangement: With Spouse History of Recent Travel: No Home Medications - Allergies Allergies/Adverse Reactions: Allergies Allergy/AdvReac Type Severity Reaction Status Date / Time No Known Drug Allergies Allergy Verified 02/12/19 12:38 - Home Medications Home Medications: Ambulatory Orders Simvastatin [Zocor -] 40 mg PO HS 02/22/16 Furosemide [Lasix] 40 mg PO BID 05/14/18 Potassium Chloride 20 meq PO DAILY 05/14/18 Warfarin Sodium 4 mg PO DAILY 02/12/19 Acetaminophen [Tylenol] 325 mg PO DAILY PRN 02/13/19 Metolazone [Zaroxolyn -] 2.5 mg PO DAILY 05/13/19 Cephalexin Monohydrate [Keflex -] 500 mg PO Q6H 7 Days #28 capsule 05/17/19 Physical Exam-Neuro Vital Signs: Vital Signs Temperature 97.3 F L 06/11/19 08:00 Pulse Rate 73 06/11/19 08:00 Respiratory Rate 18 06/11/19 08:00 Blood Pressure 129/67 06/11/19 08:00 O2 Sat by Pulse Oximetry (%) 97 06/10/19 21:00 Labs: CBCD WBC 8.3 K/mm3 (4.0-10.0) 06/11/19 06:40 RBC 4.61 M/mm3 (4.00-5.60) 06/11/19 06:40 Hgb 13.5 GM/dL (11.7-16.9) 06/11/19 06:40 Hct 41.0 % (35.4-49) D 06/11/19 06:40 MCV 88.9 fl (80-96) 06/11/19 06:40 MCHC 33.0 g/dl (32.0-35.9) 06/11/19 06:40 RDW 15.3 % (11.9-15.9) 06/11/19 06:40 Plt Count 126 K/MM3 (134-434) L 06/11/19 06:40 MPV 10.6 fl (7.5-11.1) 06/11/19 06:40 CMP Sodium 141 mmol/L (136-145) 06/11/19 06:40 Potassium 3.5 mmol/L (3.5-5.1) 06/11/19 06:40 Chloride 104 mmol/L (98-107) 06/11/19 06:40 Carbon Dioxide 29 mmol/L (21-32) 06/11/19 06:40 Anion Gap 8 MMOL/L (8-16) 06/11/19 06:40 BUN 54.6 mg/dL (7-18) H 06/11/19 06:40 Creatinine 1.1 mg/dL (0.55-1.3) 06/11/19 06:40 Calcium 9.0 mg/dL (8.5-10.1) 06/11/19 06:40 Total Bilirubin 0.9 mg/dL (0.2-1) 06/11/19 06:40 AST 26 U/L (15-37) 06/11/19 06:40 ALT 15 U/L (13-61) 06/11/19 06:40 Alkaline Phosphatase 98 U/L (45-117) 06/11/19 06:40 Total Protein 5.6 g/dl (6.4-8.2) L 06/11/19 06:40 Albumin 2.8 g/dl (3.4-5.0) L 06/11/19 06:40 - Neuro Exam Level Of Consciousness: Yes: Alert (awake, basic follows commands, EOMi, mild R facial , distal LE withdraws to pian, planatars down ) Assessment/Plan 89 year old male with history of congestive heart failure, coronary artery disease s/p stents/pacemaker non-MRI compatible 15 years ago, atrial fibrillation on Coumadin, and a benign brain tumor who presented with altered mental status changes, weakness and s/p fall. as per family multiple falls last few months , and worsening cognitive decline as per sopn; typically converses and communicates ( speaks 4 languages etc) Lab findings notable for hemoglobin 17.5, hematocrit 52.5, troponin 0.14( troponin elevated at baseline 0.10). BNP 2891, creatinine 2.2(last creatinine on 05/14 was 0.9) and INR of 4.28. CT scan of head showed stable appearance mass lesion in left frontal lobe probably meningioma. CT C-spine no CT evidence of acute findings. CXR with no infiltrate or CHF changes. ECG - ventricular paced rhythm, QTc 574. AP : progressive cognitive decline/abnl gait, mild right sided facial weakness, drift no evidence of a myelopathy ? related to new stroke event, has pacemaker so unable to get MRI this may be his new baseline TSh NL , [facility] NL rehab ok cont AC for now DR CRUZ
[2019-06-11] MEDS ORDERED: SODIUM CHLORIDE 0.45% 1,000 ML IV SCH (12:21)
--- NOTE | 2019-06-11 12:21 | PN ---
Progress Note, Physician History of Present Illness: Pt seen and examined at bedside. He is awake and appears comfortable. - Current Medication List Current Medications: Active Medications Acetaminophen (Tylenol -) 650 mg PO Q6H PRN PRN Reason: PAIN LEVEL 6-10 Last Admin: 06/11/19 08:45 Dose: 650 mg Atorvastatin Calcium (Lipitor -) 20 mg PO HS GEORGE Last Admin: 06/10/19 21:08 Dose: 20 mg Sodium Chloride (1/2 Normal Saline) 1,000 mls @ 75 mls/hr IV ASDIR GEORGE Last Admin: 06/11/19 04:12 Dose: 75 mls/hr - Objective Vital Signs: Vital Signs Temperature 97.3 F L 06/11/19 08:00 Pulse Rate 73 06/11/19 08:00 Respiratory Rate 18 06/11/19 08:00 Blood Pressure 129/67 06/11/19 08:00 O2 Sat by Pulse Oximetry (%) 97 06/10/19 21:00 Constitutional: Yes: Calm Eyes: Yes: Conjunctiva Clear HENT: Yes: Atraumatic Neck: Yes: Supple Cardiovascular: Yes: S1, S2 Respiratory: Yes: CTA Bilaterally Gastrointestinal: Yes: WNL Genitourinary: Yes: WNL Musculoskeletal: Yes: WNL Extremities: Yes: WNL Edema: No Neurological: Yes: Oriented Psychiatric: Yes: Oriented Labs: CBC, BMP 06/11/19 06:40 06/11/19 06:40 INR, PTT INR 4.76 (0.83-1.09) H* 06/10/19 09:36 Problem List - Problems (1) MARIELY (acute kidney injury) Code(s): N17.9 - ACUTE KIDNEY FAILURE, UNSPECIFIED (2) Fall Code(s): W19.XXXA - UNSPECIFIED FALL, INITIAL ENCOUNTER Qualifiers: Encounter type: subsequent encounter Qualified Code(s): W19.XXXD - Unspecified fall, subsequent encounter (3) A-fib Code(s): I48.91 - UNSPECIFIED ATRIAL FIBRILLATION (4) CHF (congestive heart failure) Code(s): I50.9 - HEART FAILURE, UNSPECIFIED (5) Elevated INR Code(s): R79.1 - ABNORMAL COAGULATION PROFILE Assessment/Plan Current Medications Generic Name Dose Route Start Last Admin Trade Name Freq PRN Reason Stop Dose Admin Acetaminophen 650 mg 06/09/19 08:17 06/11/19 08:45 Tylenol - PO 650 mg Q6H PRN Administration PAIN LEVEL 6-10 Atorvastatin Calcium 20 mg 06/08/19 22:00 06/10/19 21:08 Lipitor - PO 20 mg HS GEORGE Administration Sodium Chloride 1,000 mls @ 75 mls/hr 06/10/19 13:30 06/11/19 04:12 1/2 Normal Saline IV 75 mls/hr ASDIR GEORGE Administration Impression 1. hypokalemia 2. MARIELY 3. s/p fall 4. chf 5. 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 a-fib 7. cad Plan - renal function continues to improve - repeat labs in am - decrease rate of fluids - diuretics on hold - monitor volume status
--- NOTE | 2019-06-11 14:13 | HOL ---
Hook-up date: 2019-06-09 12:05:00 Duration: 24:00:00 Test Indications: AF/FALL Medications: 311145 QRS complexes 5680 Ventricular ectopics which represent 5 % of total QRS comp. 1 Supraventricular ectopics which represent <1 % of total QRS comp. * Paced QRS complexs which represent % of total QRS comp. * % of Time Classified as Noise VENTRICULAR ECTOPY 5430 Isolated 88 Bigeminal Cycles 123 Couplets 1 Runs 3 Beats in Runs 3 Beats LONGEST at 94 BPM at 21:47:28 2019-06-09 3 Beats FASTEST at 94 BPM at 21:47:28 2019-06-09 SUPRAVENTRICULAR ECTOPY 0 Isolated 0 Couplets 0 Runs 0 Beats in Runs * Beats LONGEST at * BPM at :: -- * Beats FASTEST at * BPM at :: -- HEART RATES 58 MIN at 14:41:42 2019-06-09 73 AVG 113 MAX at 13:47:09 2019-06-09 LONGEST RR 1.016 secs at 09:45:32 2019-06-10 SCANNED BY CATIE REYES ON 06/11/19 underlying rhythm was AF Electronic ventricular pacemaker with paced V complexes frequent vpcs representing 5% of all qrs complexes Confirmed by YARY BERRIOS MD ([id number]) on 06/11/2019 2:13:03 PM Referred By: AICHA MUNGUIA DR Overread By: YARY BERRIOS MD
--- NOTE | 2019-06-11 14:51 | PN ---
Progress Note (short form) - Note Progress Note: s: no cp sob palps dizzy Current Medications Generic Name Dose Route Start Last Admin Trade Name Freq PRN Reason Stop Dose Admin Acetaminophen 650 mg 06/09/19 08:17 06/11/19 08:45 Tylenol - PO 650 mg Q6H PRN Administration PAIN LEVEL 6-10 Atorvastatin Calcium 20 mg 06/08/19 22:00 06/10/19 21:08 Lipitor - PO 20 mg HS GEORGE Administration Sodium Chloride 1,000 mls @ 35 mls/hr 06/11/19 12:21 1/2 Normal Saline IV ASDIR GEORGE Vital Signs Period Temp Pulse Resp BP Sys/Esposito Pulse Ox Last 24 Hr 97.3 F-97.9 F 70-83 17-20 106-149/59-69 97-100 Constitutional: Yes: No Distress, Calm Eyes: Yes: Conjunctiva Clear Cardiovascular: Yes: Regular Rate and Rhythm Respiratory: Yes: CTA Bilaterally Gastrointestinal: Yes: Soft (NT) Edema: no Neurological: Yes: Alert, Oriented no jaundice diaphoresis Labs: CBC, BMP 06/11/19 06:40 06/11/19 06:40 Assessment/Plan IMP: Meningioma Atrial fibrillation s/p PPM, on coumadin CAD w/ h/o PCI Acute renal failure Equivocal TnI Elevated BNP REC: 1. Holter shows rate controlled afib 2. Gentle hydration, hold diurectics. Not orthostatic by recorded vitals. 3. Coumadin per inr. 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 4. TnI is equivocal elevated in setting ARF and chronic PHTN. Does not represent ACS. BNP also not clinically meaningful in this setting.
[2019-06-11 17:24] LABS: INR 3.73 (0.83-1.09); PROTHROMBIN TIME (PATIENT) 44.6 SEC (9.7-13.0)
--- NOTE | 2019-06-11 18:37 | PN ---
Progress Note, Physician History of Present Illness: 89 year old male with history of congestive heart failure, coronary artery disease s/p stents/pacemaker non-MRI compatible 15 years ago, atrial fibrillation on Coumadin, and a benign brain tumor who presented with altered mental status changes, weakness and s/p fall. His INR is elevated and his coumadin is on hold - Current Medication List Current Medications: Active Medications Acetaminophen (Tylenol -) 650 mg PO Q6H PRN PRN Reason: PAIN LEVEL 6-10 Last Admin: 06/11/19 08:45 Dose: 650 mg Atorvastatin Calcium (Lipitor -) 20 mg PO HS [facility] Last Admin: 06/10/19 21:08 Dose: 20 mg Sodium Chloride (1/2 Normal Saline) 1,000 mls @ 35 mls/hr IV ASDIR [facility] Last Admin: 06/11/19 17:21 Dose: 35 mls/hr Quetiapine Fumarate (Seroquel -) 12.5 mg PO DAILY@1999 [facility] - Objective Vital Signs: Vital Signs Temperature 97.3 F L 06/11/19 15:32 Pulse Rate 70 06/11/19 15:32 Respiratory Rate 20 06/11/19 15:32 Blood Pressure 98/57 L 06/11/19 15:32 O2 Sat by Pulse Oximetry (%) 100 06/11/19 09:00 Additional Findings/Remarks: GENERAL: awake alert and oriented to self and place confused no acute distress HEAD: normal EYES: pupils equal round and reactive to light EARS, NOSE, THROAT: ears normal nares patent oropharynx clear without exudates NECK: no JVD LUNGS: breath sounds equal clear to auscultation bilaterally no rales no use of accessory muscles HEART: regular rate and rhythm ABDOMEN: soft nontender not distended MUSCULOSKELETAL: moving upper and lower extremities UPPER EXTREMITIES: 2+ pulses warm well-perfused no cyanosis LOWER EXTREMITIES: small area of swelling/edema/pain on left lateral. hematoma ? will doppler. NEUROLOGICAL: no neuro focal deficits PSYCHIATRIC: cooperative good eye contact SKIN: warm dry no rashes or lesions noted Labs: CBC, BMP 06/11/19 06:40 06/11/19 06:40 INR, PTT INR 3.73 (0.83-1.09) H 06/11/19 16:45 Problem List - Problems (1) Pacemaker Code(s): Z95.0 - PRESENCE OF CARDIAC PACEMAKER (2) Stented coronary artery Assessment/Plan: Elevated INR, hold Coumadin TnI is equivocal elevated in setting ARF and chronic PHTN. Does not represent ACS. no need for further trending Code(s): Z95.5 - PRESENCE OF CORONARY ANGIOPLASTY IMPLANT AND GRAFT (3) MARIELY (acute kidney injury) Assessment/Plan: Cr 1.1 continue to monitor diuretics on hold Code(s): N17.9 - ACUTE KIDNEY FAILURE, UNSPECIFIED (4) Prophylactic measure Assessment/Plan: FEN no need for additional fluids low salt diet monitor electrolytes DVT coumdain on hold Dispo maintain as in patient discharge planning full code Code(s): Z29.9 - ENCOUNTER FOR PROPHYLACTIC MEASURES, UNSPECIFIED (5) CHF (congestive heart failure) Assessment/Plan: lasix on hold Code(s): I50.9 - HEART FAILURE, UNSPECIFIED (6) Syncope and collapse Assessment/Plan: resolved Code(s): R55 - SYNCOPE AND COLLAPSE (7) Meningioma Assessment/Plan: head ct with stable meningioma, unchanged Code(s): D32.9 - BENIGN NEOPLASM OF MENINGES, UNSPECIFIED (8) Sundowning Assessment/Plan: confused overnight redirectable will give low dose seroquel tonight to prevent delium/sundowning Code(s): F05 - DELIRIUM DUE TO KNOWN PHYSIOLOGICAL CONDITION Visit type - Emergency Visit Emergency Visit: Yes ED Registration Date: 06/08/19 Care time: The patient presented to the Emergency Department on the above date and was hospitalized for further evaluation of their emergent condition. - New Patient This patient is new to me today: No - Critical Care Critical Care patient: No - Discharge Referral Referred to [facility] Med P.C.: No
[2019-06-11] MEDS: ATORVASTATIN CA 20 MG TABLET (FP) PO SCH (22:25)
[2019-06-11] MEDS: QUEtiapine FUMARATE 25 MG TABLET (FP) PO SCH (22:25)
[2019-06-12 06:56] LABS: BASO % 1.5 % (0-2.0); EOS % 2.7 % (0-4.5); HEMATOCRIT 38.3 % (35.4-49); HEMOGLOBIN 12.7 GM/dL (11.7-16.9); LYMPH % 17.9 % (8-40); MCH 29.4 pg (25.7-33.7); MCHC 33.1 g/dl (32.0-35.9); MEAN CELL VOLUME 88.8 fl (80-96); MEAN PLT VOLUME 10.8 fl (7.5-11.1); MONO % 7.3 % (3.8-10.2); NEUT % 70.6 % (42.8-82.8); PLATELET COUNT 127 K/MM3 (134-434); RBC 4.31 M/mm3 (4.00-5.60); RDW 15.7 % (11.9-15.9); WHITE BLOOD COUNT 8.6 K/mm3 (4.0-10.0)
[2019-06-12 07:04] LABS: INR 3.13 (0.83-1.09); PROTHROMBIN TIME (PATIENT) 37.4 SEC (9.7-13.0)
[2019-06-12 07:21] LABS: ALBUMIN 2.6 g/dl (3.4-5.0); BILIRUBIN,TOTAL 1.2 mg/dL (0.2-1); BLOOD UREA NITROGEN 37.1 mg/dL (7-18); CALCIUM 9.1 mg/dL (8.5-10.1); POTASSIUM 3.5 mmol/L (3.5-5.1); TOT PROT 5.4 g/dl (6.4-8.2)
--- NOTE | 2019-06-12 09:05 | PN ---
Progress Note, Physician Chief Complaint: ambulating the hallway with PT, no complaints History of Present Illness: 89 year old male with history of congestive heart failure, coronary artery disease s/p stents/pacemaker non-MRI compatible 15 years ago, atrial fibrillation on Coumadin, and a benign brain tumor who presented with altered mental status changes, weakness and s/p fall. His INR is elevated and his coumadin is on hold - Current Medication List Current Medications: Active Medications Acetaminophen (Tylenol -) 650 mg PO Q6H PRN PRN Reason: PAIN LEVEL 6-10 Last Admin: 06/11/19 08:45 Dose: 650 mg Atorvastatin Calcium (Lipitor -) 20 mg PO HS [facility] Last Admin: 06/11/19 22:25 Dose: 20 mg Sodium Chloride (1/2 Normal Saline) 1,000 mls @ 35 mls/hr IV ASDIR [facility] Last Admin: 06/11/19 17:21 Dose: 35 mls/hr Quetiapine Fumarate (Seroquel -) 12.5 mg PO DAILY@2000 [facility] Last Admin: 06/11/19 22:25 Dose: 12.5 mg - Objective Vital Signs: Vital Signs Temperature 98.2 F 06/12/19 05:57 Pulse Rate 70 06/12/19 05:57 Respiratory Rate 18 06/12/19 05:57 Blood Pressure 102/61 06/12/19 05:57 O2 Sat by Pulse Oximetry (%) 100 06/11/19 21:00 Constitutional: Yes: Well Nourished, No Distress, Thin Eyes: Yes: WNL, Conjunctiva Clear HENT: Yes: WNL, Atraumatic, Normocephalic Neck: Yes: WNL, Supple, Trachea Midline Cardiovascular: Yes: WNL, Regular Rate and Rhythm Respiratory: Yes: WNL, Regular, CTA Bilaterally Gastrointestinal: Yes: WNL, Normal Bowel Sounds ...Rectal Exam: Yes: Deferred Genitourinary: Yes: WNL Breast(s): Yes: WNL Musculoskeletal: Yes: WNL Extremities: Yes: WNL Edema: Yes Edema: LLE: Trace, RLE: Trace Peripheral Pulses: Left Radial: 2+, Right Radial: 2+, Left Doralis Pedis: 2+, Right Dorsalis Pedis: 2+, Left Femoral: 2+, Right Femoral: 2+ Integumentary: Yes: WNL Neurological: Yes: WNL, Alert, Oriented, Confusion (at times) ...Motor Strength: WNL (generalized weakness) Psychiatric: Yes: WNL Labs: CBC, BMP 06/12/19 06:10 06/12/19 06:10 INR, PTT INR 3.13 (0.83-1.09) H 06/12/19 06:10 Problem List - Problems (1) Pacemaker Code(s): Z95.0 - PRESENCE OF CARDIAC PACEMAKER (2) Stented coronary artery Assessment/Plan: Elevated INR, cont to hold Coumadin TnI is equivocal elevated in setting ARF and chronic PHTN. Does not represent ACS. no need for further trending Code(s): Z95.5 - PRESENCE OF CORONARY ANGIOPLASTY IMPLANT AND GRAFT (3) MARIELY (acute kidney injury) Assessment/Plan: resolving Cr 1.0 continue to monitor diuretics on hold stop IVF Code(s): N17.9 - ACUTE KIDNEY FAILURE, UNSPECIFIED (4) Prophylactic measure Assessment/Plan: FEN stop IVF low salt diet monitor electrolytes DVT coumdain on hold Dispo maintain as in patient discharge planning full code Code(s): Z29.9 - ENCOUNTER FOR PROPHYLACTIC MEASURES, UNSPECIFIED (5) CHF (congestive heart failure) Assessment/Plan: lasix on hold Code(s): I50.9 - HEART FAILURE, UNSPECIFIED (6) Syncope and collapse Assessment/Plan: resolved c/w PT Code(s): R55 - SYNCOPE AND COLLAPSE (7) Meningioma Assessment/Plan: head ct with stable meningioma, unchanged Code(s): D32.9 - BENIGN NEOPLASM OF MENINGES, UNSPECIFIED (8) Assessment/Plan: c/w seroquel no confusion over night Code(s): F05 - DELIRIUM DUE TO KNOWN PHYSIOLOGICAL CONDITION (9) Acute metabolic encephalopathy Code(s): G93.41 - METABOLIC ENCEPHALOPATHY (10) Elevated INR Assessment/Plan: INR remains elevated will given 1 dose of Vit K cont to monitor daily levels Code(s): R79.1 - ABNORMAL COAGULATION PROFILE Visit type - Emergency Visit Emergency Visit: Yes ED Registration Date: 06/08/19 Care time: The patient presented to the Emergency Department on the above date and was hospitalized for further evaluation of their emergent condition. - New Patient This patient is new to me today: No - Critical Care Critical Care patient: No - Discharge Referral Referred to [facility] No
[2019-06-12] MEDS ORDERED: PHYTONADIONE 5 MG TABLET PO ONE (10:00)
[2019-06-12] MEDS ORDERED: PT OWN MED DRAWER 7, Y5N ONE ×2 (11:04→18:57)
--- NOTE | 2019-06-12 15:56 | PN ---
Progress Note (short form) - Note Progress Note: s: no cp sob palps dizzy Current Medications Acetaminophen (Tylenol -) 650 mg PO Q6H PRN PRN Reason: PAIN LEVEL 6-10 Last Admin: 06/11/19 08:45 Dose: 650 mg Atorvastatin Calcium (Lipitor -) 20 mg PO HS [facility] Last Admin: 06/11/19 22:25 Dose: 20 mg Sodium Chloride (1/2 Normal Saline) 1,000 mls @ 35 mls/hr IV ASDIR [facility] Last Admin: 06/11/19 17:21 Dose: 35 mls/hr Quetiapine Fumarate (Seroquel -) 12.5 mg PO DAILY@1999 [facility] Last Admin: 06/11/19 22:25 Dose: 12.5 mg Vital Signs Period Temp Pulse Resp BP Sys/Esposito Pulse Ox Last 24 Hr 97.2 F-98.2 F 66-83 18-20 102-126/56-73 100 Constitutional: Yes: No Distress, Calm Eyes: Yes: Conjunctiva Clear Cardiovascular: Yes: Regular Rate and Rhythm Respiratory: Yes: CTA Bilaterally Gastrointestinal: Yes: Soft (NT) Edema: no Neurological: Yes: Alert, Oriented no jaundice diaphoresis Assessment/Plan IMP: Meningioma Atrial fibrillation s/p PPM, on coumadin CAD w/ h/o PCI Acute renal failure Equivocal TnI Elevated BNP REC: 1. Holter shows rate controlled afib 2. Gentle hydration, hold diurectics. Not orthostatic by recorded vitals. 3. Coumadin per inr. Need to reassess intermission coordinator Coumadin safety given hx recurrent falls. 4. TnI is equivocal elevated in setting ARF and chronic PHTN. Does not represent ACS. BNP also not clinically meaningful in this setting.
--- NOTE | 2019-06-12 16:31 | PN ---
Progress Note, Physician History of Present Illness: Pt seen and examined at bedside. He is awake and appears comfortable. - Current Medication List Current Medications: Active Medications Acetaminophen (Tylenol -) 650 mg PO Q6H PRN PRN Reason: PAIN LEVEL 6-10 Last Admin: 06/11/19 08:45 Dose: 650 mg Atorvastatin Calcium (Lipitor -) 20 mg PO HS [facility] Last Admin: 06/11/19 22:25 Dose: 20 mg Sodium Chloride (1/2 Normal Saline) 1,000 mls @ 35 mls/hr IV ASDIR [facility] Last Admin: 06/11/19 17:21 Dose: 35 mls/hr Quetiapine Fumarate (Seroquel -) 12.5 mg PO DAILY@1999 [facility] Last Admin: 06/11/19 22:25 Dose: 12.5 mg - Objective Vital Signs: Vital Signs Temperature 97.2 F L 06/12/19 14:34 Pulse Rate 79 06/12/19 14:34 Respiratory Rate 20 06/12/19 14:34 Blood Pressure 108/56 L 06/12/19 14:34 O2 Sat by Pulse Oximetry (%) 100 06/12/19 09:00 Constitutional: Yes: Calm Eyes: Yes: Conjunctiva Clear HENT: Yes: Atraumatic Neck: Yes: Supple Cardiovascular: Yes: S1, S2 Respiratory: Yes: CTA Bilaterally Gastrointestinal: Yes: Soft Musculoskeletal: Yes: WNL Edema: No Integumentary: Yes: WNL Neurological: Yes: Oriented Psychiatric: Yes: Oriented Labs: CBC, BMP 06/12/19 06:10 06/12/19 06:10 INR, PTT INR 3.13 (0.83-1.09) H 06/12/19 06:10 Problem List - Problems (1) MARIELY (acute kidney injury) Code(s): N17.9 - ACUTE KIDNEY FAILURE, UNSPECIFIED (2) Fall Code(s): W19.XXXA - UNSPECIFIED FALL, INITIAL ENCOUNTER Qualifiers: Encounter type: subsequent encounter Qualified Code(s): W19.XXXD - Unspecified fall, subsequent encounter (3) A-fib Code(s): I48.91 - UNSPECIFIED ATRIAL FIBRILLATION (4) CHF (congestive heart failure) Code(s): I50.9 - HEART FAILURE, UNSPECIFIED (5) Elevated INR Code(s): R79.1 - ABNORMAL COAGULATION PROFILE Assessment/Plan Current Medications Generic Name Dose Route Start Last Admin Trade Name Mariangel PRN Reason Stop Dose Admin Acetaminophen 650 mg 06/09/19 08:17 06/11/19 08:45 Tylenol - PO 650 mg Q6H PRN Administration PAIN LEVEL 6-10 Atorvastatin Calcium 20 mg 06/08/19 22:00 06/11/19 22:25 Lipitor - PO 20 mg HS [facility] Administration Sodium Chloride 1,000 mls @ 35 mls/hr 06/11/19 12:21 06/11/19 17:21 1/2 Normal Saline IV 35 mls/hr ASDIR [facility] Administration Quetiapine Fumarate 12.5 mg 06/11/19 20:00 06/11/19 22:25 Seroquel - PO 12.5 mg DAILY@2000 [facility] Administration Impression 1. hypokalemia 2. MARIELY 3. s/p fall 4. chf 5. 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 a-fib 7. cad Plan - can d/c fluids - repeat labs in am - renal function is improved - diuretics on hold - monitor volume status
[2019-06-12] MEDS: ACETAMINOPHEN 325 MG TABLET (FP) PO PRN (18:47)
[2019-06-12 19:50] LABS: INR 1.96 (0.83-1.09); PROTHROMBIN TIME (PATIENT) 23.3 SEC (9.7-13.0)
[2019-06-12] MEDS: QUEtiapine FUMARATE 25 MG TABLET (FP) PO SCH (21:00)
[2019-06-12 22:20] LABS: INR 1.73 (0.83-1.09); PROTHROMBIN TIME (PATIENT) 20.5 SEC (9.7-13.0)
[2019-06-12] MEDS: ATORVASTATIN CA 20 MG TABLET (FP) PO SCH (22:23)
[2019-06-13 07:53] LABS: BASO % 0.5 % (0-2.0); EOS % 2.6 % (0-4.5); HEMATOCRIT 38.7 % (35.4-49); HEMOGLOBIN 12.5 GM/dL (11.7-16.9); LYMPH % 18.4 % (8-40); MCH 29.1 pg (25.7-33.7); MCHC 32.4 g/dl (32.0-35.9); MEAN CELL VOLUME 89.8 fl (80-96); MEAN PLT VOLUME 10.7 fl (7.5-11.1); MONO % 7.9 % (3.8-10.2); NEUT % 70.6 % (42.8-82.8); PLATELET COUNT 119 K/MM3 (134-434); RBC 4.31 M/mm3 (4.00-5.60); RDW 15.5 % (11.9-15.9)
[2019-06-13 08:15] LABS: ALBUMIN 2.6 g/dl (3.4-5.0); BILIRUBIN,TOTAL 1.4 mg/dL (0.2-1); BLOOD UREA NITROGEN 32.2 mg/dL (7-18); CALCIUM 9.1 mg/dL (8.5-10.1); CREATININE 1.1 mg/dL (0.55-1.3); POTASSIUM 3.5 mmol/L (3.5-5.1); TOT PROT 5.4 g/dl (6.4-8.2)
--- NOTE | 2019-06-13 08:24 | PN ---
Progress Note, Physician Chief Complaint: states he feels better, has more energy History of Present Illness: 89 year old male with history of congestive heart failure, coronary artery disease s/p stents/pacemaker non-MRI compatible 15 years ago, atrial fibrillation on Coumadin, and a benign brain tumor who presented with altered mental status changes, weakness and s/p fall. His coumadin levels are now elevated and his coumadin is on hold, further he has elevated troponins and worsening kidney failure. - Current Medication List Current Medications: Active Medications Acetaminophen (Tylenol -) 650 mg PO Q6H PRN PRN Reason: PAIN LEVEL 6-10 Last Admin: 06/12/19 18:47 Dose: 650 mg Atorvastatin Calcium (Lipitor -) 20 mg PO HS [facility] Last Admin: 06/12/19 22:23 Dose: 20 mg Quetiapine Fumarate (Seroquel -) 12.5 mg PO DAILY@1999 [facility] Last Admin: 06/12/19 21:00 Dose: 12.5 mg - Objective Vital Signs: Vital Signs Temperature 97.9 F 06/13/19 05:00 Pulse Rate 72 06/13/19 05:00 Respiratory Rate 20 06/13/19 05:00 Blood Pressure 107/53 L 06/13/19 05:00 O2 Sat by Pulse Oximetry (%) 100 06/12/19 21:00 Additional Findings/Remarks: Constitutional: Yes: Well Nourished, No Distress, Thin Eyes: Yes: WNL, Conjunctiva Clear HENT: Yes: WNL, Atraumatic, Normocephalic Neck: Yes: WNL, Supple, Trachea Midline Cardiovascular: Yes: WNL, Regular Rate and Rhythm Respiratory: Yes: WNL, Regular, CTA Bilaterally Gastrointestinal: Yes: WNL, Normal Bowel Sounds ...Rectal Exam: Yes: Deferred Genitourinary: Yes: WNL Breast(s): Yes: WNL Musculoskeletal: Yes: WNL Extremities: Yes: WNL Edema: Yes Edema: LLE: Trace, RLE: Trace Peripheral Pulses: Left Radial: 2+, Right Radial: 2+, Left Doralis Pedis: 2+, Right Dorsalis Pedis: 2+, Left Femoral: 2+, Right Femoral: 2+ Integumentary: Yes: WNL Neurological: Yes: WNL, Alert, Oriented, Confusion (at times) ...Motor Strength: WNL (generalized weakness) Psychiatric: Yes: WNL Labs: CBC, BMP 06/13/19 06:35 06/13/19 06:35 INR, PTT INR 1.73 (0.83-1.09) H 06/13/19 00:05 Problem List - Problems (1) Pacemaker Code(s): Z95.0 - PRESENCE OF CARDIAC PACEMAKER (2) Stented coronary artery Assessment/Plan: Holter monitor continue TnI is equivocal elevated in setting ARF and chronic PHTN. Does not represent ACS coumdain on hold Code(s): Z95.5 - PRESENCE OF CORONARY ANGIOPLASTY IMPLANT AND GRAFT (3) MARIELY (acute kidney injury) Assessment/Plan: monitor kidney function avoid nephrotiopxic agents Cr 1.0 continue to hold lasix and metolazone Code(s): N17.9 - ACUTE KIDNEY FAILURE, UNSPECIFIED (4) Prophylactic measure Assessment/Plan: FEN low salt diet monitor electrolytes DVT coumdain on hold Dispo maintain as in patient discharge planning full code Code(s): Z29.9 - ENCOUNTER FOR PROPHYLACTIC MEASURES, UNSPECIFIED (5) A-fib Assessment/Plan: rate controlled holter monitor revealed rate controlled AF Code(s): I48.91 - UNSPECIFIED ATRIAL FIBRILLATION (6) CHF (congestive heart failure) Assessment/Plan: lasix/methalozine on hold Code(s): I50.9 - HEART FAILURE, UNSPECIFIED (7) Syncope and collapse Assessment/Plan: resolved c/w PT Code(s): R55 - SYNCOPE AND COLLAPSE (8) Meningioma Assessment/Plan: head ct with stable meningioma, unchanged Code(s): D32.9 - BENIGN NEOPLASM OF MENINGES, UNSPECIFIED (9) Acute metabolic encephalopathy Assessment/Plan: most likely related to uremic state more confused at night-sundowning attemot to maitain sleep wake cycles c/w low dose seroquel tonight to prevent delium/sundowning Code(s): G93.41 - METABOLIC ENCEPHALOPATHY (10) Sundowning Assessment/Plan: c/w seroquel no confusion over night Code(s): F05 - DELIRIUM DUE TO KNOWN PHYSIOLOGICAL CONDITION Visit type - Emergency Visit Emergency Visit: Yes ED Registration Date: 06/08/19 Care time: The patient presented to the Emergency Department on the above date and was hospitalized for further evaluation of their emergent condition. - New Patient This patient is new to me today: No - Critical Care Critical Care patient: No - Discharge Referral Referred to [facility].: No
[2019-06-13] MEDS ORDERED: POTASSIUM CHLORIDE TABS 20 MEQ TABLET.ER (FP) PO ONE (10:30)
--- NOTE | 2019-06-13 11:19 | PN ---
Progress Note, Physician Chief Complaint: no new complaints No CP, SOB, dizziness - Current Medication List Current Medications: Active Medications Acetaminophen (Tylenol -) 650 mg PO Q6H PRN PRN Reason: PAIN LEVEL 6-10 Last Admin: 06/12/19 18:47 Dose: 650 mg Atorvastatin Calcium (Lipitor -) 20 mg PO HS [facility] Last Admin: 06/12/19 22:23 Dose: 20 mg Quetiapine Fumarate (Seroquel -) 12.5 mg PO DAILY@1999 [facility] Last Admin: 06/12/19 21:00 Dose: 12.5 mg - Objective Vital Signs: Vital Signs Temperature 97.9 F 06/13/19 05:00 Pulse Rate 72 06/13/19 05:00 Respiratory Rate 20 06/13/19 05:00 Blood Pressure 107/53 L 06/13/19 05:00 O2 Sat by Pulse Oximetry (%) 100 06/12/19 21:00 Constitutional: Yes: No Distress, Calm Cardiovascular: Yes: Regular Rate and Rhythm Respiratory: Yes: CTA Bilaterally Gastrointestinal: Yes: Soft Edema: No Neurological: Yes: Alert, Oriented Labs: CBC, BMP 06/13/19 06:35 06/13/19 06:35 INR, PTT INR 1.73 (0.83-1.09) H 06/13/19 00:05 Assessment/Plan IMP: Meningioma Atrial fibrillation s/p PPM, on coumadin CAD w/ h/o PCI Acute renal failure-improving. Equivocal TnI Elevated BNP REC: 1. Holter shows rate controlled afib 2. Gentle hydration, hold diurectics. Not orthostatic by recorded vitals. 3. Coumadin per inr. 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 ASA 81mg daily would be the alternative. 4. TnI is equivocal elevated in setting ARF and chronic PHTN. Does not represent ACS. BNP also not clinically meaningful in this setting.
--- NOTE | 2019-06-13 14:39 | PN ---
Progress Note, Physician History of Present Illness: Pt seen and examined at bedside. He is awake and denies shortness of breath. He complains of decreased appetite. - Current Medication List Current Medications: Active Medications Acetaminophen (Tylenol -) 650 mg PO Q6H PRN PRN Reason: PAIN LEVEL 6-10 Last Admin: 06/12/19 18:47 Dose: 650 mg Atorvastatin Calcium (Lipitor -) 20 mg PO [facility] Last Admin: 06/12/19 22:23 Dose: 20 mg Quetiapine Fumarate (Seroquel -) 12.5 mg PO DAILY@1999 [facility] Last Admin: 06/12/19 21:00 Dose: 12.5 mg - Objective Vital Signs: Vital Signs Temperature 97.6 F 06/13/19 13:55 Pulse Rate 71 06/13/19 13:55 Respiratory Rate 20 06/13/19 13:55 Blood Pressure 120/56 L 06/13/19 13:55 O2 Sat by Pulse Oximetry (%) 100 06/12/19 21:00 Constitutional: Yes: Calm Eyes: Yes: Conjunctiva Clear HENT: Yes: Atraumatic Cardiovascular: Yes: S1, S2 Respiratory: Yes: CTA Bilaterally Gastrointestinal: Yes: Normal Bowel Sounds, Soft Genitourinary: Yes: WNL Musculoskeletal: Yes: WNL Edema: No Integumentary: Yes: WNL Labs: CBC, BMP 06/13/19 06:35 06/13/19 06:35 INR, PTT INR 1.73 (0.83-1.09) H 06/13/19 00:05 Problem List - Problems (1) MARIELY (acute kidney injury) Code(s): N17.9 - ACUTE KIDNEY FAILURE, UNSPECIFIED (2) Fall Code(s): W19.XXXA - UNSPECIFIED FALL, INITIAL ENCOUNTER Qualifiers: Encounter type: subsequent encounter Qualified Code(s): W19.XXXD - Unspecified fall, subsequent encounter (3) A-fib Code(s): I48.91 - UNSPECIFIED ATRIAL FIBRILLATION (4) CHF (congestive heart failure) Code(s): I50.9 - HEART FAILURE, UNSPECIFIED (5) Elevated INR Code(s): R79.1 - ABNORMAL COAGULATION PROFILE Assessment/Plan Current Medications Generic Name Dose Route Start Last Admin Trade Name Freq PRN Reason Stop Dose Admin Acetaminophen 650 mg 06/09/19 08:17 06/12/19 18:47 Tylenol - PO 650 mg Q6H PRN Administration PAIN LEVEL 6-10 Atorvastatin Calcium 20 mg 06/08/19 22:00 06/12/19 22:23 Lipitor - PO 20 mg HS [facility] Administration Quetiapine Fumarate 12.5 mg 06/11/19 20:00 06/12/19 21:00 Seroquel - PO 12.5 mg DAILY@2000 [facility] Administration Impression 1. hypokalemia 2. MARIELY 3. s/p fall 4. chf 5. 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 a-fib 7. cad Plan - renal function stabilizing - diuretics on hold - fluids on hold - encourage po intake - monitor volume status
[2019-06-13] MEDS: QUEtiapine FUMARATE 25 MG TABLET (FP) PO SCH (21:00)
[2019-06-13] MEDS: ATORVASTATIN CA 20 MG TABLET (FP) PO SCH (21:39)
--- NOTE | 2019-06-14 08:19 | PN ---
Progress Note, Physician Chief Complaint: states he feels better and wants to go home History of Present Illness: 89 year old male with history of congestive heart failure, coronary artery disease s/p stents/pacemaker non-MRI compatible 15 years ago, atrial fibrillation on Coumadin, and a benign brain tumor who presented with altered mental status changes, weakness and s/p fall. His coumadin levels are now elevated and his coumadin is on hold, further he has elevated troponins and worsening kidney failure. - Current Medication List Current Medications: Active Medications Acetaminophen (Tylenol -) 650 mg PO Q6H PRN PRN Reason: PAIN LEVEL 6-10 Last Admin: 06/12/19 18:47 Dose: 650 mg Aspirin (Ecotrin -) 81 mg PO DAILY [facility] Atorvastatin Calcium (Lipitor -) 20 mg PO HS [facility] Last Admin: 06/13/19 21:39 Dose: 20 mg Quetiapine Fumarate (Seroquel -) 12.5 mg PO DAILY@1999 [facility] Last Admin: 06/13/19 21:00 Dose: 12.5 mg - Objective Vital Signs: Vital Signs Temperature 97.5 F L 06/14/19 06:05 Pulse Rate 69 06/14/19 06:05 Respiratory Rate 18 06/14/19 06:05 Blood Pressure 109/55 L 06/14/19 06:05 O2 Sat by Pulse Oximetry (%) 100 06/12/19 21:00 Additional Findings/Remarks: Constitutional: Yes: Well Nourished, No Distress, Thin Eyes: Yes: WNL, Conjunctiva Clear HENT: Yes: WNL, Atraumatic, Normocephalic Neck: Yes: WNL, Supple, Trachea Midline Cardiovascular: Yes: WNL, Regular Rate and Rhythm Respiratory: Yes: WNL, Regular, CTA Bilaterally Gastrointestinal: Yes: WNL, Normal Bowel Sounds ...Rectal Exam: Yes: Deferred Genitourinary: Yes: WNL Breast(s): Yes: WNL Musculoskeletal: Yes: WNL Extremities: Yes: WNL Edema: Yes Edema: LLE: Trace, RLE: Trace Peripheral Pulses: Left Radial: 2+, Right Radial: 2+, Left Doralis Pedis: 2+, Right Dorsalis Pedis: 2+, Left Femoral: 2+, Right Femoral: 2+ Integumentary: Yes: WNL Neurological: Yes: WNL, Alert, Oriented, Confusion (at times) ...Motor Strength: WNL (generalized weakness) Psychiatric: Yes: WNL Labs: CBC, BMP 06/13/19 06:35 06/13/19 06:35 INR, PTT INR 1.73 (0.83-1.09) H 06/13/19 00:05 Problem List - Problems (1) Pacemaker Code(s): Z95.0 - PRESENCE OF CARDIAC PACEMAKER (2) Stented coronary artery Assessment/Plan: Holter monitor revealed rate controlled AF TnI is equivocal elevated in setting ARF and chronic PHTN. Does not represent ACS Coumadin stopped and asa 81mg Code(s): Z95.5 - PRESENCE OF CORONARY ANGIOPLASTY IMPLANT AND GRAFT (3) MARIELY (acute kidney injury) Assessment/Plan: monitor kidney function avoid nephrotiopxic agents Cr 1.1 continue to hold lasix and metolazone Code(s): N17.9 - ACUTE KIDNEY FAILURE, UNSPECIFIED (4) Prophylactic measure Assessment/Plan: FEN low salt diet monitor electrolytes DVT coumdain stopped d/t to high risk for falls asa 81 Dispo maintain as in patient discharge planning full code Code(s): Z29.9 - ENCOUNTER FOR PROPHYLACTIC MEASURES, UNSPECIFIED (5) A-fib Assessment/Plan: hotel monitor showed rate controlled AFib asa 81mg Code(s): I48.91 - UNSPECIFIED ATRIAL FIBRILLATION (6) CHF (congestive heart failure) Assessment/Plan: lasix/methalozine on hold Code(s): I50.9 - HEART FAILURE, UNSPECIFIED (7) Syncope and collapse Assessment/Plan: resolved c/w PT hign risk for falls Code(s): R55 - SYNCOPE AND COLLAPSE (8) Meningioma Assessment/Plan: head ct with stable meningioma, unchanged Code(s): D32.9 - BENIGN NEOPLASM OF MENINGES, UNSPECIFIED (9) Acute metabolic encephalopathy Assessment/Plan: most likely related to uremic state more confused at night-sundowning attempt to maitain sleep wake cycles c/w low dose seroquel to prevent delium/sundowning Code(s): G93.41 - METABOLIC ENCEPHALOPATHY (10) Sundowning Code(s): F05 - DELIRIUM DUE TO KNOWN PHYSIOLOGICAL CONDITION Visit type - Emergency Visit Emergency Visit: Yes ED Registration Date: 06/08/19 Care time: The patient presented to the Emergency Department on the above date and was hospitalized for further evaluation of their emergent condition. - New Patient This patient is new to me today: No - Critical Care Critical Care patient: No - Discharge Referral Referred to [facility] No
[2019-06-14] MEDS: ASPIRIN COATED 81 MG TABLET.EC PO SCH (09:37)
--- NOTE | 2019-06-14 16:58 | PN ---
Progress Note, Physician History of Present Illness: Pt seen and examined at bedside. He is awake and appears comfortable. - Current Medication List Current Medications: Active Medications Acetaminophen (Tylenol -) 650 mg PO Q6H PRN PRN Reason: PAIN LEVEL 6-10 Last Admin: 06/12/19 18:47 Dose: 650 mg Aspirin (Ecotrin -) 81 mg PO DAILY [facility] Last Admin: 06/14/19 09:37 Dose: 81 mg Atorvastatin Calcium (Lipitor -) 20 mg PO HS [facility] Last Admin: 06/13/19 21:39 Dose: 20 mg Quetiapine Fumarate (Seroquel -) 12.5 mg PO DAILY@1999 [facility] Last Admin: 06/13/19 21:00 Dose: 12.5 mg - Objective Vital Signs: Vital Signs Temperature 98.7 F 06/14/19 13:38 Pulse Rate 70 06/14/19 13:38 Respiratory Rate 18 06/14/19 13:38 Blood Pressure 105/56 L 06/14/19 13:38 O2 Sat by Pulse Oximetry (%) 97 06/14/19 09:00 Constitutional: Yes: Calm Eyes: Yes: Conjunctiva Clear HENT: Yes: Atraumatic Neck: Yes: Supple Cardiovascular: Yes: S1, S2 Respiratory: Yes: CTA Bilaterally Gastrointestinal: Yes: Soft Genitourinary: Yes: WNL Musculoskeletal: Yes: WNL Edema: No Integumentary: Yes: WNL Labs: CBC, BMP 06/13/19 06:35 06/13/19 06:35 INR, PTT INR 1.73 (0.83-1.09) H 06/13/19 00:05 Problem List - Problems (1) MARIELY (acute kidney injury) Code(s): N17.9 - ACUTE KIDNEY FAILURE, UNSPECIFIED (2) Fall Code(s): W19.XXXA - UNSPECIFIED FALL, INITIAL ENCOUNTER Qualifiers: Encounter type: subsequent encounter Qualified Code(s): W19.XXXD - Unspecified fall, subsequent encounter (3) A-fib Code(s): I48.91 - UNSPECIFIED ATRIAL FIBRILLATION (4) CHF (congestive heart failure) Code(s): I50.9 - HEART FAILURE, UNSPECIFIED (5) Elevated INR Code(s): R79.1 - ABNORMAL COAGULATION PROFILE Assessment/Plan Current Medications Generic Name Dose Route Start Last Admin Trade Name Freq PRN Reason Stop Dose Admin Acetaminophen 650 mg 06/09/19 08:17 06/12/19 18:47 Tylenol - PO 650 mg Q6H PRN Administration PAIN LEVEL 6-10 Aspirin 81 mg 06/14/19 10:00 06/14/19 09:37 Ecotrin - PO 81 mg DAILY [facility] Administration Atorvastatin Calcium 20 mg 06/08/19 22:00 06/13/19 21:39 Lipitor - PO 20 mg HS [facility] Administration Quetiapine Fumarate 12.5 mg 06/11/19 20:00 06/13/19 21:00 Seroquel - PO 12.5 mg DAILY@1999 [facility] Administration Impression 1. hypokalemia 2. MARIELY 3. s/p fall 4. chf 5. 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 a-fib 7. cad Plan - encourage PO intake - renal function stable - repeat labs in am - diuretics on hold for now - monitor volume status
[2019-06-14] MEDS ORDERED: PT OWN MED DRAWER 7, Y5N ONE (18:57)
[2019-06-14] MEDS: QUEtiapine FUMARATE 25 MG TABLET (FP) PO SCH (21:28)
[2019-06-14] MEDS: ATORVASTATIN CA 20 MG TABLET (FP) PO SCH (21:28)
[2019-06-15 06:14] LABS: BASO % 0.6 % (0-2.0); EOS % 3.4 % (0-4.5); HEMATOCRIT 37.9 % (35.4-49); HEMOGLOBIN 12.5 GM/dL (11.7-16.9); LYMPH % 19.8 % (8-40); MCH 29.3 pg (25.7-33.7); MCHC 32.9 g/dl (32.0-35.9); MEAN PLT VOLUME 10.2 fl (7.5-11.1); MONO % 6.6 % (3.8-10.2); NEUT % 69.6 % (42.8-82.8); PLATELET COUNT 142 K/MM3 (134-434); RBC 4.26 M/mm3 (4.00-5.60); RDW 15.8 % (11.9-15.9); WHITE BLOOD COUNT 7.3 K/mm3 (4.0-10.0)
[2019-06-15 07:27] LABS: ALBUMIN 2.6 g/dl (3.4-5.0); BLOOD UREA NITROGEN 31.6 mg/dL (7-18); CALCIUM 9.3 mg/dL (8.5-10.1); CREATININE 1.1 mg/dL (0.55-1.3); POTASSIUM 4.3 mmol/L (3.5-5.1); TOT PROT 5.4 g/dl (6.4-8.2)
[2019-06-15] MEDS: ASPIRIN COATED 81 MG TABLET.EC PO SCH (09:13)
[2019-06-15 12:54] VITALS: BMI 23.8
--- NOTE | 2019-06-15 15:26 | PN ---
Progress Note, Physician Chief Complaint: states he feels tired today, c/o pain/swelling to right knee History of Present Illness: 89 year old male with history of congestive heart failure, coronary artery disease s/p stents/pacemaker non-MRI compatible 15 years ago, atrial fibrillation on Coumadin, and a benign brain tumor who presented with altered mental status changes, weakness and s/p fall. His coumadin levels are now elevated and his coumadin is on hold, further he has elevated troponins and worsening kidney failure. - Current Medication List Current Medications: Active Medications Acetaminophen (Tylenol -) 650 mg PO Q6H PRN PRN Reason: PAIN LEVEL 6-10 Last Admin: 06/12/19 18:47 Dose: 650 mg Aspirin (Ecotrin -) 81 mg PO DAILY [facility] Last Admin: 06/15/19 09:13 Dose: 81 mg Atorvastatin Calcium (Lipitor -) 20 mg PO HS [facility] Last Admin: 06/14/19 21:28 Dose: 20 mg Quetiapine Fumarate (Seroquel -) 12.5 mg PO DAILY@1999 [facility] Last Admin: 06/14/19 21:28 Dose: 12.5 mg - Objective Vital Signs: Vital Signs Temperature 97.4 F L 06/15/19 13:59 Pulse Rate 76 06/15/19 13:59 Respiratory Rate 18 06/15/19 13:59 Blood Pressure 114/42 L 06/15/19 13:59 O2 Sat by Pulse Oximetry (%) 99 06/15/19 09:00 Additional Findings/Remarks: Constitutional: Yes: Well Nourished, No Distress, Thin Eyes: Yes: WNL, Conjunctiva Clear HENT: Yes: WNL, Atraumatic, Normocephalic Neck: Yes: WNL, Supple, Trachea Midline Cardiovascular: Yes: WNL, Regular Rate and Rhythm Respiratory: Yes: WNL, Regular, CTA Bilaterally Gastrointestinal: Yes: WNL, Normal Bowel Sounds ...Rectal Exam: Yes: Deferred Genitourinary: Yes: WNL Breast(s): Yes: WNL Musculoskeletal: Yes: WNL Extremities: Yes: WNL. Swelling note to right knee, no erythema, no crepitus Edema: Yes Edema: LLE: Trace, RLE: Trace Peripheral Pulses: Left Radial: 2+, Right Radial: 2+, Left Doralis Pedis: 2+, Right Dorsalis Pedis: 2+, Left Femoral: 2+, Right Femoral: 2+ Integumentary: Yes: WNL Neurological: Yes: WNL, Alert, Oriented, Confusion (at times) ...Motor Strength: WNL (generalized weakness) Psychiatric: Yes: WNL Labs: CBC, BMP 06/15/19 05:35 06/15/19 05:35 INR, PTT INR 1.73 (0.83-1.09) H 06/13/19 00:05 Problem List - Problems (1) Pacemaker Code(s): Z95.0 - PRESENCE OF CARDIAC PACEMAKER (2) Stented coronary artery Assessment/Plan: Holter monitor revealed rate controlled AF TnI is equivocal elevated in setting ARF and chronic PHTN. Does not represent ACS Coumadin stopped and asa 81mg Code(s): Z95.5 - PRESENCE OF CORONARY ANGIOPLASTY IMPLANT AND GRAFT (3) MARIELY (acute kidney injury) Assessment/Plan: monitor kidney function avoid nephrotiopxic agents Cr 1.1 continue to hold lasix and metolazone Code(s): N17.9 - ACUTE KIDNEY FAILURE, UNSPECIFIED (4) Prophylactic measure Assessment/Plan: FEN low salt diet monitor electrolytes DVT coumdain stopped d/t to high risk for falls asa 81 Dispo maintain as in patient discharge planning home with services vs SNF (request placed) full code Code(s): Z29.9 - ENCOUNTER FOR PROPHYLACTIC MEASURES, UNSPECIFIED (5) A-fib Assessment/Plan: holter monitor showed rate controlled AFib asa 81mg Code(s): I48.91 - UNSPECIFIED ATRIAL FIBRILLATION (6) CHF (congestive heart failure) Assessment/Plan: lasix/methalozine on hold Code(s): I50.9 - HEART FAILURE, UNSPECIFIED (7) Syncope and collapse Assessment/Plan: resolved c/w PT high risk for falls Code(s): R55 - SYNCOPE AND COLLAPSE (8) Meningioma Assessment/Plan: head ct with stable meningioma, unchanged Code(s): D32.9 - BENIGN NEOPLASM OF MENINGES, UNSPECIFIED (9) Acute metabolic encephalopathy Assessment/Plan: most likely related to uremic state more confused at night-sundowning attempt to maintain sleep wake cycles c/w low dose seroquel to prevent delium/sundowning-no further episodes of confusion at night since starting Code(s): G93.41 - METABOLIC ENCEPHALOPATHY (10) Assessment/Plan: c/w seroquel no confusion over night Code(s): F05 - DELIRIUM DUE TO KNOWN PHYSIOLOGICAL CONDITION (11) Knee pain, right Assessment/Plan: swelling noted to right knee no trauma note knee xray pending lidoderm patch c/w PT Code(s): M25.561 - PAIN IN RIGHT KNEE Visit type - Emergency Visit Emergency Visit: Yes ED Registration Date: 06/08/19 Care time: The patient presented to the Emergency Department on the above date and was hospitalized for further evaluation of their emergent condition. - New Patient This patient is new to me today: No - Critical Care Critical Care patient: No - Discharge Referral Referred to [facility] Med P.C.: No
[2019-06-15] MEDS: LIDOCAINE 5% TOPICAL PATCH TP SCH (16:52)
--- NOTE | 2019-06-15 17:23 | PN ---
Progress Note, Physician History of Present Illness: Pt seen and examined at bedside. He is awake and alert. He denies shortness of breath. - Current Medication List Current Medications: Active Medications Acetaminophen (Tylenol -) 650 mg PO Q6H PRN PRN Reason: PAIN LEVEL 6-10 Last Admin: 06/12/19 18:47 Dose: 650 mg Aspirin (Ecotrin -) 81 mg PO DAILY [facility] Last Admin: 06/15/19 09:13 Dose: 81 mg Atorvastatin Calcium (Lipitor -) 20 mg PO HS [facility] Last Admin: 06/14/19 21:28 Dose: 20 mg Lidocaine (Lidoderm Patch -) 1 patch TP DAILY [facility] Last Admin: 06/15/19 16:52 Dose: 1 patch Miscellaneous (Lidoderm Patch Removal) 1 each MC DAILY@2199 [facility] Quetiapine Fumarate (Seroquel -) 12.5 mg PO DAILY@1999 [facility] Last Admin: 06/14/19 21:28 Dose: 12.5 mg - Objective Vital Signs: Vital Signs Temperature 97.4 F L 06/15/19 13:59 Pulse Rate 76 06/15/19 13:59 Respiratory Rate 18 06/15/19 13:59 Blood Pressure 114/42 L 06/15/19 13:59 O2 Sat by Pulse Oximetry (%) 99 06/15/19 09:00 Constitutional: Yes: Calm Eyes: Yes: Conjunctiva Clear HENT: Yes: Atraumatic Neck: Yes: Supple Cardiovascular: Yes: S1, S2 Respiratory: Yes: CTA Bilaterally Gastrointestinal: Yes: Soft Genitourinary: Yes: WNL Musculoskeletal: Yes: WNL Edema: No Neurological: Yes: Oriented Psychiatric: Yes: Oriented Labs: CBC, BMP 06/15/19 05:35 06/15/19 05:35 INR, PTT INR 1.73 (0.83-1.09) H 06/13/19 00:05 Problem List - Problems (1) MARIELY (acute kidney injury) Code(s): N17.9 - ACUTE KIDNEY FAILURE, UNSPECIFIED (2) Fall Code(s): W19.XXXA - UNSPECIFIED FALL, INITIAL ENCOUNTER Qualifiers: Encounter type: subsequent encounter Qualified Code(s): W19.XXXD - Unspecified fall, subsequent encounter (3) A-fib Code(s): I48.91 - UNSPECIFIED ATRIAL FIBRILLATION (4) CHF (congestive heart failure) Code(s): I50.9 - HEART FAILURE, UNSPECIFIED (5) Elevated INR Code(s): R79.1 - ABNORMAL COAGULATION PROFILE Assessment/Plan Current Medications Generic Name Dose Route Start Last Admin Trade Name Freq PRN Reason Stop Dose Admin Acetaminophen 650 mg 06/09/19 08:17 06/12/19 18:47 Tylenol - PO 650 mg Q6H PRN Administration PAIN LEVEL 6-10 Aspirin 81 mg 06/14/19 10:00 06/15/19 09:13 Ecotrin - PO 81 mg DAILY [facility] Administration Atorvastatin Calcium 20 mg 06/08/19 22:00 06/14/19 21:28 Lipitor - PO 20 mg HS [facility] Administration Lidocaine 1 patch 06/15/19 16:00 06/15/19 16:52 Lidoderm Patch - TP 1 patch DAILY [facility] Administration Miscellaneous 1 each 06/15/19 22:00 Lidoderm Patch Removal MC DAILY@2200 [facility] Quetiapine Fumarate 12.5 mg 06/11/19 20:00 06/14/19 21:28 Seroquel - PO 12.5 mg DAILY@2000 [facility] Administration Impression 1. hypokalemia 2. MARIELY 3. s/p fall 4. chf 5. 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 a-fib 7. cad Plan - renal function stable - diuretics on hold, evaluate volume status daily - encourage PO intake - INR in improving
[2019-06-15] MEDS: QUEtiapine FUMARATE 25 MG TABLET (FP) PO SCH (20:40)
[2019-06-15] MEDS: ATORVASTATIN CA 20 MG TABLET (FP) PO SCH (21:25)
[2019-06-15] MEDS: LIDOCAINE PATCH REMOVAL MC SCH (21:25)
[2019-06-16 07:33] LABS: BASO % 0.6 % (0-2.0); EOS % 3.1 % (0-4.5); HEMOGLOBIN 12.3 GM/dL (11.7-16.9); LYMPH % 14.8 % (8-40); MCH 29.2 pg (25.7-33.7); MCHC 32.3 g/dl (32.0-35.9); MEAN CELL VOLUME 90.5 fl (80-96); MEAN PLT VOLUME 10.1 fl (7.5-11.1); MONO % 7.3 % (3.8-10.2); NEUT % 74.2 % (42.8-82.8); PLATELET COUNT 136 K/MM3 (134-434); RDW 15.5 % (11.9-15.9); WHITE BLOOD COUNT 8.1 K/mm3 (4.0-10.0)
[2019-06-16 08:02] LABS: ALBUMIN 2.6 g/dl (3.4-5.0); BILIRUBIN,TOTAL 1.1 mg/dL (0.2-1); BLOOD UREA NITROGEN 23.7 mg/dL (7-18); CALCIUM 9.3 mg/dL (8.5-10.1); CREATININE 0.9 mg/dL (0.55-1.3); MAGNESIUM 1.9 mg/dL (1.8-2.4); POTASSIUM 4.1 mmol/L (3.5-5.1); TOT PROT 5.4 g/dl (6.4-8.2)
--- NOTE | 2019-06-16 08:35 | PN ---
Progress Note, Physician Chief Complaint: Pain to knee is better. Ambulating in [place] History of Present Illness: 89 year old male with history of congestive heart failure, coronary artery disease s/p stents/pacemaker non-MRI compatible 15 years ago, atrial fibrillation on Coumadin, and a benign brain tumor who presented with altered mental status changes, weakness and s/p fall. Taken of coumadin to due high fall risk. Pending SNF placement - Current Medication List Current Medications: Active Medications Acetaminophen (Tylenol -) 650 mg PO Q6H PRN PRN Reason: PAIN LEVEL 6-10 Last Admin: 06/12/19 18:47 Dose: 650 mg Aspirin (Ecotrin -) 81 mg PO DAILY [facility] Last Admin: 06/15/19 09:13 Dose: 81 mg Atorvastatin Calcium (Lipitor -) 20 mg PO HS [facility] Last Admin: 06/15/19 21:25 Dose: 20 mg Lidocaine (Lidoderm Patch -) 1 patch TP DAILY [facility] Last Admin: 06/15/19 16:52 Dose: 1 patch Miscellaneous (Lidoderm Patch Removal) 1 each MC DAILY@2199 [facility] Last Admin: 06/15/19 21:25 Dose: 1 each Quetiapine Fumarate (Seroquel -) 12.5 mg PO DAILY@1999 [facility] Last Admin: 06/15/19 20:40 Dose: 12.5 mg - Objective Vital Signs: Vital Signs Temperature 98.1 F 06/16/19 06:00 Pulse Rate 76 06/16/19 06:00 Respiratory Rate 20 06/16/19 06:00 Blood Pressure 138/82 06/16/19 06:00 O2 Sat by Pulse Oximetry (%) 99 06/15/19 21:00 Additional Findings/Remarks: Constitutional: Yes: Well Nourished, No Distress, Thin Eyes: Yes: WNL, Conjunctiva Clear HENT: Yes: WNL, Atraumatic, Normocephalic Neck: Yes: WNL, Supple, Trachea Midline Cardiovascular: Yes: WNL, Regular Rate and Rhythm Respiratory: Yes: WNL, Regular, CTA Bilaterally Gastrointestinal: Yes: WNL, Normal Bowel Sounds ...Rectal Exam: Yes: Deferred Genitourinary: Yes: WNL Breast(s): Yes: WNL Musculoskeletal: Yes: WNL Extremities: Yes: WNL. Swelling note to right knee-less today no erythema, no crepitus Edema: Yes Edema: LLE: Trace, RLE: Trace Peripheral Pulses: Left Radial: 2+, Right Radial: 2+, Left Doralis Pedis: 2+, Right Dorsalis Pedis: 2+, Left Femoral: 2+, Right Femoral: 2+ Integumentary: Yes: WNL Neurological: Yes: WNL, Alert, Oriented, Confusion (at times) ...Motor Strength: WNL (generalized weakness) Psychiatric: Yes: WNL Labs: CBC, BMP 06/16/19 06:20 INR, PTT INR 1.73 (0.83-1.09) H 06/13/19 00:05 Problem List - Problems (1) Pacemaker Code(s): Z95.0 - PRESENCE OF CARDIAC PACEMAKER (2) Stented coronary artery Assessment/Plan: Holter monitor revealed rate controlled AF TnI is equivocal elevated in setting ARF and chronic PHTN. Does not represent ACS Coumadin stopped c/w asa 81mg Code(s): Z95.5 - PRESENCE OF CORONARY ANGIOPLASTY IMPLANT AND GRAFT (3) MARIELY (acute kidney injury) Assessment/Plan: monitor kidney function avoid nephrotiopxic agents Cr0.9 started on lasix 20mg x 1 dose, will assess Cr tomorrow for continuation Code(s): N17.9 - ACUTE KIDNEY FAILURE, UNSPECIFIED (4) Prophylactic measure Assessment/Plan: FEN low salt diet monitor electrolytes DVT coumdain stopped d/t to high risk for falls asa 81 Dispo maintain as in patient discharge planning home with services vs SNF (request placed) message left for Dr Diego to discuss follow up care full code Code(s): Z29.9 - ENCOUNTER FOR PROPHYLACTIC MEASURES, UNSPECIFIED (5) A-fib Assessment/Plan: holter monitor showed rate controlled AFib asa 81mg Code(s): I48.91 - UNSPECIFIED ATRIAL FIBRILLATION (6) CHF (congestive heart failure) Assessment/Plan: lasix x 1 dose-will reassess methalozine on hold Code(s): I50.9 - HEART FAILURE, UNSPECIFIED (7) Syncope and collapse Assessment/Plan: resolved c/w PT high risk for falls Code(s): R55 - SYNCOPE AND COLLAPSE (8) Meningioma Assessment/Plan: head ct with stable meningioma, unchanged Code(s): D32.9 - BENIGN NEOPLASM OF MENINGES, UNSPECIFIED (9) Acute metabolic encephalopathy Assessment/Plan: most likely related to uremic state more confused at night-sundowning attempt to maintain sleep wake cycles c/w low dose seroquel to prevent delium/sundowning-no further episodes of confusion at night since starting. Would continue seroquel on discharge Code(s): G93.41 - METABOLIC ENCEPHALOPATHY (10) Sundowning Assessment/Plan: c/w seroquel no confusion over night Code(s): F05 - DELIRIUM DUE TO KNOWN PHYSIOLOGICAL CONDITION (11) Knee pain, right Assessment/Plan: XRay knee with acute pathology. can follow with ortho as outpatient May benefit from orthovisc injection-knee apppears to be bone on bone lidoderm patch would avoid NSAIDS as outpatient since on asa tylenol prn c/w PT Code(s): M25.561 - PAIN IN RIGHT KNEE Visit type - Emergency Visit Emergency Visit: Yes ED Registration Date: 06/08/19 Care time: The patient presented to the Emergency Department on the above date and was hospitalized for further evaluation of their emergent condition. - New Patient This patient is new to me today: No - Critical Care Critical Care patient: No - Discharge Referral Referred to [facility] Med P.C.: No
[2019-06-16] MEDS: ASPIRIN COATED 81 MG TABLET.EC PO SCH (10:42)
[2019-06-16] MEDS: LIDOCAINE 5% TOPICAL PATCH TP SCH (10:42)
[2019-06-16] MEDS ORDERED: FUROSEMIDE 20 MG TABLET (FP) PO ONE (15:01)
--- NOTE | 2019-06-16 15:01 | PN ---
Progress Note, Physician History of Present Illness: Pt seen and examined at bedside. He is awake and alert. He denies shortness of breath. - Current Medication List Current Medications: Active Medications Acetaminophen (Tylenol -) 650 mg PO Q6H PRN PRN Reason: PAIN LEVEL 6-10 Last Admin: 06/12/19 18:47 Dose: 650 mg Aspirin (Ecotrin -) 81 mg PO DAILY [facility] Last Admin: 06/16/19 10:42 Dose: 81 mg Atorvastatin Calcium (Lipitor -) 20 mg PO HS [facility] Last Admin: 06/15/19 21:25 Dose: 20 mg Lidocaine (Lidoderm Patch -) 1 patch TP DAILY [facility] Last Admin: 06/16/19 10:42 Dose: 1 patch Miscellaneous (Lidoderm Patch Removal) 1 each MC DAILY@2199 [facility] Last Admin: 06/15/19 21:25 Dose: 1 each Quetiapine Fumarate (Seroquel -) 12.5 mg PO DAILY@1999 [facility] Last Admin: 06/15/19 20:40 Dose: 12.5 mg - Objective Vital Signs: Vital Signs Temperature 97.4 F L 06/16/19 10:00 Pulse Rate 76 06/16/19 10:00 Respiratory Rate 18 06/16/19 10:00 Blood Pressure 115/86 06/16/19 10:00 O2 Sat by Pulse Oximetry (%) 99 06/15/19 21:00 Constitutional: Yes: Calm Eyes: Yes: Conjunctiva Clear HENT: Yes: Atraumatic Neck: Yes: Supple Cardiovascular: Yes: S1, S2 Respiratory: Yes: CTA Bilaterally Gastrointestinal: Yes: Normal Bowel Sounds, Soft Genitourinary: Yes: WNL Musculoskeletal: Yes: WNL Edema: Yes Edema: LLE: Trace, RLE: Trace Neurological: Yes: Oriented Psychiatric: Yes: Oriented Labs: CBC, BMP 06/16/19 06:20 06/16/19 06:20 INR, PTT INR 1.73 (0.83-1.09) H 06/13/19 00:05 Problem List - Problems (1) MARIELY (acute kidney injury) Code(s): N17.9 - ACUTE KIDNEY FAILURE, UNSPECIFIED (2) Fall Code(s): W19.XXXA - UNSPECIFIED FALL, INITIAL ENCOUNTER Qualifiers: Encounter type: subsequent encounter Qualified Code(s): W19.XXXD - Unspecified fall, subsequent encounter (3) A-fib Code(s): I48.91 - UNSPECIFIED ATRIAL FIBRILLATION (4) CHF (congestive heart failure) Code(s): I50.9 - HEART FAILURE, UNSPECIFIED (5) Elevated INR Code(s): R79.1 - ABNORMAL COAGULATION PROFILE Assessment/Plan Current Medications Generic Name Dose Route Start Last Admin Trade Name Freq PRN Reason Stop Dose Admin Acetaminophen 650 mg 06/09/19 08:17 06/12/19 18:47 Tylenol - PO 650 mg Q6H PRN Administration PAIN LEVEL 6-10 Aspirin 81 mg 06/14/19 10:00 06/16/19 10:42 Ecotrin - PO 81 mg DAILY [facility] Administration Atorvastatin Calcium 20 mg 06/08/19 22:00 06/15/19 21:25 Lipitor - PO 20 mg HS [facility] Administration Lidocaine 1 patch 06/15/19 16:00 06/16/19 10:42 Lidoderm Patch - TP 1 patch DAILY [facility] Administration Miscellaneous 1 each 06/15/19 22:00 06/15/19 21:25 Lidoderm Patch Removal MC 1 each DAILY@2199 [facility] Administration Quetiapine Fumarate 12.5 mg 06/11/19 20:00 06/15/19 20:40 Seroquel - PO 12.5 mg DAILY@1999 [facility] Administration Impression 1. hypokalemia 2. MARIELY 3. s/p fall 4. chf 5. 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 a-fib 7. cad Plan - renal function is normal - will give 20 mg of lasix today - monitor renal function - pt was on 40 mg of lasix at home - encourage PO intake
--- NOTE | 2019-06-16 16:25 | PN ---
Progress Note (short form) - Note Progress Note: s: no chest pain, palps, dizziness, dyspnea Current Medications Acetaminophen (Tylenol -) 650 mg PO Q6H PRN PRN Reason: PAIN LEVEL 6-10 Last Admin: 06/12/19 18:47 Dose: 650 mg Aspirin (Ecotrin -) 81 mg PO DAILY [facility] Last Admin: 06/16/19 10:42 Dose: 81 mg Atorvastatin Calcium (Lipitor -) 20 mg PO HS [facility] Last Admin: 06/15/19 21:25 Dose: 20 mg Lidocaine (Lidoderm Patch -) 1 patch TP DAILY [facility] Last Admin: 06/16/19 10:42 Dose: 1 patch Miscellaneous (Lidoderm Patch Removal) 1 each MC DAILY@2199 [facility] Last Admin: 06/15/19 21:25 Dose: 1 each Quetiapine Fumarate (Seroquel -) 12.5 mg PO DAILY@1999 [facility] Last Admin: 06/15/19 20:40 Dose: 12.5 mg Vital Signs Period Temp Pulse Resp BP Sys/Esposito Pulse Ox Last 24 Hr 97.4 F-98.1 F 72-76 18-20 105-138/54-86 99 Constitutional: Yes: No Distress, Calm Cardiovascular: Yes: Regular Rate and Rhythm Respiratory: Yes: CTA Bilaterally Gastrointestinal: Yes: Soft Edema: No Neurological: Yes: Alert, Oriented no jaundice, diaphoresis not agitated Assessment/Plan IMP: Meningioma Atrial fibrillation s/p PPM, on coumadin CAD w/ h/o PCI Acute renal failure-improving. Equivocal TnI Elevated BNP REC: 1. Holter shows rate controlled afib 2. lasix 20 mg PO today per renal, monitoring volume status daily 3. Coumadin per inr. 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 ASA 81mg daily would be the alternative. 4. TnI is equivocal elevated in setting ARF and chronic PHTN. Does not represent ACS. BNP also not clinically meaningful in this setting.
[2019-06-16] MEDS: QUEtiapine FUMARATE 25 MG TABLET (FP) PO SCH (20:00)
[2019-06-16] MEDS: ATORVASTATIN CA 20 MG TABLET (FP) PO SCH (22:00)
[2019-06-16] MEDS: LIDOCAINE PATCH REMOVAL MC SCH (22:01)
[2019-06-17 07:43] LABS: BASO % 0.7 % (0-2.0); EOS % 4.4 % (0-4.5); HEMATOCRIT 35.9 % (35.4-49); HEMOGLOBIN 11.7 GM/dL (11.7-16.9); LYMPH % 19.7 % (8-40); MCH 29.2 pg (25.7-33.7); MCHC 32.5 g/dl (32.0-35.9); MEAN CELL VOLUME 89.9 fl (80-96); MEAN PLT VOLUME 9.6 fl (7.5-11.1); MONO % 8.4 % (3.8-10.2); NEUT % 66.8 % (42.8-82.8); PLATELET COUNT 144 K/MM3 (134-434); RBC 3.99 M/mm3 (4.00-5.60); WHITE BLOOD COUNT 6.2 K/mm3 (4.0-10.0)
[2019-06-17 08:01] LABS: ALBUMIN 2.5 g/dl (3.4-5.0); BLOOD UREA NITROGEN 25.7 mg/dL (7-18); CALCIUM 9.1 mg/dL (8.5-10.1); MAGNESIUM 1.9 mg/dL (1.8-2.4); PHOSPHOROUS 2.5 mg/dL (2.5-4.9); TOT PROT 5.3 g/dl (6.4-8.2)
[2019-06-17] MEDS: ASPIRIN COATED 81 MG TABLET.EC PO SCH (09:56)
[2019-06-17] MEDS: LIDOCAINE 5% TOPICAL PATCH TP SCH (09:56)
--- NOTE | 2019-06-17 12:24 | PN ---
Progress Note (short form) - Note Progress Note: s: no chest pain, palps, dizziness, dyspnea Current Medications Acetaminophen (Tylenol -) 650 mg PO Q6H PRN PRN Reason: PAIN LEVEL 6-10 Last Admin: 06/12/19 18:47 Dose: 650 mg Aspirin (Ecotrin -) 81 mg PO DAILY [facility] Last Admin: 06/17/19 09:56 Dose: 81 mg Atorvastatin Calcium (Lipitor -) 20 mg PO HS [facility] Last Admin: 06/16/19 22:00 Dose: 20 mg Lidocaine (Lidoderm Patch -) 1 patch TP DAILY [facility] Last Admin: 06/17/19 09:56 Dose: 1 patch Miscellaneous (Lidoderm Patch Removal) 1 each MC DAILY@2199 [facility] Last Admin: 06/16/19 22:01 Dose: 1 each Quetiapine Fumarate (Seroquel -) 12.5 mg PO DAILY@1999 [facility] Last Admin: 06/16/19 20:00 Dose: 12.5 mg Vital Signs Period Temp Pulse Resp BP Sys/Esposito Pulse Ox Last 24 Hr 97.4 F-98.9 F 69-72 18-20 105-126/54-71 98 Constitutional: Yes: No Distress, Calm Cardiovascular: Yes: Regular Rate and Rhythm Respiratory: Yes: CTA Bilaterally Gastrointestinal: Yes: Soft Edema: No Neurological: Yes: Alert, Oriented no jaundice, diaphoresis not agitated Assessment/Plan IMP: Meningioma Atrial fibrillation s/p PPM, on coumadin CAD w/ h/o PCI Acute renal failure-improving. Equivocal TnI Elevated BNP REC: 1. Holter shows rate controlled afib 2. monitoring volume status daily, received PO lasix 20 mg yesterday 3. Coumadin was held due to significant fall risk. cont aspirin 81 mg daily 4. TnI is equivocal elevated in setting ARF and chronic PHTN. Does not represent ACS. BNP also not clinically meaningful in this setting.
--- NOTE | 2019-06-17 12:25 | PN ---
Physical Exam: SUBJECTIVE: Patient seen and examined at the bedside. OBJECTIVE: Mr. Marin is a 89 year old male with history of congestive heart failure, coronary artery disease s/p stents/pacemaker non-MRI compatible 15 years ago, atrial fibrillation on Coumadin, and a benign brain tumor who presented with altered mental status changes, weakness and s/p falls. His coumadin levels were elevated on admission and his coumadin has been discontinued. He is being followed by cardiology for elevated troponins and worsening kidney failure. Vital Signs Period Temp Pulse Resp BP Sys/Esposito Pulse Ox Last 24 Hr 97.4 F-98.9 F 69-72 18-20 105-126/54-71 98 GENERAL: awake alert and oriented to self and place confused no acute distress HEAD: normal EYES: pupils equal round and reactive to light EARS, NOSE, THROAT: ears normal nares patent oropharynx clear without exudates NECK: no JVD LUNGS: breath sounds equal clear to auscultation bilaterally no rales no use of accessory muscles HEART: regular rate and rhythm ABDOMEN: soft nontender not distended MUSCULOSKELETAL: moving upper and lower extremities UPPER EXTREMITIES: 2+ pulses warm well-perfused no cyanosis LOWER EXTREMITIES: small area of swelling/edema/pain on left lateral. negative doppler. NEUROLOGICAL: no neuro focal deficits PSYCHIATRIC: cooperative good eye contact SKIN: warm dry no rashes or lesions noted Laboratory Results - last 24 hr 06/17/19 06/17/19 06:50 06:50 WBC 6.2 RBC 3.99 L Hgb 11.7 Hct 35.9 MCV 89.9 MCH 29.2 MCHC 32.5 RDW 16.0 H Plt Count 144 MPV 9.6 Absolute Neuts (auto) 4.2 Neutrophils % 66.8 Lymphocytes % 19.7 D Monocytes % 8.4 Eosinophils % 4.4 Basophils % 0.7 Nucleated RBC % 0 Sodium 143 Potassium 4.0 Chloride 107 Carbon Dioxide 29 Anion Gap 6 L BUN 25.7 H Creatinine 1.0 Est GFR (CKD-EPI)AfAm 77.54 Est GFR (CKD-EPI)NonAf 66.90 Random Glucose 99 Calcium 9.1 Phosphorus 2.5 Magnesium 1.9 Total Bilirubin 1.0 AST 27 ALT 24 Alkaline Phosphatase 159 H Total Protein 5.3 L Albumin 2.5 L Active Medications Generic Name Dose Route Start Last Admin Trade Name Freq PRN Reason Stop Dose Admin Acetaminophen 650 mg 06/09/19 08:17 06/12/19 18:47 Tylenol - PO 650 mg Q6H PRN Administration PAIN LEVEL 6-10 Aspirin 81 mg 06/14/19 10:00 06/17/19 09:56 Ecotrin - PO 81 mg DAILY GEORGE Administration Atorvastatin Calcium 20 mg 06/08/19 22:00 06/16/19 22:00 Lipitor - PO 20 mg HS GEORGE Administration Lidocaine 1 patch 06/15/19 16:00 06/17/19 09:56 Lidoderm Patch - TP 1 patch DAILY GEORGE Administration Miscellaneous 1 each 06/15/19 22:00 06/16/19 22:01 Lidoderm Patch Removal MC 1 each DAILY@2199 GEORGE Administration Quetiapine Fumarate 12.5 mg 06/11/19 20:00 06/16/19 20:00 Seroquel - PO 12.5 mg DAILY@1999 GEORGE Administration ASSESSMENT/PLAN: Problem List - Problems (1) Syncope and collapse Assessment/Plan: resolved. physical therapy, neuro consulted head ct with stable meningioma, unchanged Holter monitor revealed rate controlled AF Coumadin stopped c/w asa 81mg Code(s): R55 - SYNCOPE AND COLLAPSE (2) MARIELY (acute kidney injury) Assessment/Plan: monitor kidney function and renal dose medication Code(s): N17.9 - ACUTE KIDNEY FAILURE, UNSPECIFIED (3) Fall Assessment/Plan: physical therapy, fall precautions Code(s): W19.XXXA - UNSPECIFIED FALL, INITIAL ENCOUNTER Qualifiers: Encounter type: subsequent encounter Qualified Code(s): W19.XXXD - Unspecified fall, subsequent encounter (4) A-fib Assessment/Plan: Rate controlled currently. coumadin stopped 2/2 to frequent falls and risk of intracranial hemorrhage. holter monitor showed rate controlled Afib Code(s): I48.91 - UNSPECIFIED ATRIAL FIBRILLATION (5) Elevated INR Assessment/Plan: coumadin discontinued Code(s): R79.1 - ABNORMAL COAGULATION PROFILE (6) CHF (congestive heart failure) Assessment/Plan: lasix as needed monitoring volume status daily, received PO lasix 20 mg yesterday Coumadin was held due to significant fall risk. cont aspirin 81 mg daily Code(s): I50.9 - HEART FAILURE, UNSPECIFIED (7) Troponin level elevated Assessment/Plan: followed by cardiology. patient without chest pain or shortness of breath unlikely ACS per cardiology Code(s): R79.89 - OTHER SPECIFIED ABNORMAL FINDINGS OF BLOOD CHEMISTRY (8) DVT prophylaxis Assessment/Plan: scds. Code(s): [id number] - (9) Knee pain, right Assessment/Plan: knee xray with large suprapatellar bursal effusion ortho consulted continue with lidoderm patch for pain Code(s): M25.561 - PAIN IN RIGHT KNEE (10) Prophylactic measure Assessment/Plan: SCD's/TEDS fen -low sodium diet -monitor electrolytes - fall risk Code(s): Z29.9 - ENCOUNTER FOR PROPHYLACTIC MEASURES, UNSPECIFIED Visit type - Emergency Visit Emergency Visit: Yes ED Registration Date: 06/08/19 Care time: The patient presented to the Emergency Department on the above date and was hospitalized for further evaluation of their emergent condition. - New Patient This patient is new to me today: No - Critical Care Critical Care patient: No - Discharge Referral Referred to [facility] Med P.C.: No
--- NOTE | 2019-06-17 16:42 | PN ---
Progress Note, Physician History of Present Illness: Pt seen and examined at bedside. He is awake and alert. He denies shortness of breath. - Current Medication List Current Medications: Active Medications Acetaminophen (Tylenol -) 650 mg PO Q6H PRN PRN Reason: PAIN LEVEL 6-10 Last Admin: 06/12/19 18:47 Dose: 650 mg Aspirin (Ecotrin -) 81 mg PO DAILY [facility] Last Admin: 06/17/19 09:56 Dose: 81 mg Atorvastatin Calcium (Lipitor -) 20 mg PO HS [facility] Last Admin: 06/16/19 22:00 Dose: 20 mg Lidocaine (Lidoderm Patch -) 1 patch TP DAILY [facility] Last Admin: 06/17/19 09:56 Dose: 1 patch Miscellaneous (Lidoderm Patch Removal) 1 each MC DAILY@2199 [facility] Last Admin: 06/16/19 22:01 Dose: 1 each Quetiapine Fumarate (Seroquel -) 12.5 mg PO DAILY@1999 [facility] Last Admin: 06/16/19 20:00 Dose: 12.5 mg - Objective Vital Signs: Vital Signs Temperature 98.0 F 06/17/19 15:04 Pulse Rate 70 06/17/19 15:04 Respiratory Rate 18 06/17/19 15:04 Blood Pressure 122/61 06/17/19 15:04 O2 Sat by Pulse Oximetry (%) 98 06/17/19 09:00 Constitutional: Yes: Calm Eyes: Yes: Conjunctiva Clear HENT: Yes: Atraumatic Neck: Yes: Supple Cardiovascular: Yes: S1, S2 Respiratory: Yes: CTA Bilaterally Gastrointestinal: Yes: Soft Genitourinary: Yes: WNL Edema: Yes Edema: LLE: Trace, RLE: Trace Neurological: Yes: Oriented Psychiatric: Yes: Oriented Labs: CBC, BMP 06/17/19 06:50 06/17/19 06:50 INR, PTT INR 1.73 (0.83-1.09) H 06/13/19 00:05 Problem List - Problems (1) MARIELY (acute kidney injury) Code(s): N17.9 - ACUTE KIDNEY FAILURE, UNSPECIFIED (2) Fall Code(s): W19.XXXA - UNSPECIFIED FALL, INITIAL ENCOUNTER Qualifiers: Encounter type: subsequent encounter Qualified Code(s): W19.XXXD - Unspecified fall, subsequent encounter (3) A-fib Code(s): I48.91 - UNSPECIFIED ATRIAL FIBRILLATION (4) CHF (congestive heart failure) Code(s): I50.9 - HEART FAILURE, UNSPECIFIED (5) Elevated INR Code(s): R79.1 - ABNORMAL COAGULATION PROFILE Assessment/Plan Current Medications Generic Name Dose Route Start Last Admin Trade Name Freq PRN Reason Stop Dose Admin Acetaminophen 650 mg 06/09/19 08:17 06/12/19 18:47 Tylenol - PO 650 mg Q6H PRN Administration PAIN LEVEL 6-10 Aspirin 81 mg 06/14/19 10:00 06/17/19 09:56 Ecotrin - PO 81 mg DAILY GEORGE Administration Atorvastatin Calcium 20 mg 06/08/19 22:00 06/16/19 22:00 Lipitor - PO 20 mg HS GEORGE Administration Lidocaine 1 patch 06/15/19 16:00 06/17/19 09:56 Lidoderm Patch - TP 1 patch DAILY GEORGE Administration Miscellaneous 1 each 06/15/19 22:00 06/16/19 22:01 Lidoderm Patch Removal MC 1 each DAILY@2200 GEORGE Administration Quetiapine Fumarate 12.5 mg 06/11/19 20:00 06/16/19 20:00 Seroquel - PO 12.5 mg DAILY@2000 GEORGE Administration Impression 1. hypokalemia 2. MARIELY 3. s/p fall 4. chf 5. 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 a-fib 7. cad Plan - repeat labs in am - pt tolerated lasix - will order another dose for tomorrow - he was on lasix 40 mg a day at home for edema - will restart at 20 mg as he was dehydrated - should hold lasix at home if he does not eat or drink
[2019-06-17] MEDS: QUEtiapine FUMARATE 25 MG TABLET (FP) PO SCH (21:00)
[2019-06-17] MEDS: LIDOCAINE PATCH REMOVAL MC SCH ×2 (21:22→21:30)
[2019-06-17] MEDS: ATORVASTATIN CA 20 MG TABLET (FP) PO SCH (21:22)
[2019-06-18 07:31] LABS: BASO % 0.7 % (0-2.0); EOS % 3.5 % (0-4.5); HEMATOCRIT 35.7 % (35.4-49); HEMOGLOBIN 11.6 GM/dL (11.7-16.9); LYMPH % 19.9 % (8-40); MCH 29.1 pg (25.7-33.7); MCHC 32.3 g/dl (32.0-35.9); MEAN CELL VOLUME 89.9 fl (80-96); MEAN PLT VOLUME 9.5 fl (7.5-11.1); MONO % 8.6 % (3.8-10.2); NEUT % 67.3 % (42.8-82.8); PLATELET COUNT 147 K/MM3 (134-434); RBC 3.97 M/mm3 (4.00-5.60); RDW 16.4 % (11.9-15.9); WHITE BLOOD COUNT 6.1 K/mm3 (4.0-10.0)
[2019-06-18 07:50] LABS: ALBUMIN 2.4 g/dl (3.4-5.0); BILIRUBIN,TOTAL 0.8 mg/dL (0.2-1); BLOOD UREA NITROGEN 26.2 mg/dL (7-18); CREATININE 0.9 mg/dL (0.55-1.3); MAGNESIUM 2.1 mg/dL (1.8-2.4); TOT PROT 5.2 g/dl (6.4-8.2)
[2019-06-18] MEDS: LIDOCAINE 5% TOPICAL PATCH TP SCH (09:28)
[2019-06-18] MEDS: ASPIRIN COATED 81 MG TABLET.EC PO SCH (09:28)
[2019-06-18] MEDS ORDERED: FUROSEMIDE 20 MG TABLET (FP) PO SCH (10:00)
--- NOTE | 2019-06-18 10:58 | CON.ORTH ---
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: No: Alzheimer's, CVA, Dementia, Migraine, Multiple Sclerosis, Peripheral Neuropathy, Parkinson's, Seizure, Syncope, TIA, Vertigo, Other Cardio/Vascular: Yes: AFIB Pulmonary: Yes: Other (Mild PHTN) Gastrointestinal: No: Ascites, Cancer, Constipation, Crohn's Disease, Diverticulitis, Diverticulosis, Esophageal Varices, Gastritis, GERD, GI Bleed, Hemorrhoids, Hiatal Hernia, Inflamatory Bowel Disease, Irritable Bowel Disease, Pancreatitis, Peptic Ulcer Disease, Ulcerative Colitis, Other Hepatobiliary: No: Cirrhosis, Cholelithiasis, Cholecystitis, Choledocholithiasis , Hepatitis A, Hepatitis B, Hepatitis C, Other Renal/: Yes: Renal Failure Infectious Disease: No: AIDS, C-Diff, Herpes Zoster, HIV, MRSA, STD's, Tuberculosis, VREF, Other Psych: No: Addictions, Anxiety, Bipolar, Depression, Panic, Psychosis, Schizophrenia, Other Musculoskeletal: No: Bursitis, Chronic low back pain, Hemiparesis, Hemiplegia, Osteoarthritis, Paraplegia, Other ENT: No: Allergic Rhinitis, Sinusitis, Other Endocrine: No: [place]'s Disease, [place]'s Disease, Diabetes Insipidus, Diabetes Mellitus, Hyperparathyroidism, Hyperthyroidism, Hypothyroidism, Osteopenia, SIADH, Other Dermatology: No: Basal Cell, Cellulitis, Eczema, Melanoma, Psoriasis, Squamous Cell, Other - Alcohol/Substance Use Hx Alcohol Use: Yes (has 2 glasses of whiskey + 1 glass of wine/day) - Smoking History Smoking history: Never smoked Have you smoked in the past 12 months: No Aproximately how many cigarettes per day: 0 - Social History Usual Living Arrangement: With Spouse History of Recent Travel: No Home Medications - Allergies Allergies/Adverse Reactions: Allergies Allergy/AdvReac Type Severity Reaction Status Date / Time No Known Drug Allergies Allergy Verified 02/12/19 12:38 - Home Medications Home Medications: Ambulatory Orders Simvastatin [Zocor -] 40 mg PO HS 02/22/16 Furosemide [Lasix] 40 mg PO BID 05/14/18 Potassium Chloride 20 meq PO DAILY 05/14/18 Warfarin Sodium 4 mg PO DAILY 02/12/19 Acetaminophen [Tylenol] 325 mg PO DAILY PRN 02/13/19 Metolazone [Zaroxolyn -] 2.5 mg PO DAILY 05/13/19 Cephalexin Monohydrate [Keflex -] 500 mg PO Q6H 7 Days #28 capsule 05/17/19 Physical Exam for Ortho Vital Signs: Vital Signs Temperature 97.5 F L 06/18/19 10:09 Pulse Rate 72 06/18/19 10:09 Respiratory Rate 14 06/18/19 10:09 Blood Pressure 120/58 L 06/18/19 10:09 O2 Sat by Pulse Oximetry (%) 97 06/18/19 09:00 Labs: CBC, BMP 06/18/19 06:20 06/18/19 06:20 INR, PTT INR 1.73 (0.83-1.09) H 06/13/19 00:05 - Lower Extremity Knee: Yes: Right, Pain, Swelling, Other (1+ effusion, ROM 0-120, calf soft, nt, nvi) Imaging - Results X-ray: Image Reviewed Assessment/Plan 89 year old male with pmhx of cad, chf, benign brain tumor and a-fib admitted after fall and altered mental status. Pt developed pain and swelling in right knee during hospital stay. No injury/trauma. Pt has h/o right knee pain/OA and has been seen in our office. a/p- right knee djd PT wbat Ice, elevation pain control f/u as outpt upon d/c d/w Dr. King
--- NOTE | 2019-06-18 11:29 | PN ---
Progress Note (short form) - Note Progress Note: s: no chest pain, palps, dizziness, dyspnea Current Medications Acetaminophen (Tylenol -) 650 mg PO Q6H PRN PRN Reason: PAIN LEVEL 6-10 Last Admin: 06/12/19 18:47 Dose: 650 mg Aspirin (Ecotrin -) 81 mg PO DAILY [facility] Last Admin: 06/18/19 09:28 Dose: 81 mg Atorvastatin Calcium (Lipitor -) 20 mg PO HS [facility] Last Admin: 06/17/19 21:22 Dose: 20 mg Furosemide (Lasix -) 20 mg PO DAILY [facility] Last Admin: 06/18/19 09:28 Dose: 20 mg Lidocaine (Lidoderm Patch -) 1 patch TP DAILY [facility] Last Admin: 06/18/19 09:28 Dose: 1 patch Miscellaneous (Lidoderm Patch Removal) 1 each MC DAILY@2199 [facility] Last Admin: 06/17/19 21:30 Dose: Not Given Quetiapine Fumarate (Seroquel -) 12.5 mg PO DAILY@1999 [facility] Last Admin: 06/17/19 21:00 Dose: 12.5 mg Vital Signs Period Temp Pulse Resp BP Sys/Esposito Pulse Ox Last 24 Hr 97.5 F-98.0 F 70-72 14-18 108-130/53-67 97 Constitutional: Yes: No Distress, Calm Cardiovascular: Yes: Regular Rate and Rhythm Respiratory: Yes: CTA Bilaterally Gastrointestinal: Yes: Soft Edema: No Neurological: Yes: Alert, Oriented no jaundice, diaphoresis not agitated Assessment/Plan IMP: Meningioma Atrial fibrillation s/p PPM, on coumadin CAD w/ h/o PCI Acute renal failure-improving. Equivocal TnI Elevated BNP REC: 1. Holter showed rate controlled afib 2. cont PO lasix 3. Coumadin was held due to significant fall risk. cont aspirin 81 mg daily 4. TnI is equivocal elevated in setting ARF and chronic PHTN. Does not represent ACS. BNP also not clinically meaningful in this setting.
--- NOTE | 2019-06-18 13:26 | PN ---
Progress Note, Physician History of Present Illness: Pt seen and examined at bedside. He is awake and alert. He denies shortness of breath. He complains of lower ext edema. - Current Medication List Current Medications: Active Medications Acetaminophen (Tylenol -) 650 mg PO Q6H PRN PRN Reason: PAIN LEVEL 6-10 Last Admin: 06/12/19 18:47 Dose: 650 mg Aspirin (Ecotrin -) 81 mg PO DAILY [facility] Last Admin: 06/18/19 09:28 Dose: 81 mg Atorvastatin Calcium (Lipitor -) 20 mg PO HS [facility] Last Admin: 06/17/19 21:22 Dose: 20 mg Furosemide (Lasix -) 20 mg PO DAILY [facility] Last Admin: 06/18/19 09:28 Dose: 20 mg Lidocaine (Lidoderm Patch -) 1 patch TP DAILY [facility] Last Admin: 06/18/19 09:28 Dose: 1 patch Miscellaneous (Lidoderm Patch Removal) 1 each MC DAILY@2199 [facility] Last Admin: 06/17/19 21:30 Dose: Not Given Quetiapine Fumarate (Seroquel -) 12.5 mg PO DAILY@1999 [facility] Last Admin: 06/17/19 21:00 Dose: 12.5 mg - Objective Vital Signs: Vital Signs Temperature 97.5 F L 06/18/19 10:09 Pulse Rate 72 06/18/19 10:09 Respiratory Rate 14 06/18/19 10:09 Blood Pressure 120/58 L 06/18/19 10:09 O2 Sat by Pulse Oximetry (%) 97 06/18/19 09:00 Constitutional: Yes: Calm Eyes: Yes: Conjunctiva Clear HENT: Yes: Atraumatic Neck: Yes: Supple Cardiovascular: Yes: S1, S2 Respiratory: Yes: CTA Bilaterally Gastrointestinal: Yes: Soft Genitourinary: Yes: WNL Musculoskeletal: Yes: WNL Edema: Yes Edema: LLE: Trace, RLE: Trace Neurological: Yes: Oriented Psychiatric: Yes: Oriented Labs: CBC, BMP 06/18/19 06:20 06/18/19 06:20 INR, PTT INR 1.73 (0.83-1.09) H 06/13/19 00:05 Problem List - Problems (1) MARIELY (acute kidney injury) Code(s): N17.9 - ACUTE KIDNEY FAILURE, UNSPECIFIED (2) Fall Code(s): W19.XXXA - UNSPECIFIED FALL, INITIAL ENCOUNTER Qualifiers: Encounter type: subsequent encounter Qualified Code(s): W19.XXXD - Unspecified fall, subsequent encounter (3) A-fib Code(s): I48.91 - UNSPECIFIED ATRIAL FIBRILLATION (4) CHF (congestive heart failure) Code(s): I50.9 - HEART FAILURE, UNSPECIFIED (5) Elevated INR Code(s): R79.1 - ABNORMAL COAGULATION PROFILE Assessment/Plan Current Medications Generic Name Dose Route Start Last Admin Trade Name Freq PRN Reason Stop Dose Admin Acetaminophen 650 mg 06/09/19 08:17 06/12/19 18:47 Tylenol - PO 650 mg Q6H PRN Administration PAIN LEVEL 6-10 Aspirin 81 mg 06/14/19 10:00 06/18/19 09:28 Ecotrin - PO 81 mg DAILY GEORGE Administration Atorvastatin Calcium 20 mg 06/08/19 22:00 06/17/19 21:22 Lipitor - PO 20 mg HS GEORGE Administration Furosemide 20 mg 06/18/19 10:00 06/18/19 09:28 Lasix - PO 20 mg DAILY GEORGE Administration Lidocaine 1 patch 06/15/19 16:00 06/18/19 09:28 Lidoderm Patch - TP 1 patch DAILY GEORGE Administration Miscellaneous 1 each 06/15/19 22:00 06/17/19 21:30 Lidoderm Patch Removal MC Not Given DAILY@2200 GEORGE Quetiapine Fumarate 12.5 mg 06/11/19 20:00 06/17/19 21:00 Seroquel - PO 12.5 mg DAILY@2000 GEORGE Administration Impression 1. hypokalemia 2. MARIELY 3. s/p fall 4. chf 5. 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 a-fib 7. cad Plan - cont lasix - monitor labs - volume status is stable - cont 20 mg of lasix for now
--- NOTE | 2019-06-18 14:43 | DS ---
Physical Exam: SUBJECTIVE: Patient seen and examined at the bedside. OBJECTIVE: Mr. Marin is a 89 year old male with history of congestive heart failure, coronary artery disease s/p stents/pacemaker non-MRI compatible 15 years ago, atrial fibrillation on Coumadin, and a benign brain tumor who presented with altered mental status changes, weakness and s/p falls. His coumadin levels were elevated on admission and his coumadin has been discontinued. He is being followed by cardiology for elevated troponins and worsening kidney failure. Vital Signs Period Temp Pulse Resp BP Sys/Esposito Pulse Ox Last 24 Hr 97.5 F-98.0 F 70-72 14-18 108-130/53-67 97 PHYSICAL EXAM GENERAL: awake alert and oriented to self and place confused no acute distress HEAD: normal EYES: pupils equal round and reactive to light EARS, NOSE, THROAT: ears normal nares patent oropharynx clear without exudates NECK: no JVD LUNGS: breath sounds equal clear to auscultation bilaterally no rales no use of accessory muscles HEART: regular rate and rhythm ABDOMEN: soft nontender not distended MUSCULOSKELETAL: moving upper and lower extremities UPPER EXTREMITIES: 2+ pulses warm well-perfused no cyanosis LOWER EXTREMITIES: small area of swelling/edema/pain on left lateral. negative doppler. right knee swelling, pain. seen by ortho and further workup as an outpatient. on lidocaine patches. NEUROLOGICAL: no neuro focal deficits PSYCHIATRIC: cooperative good eye contact SKIN: warm dry no rashes or lesions noted LABS Laboratory Results - last 24 hr 06/18/19 06/18/19 06:20 06:20 WBC 6.1 RBC 3.97 L Hgb 11.6 L Hct 35.7 MCV 89.9 MCH 29.1 MCHC 32.3 RDW 16.4 H Plt Count 147 MPV 9.5 Absolute Neuts (auto) 4.1 Neutrophils % 67.3 Lymphocytes % 19.9 Monocytes % 8.6 Eosinophils % 3.5 Basophils % 0.7 Nucleated RBC % 0 Sodium 143 Potassium 4.0 Chloride 110 H Carbon Dioxide 28 Anion Gap 5 L BUN 26.2 H Creatinine 0.9 Est GFR (CKD-EPI)AfAm 88.07 Est GFR (CKD-EPI)NonAf 75.99 Random Glucose 102 Calcium 9.0 Magnesium 2.1 Total Bilirubin 0.8 AST 26 ALT 24 Alkaline Phosphatase 161 H Total Protein 5.2 L Albumin 2.4 L HOSPITAL COURSE: Date of Admission:06/08/19 Date of Discharge: 06/18/19 Minutes to complete discharge: 45 Discharge Summary Problems reviewed: Yes Reason For Visit: ACUTE KIDNEY INJURY HYPERURICEMIA Current Active Problems MARIELY (acute kidney injury) (Acute) Acute delirium (Acute) Acute metabolic encephalopathy (Acute) Fall (Acute) Hyperuricemia (Acute) Knee pain, right (Acute) Meningioma (Acute) Pacemaker (Acute) Prophylactic measure (Acute) Stented coronary artery (Acute) Sundowning (Acute) Syncope and collapse (Acute) Troponin level elevated (Acute) Condition: Improved - Instructions Diet, Activity, Other Instructions: Mr Beltre: You were admitted to [facility] for acute kidney injury, and elevated INR levels. You were also found to have a left swollen knee. Here are your discharge instructions. Acute Kidney Injury Please follow up with Dr. Lovett within 1-2 weeks after diacharge. Continue the Lasix 20mg once per day. Elevated INR levels We have stopped your Coumadin and we will not restart your Coumadin on discharge. Having high levels of INR along with being a fall risk, puts you at danger for developing a head bleed. Therefore, do not restart coumadin. Please see your primary care doctor and hook tender. Please see the hook tender referred to you by calling their office to make an appointment. STOP COUMADIN AND START ASPIRIN 81MG ONCE PER DAY. Falls For safety we have called in a rolling walker for your home use. You will also have a visiting nurse see you. Right knee pain and swelling You were seen by orthopedics for right knee pain and swelling. They would like for you to call them for a follow up appointment. They recommend that you ambulate on this knee as much as tolerable as well as control your pain. You can use Tylenol for knee pain, but do not take any aleve or motrin as these can be bad for your kidneys. You can also use ice. Elevated the knee when you are in bed to decrease the swelling. You can also purchase Lidocaine patches over the counter and apply them to your right knee. Thank you for allowing us to care for you. Referrals: Titus Quijano MD [Primary Care Provider] - Dottie Petersen MD [Staff Physician] - Adrian Lovett MD [Staff Physician] - Raul King MD [Staff Physician] - (for right knee swelling, please call for an appointment.) Disposition: HOME - Home Medications Comprehensive Discharge Medication List: Ambulatory Orders Simvastatin [Zocor -] 40 mg PO HS 02/22/16 Potassium Chloride 20 meq PO DAILY 05/14/18 Acetaminophen [Tylenol] 325 mg PO DAILY PRN 02/13/19 Aspirin Coated [Ecotrin -] 81 mg PO DAILY #90 tablet.ec 06/18/19 Furosemide [Lasix -] 20 mg PO DAILY #90 tablet 06/18/19 Quetiapine Fumarate [Seroquel -] 12.5 mg PO DAILY@1999 #90 tablet 06/18/19 Walker [Ultra-Light Rollator] 1 each MC DAILY #1 each 06/18/19 Problem List - Problems (1) Syncope and collapse Assessment/Plan: resolved. physical therapy, neuro consulted head ct with stable meningioma, unchanged Holter monitor revealed rate controlled AF Coumadin stopped and to be held at home also. patient to follow up with hook tender outpatient. c/w asa 81mg Code(s): R55 - SYNCOPE AND COLLAPSE (2) MARIELY (acute kidney injury) Assessment/Plan: outpatient f/u with nephrology Code(s): N17.9 - ACUTE KIDNEY FAILURE, UNSPECIFIED (3) Fall Assessment/Plan: physical therapy, fall precautions Code(s): W19.XXXA - UNSPECIFIED FALL, INITIAL ENCOUNTER Qualifiers: Encounter type: subsequent encounter Qualified Code(s): W19.XXXD - Unspecified fall, subsequent encounter (4) A-fib Assessment/Plan: Rate controlled currently. coumadin stopped 2/2 to frequent falls and risk of intracranial hemorrhage. holter monitor showed rate controlled Afib cardiology follow up outpatient Code(s): I48.91 - UNSPECIFIED ATRIAL FIBRILLATION (5) Elevated INR Assessment/Plan: coumadin discontinued Code(s): R79.1 - ABNORMAL COAGULATION PROFILE (6) CHF (congestive heart failure) Assessment/Plan: lasix 20 daily per renal Code(s): I50.9 - HEART FAILURE, UNSPECIFIED (7) Troponin level elevated Assessment/Plan: followed by cardiology. patient without chest pain or shortness of breath unlikely ACS per cardiology Code(s): R79.89 - OTHER SPECIFIED ABNORMAL FINDINGS OF BLOOD CHEMISTRY (8) DVT prophylaxis Assessment/Plan: scds. Code(s): [id number] - (9) Knee pain, right Assessment/Plan: knee xray with large suprapatellar bursal effusion ortho consulted and notes reviewed. patient will need to follow up outpatient. continue on lidoderm patches, tylenol along with elevation and ice. Code(s): M25.561 - PAIN IN RIGHT KNEE (10) Prophylactic measure Code(s): Z29.9 - ENCOUNTER FOR PROPHYLACTIC MEASURES, UNSPECIFIED This patient is new to me today: No Emergency Visit: Yes ED Registration Date: 06/08/19 Care time: The patient presented to the Emergency Department on the above date and was hospitalized for further evaluation of their emergent condition. Critical Care patient: No - Discharge Referral Referred to [facility] Med P.C.: No
[2019-06-18 14:54] VITALS: BP 115/68; PULSE 84; TEMP 98.6
== END 2019-06-18 17:52 | disposition home or self-care (01) | DRG 682 ==
LOC: JER 12:48 → JERBED 15:44 → J7W 21:51
PROVIDERS: ADMIT Family Medicine; ATTEND Nurse Practitioner Family
DX: N17.9 Acute kidney failure, unspecified (principal); G93.41 Metabolic encephalopathy; F05 Delirium due to known physiological condition; I25.10 Atherosclerotic heart disease of native coronary artery without angina pectoris; Z95.0 Presence of cardiac pacemaker; I48.91 Unspecified atrial fibrillation; Z79.01 Long term (current) use of anticoagulants; D72.829 Elevated white blood cell count, unspecified; R29.6 Repeated falls; R55 Syncope and collapse; R79.89 Other specified abnormal findings of blood chemistry; I27.20 Pulmonary hypertension, unspecified; E87.6 Hypokalemia; D32.9 Benign neoplasm of meninges, unspecified; M25.561 Pain in right knee; M17.11 Unilateral primary osteoarthritis, right knee; R79.1 Abnormal coagulation profile
CPT/HCPCS: 36415; 70450-TC; 71045-TC-FY; 72125-TC; 73560-TC-RT-FY; 73590-TC-LT-FY; 76775-TC; 76882-TC-RT-FY; 80048; 80053; 81003; 82436; 82550; 82565; 83735; 83880; 84100; 84133; 84300; 84484; 84540; 85025; 85027; 85610; 85730; 87205; 93005; 93010; 93225; 93226; 93971-TC; 94010; 97116-GP; 97162-GP; 99284-25; J7030

== ENCOUNTER 2019-06-26 09:28 | Inpatient (IN) | payer BC, OTHER ==
[2019-06-26 10:45] LABS: BASO % 1.1 % (0-2.0); EOS % 1.7 % (0-4.5); HEMATOCRIT 34.1 % (35.4-49); HEMOGLOBIN 10.9 GM/dL (11.7-16.9); LYMPH % 18.2 % (8-40); MEAN CELL VOLUME 90.6 fl (80-96); MEAN PLT VOLUME 8.6 fl (7.5-11.1); PLATELET COUNT 236 K/MM3 (134-434); RBC 3.77 M/mm3 (4.00-5.60); RDW 16.5 % (11.9-15.9); WHITE BLOOD COUNT 5.6 K/mm3 (4.0-10.0)
[2019-06-26 11:24] LABS: ALBUMIN 2.7 g/dl (3.4-5.0); BILIRUBIN,TOTAL 0.9 mg/dL (0.2-1); BLOOD UREA NITROGEN 13.4 mg/dL (7-18); CALCIUM 9.2 mg/dL (8.5-10.1); CREATININE 0.9 mg/dL (0.55-1.3); N-TERMINAL BNP 6965.9 pg/ml (5-450); POTASSIUM 4.5 mmol/L (3.5-5.1); TOT PROT 5.7 g/dl (6.4-8.2)
[2019-06-26] MEDS ORDERED: FUROSEMIDE 40 MG/4 ML INJECTABLE VIAL IVPUSH ONE ×2 (11:50→18:00)
[2019-06-26] MEDS ORDERED: FUROSEMIDE 40 MG/4 ML INJECTABLE VIAL ONE (12:04)
--- NOTE | 2019-06-26 12:22 | PDOC ---
Documentation entered by Shanae Salas SCRIBE, acting as scribe for Leah Steen MD. Leah Steen MD: This documentation has been prepared by the Josue rosenberg Sammi, SCRIBE, under my direction and personally reviewed by me in its entirety. I confirm that the documentation accurately reflects all work, treatment, procedures, and medical decision making performed by me. History of Present Illness - General Chief Complaint: Back Pain Stated Complaint: SWELLING OF LEGS Time Seen by Provider: 06/26/19 10:19 - History of Present Illness Initial Comments: 06/26/19 10:33 The patient is an 89 year old male, with a significant PMH of CHF, CAD s/p stents/pacemaker non-MRI compatible 15 years ago on Coumadin, who presents to the emergency department for evaluation of worsening lower extremity edema and vaguely described back pain since yesterday. The patients at bedside notes history of LE edema and blood clot which was relieved with blood thinner and water pill. The patient is a poor historian. The patient denies chest pain or shortness of breath. Denies fever, chills, nausea, or vomiting. Denies dysuria, frequency, urgency and hematuria. Allergies: NKA PCP: Froylan Past History - Past Medical History Allergies/Adverse Reactions: Allergies Allergy/AdvReac Type Severity Reaction Status Date / Time No Known Drug Allergies Allergy Verified 02/12/19 12:38 Home Medications: Ambulatory Orders Simvastatin [Zocor -] 40 mg PO HS 02/22/16 Potassium Chloride 20 meq PO DAILY 05/14/18 Acetaminophen [Tylenol] 325 mg PO DAILY PRN 02/13/19 Aspirin Coated [Ecotrin -] 81 mg PO DAILY #90 tablet.ec 06/18/19 Furosemide [Lasix -] 20 mg PO DAILY #90 tablet 06/18/19 Quetiapine Fumarate [Seroquel -] 12.5 mg PO DAILY@1999 #90 tablet 06/18/19 Anemia: No Cancer: (stable meningimoma) Cardiac Disorders: Yes (CHF, PPM, AF) CVA: No COPD: No CHF: Yes Dementia: No Diabetes: No GI Disorders: No Disorders: No HTN: Yes Hypercholesterolemia: Yes Liver Disease: No Seizures: No Thyroid Disease: No - Surgical History Appendectomy: Yes Cardiac Surgery: Yes (PACEMAKER, STENT) Orthopedic Surgery: Yes (wrist) - Immunization History Immunization Up to Date: Yes - Psycho Social/Smoking Cessation Hx Smoking Status: No Smoking History: Never smoked Have you smoked in the past 12 months: No Number of Cigarettes Smoked Daily: 0 Information on smoking cessation initiated: No Hx Alcohol Use: No Drug/Substance Use Hx: No Substance Use Type: None Hx Substance Use Treatment: No Review of Systems - Review of Systems Comments:: 06/26/19 10:34 GENERAL/CONSTITUTIONAL: No fever or chills. No weakness. HEAD, EYES, EARS, NOSE AND THROAT: No change in vision. No ear pain or discharge. No sore throat. CARDIOVASCULAR: No chest pain or shortness of breath. RESPIRATORY: No cough, wheezing, or hemoptysis. GASTROINTESTINAL: No nausea, vomiting, diarrhea or constipation. GENITOURINARY: No dysuria, frequency, or change in urination. MUSCULOSKELETAL: + back pain. +lower extremity edema. No neck pain. SKIN: No rash NEUROLOGIC: No headache, vertigo, loss of consciousness, or change in strength/ sensation. *Physical Exam - Vital Signs Last Vital Signs Temp Pulse Resp BP Pulse Ox 97.6 F 70 18 126/62 98 06/26/19 09:38 06/26/19 09:38 06/26/19 09:38 06/26/19 09:38 06/26/19 09:38 - Physical Exam Comments: 06/26/19 10:34 GENERAL: Alert, oriented, mildly confused, no acute distress NECK: Normal ROM, supple, no lymphadenopathy, JVD, or masses BACK: No point tenderness of spine. No CVA tenderness. LUNGS: Breath sounds equal, clear to auscultation bilaterally. No wheezes, and no crackles HEART: Regular rate and rhythm, normal S1 and S2, no murmurs, rubs or gallops ABDOMEN: Soft, nontender. EXTREMITIES: +2+ pitting edema to knees bilaterally. No clubbing or cyanosis. No cords, erythema, or tenderness NEUROLOGICAL: Cranial nerves II through XII grossly intact. Normal speech. SKIN: Warm, Dry, normal turgor, no rashes or lesions noted. ED Treatment Course - LABORATORY CBC & Chemistry Diagram: 06/26/19 10:35 06/26/19 10:35 - ADDITIONAL ORDERS Additional order review: 06/26/19 10:35 RBC 3.77 L MCV 90.6 MCHC 32.0 RDW 16.5 H MPV 8.6 Neutrophils % 71.0 Lymphocytes % 18.2 Monocytes % 8.0 Eosinophils % 1.7 Basophils % 1.1 - RADIOLOGY Radiology Studies Ordered: Category Date Time Status CXRPORT [CHEST X-RAY PORTABLE*] [RAD] Stat Radiology 06/26/19 10:32 Taken Medical Decision Making - Medical Decision Making 06/26/19 11:04 Pt presents to the ED complaining of vague back pain and worsening leg swelling. Denies other complaints. History of CHF and CAD. Differential includes CHF exacerbation, less likely 06/26/19 11:05 Discharge - Discharge Information Problems reviewed: Yes Clinical Impression/Diagnosis: CHF (congestive heart failure) Qualifiers: Heart failure type: unspecified Heart failure chronicity: acute on chronic Qualified Code(s): I50.9 - Heart failure, unspecified Condition: Fair - Admission Yes - Follow up/Referral Referrals: Titus Quijano MD [Primary Care Provider] - - Patient Discharge Instructions - Post Discharge Activity
--- NOTE | 2019-06-26 12:31 | HP ---
Admitting History and Physical - Primary Care Physician PCP: Titus Quijano - Admission Chief Complaint: lower extremity swelling History of Present Illness: 89 year old male with history of congestive heart failure, coronary artery disease s/p stents/pacemaker non-MRI compatible 15 years ago, atrial fibrillation on Coumadin, and a benign brain tumor who presented increasung lower extremity edema. Pt was recently discharge on 06/18 from [facility] after prolonged hospital stay for fall with MARIELY, elevated INR and metabolic encepalopathy. 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: Alzheimer's, CVA, Dementia, Migraine, Multiple Sclerosis, Peripheral Neuropathy, Parkinson's, Seizure, Syncope, TIA, Vertigo, Other Cardiovascular: Yes: AFIB Pulmonary: Yes: Other (Mild PHTN) Renal/: Yes: Renal Failure - Smoking History Smoking history: Never smoked Have you smoked in the past 12 months: No Aproximately how many cigarettes per day: 0 - Alcohol/Substance Use Hx Alcohol Use: No - Social History Usual Living Arrangement: Yes: With Spouse ADL: Family Assistance History of Recent Travel: No Home Medications - Allergies Allergies/Adverse Reactions: Allergies Allergy/AdvReac Type Severity Reaction Status Date / Time No Known Drug Allergies Allergy Verified 02/12/19 12:38 - Home Medications Home Medications: Ambulatory Orders Simvastatin [Zocor -] 40 mg PO HS 02/22/16 Potassium Chloride 20 meq PO DAILY 05/14/18 Acetaminophen [Tylenol] 325 mg PO DAILY PRN 02/13/19 Aspirin Coated [Ecotrin -] 81 mg PO DAILY #90 tablet.ec 06/18/19 Furosemide [Lasix -] 20 mg PO DAILY #90 tablet 06/18/19 Quetiapine Fumarate [Seroquel -] 12.5 mg PO DAILY@1999 #90 tablet 06/18/19 Family Medical History Family History: Unremarkable Review of Systems - Review of Systems Constitutional: reports: No Symptoms Eyes: reports: No Symptoms HENT: reports: No Symptoms Neck: reports: No Symptoms Cardiovascular: reports: Edema Respiratory: reports: SOB on Exertion Gastrointestinal: reports: No Symptoms Genitourinary: reports: No Symptoms Breasts: reports: No Symptoms Reported Musculoskeletal: reports: No Symptoms Integumentary: reports: No Symptoms Neurological: reports: No Symptoms Endocrine: reports: No Symptoms Hematology/Lymphatic: reports: No Symptoms Psychiatric: reports: No Symptoms Physical Examination Vital Signs: Vital Signs Temperature 97.6 F 06/26/19 09:38 Pulse Rate 70 06/26/19 09:38 Respiratory Rate 18 06/26/19 09:38 Blood Pressure 126/62 06/26/19 09:38 O2 Sat by Pulse Oximetry (%) 98 06/26/19 09:38 Constitutional: Yes: Well Nourished, No Distress, Calm Eyes: Yes: WNL, Conjunctiva Clear, EOM Intact HENT: Yes: WNL, Atraumatic, Normocephalic Neck: Yes: WNL, Supple, Trachea Midline Cardiovascular: Yes: WNL, Regular Rate and Rhythm Respiratory: Yes: WNL, Regular, CTA Bilaterally Gastrointestinal: Yes: WNL, Normal Bowel Sounds ...Rectal Exam: Yes: Deferred Renal/: Yes: Polyuria Musculoskeletal: Yes: WNL Edema: Yes Edema: LLE: 2+, RLE: 3+ Peripheral Pulses WNL: Yes Peripheral Pulses: Left Radial: 2+, Right Radial: 2+, Left Doralis Pedis: 2+, Right Dorsalis Pedis: 2+, Left Femoral: 2+, Right Femoral: 2+ Integumentary: Yes: WNL Neurological: Yes: WNL, Alert, Oriented ...Motor Strength: WNL Psychiatric: Yes: WNL Labs: CBC, BMP 06/26/19 10:35 06/26/19 10:35 Imaging - Results Chest X-ray: Image Reviewed (atelectasis, effusion on left) Problem List - Problems (1) CHF (congestive heart failure) Assessment/Plan: increased edema to LE with mild dyspnea on exertion Lasix 20mg IV x 1 last admission methalozine was stopped with MARIELY will increase lasix to 40mg bid daily weights strict I/Os Code(s): I50.9 - HEART FAILURE, UNSPECIFIED Qualifiers: Heart failure type: unspecified Heart failure chronicity: acute on chronic Qualified Code(s): I50.9 - Heart failure, unspecified (2) A-fib Assessment/Plan: prior admission holter monitor showed rate controlled AFib c/w asa 81mg Code(s): I48.91 - UNSPECIFIED ATRIAL FIBRILLATION (3) COPD (chronic obstructive pulmonary disease) Code(s): J44.9 - CHRONIC OBSTRUCTIVE PULMONARY DISEASE, UNSPECIFIED (4) Meningioma Assessment/Plan: head ct with stable meningioma, unchanged Code(s): D32.9 - BENIGN NEOPLASM OF MENINGES, UNSPECIFIED (5) Pacemaker Code(s): Z95.0 - PRESENCE OF CARDIAC PACEMAKER (6) Prophylactic measure Assessment/Plan: FEN low salt diet monitor electrolytes DVT coumdain stopped last admission d/t to high risk for falls c/w asa 81 Dispo maintain as in patient discharge planning to home full code Code(s): Z29.9 - ENCOUNTER FOR PROPHYLACTIC MEASURES, UNSPECIFIED (7) Stented coronary artery Assessment/Plan: Holter monitor revealed rate controlled AF prior admission Coumadin stopped last c/w asa 81mg Code(s): Z95.5 - PRESENCE OF CORONARY ANGIOPLASTY IMPLANT AND GRAFT Visit type - Emergency Visit Emergency Visit: Yes ED Registration Date: 06/26/19 Care time: The patient presented to the Emergency Department on the above date and was hospitalized for further evaluation of their emergent condition. - New Patient This patient is new to me today: Yes Date on this admission: 06/26/19 - Critical Care Critical Care patient: No
--- NOTE | 2019-06-26 14:25 | EKG ---
Test Reason : Blood Pressure : / mmHG Vent. Rate : 074 BPM Atrial Rate : 074 BPM P-R Int : 000 ms QRS Dur : 180 ms QT Int : 472 ms P-R-T Axes : 000 226 086 degrees QTc Int : 523 ms Ventricular-paced rhythm WITH FREQUENT PREMATURE VENTRICULAR COMPLEXES ABNORMAL ECG WHEN COMPARED WITH ECG OF 08-JUN-2019 12:35, PREMATURE VENTRICULAR COMPLEXES ARE NOW PRESENT VENT. RATE HAS INCREASED BY 4 BPM Confirmed by ALANIS CARTY MD ([id number]) on 06/26/2019 2:25:14 PM Referred By: Confirmed By:ALANIS CARYT MD
--- NOTE | 2019-06-26 16:36 | CONSULT ---
Consult Consult Specialty:: Nephrology Reason for Consultation:: CKD and fluid overload - History of Present Illness Chief Complaint: lower ext edema History of Present Illness: Pt is an 89 year old male who was recently discharged after a hospitalization with MARIELY. He was found to be in mariely secondary to prerenal disease. His diuretics were stopped and he was given fluids. He was later restarted on 20 mg of lasix. He presents today with lower ext edema. He does have hx of a-fib and chf. He denies dysuria or hematuria. 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: Alzheimer's, CVA, Dementia, Migraine, Multiple Sclerosis, Peripheral Neuropathy, Parkinson's, Seizure, Syncope, TIA, Vertigo, Other Cardio/Vascular: Yes: AFIB Pulmonary: Yes: Other (Mild PHTN) Renal/: Yes: Renal Failure - Alcohol/Substance Use Hx Alcohol Use: No - Smoking History Smoking history: Never smoked Have you smoked in the past 12 months: No Aproximately how many cigarettes per day: 0 - Social History Usual Living Arrangement: With Spouse History of Recent Travel: No Home Medications - Allergies Allergies/Adverse Reactions: Allergies Allergy/AdvReac Type Severity Reaction Status Date / Time No Known Drug Allergies Allergy Verified 02/12/19 12:38 - Home Medications Home Medications: Ambulatory Orders Simvastatin [Zocor -] 40 mg PO HS 02/22/16 Potassium Chloride 20 meq PO DAILY 05/14/18 Acetaminophen [Tylenol] 325 mg PO DAILY PRN 02/13/19 Aspirin Coated [Ecotrin -] 81 mg PO DAILY #90 tablet.ec 06/18/19 Furosemide [Lasix -] 20 mg PO DAILY #90 tablet 06/18/19 Quetiapine Fumarate [Seroquel -] 12.5 mg PO DAILY@1999 #90 tablet 06/18/19 Family Medical History Family History: Denies Review of Systems - Review of Systems Constitutional: reports: No Symptoms Eyes: reports: No Symptoms HENT: reports: No Symptoms Neck: reports: No Symptoms Cardiovascular: reports: Edema Respiratory: reports: SOB on Exertion Gastrointestinal: reports: No Symptoms Genitourinary: reports: No Symptoms Musculoskeletal: reports: No Symptoms Integumentary: reports: No Symptoms Neurological: reports: No Symptoms Endocrine: reports: No Symptoms Physical Exam Vital Signs: Vital Signs Temperature 97.4 F L 06/26/19 14:30 Pulse Rate 70 06/26/19 14:30 Respiratory Rate 20 06/26/19 14:30 Blood Pressure 132/73 06/26/19 14:30 O2 Sat by Pulse Oximetry (%) 96 06/26/19 12:53 Constitutional: Yes: Calm Eyes: Yes: Conjunctiva Clear HENT: Yes: Atraumatic Neck: Yes: Supple Cardiovascular: Yes: S1, S2 Respiratory: Yes: CTA Bilaterally Gastrointestinal: Yes: Soft Renal/: Yes: WNL Musculoskeletal: Yes: WNL Edema: Yes Edema: LLE: 2+, RLE: 2+ Neurological: Yes: Oriented Psychiatric: Yes: Oriented Labs: CBC, BMP 06/26/19 10:35 06/26/19 10:35 Laboratory Tests 06/09/19 06/09/19 19:40 19:40 Urine Protein Negative Urine Blood Negative Ur Random Sodium 12 L Imaging - Results Chest X-ray: Report Reviewed Problem List - Problems (1) CHF (congestive heart failure) Code(s): I50.9 - HEART FAILURE, UNSPECIFIED Qualifiers: Heart failure type: unspecified Heart failure chronicity: acute on chronic Qualified Code(s): I50.9 - Heart failure, unspecified (2) A-fib Code(s): I48.91 - UNSPECIFIED ATRIAL FIBRILLATION Assessment/Plan Current Medications Generic Name Dose Route Start Last Admin Trade Name Mariangel PRN Reason Stop Dose Admin Acetaminophen 325 mg 06/26/19 14:14 Tylenol - PO DAILY PRN PAIN Aspirin 81 mg 06/27/19 10:00 Ecotrin - PO DAILY [facility] Atorvastatin Calcium 20 mg 06/26/19 22:00 Lipitor - PO HS [facility] Furosemide 40 mg 06/26/19 18:00 Lasix Injection - IVPUSH 06/26/19 18:01 ONCE ONE Furosemide 40 mg 06/27/19 06:00 Lasix - PO BID@0600,1400 [facility] Quetiapine Fumarate 12.5 mg 06/26/19 20:00 Seroquel - PO DAILY@2000 [facility] Impression 1. lower ext edema 2. hx of MARIELY 3. cad 4. chf 5. 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 a-fib Plan - agree with a dose of IV lasix - increase lasix to 40 daily - monitor volume status - 2 gram sodium diet
[2019-06-26 16:38] LABS: HEMATOCRIT 34.5 % (35.4-49); HEMOGLOBIN 11.2 GM/dL (11.7-16.9); MCH 29.1 pg (25.7-33.7); MCHC 32.3 g/dl (32.0-35.9); MEAN PLT VOLUME 8.7 fl (7.5-11.1); PLATELET COUNT 230 K/MM3 (134-434); RBC 3.84 M/mm3 (4.00-5.60); RDW 16.5 % (11.9-15.9); WHITE BLOOD COUNT 5.3 K/mm3 (4.0-10.0)
[2019-06-26 17:49] VITALS: BMI 25.9
[2019-06-26] MEDS: QUEtiapine FUMARATE 25 MG TABLET (FP) PO SCH (21:03)
[2019-06-26] MEDS: ATORVASTATIN CA 20 MG TABLET (FP) PO SCH (22:14)
[2019-06-27] MEDS: FUROSEMIDE 40 MG TABLET (FP) PO SCH ×2 (05:06→15:12)
[2019-06-27 08:20] LABS: INR 1.13 (0.83-1.09); PROTHROMBIN TIME (PATIENT) 13.4 SEC (9.7-13.0)
[2019-06-27 08:32] LABS: ALBUMIN 3.2 g/dl (3.4-5.0); BILIRUBIN,TOTAL 1.3 mg/dL (0.2-1); BLOOD UREA NITROGEN 13.4 mg/dL (7-18); CALCIUM 9.6 mg/dL (8.5-10.1); MAGNESIUM 1.8 mg/dL (1.8-2.4); N-TERMINAL BNP 7219.9 pg/ml (5-450); PHOSPHOROUS 2.6 mg/dL (2.5-4.9); POTASSIUM 3.6 mmol/L (3.5-5.1); TOT PROT 6.8 g/dl (6.4-8.2)
--- NOTE | 2019-06-27 08:38 | PN ---
Progress Note, Physician History of Present Illness: 89 year old male with history of congestive heart failure, coronary artery disease s/p stents/pacemaker non-MRI compatible 15 years ago, atrial fibrillation and a benign brain tumor who presented increasing lower extremity edema. Pt was recently discharge on 06/18 from [facility] after prolonged hospital stay for fall with MARIELY, elevated INR and metabolic encephalopathy - Current Medication List Current Medications: Active Medications Acetaminophen (Tylenol -) 325 mg PO DAILY PRN PRN Reason: PAIN Aspirin (Ecotrin -) 81 mg PO DAILY [facility] Atorvastatin Calcium (Lipitor -) 20 mg PO HS [facility] Last Admin: 06/26/19 22:14 Dose: 20 mg Furosemide (Lasix -) 40 mg PO BID@0600,1400 [facility] Last Admin: 06/27/19 05:06 Dose: 40 mg Quetiapine Fumarate (Seroquel -) 12.5 mg PO DAILY@1999 [facility] Last Admin: 06/26/19 21:03 Dose: 12.5 mg - Objective Vital Signs: Vital Signs Temperature 98.7 F 06/27/19 06:00 Pulse Rate 70 06/27/19 06:00 Respiratory Rate 18 06/27/19 06:00 Blood Pressure 135/73 06/27/19 06:00 O2 Sat by Pulse Oximetry (%) 96 06/26/19 21:00 Additional Findings/Remarks: Constitutional: Yes: Well Nourished, No Distress, Calm Eyes: Yes: WNL, Conjunctiva Clear, EOM Intact HENT: Yes: WNL, Atraumatic, Normocephalic Neck: Yes: WNL, Supple, Trachea Midline Cardiovascular: Yes: WNL, Regular Rate and Rhythm Respiratory: Yes: WNL, Regular, CTA Bilaterally Gastrointestinal: Yes: WNL, Normal Bowel Sounds ...Rectal Exam: Yes: Deferred Renal/: Yes: Polyuria Musculoskeletal: Yes: WNL Edema: Yes Edema: LLE: 2+, RLE: 3+ Peripheral Pulses WNL: Yes Peripheral Pulses: Left Radial: 2+, Right Radial: 2+, Left Doralis Pedis: 2+, Right Dorsalis Pedis: 2+, Left Femoral: 2+, Right Femoral: 2+ Integumentary: Yes: WNL Neurological: Yes: WNL, Alert, Oriented ...Motor Strength: WNL Psychiatric: Yes: WNL Labs: CBC, BMP 06/27/19 07:20 INR, PTT INR 1.13 (0.83-1.09) H 06/27/19 07:20 Problem List - Problems (1) CHF (congestive heart failure) Assessment/Plan: increased edema to LE with mild dyspnea on exertion Lasix 20mg IV x 1 overnigh last admission methalozine was stopped with MARIELY will increase lasix to 40mg bid daily weights-weight down 2 kg since admission strict I/Os Code(s): I50.9 - HEART FAILURE, UNSPECIFIED Qualifiers: Heart failure type: unspecified Heart failure chronicity: acute on chronic Qualified Code(s): I50.9 - Heart failure, unspecified (2) A-fib Assessment/Plan: prior admission holter monitor showed rate controlled AFib c/w asa 81mg Code(s): I48.91 - UNSPECIFIED ATRIAL FIBRILLATION (3) COPD (chronic obstructive pulmonary disease) Code(s): J44.9 - CHRONIC OBSTRUCTIVE PULMONARY DISEASE, UNSPECIFIED (4) Meningioma Assessment/Plan: head ct with stable meningioma, unchanged Code(s): D32.9 - BENIGN NEOPLASM OF MENINGES, UNSPECIFIED (5) Pacemaker Assessment/Plan: placed 15 years ago Code(s): Z95.0 - PRESENCE OF CARDIAC PACEMAKER (6) Prophylactic measure Assessment/Plan: FEN low salt diet monitor electrolytes DVT coumdain stopped last admission d/t to high risk for falls c/w asa 81 Dispo maintain as in patient family requesting discharge to SNF. Request placed. Spoke to PCP Dr Francisco and agrees that pt will benet with [facility]/SNF full code Code(s): Z29.9 - ENCOUNTER FOR PROPHYLACTIC MEASURES, UNSPECIFIED (7) Stented coronary artery Assessment/Plan: Holter monitor revealed rate controlled AF prior admission Coumadin stopped last c/w asa 81mg Code(s): Z95.5 - PRESENCE OF CORONARY ANGIOPLASTY IMPLANT AND GRAFT (8) Lower extremity edema Assessment/Plan: dopplers done on 06/09 without evidence of DVT LE edema BL, if sewlling doesnt improve with increased lasix or becomes unilateral with considers re-imaging Code(s): R60.0 - LOCALIZED EDEMA (9) Sundowning Assessment/Plan: pt with mild confusion overnight started on seroquel during last admission family states he has has slight confusion at home also since discharge c/w seroquel @ 12.5mg hs. Will increase to 25 if confsuion increasing Code(s): F05 - DELIRIUM DUE TO KNOWN PHYSIOLOGICAL CONDITION Visit type - Emergency Visit Emergency Visit: Yes ED Registration Date: 06/26/19 Care time: The patient presented to the Emergency Department on the above date and was hospitalized for further evaluation of their emergent condition. - New Patient This patient is new to me today: No - Critical Care Critical Care patient: No - Discharge Referral Referred to [facility] Med P.C.: No
[2019-06-27] MEDS: ASPIRIN COATED 81 MG TABLET.EC PO SCH (09:28)
[2019-06-27 13:39] LABS: HEMATOCRIT 38.7 % (35.4-49); HEMOGLOBIN 12.6 GM/dL (11.7-16.9); MCH 29.4 pg (25.7-33.7); MCHC 32.4 g/dl (32.0-35.9); MEAN CELL VOLUME 90.7 fl (80-96); MEAN PLT VOLUME 9.4 fl (7.5-11.1); PLATELET COUNT 298 K/MM3 (134-434); RBC 4.27 M/mm3 (4.00-5.60)
[2019-06-27] MEDS ORDERED: POTASSIUM CHLORIDE TABS 20 MEQ TABLET.ER (FP) PO ONE (15:14)
--- NOTE | 2019-06-27 15:14 | PN ---
Progress Note, Physician History of Present Illness: Pt seen and examined at bedside. He is awake and alert. He denies shortness of breath. He feels that his edema is improving. - Current Medication List Current Medications: Active Medications Acetaminophen (Tylenol -) 325 mg PO DAILY PRN PRN Reason: PAIN Aspirin (Ecotrin -) [address] [facility] Last Admin: 06/27/19 09:28 Dose: 81 mg Atorvastatin Calcium (Lipitor -) [address] [facility] Last Admin: 06/26/19 22:14 Dose: 20 mg Furosemide (Lasix -) 40 mg PO BID@0600,1400 [facility] Last Admin: 06/27/19 05:06 Dose: 40 mg Quetiapine Fumarate (Seroquel -) 12.5 mg PO DAILY@1999 [facility] Last Admin: 06/26/19 21:03 Dose: 12.5 mg - Objective Vital Signs: Vital Signs Temperature 98.4 F 06/27/19 09:55 Pulse Rate 72 06/27/19 09:55 Respiratory Rate 20 06/27/19 09:55 Blood Pressure 137/81 06/27/19 09:55 O2 Sat by Pulse Oximetry (%) 97 06/27/19 09:00 Constitutional: Yes: Calm Eyes: Yes: Conjunctiva Clear HENT: Yes: Atraumatic Neck: Yes: Supple Cardiovascular: Yes: S1, S2 Respiratory: Yes: CTA Bilaterally Gastrointestinal: Yes: Normal Bowel Sounds, Soft Genitourinary: Yes: WNL Musculoskeletal: Yes: WNL Edema: Yes Edema: LLE: 1+, RLE: 1+ Neurological: Yes: Oriented Psychiatric: Yes: Oriented Labs: CBC, BMP 06/27/19 07:20 06/27/19 07:20 INR, PTT INR 1.13 (0.83-1.09) H 06/27/19 07:20 Problem List - Problems (1) CHF (congestive heart failure) Code(s): I50.9 - HEART FAILURE, UNSPECIFIED Qualifiers: Heart failure type: unspecified Heart failure chronicity: acute on chronic Qualified Code(s): I50.9 - Heart failure, unspecified (2) A-fib Code(s): I48.91 - UNSPECIFIED ATRIAL FIBRILLATION Assessment/Plan Current Medications Generic Name Dose Route Start Last Admin Trade Name Freq PRN Reason Stop Dose Admin Acetaminophen 325 mg 06/26/19 14:14 Tylenol - PO DAILY PRN PAIN Aspirin 81 mg 06/27/19 10:00 06/27/19 09:28 Ecotrin - PO 81 mg DAILY GEORGE Administration Atorvastatin Calcium 20 mg 06/26/19 22:00 06/26/19 22:14 Lipitor - PO 20 mg HS [facility]ORGE Administration Furosemide 40 mg 06/27/19 06:00 06/27/19 15:12 Lasix - PO 40 mg BID@0600,1400 [facility] Administration Quetiapine Fumarate 12.5 mg 06/26/19 20:00 06/26/19 21:03 Seroquel - PO 12.5 mg DAILY@2000 [facility] Administration Impression 1. lower ext edema 2. hx of MARIELY 3. cad 4. chf 5. 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 a-fib Plan - cont lasix - monitor lytes - replace potassium - volume status improved - will follow PRN
[2019-06-27] MEDS: ATORVASTATIN CA 20 MG TABLET (FP) PO SCH (21:46)
[2019-06-27] MEDS: QUEtiapine FUMARATE 25 MG TABLET (FP) PO SCH (21:47)
[2019-06-27] MEDS ORDERED: LORazepam 2 MG/ML SDV VIAL IVPUSH ONE (23:50)
[2019-06-28] MEDS ORDERED: MELATONIN 5 MG TABLETS PO ONE (00:09)
[2019-06-28] MEDS: FUROSEMIDE 40 MG TABLET (FP) PO SCH ×2 (07:42→14:10)
--- NOTE | 2019-06-28 08:20 | PN ---
Progress Note, Physician Chief Complaint: Patient confused overnight. Alert and oriented today. Asking to go home. Pending approval for STR/SNF History of Present Illness: 89 year old male with history of congestive heart failure, coronary artery disease s/p stents/pacemaker non-MRI compatible 15 years ago, atrial fibrillation and a benign brain tumor who presented increasing lower extremity edema. Pt was recently discharge on 06/18 from [facility] after prolonged hospital stay for fall with MARIELY, elevated INR and metabolic encephalopathy - Current Medication List Current Medications: Active Medications Acetaminophen (Tylenol -) 325 mg PO DAILY PRN PRN Reason: PAIN Aspirin (Ecotrin -) 81 mg PO DAILY [facility] Last Admin: 06/27/19 09:28 Dose: 81 mg Atorvastatin Calcium (Lipitor -) 20 mg PO HS [facility] Last Admin: 06/27/19 21:46 Dose: 20 mg Furosemide (Lasix -) 40 mg PO BID@0600,1400 [facility] Last Admin: 06/28/19 07:42 Dose: 40 mg Quetiapine Fumarate (Seroquel -) 12.5 mg PO DAILY@2000 [facility] Last Admin: 06/27/19 21:47 Dose: 12.5 mg - Objective Vital Signs: Vital Signs Temperature 98.3 F 06/28/19 05:00 Pulse Rate 74 06/28/19 05:00 Respiratory Rate 20 06/28/19 05:00 Blood Pressure 132/74 06/28/19 05:00 O2 Sat by Pulse Oximetry (%) 97 06/27/19 21:00 Additional Findings/Remarks: Constitutional: Yes: Well Nourished, No Distress, Calm Eyes: Yes: WNL, Conjunctiva Clear, EOM Intact HENT: Yes: WNL, Atraumatic, Normocephalic Neck: Yes: WNL, Supple, Trachea Midline Cardiovascular: Yes: WNL, Regular Rate and Rhythm Respiratory: Yes: WNL, Regular, CTA Bilaterally Gastrointestinal: Yes: WNL, Normal Bowel Sounds ...Rectal Exam: Yes: Deferred Renal/: Yes: Polyuria Musculoskeletal: Yes: WNL Edema: Yes Edema: LLE: 1+, RLE: 2+ Peripheral Pulses WNL: Yes Peripheral Pulses: Left Radial: 2+, Right Radial: 2+, Left Doralis Pedis: 2+, Right Dorsalis Pedis: 2+, Left Femoral: 2+, Right Femoral: 2+ Integumentary: Yes: WNL Neurological: Yes: WNL, Alert, Oriented ...Motor Strength: WNL Psychiatric: Yes: WNL Labs: CBC, BMP 06/27/19 07:20 06/27/19 07:20 INR, PTT INR 1.13 (0.83-1.09) H 06/27/19 07:20 Problem List - Problems (1) CHF (congestive heart failure) Assessment/Plan: increased edema to LE with mild dyspnea on exertion Lasix 20mg IV gievn in ED last admission methalozine was stopped with MARIELY c/w increased dose lasix 40mg bid daily weights-weight down 3 kg since admission strict I/Os Code(s): I50.9 - HEART FAILURE, UNSPECIFIED Qualifiers: Heart failure type: unspecified Heart failure chronicity: acute on chronic Qualified Code(s): I50.9 - Heart failure, unspecified (2) A-fib Assessment/Plan: prior admission holter monitor showed rate controlled AFib c/w asa 81mg Code(s): I48.91 - UNSPECIFIED ATRIAL FIBRILLATION (3) COPD (chronic obstructive pulmonary disease) Code(s): J44.9 - CHRONIC OBSTRUCTIVE PULMONARY DISEASE, UNSPECIFIED (4) Meningioma Assessment/Plan: head ct with stable meningioma, unchanged Code(s): D32.9 - BENIGN NEOPLASM OF MENINGES, UNSPECIFIED (5) Pacemaker Assessment/Plan: placed 15 years ago Code(s): Z95.0 - PRESENCE OF CARDIAC PACEMAKER (6) Prophylactic measure Assessment/Plan: FEN low salt diet monitor electrolytes DVT coumdain stopped last admission d/t to high risk for falls c/w asa 81 Dispo maintain as in patient family requesting discharge to SNF. Request placed. Spoke to PCP Dr Francisco and agrees that pt will benefir with STR/SNF. Awaiting authorization full code Code(s): Z29.9 - ENCOUNTER FOR PROPHYLACTIC MEASURES, UNSPECIFIED (7) Stented coronary artery Assessment/Plan: Holter monitor revealed rate controlled AF prior admission Coumadin stopped last c/w asa 81mg Code(s): Z95.5 - PRESENCE OF CORONARY ANGIOPLASTY IMPLANT AND GRAFT (8) Lower extremity edema Assessment/Plan: dopplers done on 06/09 without evidence of DVT edema improving c/w lasix Code(s): R60.0 - LOCALIZED EDEMA (9) Assessment/Plan: pt with worse confusion overnight started on seroquel during last admission family states he has has slight confusion at home also since discharge will increase seroquel @to 25mg hs tonight Code(s): F05 - DELIRIUM DUE TO KNOWN PHYSIOLOGICAL CONDITION Visit type - Emergency Visit Emergency Visit: Yes ED Registration Date: 06/26/19 Care time: The patient presented to the Emergency Department on the above date and was hospitalized for further evaluation of their emergent condition. - New Patient This patient is new to me today: No - Critical Care Critical Care patient: No - Discharge Referral Referred to [facility] No
[2019-06-28 09:15] LABS: ALBUMIN 2.8 g/dl (3.4-5.0); BILIRUBIN,TOTAL 1.5 mg/dL (0.2-1); CALCIUM 9.3 mg/dL (8.5-10.1); CREATININE 0.9 mg/dL (0.55-1.3); PHOSPHOROUS 2.8 mg/dL (2.5-4.9); POTASSIUM 3.8 mmol/L (3.5-5.1); TOT PROT 5.9 g/dl (6.4-8.2)
[2019-06-28 09:18] LABS: INR 1.18 (0.83-1.09); PROTHROMBIN TIME (PATIENT) 13.9 SEC (9.7-13.0)
[2019-06-28] MEDS: ASPIRIN COATED 81 MG TABLET.EC PO SCH (10:59)
[2019-06-28 13:19] LABS: HEMATOCRIT 36.1 % (35.4-49); HEMOGLOBIN 11.8 GM/dL (11.7-16.9); MCH 29.3 pg (25.7-33.7); MCHC 32.6 g/dl (32.0-35.9); MEAN CELL VOLUME 89.9 fl (80-96); MEAN PLT VOLUME 8.3 fl (7.5-11.1); PLATELET COUNT 263 K/MM3 (134-434); RBC 4.02 M/mm3 (4.00-5.60); RDW 16.6 % (11.9-15.9); WHITE BLOOD COUNT 6.2 K/mm3 (4.0-10.0)
[2019-06-28] MEDS ORDERED: QUEtiapine FUMARATE 25 MG TABLET (FP) PO SCH (14:45)
[2019-06-28] MEDS: MELATONIN 1 MG TABLET PO SCH (22:31)
[2019-06-28] MEDS: QUEtiapine FUMARATE 25 MG TABLET (FP) PO SCH (22:31)
[2019-06-28] MEDS: ATORVASTATIN CA 20 MG TABLET (FP) PO SCH (22:31)
[2019-06-29] MEDS: FUROSEMIDE 40 MG TABLET (FP) PO SCH ×2 (06:25→16:19)
--- NOTE | 2019-06-29 07:47 | PN ---
Progress Note, Physician Chief Complaint: Patient slept overnight. Alert and oriented today. Asking to go home. Pending approval for STR/SNF History of Present Illness: 89 year old male with history of congestive heart failure, coronary artery disease s/p stents/pacemaker non-MRI compatible 15 years ago, atrial fibrillation and a benign brain tumor who presented increasing lower extremity edema. Pt was recently discharge on 06/18 from [facility] after prolonged hospital stay for fall with MARIELY, elevated INR and metabolic encephalopathy - Current Medication List Current Medications: Active Medications Acetaminophen (Tylenol -) 325 mg PO DAILY PRN PRN Reason: PAIN Aspirin (Ecotrin -) 81 mg PO DAILY [facility] Last Admin: 06/28/19 10:59 Dose: 81 mg Atorvastatin Calcium (Lipitor -) 20 mg PO [facility] Last Admin: 06/28/19 22:31 Dose: 20 mg Furosemide (Lasix -) 40 mg PO BID@0600,1400 [facility] Last Admin: 06/29/19 06:25 Dose: 40 mg Melatonin (Melatonin) 3 mg PO [facility] Last Admin: 06/28/19 22:31 Dose: 3 mg Quetiapine Fumarate (Seroquel -) 25 mg PO DAILY@1999 [facility] Last Admin: 06/28/19 22:31 Dose: 25 mg - Objective Vital Signs: Vital Signs Temperature 98.5 F 06/28/19 22:00 Pulse Rate 76 06/29/19 06:00 Respiratory Rate 20 06/29/19 06:00 Blood Pressure 135/68 06/29/19 06:00 O2 Sat by Pulse Oximetry (%) 97 06/28/19 21:00 Additional Findings/Remarks: Constitutional: Yes: Well Nourished, No Distress, Calm Eyes: Yes: WNL, Conjunctiva Clear, EOM Intact HENT: Yes: WNL, Atraumatic, Normocephalic Neck: Yes: WNL, Supple, Trachea Midline Cardiovascular: Yes: WNL, Regular Rate and Rhythm Respiratory: Yes: WNL, Regular, CTA Bilaterally Gastrointestinal: Yes: WNL, Normal Bowel Sounds ...Rectal Exam: Yes: Deferred Renal/: Yes: Polyuria Musculoskeletal: Yes: WNL Edema: Yes Edema: LLE: 1+, RLE: 1+ Peripheral Pulses WNL: Yes Peripheral Pulses: Left Radial: 2+, Right Radial: 2+, Left Doralis Pedis: 2+, Right Dorsalis Pedis: 2+, Left Femoral: 2+, Right Femoral: 2+ Integumentary: Yes: WNL Neurological: Yes: WNL, Alert, Oriented ...Motor Strength: WNL Psychiatric: Yes: WNL Labs: CBC, BMP 06/28/19 13:05 06/28/19 07:30 INR, PTT INR 1.18 (0.83-1.09) H 06/28/19 07:30 Problem List - Problems (1) CHF (congestive heart failure) Assessment/Plan: increased edema to LE with mild dyspnea on exertion Lasix 20mg IV gievn in ED last admission methalozine was stopped with MARIELY c/w increased dose lasix 40mg bid daily weights-weight down 4 kg since admission strict I/Os Code(s): I50.9 - HEART FAILURE, UNSPECIFIED Qualifiers: Heart failure type: unspecified Heart failure chronicity: acute on chronic Qualified Code(s): I50.9 - Heart failure, unspecified (2) A-fib Assessment/Plan: prior admission holter monitor showed rate controlled AFib c/w asa 81mg Code(s): I48.91 - UNSPECIFIED ATRIAL FIBRILLATION (3) COPD (chronic obstructive pulmonary disease) Code(s): J44.9 - CHRONIC OBSTRUCTIVE PULMONARY DISEASE, UNSPECIFIED (4) Meningioma Assessment/Plan: head ct with stable meningioma, unchanged Code(s): D32.9 - BENIGN NEOPLASM OF MENINGES, UNSPECIFIED (5) Pacemaker Assessment/Plan: placed 15 years ago Code(s): Z95.0 - PRESENCE OF CARDIAC PACEMAKER (6) Prophylactic measure Assessment/Plan: FEN low salt diet monitor electrolytes DVT coumdain stopped last admission d/t to high risk for falls c/w asa 81 Dispo maintain as in patient family requesting discharge to SNF. Request placed. Spoke to PCP Dr Francisco and agrees that pt will benefir with STR/SNF. Awaiting authorization Appreciate SW/CM assistance full code Code(s): Z29.9 - ENCOUNTER FOR PROPHYLACTIC MEASURES, UNSPECIFIED (7) Stented coronary artery Assessment/Plan: Holter monitor revealed rate controlled AF prior admission Coumadin stopped last c/w asa 81mg Code(s): Z95.5 - PRESENCE OF CORONARY ANGIOPLASTY IMPLANT AND GRAFT (8) Lower extremity edema Assessment/Plan: dopplers done on 06/09 without evidence of DVT edema improving 1+ BL c/w lasix Code(s): R60.0 - LOCALIZED EDEMA (9) Assessment/Plan: pt with confusion at night started on seroquel during last admission family states he has has slight confusion at home also since discharge increased seroquel @to 25mg last night and slept through night Code(s): F05 - DELIRIUM DUE TO KNOWN PHYSIOLOGICAL CONDITION Visit type - Emergency Visit Emergency Visit: Yes ED Registration Date: 06/26/19 Care time: The patient presented to the Emergency Department on the above date and was hospitalized for further evaluation of their emergent condition. - New Patient This patient is new to me today: No - Critical Care Critical Care patient: No - Discharge Referral Referred to [facility] Med [facility].C.: No
[2019-06-29 08:20] LABS: INR 1.21 (0.83-1.09); PROTHROMBIN TIME (PATIENT) 14.3 SEC (9.7-13.0)
[2019-06-29 08:38] LABS: ALBUMIN 2.6 g/dl (3.4-5.0); BILIRUBIN,TOTAL 0.8 mg/dL (0.2-1); BLOOD UREA NITROGEN 19.8 mg/dL (7-18); CALCIUM 9.2 mg/dL (8.5-10.1); CREATININE 1.1 mg/dL (0.55-1.3); MAGNESIUM 1.9 mg/dL (1.8-2.4); PHOSPHOROUS 2.9 mg/dL (2.5-4.9); POTASSIUM 3.5 mmol/L (3.5-5.1); TOT PROT 5.2 g/dl (6.4-8.2)
[2019-06-29] MEDS: ASPIRIN COATED 81 MG TABLET.EC PO SCH (12:05)
[2019-06-29 12:53] LABS: HEMATOCRIT 36.4 % (35.4-49); HEMOGLOBIN 11.9 GM/dL (11.7-16.9); MCH 29.2 pg (25.7-33.7); MCHC 32.6 g/dl (32.0-35.9); MEAN CELL VOLUME 89.6 fl (80-96); MEAN PLT VOLUME 8.4 fl (7.5-11.1); PLATELET COUNT 284 K/MM3 (134-434); RBC 4.06 M/mm3 (4.00-5.60); RDW 16.5 % (11.9-15.9)
[2019-06-29] MEDS: MELATONIN 1 MG TABLET PO SCH (21:04)
[2019-06-29] MEDS: ACETAMINOPHEN 325 MG TABLET (FP) PO PRN (21:04)
[2019-06-29] MEDS: ATORVASTATIN CA 20 MG TABLET (FP) PO SCH (21:04)
[2019-06-29] MEDS: QUEtiapine FUMARATE 25 MG TABLET (FP) PO SCH (21:06)
[2019-06-30] MEDS: FUROSEMIDE 40 MG TABLET (FP) PO SCH ×2 (06:25→15:44)
--- NOTE | 2019-06-30 07:44 | PN ---
Progress Note, Physician Chief Complaint: Patient without complaints Alert and oriented today. Asking to go home. Pending approval for STR/SNF History of Present Illness: 89 year old male with history of congestive heart failure, coronary artery disease s/p stents/pacemaker non-MRI compatible 15 years ago, atrial fibrillation and a benign brain tumor who presented increasing lower extremity edema. Pt was recently discharge on 06/18 from [facility] after prolonged hospital stay for fall with MARIELY, elevated INR and metabolic encephalopathy - Current Medication List Current Medications: Active Medications Acetaminophen (Tylenol -) 325 mg PO DAILY PRN PRN Reason: PAIN Last Admin: 06/29/19 21:04 Dose: 325 mg Aspirin (Ecotrin -) 81 mg PO DAILY [facility] Last Admin: 06/29/19 12:05 Dose: 81 mg Atorvastatin Calcium (Lipitor -) 20 mg PO HS [facility] Last Admin: 06/29/19 21:04 Dose: 20 mg Furosemide (Lasix -) 40 mg PO BID@0600,1400 [facility] Last Admin: 06/30/19 06:25 Dose: 40 mg Melatonin (Melatonin) 3 mg PO [facility] Last Admin: 06/29/19 21:04 Dose: 3 mg Quetiapine Fumarate (Seroquel -) 25 mg PO DAILY@2000 [facility] Last Admin: 06/29/19 21:06 Dose: 25 mg - Objective Vital Signs: Vital Signs Temperature 97.8 F 06/30/19 06:00 Pulse Rate 72 06/30/19 06:00 Respiratory Rate 20 06/30/19 06:00 Blood Pressure 129/75 06/30/19 06:00 O2 Sat by Pulse Oximetry (%) 98 06/29/19 21:00 Additional Findings/Remarks: Constitutional: Yes: Well Nourished, No Distress, Calm Eyes: Yes: WNL, Conjunctiva Clear, EOM Intact HENT: Yes: WNL, Atraumatic, Normocephalic Neck: Yes: WNL, Supple, Trachea Midline Cardiovascular: Yes: WNL, Regular Rate and Rhythm Respiratory: Yes: WNL, Regular, CTA Bilaterally Gastrointestinal: Yes: WNL, Normal Bowel Sounds ...Rectal Exam: Yes: Deferred Renal/: Yes: Polyuria Musculoskeletal: Yes: WNL Edema: Yes Edema: LLE: 1+, RLE: 1+ Peripheral Pulses WNL: Yes Peripheral Pulses: Left Radial: 2+, Right Radial: 2+, Left Doralis Pedis: 2+, Right Dorsalis Pedis: 2+, Left Femoral: 2+, Right Femoral: 2+ Integumentary: Yes: WNL Neurological: Yes: WNL, Alert, Oriented ...Motor Strength: WNL Psychiatric: Yes: WNL Labs: CBC, BMP 06/29/19 12:40 06/29/19 07:14 INR, PTT INR 1.21 (0.83-1.09) H 06/29/19 07:10 Problem List - Problems (1) CHF (congestive heart failure) Assessment/Plan: increased edema to LE with mild dyspnea on exertion Lasix 20mg IV given in ED last admission methalozine was stopped with MARIELY c/w increased dose lasix 40mg bid daily weights-weight down 6 kg since admission strict I/Os Code(s): I50.9 - HEART FAILURE, UNSPECIFIED Qualifiers: Heart failure type: unspecified Heart failure chronicity: acute on chronic Qualified Code(s): I50.9 - Heart failure, unspecified (2) A-fib Assessment/Plan: prior admission holter monitor showed rate controlled AFib c/w asa 81mg Code(s): I48.91 - UNSPECIFIED ATRIAL FIBRILLATION (3) COPD (chronic obstructive pulmonary disease) Code(s): J44.9 - CHRONIC OBSTRUCTIVE PULMONARY DISEASE, UNSPECIFIED (4) Meningioma Assessment/Plan: head ct with stable meningioma, unchanged Code(s): D32.9 - BENIGN NEOPLASM OF MENINGES, UNSPECIFIED (5) Pacemaker Assessment/Plan: placed 15 years ago Code(s): Z95.0 - PRESENCE OF CARDIAC PACEMAKER (6) Prophylactic measure Assessment/Plan: FEN low salt diet monitor electrolytes DVT coumdain stopped last admission d/t to high risk for falls c/w asa 81 Dispo maintain as in patient family requesting discharge to SNF. Request placed. Spoke to PCP Dr Francisco and agrees that pt may benefit with STR/SNF but pt is walking >150 ft and may not receive authorization. Spoke to PCP today and family last night and possible denial and alternative discharge plan Appreciate SW/CM assistance full code Code(s): Z29.9 - ENCOUNTER FOR PROPHYLACTIC MEASURES, UNSPECIFIED (7) Stented coronary artery Code(s): Z95.5 - PRESENCE OF CORONARY ANGIOPLASTY IMPLANT AND GRAFT (8) Lower extremity edema Assessment/Plan: dopplers done on 06/09 without evidence of DVT edema improving 1+ BL c/w lasix c/w TEDS stocking at home Code(s): R60.0 - LOCALIZED EDEMA (9) Assessment/Plan: pt with confusion at night started on seroquel during last admission family states he has has slight confusion at home also since discharge increased seroquel @to 25mg and sleeping better. continue at home Code(s): F05 - DELIRIUM DUE TO KNOWN PHYSIOLOGICAL CONDITION Visit type - Emergency Visit Emergency Visit: Yes ED Registration Date: 06/26/19 Care time: The patient presented to the Emergency Department on the above date and was hospitalized for further evaluation of their emergent condition. - New Patient This patient is new to me today: No - Critical Care Critical Care patient: No - Discharge Referral Referred to [facility] Med P.C.: No
[2019-06-30 08:09] LABS: BASO % 0.7 % (0-2.0); EOS % 2.2 % (0-4.5); HEMATOCRIT 35.3 % (35.4-49); HEMOGLOBIN 11.5 GM/dL (11.7-16.9); LYMPH % 21.3 % (8-40); MCH 29.3 pg (25.7-33.7); MCHC 32.7 g/dl (32.0-35.9); MEAN CELL VOLUME 89.6 fl (80-96); MEAN PLT VOLUME 8.6 fl (7.5-11.1); MONO % 9.7 % (3.8-10.2); NEUT % 66.1 % (42.8-82.8); PLATELET COUNT 247 K/MM3 (134-434); RBC 3.94 M/mm3 (4.00-5.60); WHITE BLOOD COUNT 5.7 K/mm3 (4.0-10.0)
[2019-06-30 08:32] LABS: ALBUMIN 2.6 g/dl (3.4-5.0); BILIRUBIN,TOTAL 0.9 mg/dL (0.2-1); BLOOD UREA NITROGEN 16.3 mg/dL (7-18); CALCIUM 9.4 mg/dL (8.5-10.1); CREATININE 0.9 mg/dL (0.55-1.3); POTASSIUM 3.4 mmol/L (3.5-5.1); TOT PROT 5.7 g/dl (6.4-8.2)
[2019-06-30 09:02] LABS: INR 1.12 (0.83-1.09); PROTHROMBIN TIME (PATIENT) 13.2 SEC (9.7-13.0)
[2019-06-30] MEDS: ASPIRIN COATED 81 MG TABLET.EC PO SCH (09:48)
[2019-06-30] MEDS ORDERED: POTASSIUM CHLORIDE TABS 20 MEQ TABLET.ER (FP) PO ONE (12:27)
--- NOTE | 2019-06-30 14:32 | PN ---
Progress Note, Physician History of Present Illness: Pt seen and examined at bedside. He is awake and alert. He complains of lower ext edema. - Current Medication List Current Medications: Active Medications Acetaminophen (Tylenol -) 325 mg PO DAILY PRN PRN Reason: PAIN Last Admin: 06/29/19 21:04 Dose: 325 mg Aspirin (Ecotrin -) 81 mg PO DAILY [facility] Last Admin: 06/30/19 09:48 Dose: 81 mg Atorvastatin Calcium (Lipitor -) 20 mg PO HS [facility] Last Admin: 06/29/19 21:04 Dose: 20 mg Furosemide (Lasix -) 40 mg PO BID@0600,1400 [facility] Last Admin: 06/30/19 06:25 Dose: 40 mg Melatonin (Melatonin) 3 mg PO [facility] Last Admin: 06/29/19 21:04 Dose: 3 mg Quetiapine Fumarate (Seroquel -) 25 mg PO DAILY@1999 [facility] Last Admin: 06/29/19 21:06 Dose: 25 mg - Objective Vital Signs: Vital Signs Temperature 97.8 F 06/30/19 06:00 Pulse Rate 72 06/30/19 06:00 Respiratory Rate 20 06/30/19 06:00 Blood Pressure 129/75 06/30/19 06:00 O2 Sat by Pulse Oximetry (%) 98 06/29/19 21:00 Constitutional: Yes: Calm Eyes: Yes: Conjunctiva Clear HENT: Yes: Atraumatic Neck: Yes: Supple Cardiovascular: Yes: S1, S2 Respiratory: Yes: CTA Bilaterally Gastrointestinal: Yes: Soft Genitourinary: Yes: WNL Musculoskeletal: Yes: WNL Edema: Yes Edema: LLE: Trace, RLE: Trace Integumentary: Yes: WNL Neurological: Yes: Oriented Psychiatric: Yes: Oriented Labs: CBC, BMP 06/30/19 06:49 06/30/19 06:49 INR, PTT INR 1.12 (0.83-1.09) H 06/30/19 06:49 Problem List - Problems (1) CHF (congestive heart failure) Code(s): I50.9 - HEART FAILURE, UNSPECIFIED Qualifiers: Heart failure type: unspecified Heart failure chronicity: acute on chronic Qualified Code(s): I50.9 - Heart failure, unspecified (2) A-fib Code(s): I48.91 - UNSPECIFIED ATRIAL FIBRILLATION Assessment/Plan Current Medications Generic Name Dose Route Start Last Admin Trade Name Mariangel PRN Reason Stop Dose Admin Acetaminophen 325 mg 06/26/19 14:14 06/29/19 21:04 Tylenol - PO 325 mg DAILY PRN Administration PAIN Aspirin 81 mg 06/27/19 10:00 06/30/19 09:48 Ecotrin - PO 81 mg DAILY [facility]ORGE Administration Atorvastatin Calcium 20 mg 06/26/19 22:00 06/29/19 21:04 Lipitor - PO 20 mg HS [facility]ORGE Administration Furosemide 40 mg 06/27/19 06:00 06/30/19 06:25 Lasix - PO 40 mg BID@0600,1400 [facility] Administration Melatonin 3 mg 06/28/19 22:00 06/29/19 21:04 Melatonin PO 3 mg HS [facility] Administration Quetiapine Fumarate 25 mg 06/28/19 20:00 06/29/19 21:06 Seroquel - PO 25 mg DAILY@2000 [facility] Administration Impression 1. lower ext edema 2. hx of MARIELY 3. cad 4. chf 5. 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 a-fib Plan - replace potassium - cont lasix - volume status improved - discussed diet, fluid intake and salt intake. spoke to his as well - avoid nsaids
[2019-06-30] MEDS: ACETAMINOPHEN 325 MG TABLET (FP) PO PRN (15:44)
[2019-06-30] MEDS: QUEtiapine FUMARATE 25 MG TABLET (FP) PO SCH (21:43)
[2019-06-30] MEDS: MELATONIN 1 MG TABLET PO SCH (21:43)
[2019-06-30] MEDS: ATORVASTATIN CA 20 MG TABLET (FP) PO SCH (21:43)
[2019-07-01] MEDS: FUROSEMIDE 40 MG TABLET (FP) PO SCH ×2 (06:38→14:06)
[2019-07-01 09:25] VITALS: BP 119/53; PULSE 71; TEMP 97.9
--- NOTE | 2019-07-01 10:34 | DS ---
Physical Exam: SUBJECTIVE: Patient seen and examined. will be discharged home today. OBJECTIVE: 89 year old male with history of congestive heart failure, coronary artery disease s/p stents/pacemaker non-MRI compatible 15 years ago, atrial fibrillation and a benign brain tumor who presented increasing lower extremity edema. Pt was recently discharge on 06/18 from [facility] after prolonged hospital stay for fall with MARIELY, elevated INR and metabolic encephalopathy. He presents to the ED complaining of vague back pain and worsening leg swelling. Denies other complaints. History of CHF and CAD. He will be discharged home with an increase of Lasix and follow up with cardiology as an outpatient. Vital Signs Period Temp Pulse Resp BP Sys/Esposito Pulse Ox Last 24 Hr 97.8 F-98.8 F 70-76 19-20 101-121/46-66 96 PHYSICAL EXAM GENERAL: The patient is awake, alert, and fully oriented, in no acute distress. periods of confusion HEAD: Normal with no signs of trauma. EYES: PERRL, extraocular movements intact, sclera anicteric, conjunctiva clear. ENT: Ears normal, nares patent, oropharynx clear without exudates, moist mucous membranes. NECK: Trachea midline, full range of motion, supple. LUNGS: Breath sounds equal, clear to auscultation bilaterally HEART: Regular rate and rhythm ABDOMEN: Soft, nontender, nondistended, normoactive bowel sounds, no guarding, no rebound, no hepatosplenomegaly, no masses. NEUROLOGICAL: Cranial nerves II through XII grossly intact. Normal speech, gait not observed. PSYCH: Normal mood, normal affect. SKIN: Warm, dry, normal turgor, no rashes or lesions noted. LABS HOSPITAL COURSE: Date of Admission:06/26/19 Date of Discharge: 07/01/19 Minutes to complete discharge: 45 Discharge Summary Problems reviewed: Yes Reason For Visit: CHF Current Active Problems CHF (congestive heart failure) (Acute) Lower extremity edema (Acute) Condition: Improved - Instructions Diet, Activity, Other Instructions: You were admitted for increased swelling of your legs. You were given LASIX through the IV and than charge back to the oral pills. The swelling is much improved. MEDICATIONS Resume all your home medications: aspirin lipitor potassium The following doses were changed: LASIX will now be 40mg twice at day SEROQUEL will now be 25mg before bedtime Do not take the old doses. Apply the compressions stockings on your legs and wear them all day. this will help with the swelling. Take them off to shower and for small breaks. Once the swelling is gone you can stop wearing them. If your legs start to swell put them back on DIET Follow and low salt low fat diet Limit your fluid intake to 1200ml (a little over a liter) a day The visiting nurse and then physical therapist will come see you in your home in 1-2 days. A schedule will be set up for you FOLLOW UP Make an appointment to see Dr Lovett & Dr Francisco in 1 week Thank you for allowing me to be involved in your care SUKUMAR Stern Referrals: Titus Quijano MD [Primary Care Provider] - 1 Week (call for appointment for 1 week after discharge) Adrian Lovett MD [Staff Physician] - 1 Week (1 week after discharge) Disposition: VNS/HOME HEALTH CARE - Home Medications Comprehensive Discharge Medication List: Ambulatory Orders Simvastatin [Zocor -] 40 mg PO HS 02/22/16 Potassium Chloride 20 meq PO DAILY 05/14/18 Acetaminophen [Tylenol] 325 mg PO DAILY PRN 02/13/19 Aspirin Coated [Ecotrin -] 81 mg PO DAILY #90 tablet.ec 06/18/19 Compress.stocking,Knee,Reg,Lrg [Relief Knee Close Toe] 1 each [facility] DAILY #2 each 06/30/19 Furosemide [Lasix -] 40 mg PO BID@0600,1400 #60 tablet 06/30/19 Quetiapine Fumarate [Seroquel -] 25 mg PO DAILY@2000 #30 tablet 06/30/19 Problem List - Problems (1) Systolic and diastolic CHF, acute on chronic Assessment/Plan: lasix increased to bid dosing on discharge will need close follow up of renal function as an outpatient cardiology follow up as an outpatient Code(s): I50.43 - ACUTE ON CHRONIC COMBINED SYSTOLIC AND DIASTOLIC HRT FAIL (2) Systolic CHF, acute on chronic Code(s): I50.23 - ACUTE ON CHRONIC SYSTOLIC (CONGESTIVE) HEART FAILURE (3) A-fib Code(s): I48.91 - UNSPECIFIED ATRIAL FIBRILLATION (4) MARIELY (acute kidney injury) Code(s): N17.9 - ACUTE KIDNEY FAILURE, UNSPECIFIED (5) CHF (congestive heart failure) Code(s): I50.9 - HEART FAILURE, UNSPECIFIED Qualifiers: Heart failure type: unspecified Heart failure chronicity: acute on chronic Qualified Code(s): I50.9 - Heart failure, unspecified (6) DVT prophylaxis Code(s): [id number] - This patient is new to me today: Yes Date on this admission: 07/03/19 Emergency Visit: No Critical Care patient: No - Discharge Referral Referred to [facility] Med P.C[facility] No
[2019-07-01] MEDS: ASPIRIN COATED 81 MG TABLET.EC PO SCH (11:40)
--- NOTE | 2019-07-01 14:18 | PN ---
Progress Note, Physician History of Present Illness: Pt seen and examined. He denies shortness of breath. He feels that his lower ext edema is improved. - Current Medication List Current Medications: Active Medications Acetaminophen (Tylenol -) 325 mg PO DAILY PRN PRN Reason: PAIN Last Admin: 06/30/19 15:44 Dose: 325 mg Aspirin (Ecotrin -) 81 mg PO DAILY [facility] Last Admin: 07/01/19 11:40 Dose: 81 mg Atorvastatin Calcium (Lipitor -) 20 mg PO HS [facility] Last Admin: 06/30/19 21:43 Dose: 20 mg Furosemide (Lasix -) 40 mg PO BID@0600,1400 [facility] Last Admin: 07/01/19 14:06 Dose: 40 mg Melatonin (Melatonin) 3 mg PO [facility] Last Admin: 06/30/19 21:43 Dose: 3 mg Quetiapine Fumarate (Seroquel -) 25 mg PO DAILY@2000 [facility] Last Admin: 06/30/19 21:43 Dose: 25 mg - Objective Vital Signs: Vital Signs Temperature 97.9 F 07/01/19 09:23 Pulse Rate 71 07/01/19 09:23 Respiratory Rate 19 07/01/19 09:23 Blood Pressure 119/53 L 07/01/19 09:23 O2 Sat by Pulse Oximetry (%) 96 07/01/19 09:00 Constitutional: Yes: Calm Eyes: Yes: Conjunctiva Clear HENT: Yes: Atraumatic Neck: Yes: Supple Cardiovascular: Yes: S1, S2 Respiratory: Yes: CTA Bilaterally Gastrointestinal: Yes: Soft Genitourinary: Yes: WNL Musculoskeletal: Yes: WNL Edema: Yes Edema: LLE: Trace, RLE: Trace Neurological: Yes: Oriented Psychiatric: Yes: Oriented Labs: CBC, BMP 06/30/19 06:49 06/30/19 06:49 INR, PTT INR 1.12 (0.83-1.09) H 06/30/19 06:49 Problem List - Problems (1) CHF (congestive heart failure) Code(s): I50.9 - HEART FAILURE, UNSPECIFIED Qualifiers: Heart failure type: unspecified Heart failure chronicity: acute on chronic Qualified Code(s): I50.9 - Heart failure, unspecified (2) A-fib Code(s): I48.91 - UNSPECIFIED ATRIAL FIBRILLATION Assessment/Plan Current Medications Generic Name Dose Route Start Last Admin Trade Name Mariangel PRN Reason Stop Dose Admin Acetaminophen 325 mg 06/26/19 14:14 06/30/19 15:44 Tylenol - PO 325 mg DAILY PRN Administration PAIN Aspirin 81 mg 06/27/19 10:00 07/01/19 11:40 Ecotrin - PO 81 mg DAILY GEORGE Administration Atorvastatin Calcium 20 mg 06/26/19 22:00 06/30/19 21:43 Lipitor - PO 20 mg HS GEORGE Administration Furosemide 40 mg 06/27/19 06:00 07/01/19 14:06 Lasix - PO 40 mg BID@0600,1400 GEORGE Administration Melatonin 3 mg 06/28/19 22:00 06/30/19 21:43 Melatonin PO 3 mg HS GEORGE Administration Quetiapine Fumarate 25 mg 06/28/19 20:00 06/30/19 21:43 Seroquel - PO 25 mg DAILY@2000 GEORGE Administration Impression 1. lower ext edema 2. hx of MARIELY 3. cad 4. chf 5. 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 a-fib Plan - no new labs - will need outpt follow up - volume status is improved - cont lasix, may need to adjust dose as outpt depending on his volume status - avoid nsaids
== END 2019-07-01 14:44 | disposition home health service (06) | DRG 292 ==
LOC: JER 09:28 → JERBED 12:22 → J5S 14:31
PROVIDERS: ADMIT Hospitalist; ATTEND Nurse Practitioner Family
DX: I11.0 Hypertensive heart disease with heart failure (principal); F05 Delirium due to known physiological condition; J98.11 Atelectasis; I50.43 Acute on chronic combined systolic (congestive) and diastolic (congestive) heart failure; I25.10 Atherosclerotic heart disease of native coronary artery without angina pectoris; D32.9 Benign neoplasm of meninges, unspecified; J44.9 Chronic obstructive pulmonary disease, unspecified; I48.91 Unspecified atrial fibrillation; Z95.5 Presence of coronary angioplasty implant and graft; E87.70 Fluid overload, unspecified; Z95.0 Presence of cardiac pacemaker
CPT/HCPCS: 36415; 71045-TC-FY; 80053; 82550; 83735; 83880; 84100; 84484; 85025; 85027; 85610; 93005; 93010; 97116-GP; 97161-GP; 99282-25

== ENCOUNTER 2019-08-03 11:37 | Inpatient (IN) | payer BC, OTHER ==
--- NOTE | 2019-08-03 12:05 | PDOC ---
History of Present Illness - General Stated Complaint: SWELLIING LT ARM/HAND Time Seen by Provider: 08/03/19 12:04 History Source: Patient Exam Limitations: No Limitations - History of Present Illness Initial Comments: 08/03/19 13:00 89yM w PMHx CHF, CAD s/p stents/pacemaker non-MRI compatible, a fib off coumadin , benign brain tumor presenting w L arm and BLE swelling. Pt is poor historian. Noted L arm swelling up to shoulder this morning. Also complaining of pain in L shoulder and chest over pacemaker since this morning. Denies arm trauma. Has had progressively worsening swelling BLE past 4 days. Not compliant w meds, pt did not take lasix for last 2d. Does not remember type of pacemaker. Echo showed normal LVEF 55-60%. Off coumadin d/t hx frequent falls. Seen on for LE swelling d/t CHF exacerbation. Denies fever, nausea/vomiting, SOB, AB pain. Past History - Past Medical History Allergies/Adverse Reactions: Allergies Allergy/AdvReac Type Severity Reaction Status Date / Time No Known Drug Allergies Allergy Verified 02/12/19 12:38 Home Medications: Ambulatory Orders Simvastatin [Zocor -] 40 mg PO HS 02/22/16 Potassium Chloride 20 meq PO DAILY 05/14/18 Acetaminophen [Tylenol] 325 mg PO DAILY PRN 02/13/19 Aspirin Coated [Ecotrin -] 81 mg PO DAILY #90 tablet.ec 06/18/19 Furosemide [Lasix -] 40 mg PO BID@0600,1400 #60 tablet 06/30/19 Quetiapine Fumarate [Seroquel -] 25 mg PO DAILY@2000 #30 tablet 06/30/19 Anemia: No Cancer: Yes (stable meningimoma) Cardiac Disorders: Yes (CHF, PPM, AF) CVA: No COPD: No CHF: Yes Dementia: No Diabetes: No GI Disorders: No Disorders: No HTN: Yes Hypercholesterolemia: Yes Liver Disease: No Seizures: No Thyroid Disease: No - Surgical History Appendectomy: Yes Cardiac Surgery: Yes (PACEMAKER, STENT) Orthopedic Surgery: (wrist) - Immunization History Immunization Up to Date: Yes - Psycho Social/Smoking Cessation Hx Smoking Status: No Smoking History: Never smoked Have you smoked in the past 12 months: No Number of Cigarettes Smoked Daily: 0 Hx Alcohol Use: No Drug/Substance Use Hx: No Substance Use Type: None Hx Substance Use Treatment: No Review of Systems - Review of Systems Constitutional: No: Chills, Fever HEENTM: No: Eye Pain, Recent change in vision, Nose Pain, Throat Pain Respiratory: Yes: Cough (chronic intermittent white productive). No: Shortness of Breath Cardiac (ROS): Yes: Chest Pain (L chest/shoulder). No: Palpitations, Syncope ABD/GI: No: Abdominal Distended, Constipated, Diarrhea, Nausea, Vomiting : No: Burning, Dysuria, Hematuria Musculoskeletal: No: Back Pain, Muscle Pain Integumentary: No: Bruising, Flushing, Lesions Neurological: No: Headache, Numbness, Paresthesia, Seizure, Tingling Psychiatric: No: Anxiety, Depression, Stressors Endocrine: No: Excessive Sweating, Flushing, Intolerance to Cold, Intolerance to Heat Hematologic/Lymphatic: No: Anemia *Physical Exam - Physical Exam General Appearance: Yes: Nourished, Appropriately Dressed. No: Apparent Distress HEENT: positive: EOMI, SURESH, Hearing Grossly Normal. negative: Scleral Icterus (R), Scleral Icterus (L), Nasal Congestion, Rhinorrhea Respiratory/Chest: positive: Lungs Clear, Decreased Breath Sounds (LLL). negative: Chest Tender, Respiratory Distress, Crackles, Rales, Rhonchi, Stridor , Wheezing Cardiovascular: positive: Regular Rhythm, Regular Rate, S1, S2. negative: Edema , Murmur Vascular Pulses: Dorsalis-Pedis (R): 1+, Doralis-Pedis (L): 1+ Extremity: positive: Normal Capillary Refill, Swelling (3+ pitting edema up to L shoulder, 2+ pitting edema to knees BLE), Other (L shoulder warmth. Not tender ). negative: Erythema Integumentary: positive: Normal Color Neurologic: positive: Fully Oriented, Alert, Normal Mood/Affect, Normal Response , Other (+2 L radial pulse). negative: Motor Strength 5/5 (3/5 BLE hip flexion. cannot flex L arm above 45'. 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 --- 89yM w PMHx CHF, CAD s/p stents/pacemaker non-MRI compatible, a fib off coumadin , benign brain tumor presenting w L arm and BLE swelling. L arm swelling/pain/reduced movement did not show DVT on US or fracture/ dislocation on XR. Low concern for cellulitis (not erythematous) vs osteomyelitis (no bone involvement) BLE swelling d/t CHF exacerbation (BLE edema, elevated BNP 4500, not taking lasix). Low concern for ACS (neg trop, no ST changes on EKG) Given 40 IV lasix for swelling, tylenol for pain Admitted to tele Dr Cruz for CHF exacerbation, L arm swelling Discharge - Discharge Information Problems reviewed: Yes Clinical Impression/Diagnosis: Left arm swelling CHF exacerbation Qualifiers: Heart failure type: unspecified Qualified Code(s): I50.9 - Heart failure, unspecified Condition: Good - Follow up/Referral - Patient Discharge Instructions - Post Discharge Activity
[2019-08-03] MEDS ORDERED: ACETAMINOPHEN 1000 MG/100 ML VIAL (NON FORMULARY) IVPB ONE (12:22)
[2019-08-03] MEDS ORDERED: ACETAMINOPHEN INJECTION 100 ML IVPB ONE (12:34)
[2019-08-03 12:58] LABS: BASO % 0.8 % (0-2.0); EOS % 0.9 % (0-4.5); HEMATOCRIT 39.4 % (35.4-49); HEMOGLOBIN 12.6 GM/dL (11.7-16.9); LYMPH % 9.6 % (8-40); MCH 28.2 pg (25.7-33.7); MEAN CELL VOLUME 88.2 fl (80-96); MEAN PLT VOLUME 8.9 fl (7.5-11.1); MONO % 7.4 % (3.8-10.2); NEUT % 81.3 % (42.8-82.8); PLATELET COUNT 247 K/MM3 (134-434); RBC 4.47 M/mm3 (4.00-5.60); RDW 17.6 % (11.9-15.9); WHITE BLOOD COUNT 10.2 K/mm3 (4.0-10.0)
[2019-08-03 13:12] LABS: INR 1.23 (0.83-1.09); PROTHROMBIN TIME (PATIENT) 14.6 SEC (9.7-13.0)
[2019-08-03 13:28] LABS: ALBUMIN 2.7 g/dl (3.4-5.0); BILIRUBIN,TOTAL 1.3 mg/dL (0.2-1); BLOOD UREA NITROGEN 16.3 mg/dL (7-18); CALCIUM 9.9 mg/dL (8.5-10.1); CREATININE 0.9 mg/dL (0.55-1.3); POTASSIUM 3.7 mmol/L (3.5-5.1); TOT PROT 6.5 g/dl (6.4-8.2)
--- NOTE | 2019-08-03 13:58 | PDOC ---
Documentation entered by Zoran Rubio SCRIBE, acting as scribe for Austen Barbour MD. Austen Barbour MD: This documentation has been prepared by the Joanne rosenberg Nirvannie, SCRIBE, under my direction and personally reviewed by me in its entirety. I confirm that the documentation accurately reflects all work, treatment, procedures, and medical decision making performed by me. Attending Attestation - Resident Resident Name: Toi Benitez - ED Attending Attestation I have performed the following: I have examined & evaluated the patient, The case was reviewed & discussed with the resident, I agree w/resident's findings & plan, Exceptions are as noted - HPI HPI: 08/03/19 13:28 The patient is a 89 year old male, with a significant past medical history of CHF, CAD (s/p cardiac stenting), Afib (not anticoagulated due to frequent falls) , and benign brain tumor, who presents to the emergency department with 1 day of left arm swelling and pain to the left shoulder and left sided chest (over the pacemaker) with associated 4 days of progressively worsening lower extremity edema. He denies any recent palpitations or shortness of breath. He denies any recent fevers, chills, headache or dizziness. He denies any recent nausea, vomiting, diarrhea or constipation. He denies any recent dysuria, frequency, urgency or hematuria. Allergies: NKDA Primary Care Physician: Dr. Galeano - Physicial Exam PE: 08/03/19 14:03 See resident exam - Medical Decision Making 08/03/19 14:03 89 M with LUE swelling, chest pain, and BLE swelling. Likely volume overload 2/ 2 CHF. - Labs - CXR - Doppler LUE
[2019-08-03] MEDS ORDERED: FUROSEMIDE 40 MG/4 ML INJECTABLE VIAL IVPUSH ONE ×2 (14:15→20:07)
[2019-08-03 14:52] LABS: N-TERMINAL BNP 4587.3 pg/ml (5-450)
[2019-08-03] MEDS ORDERED: FUROSEMIDE 40 MG/4 ML INJECTABLE VIAL ONE ×2 (15:56→20:45)
[2019-08-03] MEDS ORDERED: morphine CARPU-JECT 4 MG/1 ML DISP.SYRIN IVPUSH ONE (18:28)
--- NOTE | 2019-08-03 20:18 | PN ---
Teaching Attending Note Name of Resident: Bora Oliveira ATTENDING PHYSICIAN STATEMENT I saw and evaluated the patient. I reviewed the resident's note and discussed the case with the resident. I agree with the resident's findings and plan as documented. SUBJECTIVE: 89 year old male, with a significant past medical history of CHF, CAD (s/p cardiac stenting), Afib (not anticoagulated due to frequent falls), and benign brain tumor presents complaining of 1 day of left arm swelling and pain to the left shoulder (over the pacemaker) With several days of worsening lower extremity edema. Of note, patient was admitted June 2019 for similar complaint when he was found to have bilateral lower extremity swelling and fluid overload, MARIELY. MARIELY now improved. OBJECTIVE: Last Vital Signs Temp Pulse Resp BP Pulse Ox 99.4 F 74 17 136/77 99 08/03/19 12:05 08/03/19 12:05 08/03/19 12:05 08/03/19 12:05 08/03/19 12:05 GENERAL: Well developed, well nourished. Awake and alert. No acute distress. HEENT: Normocephalic, atraumatic. PERRLA, EOMI. No conjunctival pallor. Sclera are non- icteric. Moist mucous membranes. Oropharynx is clear. NECK: Supple. Full ROM. No JVD. Carotid pulses 2+ and symmetric, without bruits. No thyromegaly. No lymphadenopathy. CARDIOVASCULAR: Regular rate and rhythm. No murmurs, rubs, or gallops. Distal pulses are 2+ and symmetric. Pacemaker noted in left chest PULMONARY: No evidence of respiratory distress. Lungs clear to auscultation bilaterally. No wheezing, rales or rhonchi. ABDOMINAL: Soft. Non-tender. Non-distended. No rebound or guarding. No organomegaly. Normoactive bowel sounds. MUSCULOSKELETAL Normal range of motion at all joints. No bony deformities or tenderness. No CVA tenderness. EXTREMITIES: Significant Left upper extremity swelling,Left upper extremity radial pulse was intact, sensation was intact grossly, bilateral lower extremity pedal edema SKIN: Warm and dry. Normal capillary refill. No rashes. No jaundice. NEUROLOGICAL: Alert, awake, appropriate. Cranial nerves 2-12 intact. No deficits to light touch and temperature in face, upper extremities and lower extremities. No motor deficits in the in face, upper extremities and lower extremities. Normoreflexic in the upper and lower extremities. Normal speech. Toes are down- going bilaterally. Gait is normal without ataxia. PSYCHIATRIC: Cooperative. Good eye contact. Appropriate mood and affect. Abnormal Lab Results 08/03/19 08/03/19 08/03/19 12:52 12:52 12:52 WBC 10.2 H RDW 17.6 H Absolute Neuts (auto) 8.3 H PT with INR 14.60 H INR 1.23 H Total Bilirubin 1.3 H ALT 11 L Alkaline Phosphatase 123 H B-Natriuretic Peptide 4587.3 H Albumin 2.7 L Left shoulder x-ray appreciatedno acute left shoulder pathology. Chest x-ray appreciated with reportlargely unchanged from June chest x-ray , left hemidiaphragm elevation, pacemaker in place Transthoracic echo from January 2018 was appreciatedleft ventricular size, thickness and function are normal, pacemaker lead seen in right ventricle and atrium, mild tricuspid regurgitation, mild pulmonary hypertension, trace aortic regurgitation. ASSESSMENT AND PLAN: #Left upper extremity swellingvenous duplex was negative for any venous occlusions. Should rule out SVC syndrome, possibly caused by mass-effect and chest. Radial pulses intact, no pallor do not suspect arterial occlusion.Left shoulder x-ray was negative for fractures or dislocations CTA of chest to rule out any mass, may be compressing on left subclavian vein Keep left upper extremity elevated #Lower extremity swelling bilaterally, mild fluid overload. Transthoracic echo from January did not show evidence of CHF IV furosemide 40 mg daily I's and O's and daily weights Salt and free water restriction Keep lower extremities elevated Lower extremity duplex ultrasound to rule out DVT #CAD (s/p cardiac stenting) Continue simvastatin and aspirin #Afib (not anticoagulated due to frequent falls). Paced rate Continue with aspirin #Hypoalbuminemia #Physical therapy evaluation for gait reassessment #Elevated alkaline phosphatase and total bilirubin-Noted to be chronic. Had abdominal ultrasound performed in April 2019there was no gallbladder calculi or evidence of intra-or extrahepatic biliary duct dilatation at that time. Patient had no abdominal pain to suggest cholecystitis or cholestatic process DVT prophylaxis with heparin subcutaneously
--- NOTE | 2019-08-03 20:35 | HP ---
CHIEF COMPLAINT: swollen legs and arm PCP: Dr. Galeano HISTORY OF PRESENT ILLNESS: This is an 89 y/o gentleman with a PMHx of CHFpEF ( 55-60% EF), CAD (s/p 2 stents in 1988), a fib (off coumadin due to frequent falls), and benign brain tumor who presents with worsening leg swelling and LUE swelling X 1 day. Pt is a poor historian. He noted LUE swelling up to shoulder this am. Also, complaining of pain in L shoulder and chest over pacemaker since this am. He was unable to desrcibe if pain is sharp or dull, but states it hurts when he touches or moves it. Denies arm trauma. Has had progressively worsening swelling BLE past 4 days. Not compliant w meds, pt did not take lasix for last 2d. Does not remember type of pacemaker. Seen on 06/26/19 for LE swelling d/t CHF exacerbation. Denies fever, nausea/vomiting, SOB, abd pain, pnd , orthopnea. Pt reports walking several blocks without becoming sob. ER course was notable for: (1)20 Lasix IVP, BNP- 4587, T bili - 1.3, ALP- 123 (2) Tylenol for shoulder pain, trops - (3)CXR- no infiltrates, LUE duplex negative for any thrombosis Recent Travel: denies Social History: Smoking:denies Alcohol:1 shot every morning for many years. 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 Drugs: denies Allergies No Known Drug Allergies Allergy (Verified 02/12/19 12:38) HOME MEDICATIONS: Home Medications Medication Instructions Recorded Simvastatin [Zocor -] 40 mg PO HS 02/22/16 Potassium Chloride 20 meq PO DAILY 05/14/18 Acetaminophen [Tylenol] 325 mg PO DAILY PRN 02/13/19 Aspirin Coated [Ecotrin -] 81 mg PO DAILY #90 tablet.ec 06/18/19 Furosemide [Lasix -] 40 mg PO BID@0600,1400 #60 tablet 06/30/19 Quetiapine Fumarate [Seroquel -] 25 mg PO DAILY@1999 #30 tablet 06/30/19 REVIEW OF SYSTEMS negative as per HPI PHYSICAL EXAMINATION Vital Signs - 24 hr 08/03/19 12:05 Temperature 99.4 F Pulse Rate 74 Respiratory 17 Rate Blood Pressure 136/77 O2 Sat by Pulse 99 Oximetry (%) GENERAL: Awake, alert, and fully oriented, in no acute distress. NECK: Normal range of motion, supple,with JVD LUNGS: Breath sounds equal, clear to auscultation bilaterally. No wheezes, and no crackles. No accessory muscle use. HEART: S3 gallop, without murmur, rub or gallop. ABDOMEN: Soft, mild ttp of midepigastrium, not distended, normoactive bowel sounds, minimal guarding, no rebound, no masses. MUSCULOSKELETAL: LUE unable to lift due to tenderness, ttp left shoulder near pacemaker site UPPER EXTREMITIES: 2+ pulses, cool, well-perfused. No cyanosis. 2+peripheral edema. LOWER EXTREMITIES: 2+ pulses, warm, well-perfused. No calf tenderness. 2+ peripheral edema. Laboratory Results - last 24 hr ASSESSMENT/PLAN: This is an 89 y/o gentleman with a PMHx of CHFpEF (02/05 55-60% EF), CAD (s/p 2 stents in 1988), a fib (off coumadin due to frequent falls), and benign brain tumor who presents with worsening leg swelling and LUE swelling X 1 day. #Acute NYHA class I CHFpEF exacerbation - IV lasix 40 BID - monitor I's & O's - daily weights - echo in am to assess EF - low Na diet - fluid restriction <1 L - pt should be on soila inhibitor, BB, unless there is a contraindication in this pt - c/w asa 81 - PT eval #LUE edema - unknown origin at this time, could be related to the pacemaker given the location of the pain vs venous/lymphatic obstruction vs CHF related - doubt phlebitis or trauma - Lt shoulder xray negative for fracture and pt denied trauma - duplex LUE negative for dvt - ordered CT LUE with contrast to r/o venous/lymphatic obstruction - keep arm elevated Hyperbilirubinemia - T bili slightly elevated at 1.4 - ALP- 123 - Abdominal US #CAD hx - pt on ASA - EKG- nsr, new TWI's in leads V2, V3 - likely not ACS - trop negative X 1 - rpt trop #AF - ekg with pacemaker in nsr - HAS-Bled score of 4 high risk for bleeding (8.7%) - holding coumadin due to hx of falls - pt may be a candidate for watchmen or lariat procedure DVT ppx: 5K TID Visit type - Emergency Visit Emergency Visit: Yes ED Registration Date: 08/03/19 Care time: The patient presented to the Emergency Department on the above date and was hospitalized for further evaluation of their emergent condition. - New Patient This patient is new to me today: Yes Date on this admission: 08/04/19 - Critical Care Critical Care patient: No ATTENDING PHYSICIAN STATEMENT I saw and evaluated the patient. I reviewed the resident's note and discussed the case with the resident. I agree with the resident's findings and plan as documented. SUBJECTIVE: OBJECTIVE: ASSESSMENT AND PLAN:
[2019-08-03] MEDS ORDERED: morphine SULFATE 4 MG/ML VIAL ONE (20:45)
[2019-08-03] MEDS: HEPARIN NA (PORCINE) 5,000 UNITS/ML 1ML VIAL SQ SCH (22:05)
[2019-08-04 06:04] LABS: BASO % 0.7 % (0-2.0); EOS % 0.3 % (0-4.5); HEMATOCRIT 39.3 % (35.4-49); HEMOGLOBIN 12.7 GM/dL (11.7-16.9); LYMPH % 9.2 % (8-40); MCH 28.1 pg (25.7-33.7); MCHC 32.3 g/dl (32.0-35.9); MEAN CELL VOLUME 86.9 fl (80-96); MEAN PLT VOLUME 9.2 fl (7.5-11.1); MONO % 8.1 % (3.8-10.2); NEUT % 81.7 % (42.8-82.8); PLATELET COUNT 244 K/MM3 (134-434); RBC 4.53 M/mm3 (4.00-5.60); RDW 17.7 % (11.9-15.9); WHITE BLOOD COUNT 11.3 K/mm3 (4.0-10.0)
[2019-08-04 06:16] LABS: INR 1.35 (0.83-1.09)
[2019-08-04 06:32] LABS: ALBUMIN 2.9 g/dl (3.4-5.0); BILIRUBIN,TOTAL 1.7 mg/dL (0.2-1); BLOOD UREA NITROGEN 14.3 mg/dL (7-18); CALCIUM 9.9 mg/dL (8.5-10.1); CREATININE 0.8 mg/dL (0.55-1.3); MAGNESIUM 2.1 mg/dL (1.8-2.4); PHOSPHOROUS 2.7 mg/dL (2.5-4.9); POTASSIUM 3.1 mmol/L (3.5-5.1); TOT PROT 6.6 g/dl (6.4-8.2)
[2019-08-04] MEDS ORDERED: FUROSEMIDE 40 MG/4 ML INJECTABLE VIAL ONE (06:39)
[2019-08-04] MEDS: FUROSEMIDE 40 MG/4 ML INJECTABLE VIAL IVPUSH SCH ×2 (06:49→14:00)
[2019-08-04] MEDS: HEPARIN NA (PORCINE) 5,000 UNITS/ML 1ML VIAL SQ SCH ×3 (06:57→21:02)
[2019-08-04] MEDS: POTASSIUM CHLORIDE TABS 20 MEQ TABLET.ER (FP) PO SCH ×2 (09:10→13:30)
[2019-08-04] MEDS ORDERED: POTASSIUM CHLORIDE TABS 20 MEQ TABLET.ER (FP) PO ONE ×2 (09:16→13:19)
[2019-08-04 10:33] LABS: BILIRUBIN,DIRECT 1.1 mg/dL (0.0-0.2)
--- NOTE | 2019-08-04 12:04 | ECHO ---
Name: ROSA GARCIA Exam:Adult Echocardiogram Study Date: 08/04/2019 09:49 AM Age: 89 yrs Height: 65 in Weight: 165 lb BSA: 1.8 m2 MMode/2D Measurements & Calculations IVSd: 0.94 cm Ao root diam: 3.2 cm LVIDd: 3.6 cm LA dimension: 4.3 cm LVIDs: 2.5 cm LVPWd: 1.1 cm LVPWs: 1.3 cm EDV(Teich): 54.4 ml ESV(Teich): 22.3 ml LVOT diam: 2.3 cm LAV (MOD-bp): 64.0 ml Doppler Measurements & Calculations Ao V2 max: 117.3 cm/sec LV V1 max P.0 mmHg Ao max P.5 mmHg LV V1 max: 70.6 cm/sec PHIL(V,D): 2.4 cm2 TR max richard: 372.9 cm/sec PA V2 max: 102.5 cm/sec TR max P.0 mmHg PA max P.3 mmHg PI end-d richard: 159.3 cm/sec Lat Peak E' Richard: 10.2 cm/sec Procedure A complete two-dimensional transthoracic echocardiogram was performed (2D, M-mode, Doppler and color flow Doppler). Left Ventricle The left ventricle is normal in size. Left ventricular systolic function is normal. Ejection Fraction = 55- 60%. No regional wall motion abnormalities noted. Right Ventricle The right ventricle is normal size. There is a pacemaker lead in the right ventricle. The right ventr icular systolic function is normal. Atria The left atrium is mildly dilated. Right atrial size is normal. Mitral Valve There is mild mitral valve thickening. There is mild mitral annular calcification. There is mild to m oderate mitral regurgitation. Tricuspid Valve The tricuspid valve is normal in structure and function. There is mild to moderate tricuspid regurgit ation. Pulmonary artery systolic pressure is at least 58 mmHg if RA pressure is assumed 3 mmHg. Aortic Valve There is mild aortic sclerosis.;. Mild to moderate aortic regurgitation. Pulmonic Valve The pulmonic valve is not well visualized. Moderate pulmonic valvular regurgitation. Great Vessels The aortic root is normal size. Pericardium/Pleura There is no pericardial effusion. Interpretation Summary The left ventricle is normal in size. Left ventricular systolic function is normal. No regional wall motion abnormalities noted. Ejection Fraction = 55-60%. The right ventricular systolic function is normal. The left atrium is mildly dilated. Right atrial size is normal. There is mild mitral valve thickening. There is mild mitral annular calcification. There is mild to moderate mitral regurgitation. There is mild to moderate tricuspid regurgitation. There is mild aortic sclerosis. Mild to moderate aortic regurgitation. Moderate pulmonic valvular regurgitation. Pulmonary artery systolic pressure is at least 58 mmHg if RA pressure is assumed 3 mmHg There is a pacemaker lead in the right ventricle. There is no pericardial effusion. Renan Walker MD 08/04/2019 12:04 PM
--- NOTE | 2019-08-04 13:49 | PN ---
Teaching Attending Note Name of Resident: Farrah Ramirez ATTENDING PHYSICIAN STATEMENT I saw and evaluated the patient. I reviewed the resident's note and discussed the case with the resident. I agree with the resident's findings and plan as documented. SUBJECTIVE: Feels well - no complaints except for LUE and bilateral LE swelling. No CP/palpitations/dyspnea OBJECTIVE: Afebrile, Hemodynamically Stable. Last Vital Signs Temp Pulse Resp BP Pulse Ox 97.7 F 88 20 147/72 97 08/04/19 07:45 08/04/19 07:45 08/04/19 07:45 08/04/19 07:45 08/04/19 07:45 HEENT - Atraumatic, Normocephalic. Heart - S1, S2, soft SM Lungs - clear to auscultation Abdomen -Soft, non-tender. Bowel Sounds normal. Extremities - Bilateral LE edema, variosities. No calf tenderness. Laboratory Results - last 24 hr 08/03/19 08/04/19 08/04/19 12:52 00:46 05:40 WBC 11.3 H RBC 4.53 Hgb 12.7 Hct 39.3 MCV 86.9 MCH 28.1 MCHC 32.3 RDW 17.7 H Plt Count 244 MPV 9.2 Absolute Neuts (auto) 9.3 H Neutrophils % 81.7 Lymphocytes % 9.2 Monocytes % 8.1 Eosinophils % 0.3 Basophils % 0.7 Nucleated RBC % 0 PT with INR INR Sodium 142 Potassium 3.7 Chloride 104 Carbon Dioxide 31 Anion Gap 8 BUN 16.3 Creatinine 0.9 Est GFR (CKD-EPI)AfAm 88.07 Est GFR (CKD-EPI)NonAf 75.99 Random Glucose 102 Hemoglobin A1c % Calcium 9.9 Phosphorus Magnesium Total Bilirubin 1.3 H Direct Bilirubin AST 16 ALT 11 L Alkaline Phosphatase 123 H Creatine Kinase 54 Troponin I 0.04 0.03 B-Natriuretic Peptide 4587.3 H Total Protein 6.5 Albumin 2.7 L Triglycerides Cholesterol Total LDL Cholesterol HDL Cholesterol 08/04/19 08/04/19 08/04/19 05:40 05:40 05:40 WBC RBC Hgb Hct MCV MCH MCHC RDW Plt Count MPV Absolute Neuts (auto) Neutrophils % Lymphocytes % Monocytes % Eosinophils % Basophils % Nucleated RBC % PT with INR 16.00 H INR 1.35 H Sodium 145 Potassium 3.1 L Chloride 103 Carbon Dioxide 32 Anion Gap 10 BUN 14.3 Creatinine 0.8 Est GFR (CKD-EPI)AfAm 92.44 Est GFR (CKD-EPI)NonAf 79.76 Random Glucose 98 Hemoglobin A1c % 6.2 Calcium 9.9 Phosphorus 2.7 Magnesium 2.1 Total Bilirubin 1.7 H Direct Bilirubin 1.1 H AST 17 ALT 11 L Alkaline Phosphatase 122 H Creatine Kinase Troponin I B-Natriuretic Peptide Total Protein 6.6 Albumin 2.9 L Triglycerides 83 Cholesterol 120 Total LDL Cholesterol 64 HDL Cholesterol 40 Current Medications Generic Name Dose Route Start Last Admin Trade Name Freq PRN Reason Stop Dose Admin Furosemide 40 mg 08/04/19 06:00 08/04/19 06:49 Lasix Injection - IVPUSH 40 mg BID@0600,1400 [facility] Administration Heparin Sodium (Porcine) 5,000 unit 08/03/19 22:00 08/04/19 06:57 Heparin - SQ 5,000 unit TID [facility]OR[facility] Administration Home Medications Medication Instructions Recorded Simvastatin [Zocor -] 40 mg PO HS 02/22/16 Potassium Chloride 20 meq PO DAILY 05/14/18 Acetaminophen [Tylenol] 325 mg PO DAILY PRN 02/13/19 Aspirin Coated [Ecotrin -] 81 mg PO DAILY #90 tablet.ec 06/18/19 Furosemide [Lasix -] 40 mg PO BID@0600,1400 #60 tablet 06/30/19 Quetiapine Fumarate [Seroquel -] 25 mg PO DAILY@2000 #30 tablet 06/30/19 ASSESSMENT AND PLAN: 89 year old male with PMH of Chronic Diastolic CHF, CAD (s/p PCI/Stent), Atrial Fibrillation (Coumadin stopped due to frequent falls), s/p PPM, and Benign brain tumor presents with 1 day history of left arm swelling and L shoulder pain , atop several days of worsening lower extremity edema. CT LUE - subcutaneous edema US Duplex LUE - no DVT CT Chest - no mass, bibasal effsuions, CArdiomegaly and dilated pul vasculature consistent with pulmonary HTN Head and Neck - normal on CT. Abdominal US - neg for acute pathology 1. Acute on Chronic Diastolic/R Sided HF sec to Pulmonary HTN Elevate BNP Echo - Normal EF 55%, Mod MR, Mod TR, Mod AR, Pul artery pressure 58mmHg Continue IV Lasix diuresis Cardiology eval. Daily weight, I/Os, renal function monitoring. CT A/P to exclude intra-abdominal/pelvic cause for LE edema. 2. CAD s/p PCI/Stent Continue Aspirin/Statin 3. Atrial Fibrillation - not anticoagulated due to frequent falls (previously on Coumadin) continue Aspirin. 4. Hyperbilirubinemai - mild Abdo US - normal, no biliary pathology. Will monitor. Continue Statin for now. 5. Hypokalemia - repleted. DVT Px - Heparin SQ
--- NOTE | 2019-08-04 14:42 | PN ---
Physical Exam: SUBJECTIVE: Patient seen and examined. Patient has patchy edema of both lower extremities. He also has edema of the LUE from the shoulder down. He complains of mild back pain that started overnight due to lying in the ER stretcher overnight. OBJECTIVE: Vital Signs Period Temp Pulse Resp BP Sys/Esposito Pulse Ox Last 24 Hr 97.5 F-97.7 F 82-88 20-20 142-147/72-75 97 GENERAL: The patient is awake, alert, and fully oriented, in no acute distress. HEAD: Normal with no signs of trauma. EYES: EOMI, PERRL, cataracts bilaterally ENT: dry mucous membranes NECK: Trachea midline, full range of motion, supple. LUNGS: Breath sounds equal, clear to auscultation bilaterally, no wheezes, no crackles, no accessory muscle use. HEART: RRR, S1 S2 normal ABDOMEN: Soft, nontender, nondistended, normoactive bowel sounds, no guarding, no rebound EXTREMITIES: 2+ pulses, warm, 2+ patchy pitting edema of bilateral lower extremities. 2+ edema of LUE from the shoulder down. NEUROLOGICAL: Normal speech, gait not observed. PSYCH: appropriate mood and affect SKIN: Warm, dry, normal turgor Laboratory Results - last 24 hr 08/03/19 08/04/19 08/04/19 12:52 00:46 05:40 WBC 11.3 H RBC 4.53 Hgb 12.7 Hct 39.3 MCV 86.9 MCH 28.1 MCHC 32.3 RDW 17.7 H Plt Count 244 MPV 9.2 Absolute Neuts (auto) 9.3 H Neutrophils % 81.7 Lymphocytes % 9.2 Monocytes % 8.1 Eosinophils % 0.3 Basophils % 0.7 Nucleated RBC % 0 PT with INR INR Sodium 142 Potassium 3.7 Chloride 104 Carbon Dioxide 31 Anion Gap 8 BUN 16.3 Creatinine 0.9 Est GFR (CKD-EPI)AfAm 88.07 Est GFR (CKD-EPI)NonAf 75.99 Random Glucose 102 Hemoglobin A1c % Calcium 9.9 Phosphorus Magnesium Total Bilirubin 1.3 H Direct Bilirubin AST 16 ALT 11 L Alkaline Phosphatase 123 H Creatine Kinase 54 Troponin I 0.04 0.03 B-Natriuretic Peptide 4587.3 H Total Protein 6.5 Albumin 2.7 L Triglycerides Cholesterol Total LDL Cholesterol HDL Cholesterol 08/04/19 08/04/19 08/04/19 05:40 05:40 05:40 WBC RBC Hgb Hct MCV MCH MCHC RDW Plt Count MPV Absolute Neuts (auto) Neutrophils % Lymphocytes % Monocytes % Eosinophils % Basophils % Nucleated RBC % PT with INR 16.00 H INR 1.35 H Sodium 145 Potassium 3.1 L Chloride 103 Carbon Dioxide 32 Anion Gap 10 BUN 14.3 Creatinine 0.8 Est GFR (CKD-EPI)AfAm 92.44 Est GFR (CKD-EPI)NonAf 79.76 Random Glucose 98 Hemoglobin A1c % 6.2 Calcium 9.9 Phosphorus 2.7 Magnesium 2.1 Total Bilirubin 1.7 H Direct Bilirubin 1.1 H AST 17 ALT 11 L Alkaline Phosphatase 122 H Creatine Kinase Troponin I B-Natriuretic Peptide Total Protein 6.6 Albumin 2.9 L Triglycerides 83 Cholesterol 120 Total LDL Cholesterol 64 HDL Cholesterol 40 Active Medications Generic Name Dose Route Start Last Admin Trade Name Freq PRN Reason Stop Dose Admin Furosemide 40 mg 08/04/19 06:00 08/04/19 14:00 Lasix Injection - IVPUSH 40 mg BID@0600,1400 [facility] Administration Heparin Sodium (Porcine) 5,000 unit 08/03/19 22:00 08/04/19 14:00 Heparin - SQ 5,000 unit TID GEOR[facility] Administration ASSESSMENT/PLAN: 89 y/o/m with a PMHx of 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 #Bilateral lower extremity edema and LUE edema 2/2 Acute on Chronic Diastolic/R Sided HF sec to Pulmonary HTN - IV lasix 40 BID - monitor I's & O's - daily weights - echo shows normal EF and LV function. Severe pulmonary HTN. -Likely Right sided heart failure - Cardiology consulted for severe pulmonary HTN, appreciate recs - low Na diet - fluid restriction <1 L - c/w asa 81 - PT eval #LUE edema - Unknown cause at this time, could be 2/2 CHF - Imaging without evidence of DVT, fracture, masses compressing vasculature - Lt shoulder xray negative for fracture and pt denied trauma - duplex LUE negative for dvt - keep arm elevated #Hyperbilirubinemia - T bili slightly elevated at 1.4 -> 1.7 - Direct bili at 1.1 - ALP- 123 - Abdominal US without evidence of biliary obstruction or other acute pathology #CAD hx - pt on ASA, continue - EKG - nsr, new TWI's in leads V2, V3 - trop negative X 2 #AF - ekg with pacemaker in nsr - HAS-Bled score of 4 high risk for bleeding (8.7%) - holding coumadin due to hx of falls since last admission in June #Prophylaxis - Heparin #FEN - Sodium controlled diet - monitor and replete lytes as needed - Hypokalemia - repleted #Disposition - Admitted to floors Visit type - Emergency Visit Emergency Visit: Yes ED Registration Date: 08/03/19 Care time: The patient presented to the Emergency Department on the above date and was hospitalized for further evaluation of their emergent condition. - New Patient This patient is new to me today: Yes Date on this admission: 08/04/19 - Critical Care Critical Care patient: No ATTENDING PHYSICIAN STATEMENT I saw and evaluated the patient. I reviewed the resident's note and discussed the case with the resident. I agree with the resident's findings and plan as documented. SUBJECTIVE: OBJECTIVE: ASSESSMENT AND PLAN:
--- NOTE | 2019-08-04 14:47 | EKG ---
Test Reason : Blood Pressure : / mmHG Vent. Rate : 076 BPM Atrial Rate : 073 BPM P-R Int : 000 ms QRS Dur : 096 ms QT Int : 378 ms P-R-T Axes : 000 -13 -50 degrees QTc Int : 425 ms VENTRICULAR PACED RHYTHM UNDERLYING ATRIAL FIBRILLATION NONSPECIFIC ST AND T WAVE ABNORMALITY ABNORMAL ECG WHEN COMPARED WITH ECG OF 03-AUG-2019 12:56, NO SIGNIFICANT CHANGE WAS FOUND Confirmed by MAXWELL MURRELL MD ([id number]) on 08/04/2019 2:47:13 PM Referred By: Confirmed By:MAXWELL MURRELL MD
--- NOTE | 2019-08-04 14:50 | EKG ---
Test Reason : Blood Pressure : / mmHG Vent. Rate : 073 BPM Atrial Rate : 064 BPM P-R Int : 000 ms QRS Dur : 088 ms QT Int : 394 ms P-R-T Axes : 000 -15 -52 degrees QTc Int : 434 ms VENTRICULAR PACED ATRIAL FIBRILLATION NONSPECIFIC ST AND T WAVE ABNORMALITY ABNORMAL ECG WHEN COMPARED WITH ECG OF 26-JUN-2019 09:50, NO SIGNIFICANT CHANGE WAS FOUND Confirmed by MAXWELL MURRELL MD ([id number]) on 08/04/2019 2:50:25 PM Referred By: Confirmed By:MAXWELL MURRELL MD
[2019-08-04 18:15] VITALS: BMI 28.1
[2019-08-04] MEDS: QUEtiapine FUMARATE 25 MG TABLET (FP) PO SCH (21:02)
[2019-08-04] MEDS: ATORVASTATIN CA 20 MG TABLET (FP) PO SCH (21:02)
[2019-08-04] MEDS ORDERED: MELATONIN 5 MG TABLETS PO ONE (23:25)
[2019-08-05] MEDS: FUROSEMIDE 40 MG/4 ML INJECTABLE VIAL IVPUSH SCH ×3 (06:02→13:18)
[2019-08-05] MEDS: HEPARIN NA (PORCINE) 5,000 UNITS/ML 1ML VIAL SQ SCH ×3 (06:03→21:41)
[2019-08-05 06:43] LABS: HEMATOCRIT 35.5 % (35.4-49); HEMOGLOBIN 11.6 GM/dL (11.7-16.9); MCH 28.3 pg (25.7-33.7); MCHC 32.6 g/dl (32.0-35.9); MEAN CELL VOLUME 86.8 fl (80-96); PLATELET COUNT 222 K/MM3 (134-434); RBC 4.09 M/mm3 (4.00-5.60); RDW 17.5 % (11.9-15.9); WHITE BLOOD COUNT 7.8 K/mm3 (4.0-10.0)
[2019-08-05 07:26] LABS: ALBUMIN 2.5 g/dl (3.4-5.0); BILIRUBIN,TOTAL 1.1 mg/dL (0.2-1); CALCIUM 9.6 mg/dL (8.5-10.1); CREATININE 0.7 mg/dL (0.55-1.3); POTASSIUM 3.3 mmol/L (3.5-5.1); TOT PROT 5.7 g/dl (6.4-8.2)
[2019-08-05] MEDS: ASPIRIN COATED 81 MG TABLET.EC PO SCH (09:36)
[2019-08-05] MEDS: POTASSIUM CHLORIDE TABS 20 MEQ TABLET.ER (FP) PO SCH ×2 (09:36→21:40)
--- NOTE | 2019-08-05 10:41 | PN ---
Teaching Attending Note Name of Resident: Farrah Ramirez ATTENDING PHYSICIAN STATEMENT I saw and evaluated the patient. I reviewed the resident's note and discussed the case with the resident. I agree with the resident's findings and plan as documented. SUBJECTIVE: Complains of L shoulder pain and decreased ROM. Ongoing LUE and bilateral LE swelling. No CP/palpitations/dyspnea OBJECTIVE: Afebrile, Hemodynamically Stable. AAO x 2. Last Vital Signs Temp Pulse Resp BP Pulse Ox 98.2 F 80 20 143/84 98 08/05/19 06:00 08/05/19 06:00 08/05/19 06:00 08/05/19 06:00 08/04/19 21:00 HEENT - Atraumatic, Normocephalic. Heart - S1, S2, soft SM Lungs - clear to auscultation Abdomen -Soft, non-tender. Bowel Sounds normal. Extremities - LUE swelling +++. Bilateral LE edema, variosities. No calf tenderness. MS - decreased ROM about L shoulder. No warmth/erythema/tenderness. Laboratory Results - last 24 hr 08/05/19 08/05/19 06:02 06:02 WBC 7.8 RBC 4.09 Hgb 11.6 L Hct 35.5 MCV 86.8 MCH 28.3 MCHC 32.6 RDW 17.5 H Plt Count 222 MPV 9.0 Sodium 143 Potassium 3.3 L Chloride 102 Carbon Dioxide 32 Anion Gap 9 BUN 15.0 Creatinine 0.7 Est GFR (CKD-EPI)AfAm 97.65 Est GFR (CKD-EPI)NonAf 84.26 Random Glucose 112 H Calcium 9.6 Total Bilirubin 1.1 H AST 13 L ALT 10 L Alkaline Phosphatase 108 Total Protein 5.7 L Albumin 2.5 L Current Medications Generic Name Dose Route Start Last Admin Trade Name Freq PRN Reason Stop Dose Admin Aspirin 81 mg 08/05/19 10:00 08/05/19 09:36 Ecotrin - PO 81 mg DAILY [facility] Administration Atorvastatin Calcium 20 mg 08/04/19 22:00 08/04/19 21:02 Lipitor - PO 20 mg HS [facility] Administration Furosemide 40 mg 08/04/19 06:00 08/05/19 07:01 Lasix Injection - IVPUSH 40 mg BID@0600,1400 [facility] Administration Heparin Sodium (Porcine) 5,000 unit 08/03/19 22:00 08/05/19 06:03 Heparin - SQ 5,000 unit TID [facility] Administration Potassium Chloride 40 meq 08/05/19 10:00 08/05/19 09:36 K-Dur - PO 08/05/19 22:01 40 meq BID [facility] Administration Quetiapine Fumarate 25 mg 08/04/19 20:00 08/04/19 21:02 Seroquel - PO 25 mg DAILY@1999 [facility] Administration Home Medications Medication Instructions Recorded Simvastatin [Zocor -] 40 mg PO HS 02/22/16 Potassium Chloride 20 meq PO DAILY 05/14/18 Acetaminophen [Tylenol] 325 mg PO DAILY PRN 02/13/19 Aspirin Coated [Ecotrin -] 81 mg PO DAILY #90 tablet.ec 06/18/19 Furosemide [Lasix -] 40 mg PO BID@0600,1400 #60 tablet 06/30/19 Quetiapine Fumarate [Seroquel -] 25 mg PO DAILY@1999 #30 tablet 06/30/19 ASSESSMENT AND PLAN: 89 year old male with PMH of Chronic Diastolic CHF, CAD (s/p PCI/Stent), Atrial Fibrillation (Coumadin stopped due to frequent falls), s/p PPM, and Benign brain tumor presents with 1 day history of left arm swelling and L shoulder pain , atop several days of worsening lower extremity edema. CT LUE - subcutaneous edema US Duplex LUE - no DVT CT Chest - no mass, bibasal effsuions, CArdiomegaly and dilated pul vasculature consistent with pulmonary HTN Head and Neck - normal on CT. Abdominal US - neg for acute pathology 1. Acute on Chronic Diastolic/R Sided HF sec to Pulmonary HTN Elevated BNP Echo - Normal EF 55%, Mod MR, Mod TR, Mod AR, Pul artery pressure 58mmHg Continue IV Lasix diuresis Cardiology eval requested. Daily weight, I/Os, renal function monitoring. 2. CAD s/p PCI/Stent Continue Aspirin/Statin 3. Atrial Fibrillation - not anticoagulated due to frequent falls (previously on Coumadin) Continue Aspirin. 4. Hyperbilirubinemai - mild Abdo US - normal, no biliary pathology. Will monitor. Continue Statin for now. 5. Hypokalemia - repleted. 6. L Shoulder Pain and LUE weakness CT head - no acute infarct. Decreased extension/abduction about shoulder due to pain Ortho consult ?Adhesive Capsulitis. 7. AAO x 2. Baseline mental status unknown ?Hx of Dementia. Will confirm with family. Continue Seroquel. 8. Hypokalemia sec to IV Lasix diuresis - will replete. DVT Px - Heparin SQ
--- NOTE | 2019-08-05 11:09 | PN ---
Physical Exam: SUBJECTIVE: Patient seen and examined. Complaining of worse left shoulder pain today. He is able to move his arm but his range of motion is restricted due to pain. No acute events overnight. OBJECTIVE: Vital Signs Period Temp Pulse Resp BP Sys/Esposito Pulse Ox Last 24 Hr 97.4 F-98.6 F 72-82 20-20 130-146/62-85 98-98 GENERAL: The patient is awake, alert, in no acute distress. HEAD: Normal with no signs of trauma. EYES: EOMI, PERRL, cataracts bilaterally ENT: dry mucous membranes NECK: Trachea midline, full range of motion, supple. LUNGS: Breath sounds equal, clear to auscultation bilaterally, no wheezes, no crackles, no accessory muscle use. HEART: RRR, S1 S2 normal ABDOMEN: Soft, nontender, nondistended, normoactive bowel sounds, no guarding, no rebound EXTREMITIES: 2+ pulses, warm, 2+ pitting edema of bilateral lower extremities. 2 + edema of LUE from the shoulder down. Restricted active and passive range of motion of left upper extremity at level of shoulder and elbow. 3cm area of mild erythema and warmth over left elbow. Sensation intact throughout NEUROLOGICAL: Normal speech, able to ambulate with assistance. AAOx2 (self and place) SKIN: Warm, dry, normal turgor Laboratory Results - last 24 hr 08/05/19 08/05/19 06:02 06:02 WBC 7.8 RBC 4.09 Hgb 11.6 L Hct 35.5 MCV 86.8 MCH 28.3 MCHC 32.6 RDW 17.5 H Plt Count 222 MPV 9.0 Sodium 143 Potassium 3.3 L Chloride 102 Carbon Dioxide 32 Anion Gap 9 BUN 15.0 Creatinine 0.7 Est GFR (CKD-EPI)AfAm 97.65 Est GFR (CKD-EPI)NonAf 84.26 Random Glucose 112 H Calcium 9.6 Total Bilirubin 1.1 H AST 13 L ALT 10 L Alkaline Phosphatase 108 Total Protein 5.7 L Albumin 2.5 L Active Medications Generic Name Dose Route Start Last Admin Trade Name Freq PRN Reason Stop Dose Admin Aspirin 81 mg 08/05/19 10:00 08/05/19 09:36 Ecotrin - PO 81 mg DAILY [facility] Administration Atorvastatin Calcium 20 mg 08/04/19 22:00 08/04/19 21:02 Lipitor - PO 20 mg HS [facility] Administration Furosemide 40 mg 08/04/19 06:00 08/05/19 07:01 Lasix Injection - IVPUSH 40 mg BID@0600,1400 [facility] Administration Heparin Sodium (Porcine) 5,000 unit 08/03/19 22:00 08/05/19 06:03 Heparin - SQ 5,000 unit TID [facility] Administration Potassium Chloride 40 meq 08/05/19 10:00 08/05/19 09:36 K-Dur - PO 08/05/19 22:01 40 meq BID [facility] Administration Quetiapine Fumarate 25 mg 08/04/19 20:00 08/04/19 21:02 Seroquel - PO 25 mg DAILY@1999 [facility] Administration ASSESSMENT/PLAN: 89 y/o/m with a PMHx of CHFpEF (02/05 55-60% EF), CAD (s/p 2 stents in 1988), a fib (off coumadin due to frequent falls), and benign brain tumor who presents with worsening chronic leg swelling and LUE swelling X1 day. #Bilateral lower extremity edema and LUE edema 2/2 Acute on Chronic Diastolic/R Sided HF sec to Pulmonary HTN - IV lasix 40 BID - monitor I's & O's - daily weights - echo shows normal EF and LV function. Severe pulmonary HTN. -Likely Right sided heart failure - Cardiology consulted for severe pulmonary HTN, appreciate recs - fluid restriction <1 L - c/w asa 81 - PT eval #LUE edema - Unknown cause at this time, could be 2/2 CHF - Imaging without evidence of DVT, fracture, masses compressing vasculature - Lt shoulder xray negative for fracture and pt denied trauma - duplex LUE negative for dvt - keep arm elevated - Ortho consulted for left upper extremity pain/decreased range of motion, appreciate recs - Continue Motrin for pain relief/ant-inflammatory effects - Recommend elevation/ice on LUE - XRays of left shoulder and left elbow ordered - Started on Keflex 500 BID for cellulitis - CT head negative for acute intracranial pathology #Hyperbilirubinemia - T bili slightly elevated on admission. 1.3 -> 1.7 -> 1.1 - ALP- 123 - Abdominal US without evidence of biliary obstruction or other acute pathology #CAD hx - pt on ASA, continue - EKG - nsr, new TWI's in leads V2, V3 - trop negative x2 #AF - ekg with pacemaker in nsr - HAS-Bled score of 4 high risk for bleeding (8.7%) - holding coumadin due to hx of falls since last admission in June #Prophylaxis - Heparin #FEN - Sodium controlled diet - monitor and replete lytes as needed - Hypokalemia - repleted #Disposition - Admitted to floors Visit type - Emergency Visit Emergency Visit: Yes ED Registration Date: 08/03/19 Care time: The patient presented to the Emergency Department on the above date and was hospitalized for further evaluation of their emergent condition. - New Patient This patient is new to me today: No - Critical Care Critical Care patient: No ATTENDING PHYSICIAN STATEMENT I saw and evaluated the patient. I reviewed the resident's note and discussed the case with the resident. I agree with the resident's findings and plan as documented. SUBJECTIVE: OBJECTIVE: ASSESSMENT AND PLAN:
[2019-08-05] MEDS ORDERED: IBUPROFEN 400 MG TABLET (FP) PO ONE (11:21)
--- NOTE | 2019-08-05 11:50 | CON.CARD ---
Consult Consult Specialty:: Cardiology Referred by:: Medicine Reason for Consultation:: CHF - History of Present Illness Chief Complaint: short of breath, leg swelling History of Present Illness: 89M h/o chronic diastolic HF, CAD s/p stents, afib (not on ac due to falls) p/w L arm swelling, maria eugenia leg edema and dyspnea. Has been diuresed here with IV lasix , breathing improving, edema is stable. Echo here shows nl LV/RV function with elevated pulmonary pressuers. Recently admitted for falls, weakness, coumadin was stopped during last admission. 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: No: Alzheimer's, CVA, Dementia, Migraine, Multiple Sclerosis, Peripheral Neuropathy, Parkinson's, Seizure, Syncope, TIA, Vertigo, Other Cardio/Vascular: Yes: AFIB Pulmonary: Yes: Other (Mild PHTN) Renal/: Yes: Renal Failure - Alcohol/Substance Use Hx Alcohol Use: No - Smoking History Smoking history: Never smoked Have you smoked in the past 12 months: No Aproximately how many cigarettes per day: 0 - Social History Usual Living Arrangement: With Spouse ADL: Family Assistance History of Recent Travel: No Home Medications - Allergies Allergies/Adverse Reactions: Allergies Allergy/AdvReac Type Severity Reaction Status Date / Time No Known Drug Allergies Allergy Verified 02/12/19 12:38 - Home Medications Home Medications: Ambulatory Orders Simvastatin [Zocor -] 40 mg PO HS 02/22/16 Potassium Chloride 20 meq PO DAILY 05/14/18 Acetaminophen [Tylenol] 325 mg PO DAILY PRN 02/13/19 Aspirin Coated [Ecotrin -] 81 mg PO DAILY #90 tablet.ec 06/18/19 Furosemide [Lasix -] 40 mg PO BID@0600,1400 #60 tablet 06/30/19 Quetiapine Fumarate [Seroquel -] 25 mg PO DAILY@1999 #30 tablet 06/30/19 Family Medical History Family History: Unremarkable Review of Systems - Review of Systems Constitutional: reports: No Symptoms Eyes: reports: No Symptoms HENT: reports: No Symptoms Neck: reports: No Symptoms Cardiovascular: reports: No Symptoms Respiratory: reports: No Symptoms Gastrointestinal: reports: No Symptoms Genitourinary: reports: No Symptoms Musculoskeletal: reports: No Symptoms Integumentary: reports: No Symptoms Neurological: reports: No Symptoms Endocrine: reports: No Symptoms Hematology/Lymphatic: reports: No Symptoms Psychiatric: reports: No Symptoms Vital Signs: Vital Signs Temperature 97 F L 08/05/19 10:00 Pulse Rate 85 08/05/19 10:00 Respiratory Rate 18 08/05/19 10:00 Blood Pressure 128/60 08/05/19 10:00 O2 Sat by Pulse Oximetry (%) 96 08/05/19 09:00 Constitutional: Yes: No Distress, Calm Eyes: Yes: Conjunctiva Clear, EOM Intact HENT: Yes: Atraumatic, Normocephalic Neck: Yes: Supple, Trachea Midline Respiratory: Yes: Regular, Diminished (bases maria eugenia) Gastrointestinal: Yes: Normal Bowel Sounds, Soft Cardiovascular: Yes: Pulse Irregular JVD: No PMI: Non-Displaced Extremities: No: Cold Edema: Yes Edema: LUE: 1+, LLE: 2+, RLE: 2+ Integumentary: No: Jaundice Neurological: Yes: Alert, Oriented Psychiatric: No: Agitated - Other Data Labs, Other Data: CBC, BMP 08/05/19 06:02 08/05/19 06:02 INR, PTT INR 1.35 (0.83-1.09) H 08/04/19 05:40 Assessment/Plan EKG: EXTENSION CLERK, afib CT chest : tr maria eugenia pleural effusions, cardiomegaly and prominent main PA c/w pulm hypertension echo 07/2019 nl LV/RV function, LA mildly dilated, mild to mod MR, mild to mod TR, mild to mod AR, PASP at least 58 mmHg tele: sinus, EXTENSION CLERK, PVCs acute on chronic diastolic HF, pulm HTN, edema - nl LV/RV function on echo here, elevated pulm pressures likely in setting of CHF - weight down, Cr stable, edema improving - cont IV lasix - monitor Cr, lytes, daily standing weights CAD s/p PCI - cont aspirin, statin Afib - not on AC due to frequent falls - stopped last admission - cont aspirin s/p PPM - outpatient monitoring
--- NOTE | 2019-08-05 16:04 | CONSULT ---
Consult - text type - Consultation Consultation Note: ORTHOPEDIC SURGERY CONSULTATION NOTE Department of Orthopedic Surgery HISTORY OF PRESENT ILLNESS Mr. Marin is an 89 year old right hand dominant male with a PMHx of CHFpEF ( 55-60% EF), CAD (s/p 2 stents in 1988), a fib (off coumadin due to frequent falls), and benign brain tumor who presents with worsening leg swelling and LUE swelling X 1 day. The orthopedic service was consulted for LUE swelling. The patient denies trauma to LUE. The patient notes pain in his upper extremity that he cannot localize. Denies any other injuries. Denies numbness, tingling or other constitutional complaints. Denies tobacco use, drug use, alcohol abuse. FAMILY HISTORY non-contributory REVIEW OF SYMPTOMS A twelve-point review of systems was performed and was negative except as noted in HPI. PHYSICAL EXAM Constitutional: Alert and oriented to person, place, and time. Appears well- developed and well-nourished. No acute distress, appropriate mood and affect. Right Upper Extremity: Skin warm, dry, and intact; no lesions, rashes or ulcers noted. Muscle mass equal and symmetric to contralateral side. No atrophy noted. No masses or effusions noted. No tenderness to palpation all joints; nontender throughout rest of extremity. Full passive and active ROM, free from pain. Joints stable with no pathologic laxity. M/R/U/MSK/AX motor intact; SILT distally; 2+ radial pulses; Cap refill brisk. Tone and reflexes normal. Left Upper Extremity: Skin warm, dry, and intact; no lesions, rashes or ulcers noted. + Pitting edema of forearm and hand. Muscle mass equal and symmetric to contralateral side. No atrophy noted. Tender to palpation over the olecranon with bursitis, with mild cellulitis covering approximately 3cm in diameter. Nontender throughout rest of extremity including the shoulder and the wrist and fingers.. Full passive ROM of the left shoulder and wrist and fingers, free from pain. He has mild discomfort with ROM of the elbow. Joints stable with no pathologic laxity. M/R/U/MSK/AX motor intact; SILT distally; 2+ radial pulses; Cap refill brisk. Tone and reflexes normal. Active Problems Problem Status Category Onset CHF exacerbation Acute Medical Left arm swelling Acute Medical Past Medical History [employer]OR [employer] Cardio/Vascular AFIB Pulmonary Other Renal/ Renal Failure Social History Smoking history Never smoked Aproximately how many 0 cigarettes per day Hx Alcohol Use No Usual Living Arrangement With Spouse ADL Family Assistance History of Recent Travel No Allergies Allergy/AdvReac Type Severity Reaction Status Date / Time No Known Drug Allergies Allergy Verified 02/12/19 12:38 Active Medications Generic Name Dose Route Start Last Admin Trade Name Williamq PRN Reason Stop Dose Admin Aspirin 81 mg 08/05/19 10:00 08/05/19 09:36 Ecotrin - PO 81 mg DAILY GEORGE Administration Atorvastatin Calcium 20 mg 08/04/19 22:00 08/04/19 21:02 Lipitor - PO 20 mg HS GEORGE Administration Furosemide 40 mg 08/04/19 06:00 08/05/19 13:18 Lasix Injection - IVPUSH 40 mg BID@0600,1400 GEORGE Administration Heparin Sodium (Porcine) 5,000 unit 08/03/19 22:00 08/05/19 13:17 Heparin - SQ 5,000 unit TID GEORGE Administration Potassium Chloride 40 meq 08/05/19 10:00 08/05/19 09:36 K-Dur - PO 08/05/19 22:01 40 meq BID GEORGE Administration Quetiapine Fumarate 25 mg 08/04/19 20:00 08/04/19 21:02 Seroquel - PO 25 mg DAILY@1999 GEORGE Administration Vital Signs (last) Temp Pulse Resp BP Pulse Ox 98.3 F 79 18 133/83 96 08/05/19 15:31 08/05/19 15:31 08/05/19 15:31 08/05/19 15:31 08/05/19 09:00 Intake and Output 08/03/19 08/04/19 08/05/19 23:59 23:59 23:59 Intake Total 10 640 Output Total 300 600 Balance -290 40 Intake: IV 10 40 saline lock 10 40 Oral 600 Output: Urine 300 600 Void 300 600 Other: Voiding Method Diaper Urinal # Unmeasured Voids Void 2 Bowel Movement No Weight 165 lb 159 lb 156 lb 9.6 oz Height 5 ft 5 in 5 ft 3 in Body Mass Index (BMI) 27.4 28.1 Weight Measurement Method Standing Scale Standing Scale Weight Measurement Method Est/Stated by Patient Laboratory 08/05/19 06:02 08/05/19 06:02 PT with INR 16.00 SEC (9.7-13.0) H 08/04/19 05:40 IMAGING I personally reviewed all radiographs, CT, and other imaging. They demonstrate mild to moderate arthritic changes of the left shoulder. No evidence of DVT in the LUE. ASSESSMENT AND PLAN Mr. Marin is a 89 year old male presenting with left olecranon bursitis with mild associated cellulitis. We have reviewed the imaging and clinical findings in detail, as well as their potential implications. After appropriate informed discussion, we agreed on the following plan: 1. Pain control 2. DVT ppx 3. Continue medical management 4. Recommend strict elevation / ice of LUE. 5. F/U Radiographs of the left elbow and left shoulder 6. Recommend antibiotics for cellulitis. Will follow. All questions were answered. Thank you for involving our team in the care of this patient.
[2019-08-05] MEDS ORDERED: IBUPROFEN 400 MG TABLET (FP) PO PRN (16:36)
[2019-08-05] MEDS: LACTOBACILLUS ACIDOPHILUS 1 TABLET PO SCH (16:58)
[2019-08-05] MEDS: PANTOPRAZOLE 40 MG TABLET (FP) PO SCH (16:58)
[2019-08-05] MEDS: QUEtiapine FUMARATE 25 MG TABLET (FP) PO SCH (21:40)
[2019-08-05] MEDS: CEPHALEXIN MONOHYDRATE 500 MG CAPSULE (UD) PO SCH (21:41)
[2019-08-05] MEDS: ATORVASTATIN CA 20 MG TABLET (FP) PO SCH (21:41)
[2019-08-06] MEDS: HEPARIN NA (PORCINE) 5,000 UNITS/ML 1ML VIAL SQ SCH ×3 (05:18→22:13)
[2019-08-06] MEDS: FUROSEMIDE 40 MG/4 ML INJECTABLE VIAL IVPUSH SCH ×2 (05:18→14:08)
[2019-08-06 06:40] LABS: HEMATOCRIT 36.6 % (35.4-49); HEMOGLOBIN 11.9 GM/dL (11.7-16.9); MCH 28.1 pg (25.7-33.7); MCHC 32.6 g/dl (32.0-35.9); MEAN CELL VOLUME 86.4 fl (80-96); MEAN PLT VOLUME 9.2 fl (7.5-11.1); PLATELET COUNT 242 K/MM3 (134-434); RBC 4.24 M/mm3 (4.00-5.60); RDW 17.4 % (11.9-15.9); WHITE BLOOD COUNT 7.1 K/mm3 (4.0-10.0)
[2019-08-06 07:07] LABS: ALBUMIN 2.7 g/dl (3.4-5.0); BILIRUBIN,TOTAL 0.9 mg/dL (0.2-1); BLOOD UREA NITROGEN 19.6 mg/dL (7-18); CALCIUM 9.6 mg/dL (8.5-10.1); CREATININE 0.9 mg/dL (0.55-1.3); MAGNESIUM 2.1 mg/dL (1.8-2.4); POTASSIUM 4.2 mmol/L (3.5-5.1)
--- NOTE | 2019-08-06 09:19 | PN ---
Progress Note (short form) - Note Progress Note: ORTHOPEDIC SURGERY PROGRESS NOTE Department of Orthopedic Surgery SUBJECTIVE No acute events overnight. No complaints currently. Denies chest pain, shortness of breath, or calf pain. No nausea or vomiting. Tolerating oral intake. Pain control and swelling both have improved significantly overnight. PHYSICAL EXAMINATION General: Alert, oriented, cooperative and no distress. Left Upper Extremity: Skin warm, dry, and intact; no lesions, rashes or ulcers noted. Much improved + Pitting edema of forearm and hand, still mild edema at the elbow. Muscle mass equal and symmetric to contralateral side. No atrophy noted. Improved tenderness to palpation over the olecranon with mild and improved bursitis. Improved cellulitis. Nontender throughout rest of extremity including the shoulder and the wrist and fingers. Full passive ROM of the left shoulder and wrist and fingers, free from pain. He has improved ROM of the elbow with no pain. Joints stable with no pathologic laxity. M/R/U/MSK/AX motor intact; SILT distally; 2+ radial pulses; Cap refill brisk. Tone and reflexes normal. DVT Exam: No evidence of DVT seen on physical exam; No cords or calf tenderness ; No significant calf/ankle edema. Intake & Output 08/04/19 08/05/19 08/06/19 23:59 23:59 23:59 Intake Total 10 890 30 Output Total 300 600 Balance -290 290 30 Intake: IV 10 40 30 saline lock 10 40 30 Oral 850 Output: Urine 300 600 Void 300 600 Other: Voiding Method Diaper Diaper # Unmeasured Voids Void 1 2 Bowel Movement Yes # Bowel Movements 1 Weight 159 lb 156 lb 9.6 oz 156 lb 3.2 oz Height 5 ft 3 in Body Mass Index (BMI) 28.1 Weight Measurement Method Standing Scale Standing Scale Standing Scale Active Medications Generic Name Dose Route Start Last Admin Trade Name Freq PRN Reason Stop Dose Admin Aspirin 81 mg 08/05/19 10:00 08/05/19 09:36 Ecotrin - PO 81 mg DAILY GEORGE Administration Atorvastatin Calcium 20 mg 08/04/19 22:00 08/05/19 21:41 Lipitor - PO 20 mg HS GEORGE Administration Cephalexin HCl 500 mg 08/05/19 22:00 08/05/19 21:41 Keflex - PO 500 mg BID GEORGE Administration Furosemide 40 mg 08/04/19 06:00 08/06/19 05:18 Lasix Injection - IVPUSH 40 mg BID@0600,1400 GEORGE Administration Heparin Sodium (Porcine) 5,000 unit 08/03/19 22:00 08/06/19 05:18 Heparin - SQ 5,000 unit TID GEORGE Administration Ibuprofen 400 mg 08/05/19 16:36 Motrin - PO Q6H PRN PAIN LEVEL 1-5 Lactobacillus Acidophilus 1 tab 08/05/19 16:45 08/05/19 16:58 Bacid - PO 1 tab DAILY GEORGE Administration Pantoprazole Sodium 40 mg 08/05/19 16:45 08/05/19 16:58 Protonix - PO 40 mg DAILY GEORGE Administration Quetiapine Fumarate 25 mg 08/04/19 20:00 08/05/19 21:40 Seroquel - PO 25 mg DAILY@1999 GEORGE Administration Vital Signs (last) Temp Pulse Resp BP Pulse Ox 98.1 F 79 20 144/79 97 08/06/19 05:25 08/06/19 05:25 08/06/19 05:25 08/06/19 05:25 08/05/19 21:00 Laboratory (coagulation) PT with INR 16.00 SEC (9.7-13.0) H 08/04/19 05:40 Laboratory 08/06/19 05:50 08/06/19 05:50 IMAGING Left elbow X-ray Pending ASSESSMENT AND PLAN Mr. Marin is a 89 year old male presenting with left olecranon bursitis with mild associated cellulitis - significantly improved cellulitis and edema since yesterday. We have reviewed the imaging and clinical findings in detail, as well as their potential implications. After appropriate informed discussion, we agreed on the following plan: 1. Pain control 2. DVT ppx 3. Continue medical management / ABX 4. Recommend strict elevation / ice of Left elbow; may use sling to maintain elevation while in bed 5. F/U Radiographs of the left elbow Will follow. All questions were answered. Thank you for involving our team in the care of this patient.
[2019-08-06] MEDS: ASPIRIN COATED 81 MG TABLET.EC PO SCH (09:27)
[2019-08-06] MEDS: LACTOBACILLUS ACIDOPHILUS 1 TABLET PO SCH (09:27)
[2019-08-06] MEDS: PANTOPRAZOLE 40 MG TABLET (FP) PO SCH (09:27)
[2019-08-06] MEDS: CEPHALEXIN MONOHYDRATE 500 MG CAPSULE (UD) PO SCH ×2 (09:27→22:13)
--- NOTE | 2019-08-06 12:01 | PN ---
Progress Note (short form) - Note Progress Note: s: stable edema, dyspnea Current Medications Aspirin (Ecotrin -) 81 mg PO DAILY [facility] Last Admin: 08/06/19 09:27 Dose: 81 mg Atorvastatin Calcium (Lipitor -) 20 mg PO HS [facility] Last Admin: 08/05/19 21:41 Dose: 20 mg Cephalexin HCl (Keflex -) 500 mg PO BID [facility] Last Admin: 08/06/19 09:27 Dose: 500 mg Furosemide (Lasix Injection -) 40 mg IVPUSH BID@0600,1400 [facility] Last Admin: 08/06/19 05:18 Dose: 40 mg Heparin Sodium (Porcine) (Heparin -) 5,000 unit SQ TID [facility] Last Admin: 08/06/19 05:18 Dose: 5,000 unit Ibuprofen (Motrin -) 400 mg PO Q6H PRN PRN Reason: PAIN LEVEL 1-5 Last Admin: 08/06/19 09:27 Dose: 400 mg Lactobacillus Acidophilus (Bacid -) 1 tab PO DAILY [facility] Last Admin: 08/06/19 09:27 Dose: 1 tab Pantoprazole Sodium (Protonix -) 40 mg PO DAILY [facility] Last Admin: 08/06/19 09:27 Dose: 40 mg Quetiapine Fumarate (Seroquel -) 25 mg PO DAILY@2000 [facility] Last Admin: 08/05/19 21:40 Dose: 25 mg Vital Signs Period Temp Pulse Resp BP Sys/Esposito Pulse Ox Last 24 Hr 97.6 F-98.4 F 73-79 18-20 119-144/64-83 97 Constitutional: Yes: No Distress, Calm Eyes: Yes: Conjunctiva Clear, EOM Intact HENT: Yes: Atraumatic, Normocephalic Neck: Yes: Supple, Trachea Midline Respiratory: Yes: Regular, Diminished (bases maria eugenia) Gastrointestinal: Yes: Normal Bowel Sounds, Soft Cardiovascular: Yes: Pulse Irregular JVD: No PMI: Non-Displaced Extremities: No: Cold Edema: Yes Edema: LLE: 1+, RLE: 1+ Integumentary: No: Jaundice Neurological: Yes: Alert, Oriented Psychiatric: No: Agitated Assessment/Plan EKG: [employer], afib CT chest : tr maria eugenia pleural effusions, cardiomegaly and prominent main PA c/w pulm hypertension echo 07/2019 nl LV/RV function, LA mildly dilated, mild to mod MR, mild to mod TR, mild to mod AR, PASP at least 58 mmHg tele: sinus, [employer], PVCs acute on chronic diastolic HF, pulm HTN, edema - nl LV/RV function on echo here, elevated pulm pressures likely in setting of CHF - weight and Cr stable, edema same - inc IV lasix to 80 mg BID - monitor Cr, lytes, daily standing weights CAD s/p PCI - cont aspirin, statin Afib - not on AC due to frequent falls - stopped last admission - cont aspirin s/p PPM - outpatient monitoring
--- NOTE | 2019-08-06 14:26 | PN ---
Physical Exam: SUBJECTIVE: Patient seen and examined. Left arm swelling improved. Patient sitting comfortably in bed eating breakfast with right hand. Left arm in sling. He still complains of some pain in his left arm. Denies chest pain, SOB, palpitations, fevers, chills. OBJECTIVE: Vital Signs Period Temp Pulse Resp BP Sys/Esposito Pulse Ox Last 24 Hr 97.6 F-98.5 F 73-80 18-20 119-149/64-93 97-97 GENERAL: The patient is awake, alert, in no acute distress. HEAD: Normal with no signs of trauma. EYES: EOMI, cataracts bilaterally ENT: dry mucous membranes NECK: Trachea midline, full range of motion, supple. LUNGS: Breath sounds equal, clear to auscultation bilaterally, no wheezes, no crackles, no accessory muscle use. HEART: RRR, S1 S2 normal ABDOMEN: Soft, nontender, nondistended, normoactive bowel sounds, no guarding, no rebound EXTREMITIES: 2+ pulses, warm, 1+ pitting edema of bilateral lower extremities. 1 + edema of LUE from the shoulder down, improved compared to prior. Restricted active range of motion of left upper extremity at level of shoulder and elbow. Mild tenderness to palpation over left olecranon. No erythema noted over left elbow. Sensation intact throughout. Left arm in sling. NEUROLOGICAL: Normal speech, able to ambulate with assistance. AAOx2 (self and place) SKIN: Warm, dry, normal turgor Laboratory Results - last 24 hr 08/06/19 08/06/19 05:50 05:50 WBC 7.1 RBC 4.24 Hgb 11.9 Hct 36.6 MCV 86.4 MCH 28.1 MCHC 32.6 RDW 17.4 H Plt Count 242 MPV 9.2 Sodium 142 Potassium 4.2 Chloride 103 Carbon Dioxide 33 H Anion Gap 6 L BUN 19.6 H Creatinine 0.9 Est GFR (CKD-EPI)AfAm 88.07 Est GFR (CKD-EPI)NonAf 75.99 Random Glucose 116 H Calcium 9.6 Magnesium 2.1 Total Bilirubin 0.9 AST 17 ALT 12 L Alkaline Phosphatase 118 H Total Protein 6.0 L Albumin 2.7 L Active Medications Generic Name Dose Route Start Last Admin Trade Name Freq PRN Reason Stop Dose Admin Aspirin 81 mg 08/05/19 10:00 08/06/19 09:27 Ecotrin - PO 81 mg DAILY GEORGE Administration Atorvastatin Calcium 20 mg 08/04/19 22:00 08/05/19 21:41 Lipitor - PO 20 mg HS GEORGE Administration Cephalexin HCl 500 mg 08/05/19 22:00 08/06/19 09:27 Keflex - PO 500 mg BID GEORGE Administration Furosemide 80 mg 08/06/19 12:00 Lasix Injection - IVPUSH BID@0600,1400 [facility] Heparin Sodium (Porcine) 5,000 unit 08/03/19 22:00 08/06/19 05:18 Heparin - SQ 5,000 unit TID GEORGE Administration Ibuprofen 400 mg 08/05/19 16:36 08/06/19 09:27 Motrin - PO 400 mg Q6H PRN Administration PAIN LEVEL 1-5 Lactobacillus Acidophilus 1 tab 08/05/19 16:45 08/06/19 09:27 Bacid - PO 1 tab DAILY GEORGE Administration Pantoprazole Sodium 40 mg 08/05/19 16:45 08/06/19 09:27 Protonix - PO 40 mg DAILY GEORGE Administration Quetiapine Fumarate 25 mg 08/04/19 20:00 08/05/19 21:40 Seroquel - PO 25 mg DAILY@1999 GEORGE Administration ASSESSMENT/PLAN: 89 y/o/m with a PMHx of CHFpEF (02/05 55-60% EF), CAD (s/p 2 stents in 1988), a fib (off coumadin due to frequent falls), and benign brain tumor who presented with worsening chronic leg swelling and LUE swelling X1 day. #Bilateral lower extremity edema and LUE edema 2/2 Acute on Chronic Diastolic/R Sided HF sec to Pulmonary HTN - IV lasix increased to 80 BID as per cardio - monitor I's & O's - daily weights - echo shows normal EF and LV function. Severe pulmonary HTN. - Likely Right sided heart failure - Cardiology consulted for severe pulmonary HTN, appreciate recs - fluid restriction <1 L - c/w asa 81 - PT eval #LUE edema 2/2 olecranon bursitis and ?cellulitis - now improving - Imaging without evidence of DVT, fracture, masses compressing vasculature - Lt shoulder xray negative for fracture and pt denied trauma - Elbow xray without evidence of bony abnormalities or olecranon bursitis - duplex LUE negative for dvt - keep arm elevated - Ortho consulted for left upper extremity pain/decreased range of motion, appreciate recs - Continue Motrin for pain relief/ant-inflammatory effects - Recommend elevation/ice on LUE - Continue on Keflex 500 BID for cellulitis - CT head negative for acute intracranial pathology #Hyperbilirubinemia - resolved - T bili slightly elevated on admission. Last value at 0.9. - ALP - 123 - Abdominal US without evidence of biliary obstruction or other acute pathology #CAD hx - pt on ASA, continue - EKG - nsr, new TWI's in leads V2, V3 - trop negative x2 #AF - ekg with pacemaker in nsr - HAS-Bled score of 4 high risk for bleeding (8.7%) - holding coumadin due to hx of falls since last admission in June #Prophylaxis - Heparin #FEN - Sodium controlled diet - monitor and replete lytes as needed #Disposition - Admitted to floors Visit type - Emergency Visit Emergency Visit: Yes ED Registration Date: 08/03/19 Care time: The patient presented to the Emergency Department on the above date and was hospitalized for further evaluation of their emergent condition. - New Patient This patient is new to me today: No - Critical Care Critical Care patient: No ATTENDING PHYSICIAN STATEMENT I saw and evaluated the patient. I reviewed the resident's note and discussed the case with the resident. I agree with the resident's findings and plan as documented. SUBJECTIVE: OBJECTIVE: ASSESSMENT AND PLAN:
--- NOTE | 2019-08-06 17:53 | PN ---
Teaching Attending Note Name of Resident: Farrah Ramirez ATTENDING PHYSICIAN STATEMENT I saw and evaluated the patient. I reviewed the resident's note and discussed the case with the resident. I agree with the resident's findings and plan as documented. SUBJECTIVE: Complains of ongoing LUE/shoulder pain and decreased ROM. Some improvement in limb edema. No CP/palpitations/dyspnea OBJECTIVE: Afebrile, Hemodynamically Stable. AAO x 2. Last Vital Signs Temp Pulse Resp BP Pulse Ox 97.9 F 77 20 125/79 97 08/06/19 14:00 08/06/19 14:00 08/06/19 14:00 08/06/19 14:00 08/06/19 09:00 Heart - S1, S2, soft SM Lungs - clear to auscultation Abdomen -Soft, non-tender. Bowel Sounds normal. Extremities - LUE swelling improving. Bilateral LE edema, variosities. No calf tenderness. MS - decreased ROM about L shoulder. No warmth/erythema/tenderness. Laboratory Results - last 24 hr 08/06/19 08/06/19 05:50 05:50 WBC 7.1 RBC 4.24 Hgb 11.9 Hct 36.6 MCV 86.4 MCH 28.1 MCHC 32.6 RDW 17.4 H Plt Count 242 MPV 9.2 Sodium 142 Potassium 4.2 Chloride 103 Carbon Dioxide 33 H Anion Gap 6 L BUN 19.6 H Creatinine 0.9 Est GFR (CKD-EPI)AfAm 88.07 Est GFR (CKD-EPI)NonAf 75.99 Random Glucose 116 H Calcium 9.6 Magnesium 2.1 Total Bilirubin 0.9 AST 17 ALT 12 L Alkaline Phosphatase 118 H Total Protein 6.0 L Albumin 2.7 L Current Medications Generic Name Dose Route Start Last Admin Trade Name Freq PRN Reason Stop Dose Admin Aspirin 81 mg 08/05/19 10:00 08/06/19 09:27 Ecotrin - PO 81 mg DAILY GEORGE Administration Atorvastatin Calcium 20 mg 08/04/19 22:00 08/05/19 21:41 Lipitor - PO 20 mg HS GEORGE Administration Cephalexin HCl 500 mg 08/05/19 22:00 08/06/19 09:27 Keflex - PO 500 mg BID GEORGE Administration Furosemide 80 mg 08/06/19 12:00 08/06/19 14:08 Lasix Injection - IVPUSH 80 mg BID@0600,1400 GEORGE Administration Heparin Sodium (Porcine) 5,000 unit 08/03/19 22:00 08/06/19 14:07 Heparin - SQ 5,000 unit TID GEORGE Administration Ibuprofen 400 mg 08/05/19 16:36 08/06/19 09:27 Motrin - PO 400 mg Q6H PRN Administration PAIN LEVEL 1-5 Lactobacillus Acidophilus 1 tab 08/05/19 16:45 08/06/19 09:27 Bacid - PO 1 tab DAILY GEORGE Administration Pantoprazole Sodium 40 mg 08/05/19 16:45 08/06/19 09:27 Protonix - PO 40 mg DAILY GEORGE Administration Quetiapine Fumarate 25 mg 08/04/19 20:00 08/05/19 21:40 Seroquel - PO 25 mg DAILY@1999 [facility] Administration Home Medications Medication Instructions Recorded Simvastatin [Zocor -] 40 mg PO HS 02/22/16 Potassium Chloride 20 meq PO DAILY 05/14/18 Acetaminophen [Tylenol] 325 mg PO DAILY PRN 02/13/19 Aspirin Coated [Ecotrin -] 81 mg PO DAILY #90 tablet.ec 06/18/19 Furosemide [Lasix -] 40 mg PO BID@0600,1400 #60 tablet 06/30/19 Quetiapine Fumarate [Seroquel -] 25 mg PO DAILY@1999 #30 tablet 06/30/19 ASSESSMENT AND PLAN: 89 year old male with PMH of Chronic Diastolic CHF, CAD (s/p PCI/Stent), Atrial Fibrillation (Coumadin stopped due to frequent falls), s/p PPM, and Benign brain tumor presents with 1 day history of left arm swelling and L shoulder pain , atop several days of worsening lower extremity edema. CT LUE - subcutaneous edema US Duplex LUE - no DVT CT Chest - no mass, bibasal effsuions, CArdiomegaly and dilated pul vasculature consistent with pulmonary HTN Head and Neck - normal on CT. Abdominal US - neg for acute pathology 1. Acute on Chronic Diastolic/R Sided HF sec to Pulmonary HTN Elevated BNP Echo - Normal EF 55%, Mod MR, Mod TR, Mod AR, Pul artery pressure 58mmHg Continue IV Lasix diuresis Cardiology eval - recommend increasing Lasix dose to 80mg BID. Daily weight, I/Os, renal function monitoring. 2. CAD s/p PCI/Stent Continue Aspirin/Statin 3. Atrial Fibrillation - not anticoagulated due to frequent falls (previously on Coumadin) Continue Aspirin. 4. Hyperbilirubinemia - mild Abdo US - normal, no biliary pathology. Will monitor. Continue Statin for now. 5. Hypokalemia - repleted. 6. L Shoulder/Elbow Pain and ROM due to pain CT head - no acute infarct. Decreased extension/abduction about shoulder/elbow due to pain Ortho consulted - started Abx (Keflex) for cellulitis associated with olecranon bursitis as per ortho. No evidence of adhesive capsulitis as per Ortho. 7. AAO x 2. Baseline mental status unknown ?Hx of Dementia. Will confirm with family. Continue Seroquel. 8. Hypokalemia sec to IV Lasix diuresis - will replete. DVT Px - Heparin SQ
[2019-08-06] MEDS: ATORVASTATIN CA 20 MG TABLET (FP) PO SCH (22:13)
[2019-08-06] MEDS: QUEtiapine FUMARATE 25 MG TABLET (FP) PO SCH (22:13)
[2019-08-07] MEDS: FUROSEMIDE 40 MG/4 ML INJECTABLE VIAL IVPUSH SCH ×2 (05:31→14:05)
[2019-08-07] MEDS: HEPARIN NA (PORCINE) 5,000 UNITS/ML 1ML VIAL SQ SCH ×3 (05:33→21:18)
[2019-08-07 07:40] LABS: CREATININE 1.1 mg/dL (0.55-1.3)
--- NOTE | 2019-08-07 08:31 | PN ---
Progress Note (short form) - Note Progress Note: ORTHOPEDIC SURGERY PROGRESS NOTE Department of Orthopedic Surgery SUBJECTIVE No acute events overnight. No complaints currently. Denies chest pain, shortness of breath, or calf pain. No nausea or vomiting. Tolerating oral intake. Pain control and swelling both have improved significantly overnight. PHYSICAL EXAMINATION General: Alert, oriented, cooperative and no distress. Left Upper Extremity: Skin warm, dry, and intact; no lesions, rashes or ulcers noted. Much improved + Pitting edema of forearm and hand, still mild edema at the elbow. Muscle mass equal and symmetric to contralateral side. No atrophy noted. Improved tenderness to palpation over the olecranon with mild and improved bursitis. No cellulitis today. Nontender throughout rest of extremity including the shoulder and the wrist and fingers. Full passive ROM of the left wrist and fingers, free from pain. Today he has limited shoulder ROM. He has improved active ROM of the elbow with no pain. Joints stable with no pathologic laxity. M/R/U/MSK/AX motor intact; SILT distally; 2+ radial pulses; Cap refill brisk. Tone and reflexes normal. DVT Exam: No evidence of DVT seen on physical exam; No cords or calf tenderness ; No significant calf/ankle edema. Intake & Output 08/05/19 08/06/19 08/07/19 23:59 23:59 23:59 Intake Total 890 1086 150 Output Total 600 Balance 290 1086 150 Intake: IV 40 80 30 saline lock 40 80 30 Oral 850 370 120 Oral Supplement 636 Output: Urine 600 Void 600 Other: Voiding Method Diaper Urinal Toilet # Unmeasured Voids Void 1 2 2 Bowel Movement Yes Yes # Bowel Movements 1 1 Weight 156 lb 9.6 oz 156 lb 3.2 oz 153 lb Weight Measurement Method Standing Scale Standing Scale Standing Scale Active Medications Generic Name Dose Route Start Last Admin Trade Name Freq PRN Reason Stop Dose Admin Aspirin 81 mg 08/05/19 10:00 08/06/19 09:27 Ecotrin - PO 81 mg DAILY GEORGE Administration Atorvastatin Calcium 20 mg 08/04/19 22:00 08/06/19 22:13 Lipitor - PO 20 mg HS GEORGE Administration Cephalexin HCl 500 mg 08/05/19 22:00 08/06/19 22:13 Keflex - PO 500 mg BID GEORGE Administration Furosemide 80 mg 08/06/19 12:00 08/07/19 05:31 Lasix Injection - IVPUSH 80 mg BID@0600,1400 GEORGE Administration Heparin Sodium (Porcine) 5,000 unit 08/03/19 22:00 08/07/19 05:33 Heparin - SQ 5,000 unit TID GEORGE Administration Ibuprofen 400 mg 08/05/19 16:36 08/06/19 09:27 Motrin - PO 400 mg Q6H PRN Administration PAIN LEVEL 1-5 Lactobacillus Acidophilus 1 tab 08/05/19 16:45 08/06/19 09:27 Bacid - PO 1 tab DAILY GEORGE Administration Pantoprazole Sodium 40 mg 08/05/19 16:45 08/06/19 09:27 Protonix - PO 40 mg DAILY GEORGE Administration Quetiapine Fumarate 25 mg 08/04/19 20:00 08/06/19 22:13 Seroquel - PO 25 mg DAILY@1999 GEORGE Administration Vital Signs (last) Temp Pulse Resp BP Pulse Ox 98.2 F 82 18 148/78 97 08/07/19 06:00 08/07/19 06:00 08/07/19 06:00 08/07/19 06:00 08/06/19 21:00 Laboratory (coagulation) PT with INR 16.00 SEC (9.7-13.0) H 08/04/19 05:40 Laboratory 08/06/19 05:50 08/07/19 05:50 IMAGING Left shoulder radiographs demonstrates a pacemaker over the left shoulder. Mild to moderate arthritic changes to the left shoulder with no evidence of fracture , dislocation, or bony lesions. Left elbow radiographs demonstrate mild osteoarthritic changes with no evidence of fracture, dislocation, or bony lesions. ASSESSMENT AND PLAN Mr. Marin is a 89 year old male presenting with left olecranon bursitis / elbow edema - improved, now with more limited ROM of the shoulder. We have reviewed the imaging and clinical findings in detail, as well as their potential implications. After appropriate informed discussion, we agreed on the following plan: 1. Pain control 2. DVT ppx 3. Continue medical management / ABX 4. Recommend strict elevation / ice of Left elbow; I have removed the sling so he can start ROM exercises of the LUE 5. PT / OT LUE; WBAT 6. Recommend evaluation of pacemaker as he is having pain over the pacemaker. Will follow. All questions were answered. Thank you for involving our team in the care of this patient.
[2019-08-07] MEDS: PANTOPRAZOLE 40 MG TABLET (FP) PO SCH (09:39)
[2019-08-07] MEDS: CEPHALEXIN MONOHYDRATE 500 MG CAPSULE (UD) PO SCH ×2 (09:39→21:18)
[2019-08-07] MEDS: ASPIRIN COATED 81 MG TABLET.EC PO SCH (09:39)
[2019-08-07] MEDS: LACTOBACILLUS ACIDOPHILUS 1 TABLET PO SCH (09:40)
--- NOTE | 2019-08-07 11:21 | PN ---
Progress Note (short form) - Note Progress Note: s: mild sob still, no cp palps dizzy Current Medications Generic Name Dose Route Start Last Admin Trade Name Williamq PRN Reason Stop Dose Admin Aspirin 81 mg 08/05/19 10:00 08/07/19 09:39 Ecotrin - PO 81 mg DAILY GEORGE Administration Atorvastatin Calcium 20 mg 08/04/19 22:00 08/06/19 22:13 Lipitor - PO 20 mg HS GEORGE Administration Cephalexin HCl 500 mg 08/05/19 22:00 08/07/19 09:39 Keflex - PO 500 mg BID GEORGE Administration Furosemide 80 mg 08/06/19 12:00 08/07/19 05:31 Lasix Injection - IVPUSH 80 mg BID@0600,1400 GEORGE Administration Heparin Sodium (Porcine) 5,000 unit 08/03/19 22:00 08/07/19 05:33 Heparin - SQ 5,000 unit TID GEORGE Administration Ibuprofen 400 mg 08/05/19 16:36 08/06/19 09:27 Motrin - PO 400 mg Q6H PRN Administration PAIN LEVEL 1-5 Lactobacillus Acidophilus 1 tab 08/05/19 16:45 08/07/19 09:40 Bacid - PO 1 tab DAILY GEORGE Administration Pantoprazole Sodium 40 mg 08/05/19 16:45 08/07/19 09:39 Protonix - PO 40 mg DAILY GEORGE Administration Quetiapine Fumarate 25 mg 08/04/19 20:00 08/06/19 22:13 Seroquel - PO 25 mg DAILY@2000 GEORGE Administration Vital Signs Period Temp Pulse Resp BP Sys/Esposito Pulse Ox Last 24 Hr 97.6 F-98.6 F 76-86 18-20 125-151/26-86 97 Constitutional: Yes: No Distress, Calm Eyes: Yes: Conjunctiva Clear, EOM Intact HENT: Yes: Atraumatic, Normocephalic Neck: Yes: Supple, Trachea Midline Respiratory: Yes: Regular, Diminished (bases maria eugenia) Gastrointestinal: Yes: Normal Bowel Sounds, Soft Cardiovascular: Yes: Pulse Irregular JVD: No PMI: Non-Displaced Extremities: No: Cold Edema: Yes trace Integumentary: No: Jaundice Neurological: Yes: Alert, Oriented Psychiatric: No: Agitated CBC, BMP 08/06/19 05:50 08/07/19 05:50 Assessment/Plan EKG: [employer], afib CT chest : tr maria eugenia pleural effusions, cardiomegaly and prominent main PA c/w pulm hypertension echo 07/2019 nl LV/RV function, LA mildly dilated, mild to mod MR, mild to mod TR, mild to mod AR, PASP at least 58 mmHg tele: afib, rate ok, occ [employer] acute on chronic diastolic HF, pulm HTN, edema - nl LV/RV function on echo here, elevated pulm pressures likely in setting of CHF - weight down, cont iv lasix 80 mg BID - monitor Cr, lytes, daily standing weights CAD s/p PCI - cont aspirin, statin Afib - not on AC due to frequent falls - stopped last admission - cont aspirin s/p PPM - outpatient monitoring
--- NOTE | 2019-08-07 11:37 | PN ---
Teaching Attending Note Name of Resident: Farrah Ramirez ATTENDING PHYSICIAN STATEMENT I saw and evaluated the patient. I reviewed the resident's note and discussed the case with the resident. I agree with the resident's findings and plan as documented. SUBJECTIVE: Complains of ongoing LUE/shoulder/elbow pain and decreased ROM. Continued improvement in limb edema. No CP/palpitations/dyspnea OBJECTIVE: Afebrile, Hemodynamically Stable. AAO x 1-2. Last Vital Signs Temp Pulse Resp BP Pulse Ox 98.6 F 78 18 146/72 97 08/07/19 09:00 08/07/19 09:00 08/07/19 09:00 08/07/19 09:00 08/06/19 21:00 Heart - S1, S2, soft SM Lungs - clear to auscultation Abdomen -Soft, non-tender. Bowel Sounds normal. Extremities - LUE swelling improving. Bilateral LE edema, variosities. No calf tenderness. MS - decreased ROM about L shoulder/albow. Now in sling. No warmth/erythema/ tenderness. Laboratory Results - last 24 hr 08/07/19 05:50 Sodium 142 Potassium 4.0 Chloride 100 Carbon Dioxide 34 H Anion Gap 8 BUN 26.0 H Creatinine 1.1 Est GFR (CKD-EPI)AfAm 69.10 Est GFR (CKD-EPI)NonAf 59.62 Random Glucose 119 H Calcium 10.0 Current Medications Generic Name Dose Route Start Last Admin Trade Name Freq PRN Reason Stop Dose Admin Aspirin 81 mg 08/05/19 10:00 08/07/19 09:39 Ecotrin - PO 81 mg DAILY GEORGE Administration Atorvastatin Calcium 20 mg 08/04/19 22:00 08/06/19 22:13 Lipitor - PO 20 mg HS GEORGE Administration Cephalexin HCl 500 mg 08/05/19 22:00 08/07/19 09:39 Keflex - PO 500 mg BID GEORGE Administration Furosemide 80 mg 08/06/19 12:00 08/07/19 05:31 Lasix Injection - IVPUSH 80 mg BID@0600,1400 GEORGE Administration Heparin Sodium (Porcine) 5,000 unit 08/03/19 22:00 08/07/19 05:33 Heparin - SQ 5,000 unit TID GEORGE Administration Ibuprofen 400 mg 08/05/19 16:36 08/06/19 09:27 Motrin - PO 400 mg Q6H PRN Administration PAIN LEVEL 1-5 Lactobacillus Acidophilus 1 tab 08/05/19 16:45 08/07/19 09:40 Bacid - PO 1 tab DAILY GEORGE Administration Pantoprazole Sodium 40 mg 08/05/19 16:45 08/07/19 09:39 Protonix - PO 40 mg DAILY GEORGE Administration Quetiapine Fumarate 25 mg 08/04/19 20:00 08/06/19 22:13 Seroquel - PO 25 mg DAILY@1999 GEORGE Administration Home Medications Medication Instructions Recorded Simvastatin [Zocor -] 40 mg PO HS 02/22/16 Potassium Chloride 20 meq PO DAILY 05/14/18 Acetaminophen [Tylenol] 325 mg PO DAILY PRN 02/13/19 Aspirin Coated [Ecotrin -] 81 mg PO DAILY #90 tablet.ec 06/18/19 Furosemide [Lasix -] 40 mg PO BID@0600,1400 #60 tablet 06/30/19 Quetiapine Fumarate [Seroquel -] 25 mg PO DAILY@1999 #30 tablet 06/30/19 ASSESSMENT AND PLAN: 89 year old male with PMH of Chronic Diastolic CHF, CAD (s/p PCI/Stent), Atrial Fibrillation (Coumadin stopped due to frequent falls), s/p PPM, and Benign brain tumor presents with 1 day history of left arm swelling and L shoulder pain , atop several days of worsening lower extremity edema. CT LUE - subcutaneous edema US Duplex LUE - no DVT CT Chest - no mass, bibasal effsuions, CArdiomegaly and dilated pul vasculature consistent with pulmonary HTN Head and Neck - normal on CT. Abdominal US - neg for acute pathology 1. Acute on Chronic Diastolic/R Sided HF sec to Pulmonary HTN Elevated BNP Echo - Normal EF 55%, Mod MR, Mod TR, Mod AR, Pul artery pressure 58mmHg Continue IV Lasix diuresis at 80mg BID Cardiology following. Daily weight, I/Os, renal function monitoring. 2. CAD s/p PCI/Stent Continue Aspirin/Statin 3. Atrial Fibrillation - not anticoagulated due to frequent falls (previously on Coumadin) Continue Aspirin. 4. Hyperbilirubinemia - mild Abdo US - normal, no biliary pathology. Will monitor. Continue Statin for now. 5. Hypokalemia - repleted. 6. L Shoulder/Elbow Pain and ROM due to pain - Olecranon Bursitis as per Ortho CT head - no acute infarct. Decreased extension/abduction about shoulder/elbow due to pain Ortho evaluated - started Abx (Keflex) for cellulitis associated with olecranon bursitis as per ortho. No evidence of adhesive capsulitis as per Ortho. PT/WBAT 7. AAO x 2. Baseline mental status unknown ?Hx of Dementia (on Seroquel). AAO x 3 normally as per son. Reached out to PCP, unable to connect. Will try again. CT Head - no acute intracranial findings. 8. Hypokalemia sec to IV Lasix diuresis - repleted. DVT Px - Heparin SQ
--- NOTE | 2019-08-07 13:12 | PN ---
Physical Exam: SUBJECTIVE: Patient seen and examined. He still complains of some pain in his left arm but he is able to move it better today. Denies chest pain, SOB, palpitations, fevers, chills. OBJECTIVE: Vital Signs Period Temp Pulse Resp BP Sys/Esposito Pulse Ox Last 24 Hr 97.6 F-98.6 F 76-86 18-20 125-151/26-86 97 GENERAL: The patient is awake, alert, in no acute distress. HEAD: Normal with no signs of trauma. EYES: EOMI, cataracts bilaterally ENT: dry mucous membranes NECK: Trachea midline, full range of motion, supple. LUNGS: Breath sounds equal, clear to auscultation bilaterally, no wheezes, no crackles, no accessory muscle use. HEART: RRR, S1 S2 normal ABDOMEN: Soft, nontender, nondistended, normoactive bowel sounds, no guarding, no rebound EXTREMITIES: 2+ pulses, warm, 1+ pitting edema of bilateral lower extremities. 1 + edema of LUE from the shoulder down, improved compared to prior. Mild tenderness to palpation over left olecranon. No erythema noted over left elbow. Sensation intact throughout. NEUROLOGICAL: Normal speech, gait not observed. AAOx2 (self and place) SKIN: Warm, dry, normal turgor Laboratory Results - last 24 hr 08/07/19 05:50 Sodium 142 Potassium 4.0 Chloride 100 Carbon Dioxide 34 H Anion Gap 8 BUN 26.0 H Creatinine 1.1 Est GFR (CKD-EPI)AfAm 69.10 Est GFR (CKD-EPI)NonAf 59.62 Random Glucose 119 H Calcium 10.0 Active Medications Generic Name Dose Route Start Last Admin Trade Name Mariangel PRN Reason Stop Dose Admin Aspirin 81 mg 08/05/19 10:00 08/07/19 09:39 Ecotrin - PO 81 mg DAILY GEORGE Administration Atorvastatin Calcium 20 mg 08/04/19 22:00 08/06/19 22:13 Lipitor - PO 20 mg HS GEORGE Administration Cephalexin HCl 500 mg 08/05/19 22:00 08/07/19 09:39 Keflex - PO 500 mg BID GEORGE Administration Furosemide 80 mg 08/06/19 12:00 08/07/19 05:31 Lasix Injection - IVPUSH 80 mg BID@0600,1400 GEORGE Administration Heparin Sodium (Porcine) 5,000 unit 08/03/19 22:00 12/19/19 05:33 Heparin - SQ 5,000 unit TID GEORGE Administration Ibuprofen 400 mg 08/05/19 16:36 08/06/19 09:27 Motrin - PO 400 mg Q6H PRN Administration PAIN LEVEL 1-5 Lactobacillus Acidophilus 1 tab 08/05/19 16:45 08/07/19 09:40 Bacid - PO 1 tab DAILY GEORGE Administration Pantoprazole Sodium 40 mg 08/05/19 16:45 08/07/19 09:39 Protonix - PO 40 mg DAILY GEORGE Administration Quetiapine Fumarate 25 mg 08/04/19 20:00 08/06/19 22:13 Seroquel - PO 25 mg DAILY@1999 GEORGE Administration ASSESSMENT/PLAN: 89 y/o/m with a PMHx of CHFpEF (02/05 55-60% EF), CAD (s/p 2 stents in 1988), a fib (off coumadin due to frequent falls), and benign brain tumor who presented with worsening chronic leg swelling and LUE swelling X1 day. #Bilateral lower extremity edema and LUE edema 2/2 Acute on Chronic Diastolic/R Sided HF sec to Pulmonary HTN - Continue IV lasix at 80 BID as per cardio - monitor I's & O's - daily weights - echo shows normal EF and LV function. Severe pulmonary HTN. - Likely Right sided heart failure - Cardiology consulted for severe pulmonary HTN, recs appreciated - c/w asa 81 - PT eval #LUE edema 2/2 olecranon bursitis and ?cellulitis - now improving - Imaging without evidence of DVT, fracture, masses compressing vasculature - Lt shoulder xray negative for fracture and pt denied trauma - Elbow xray without evidence of bony abnormalities or olecranon bursitis - duplex LUE negative for dvt - keep arm elevated - Ortho consulted for left upper extremity pain/decreased range of motion, appreciate recs - Continue Motrin for pain relief/ant-inflammatory effects - Recommend elevation/ice on LUE - Continue on Keflex 500 BID for cellulitis - CT head negative for acute intracranial pathology #Hyperbilirubinemia - resolved - T bili slightly elevated on admission. Last value at 0.9. - ALP - 123 - Abdominal US without evidence of biliary obstruction or other acute pathology #CAD hx - pt on ASA, continue - EKG - nsr, new TWI's in leads V2, V3 - trop negative x2 #AF - ekg with pacemaker in nsr - holding coumadin due to hx of falls since last admission in June #Prophylaxis - Heparin #FEN - Sodium controlled diet - monitor and replete lytes as needed Visit type - Emergency Visit Emergency Visit: Yes ED Registration Date: 08/03/19 Care time: The patient presented to the Emergency Department on the above date and was hospitalized for further evaluation of their emergent condition. - New Patient This patient is new to me today: No - Critical Care Critical Care patient: No ATTENDING PHYSICIAN STATEMENT I saw and evaluated the patient. I reviewed the resident's note and discussed the case with the resident. I agree with the resident's findings and plan as documented. SUBJECTIVE: OBJECTIVE: ASSESSMENT AND PLAN:
[2019-08-07] MEDS: ATORVASTATIN CA 20 MG TABLET (FP) PO SCH (21:18)
[2019-08-07] MEDS: QUEtiapine FUMARATE 25 MG TABLET (FP) PO SCH (21:18)
[2019-08-08] MEDS: HEPARIN NA (PORCINE) 5,000 UNITS/ML 1ML VIAL SQ SCH ×2 (06:04→13:16)
[2019-08-08] MEDS: FUROSEMIDE 40 MG/4 ML INJECTABLE VIAL IVPUSH SCH ×2 (06:04→13:16)
[2019-08-08 07:08] LABS: BLOOD UREA NITROGEN 28.5 mg/dL (7-18); CALCIUM 9.7 mg/dL (8.5-10.1); CREATININE 1.1 mg/dL (0.55-1.3); POTASSIUM 3.7 mmol/L (3.5-5.1)
--- NOTE | 2019-08-08 09:17 | DS ---
Physical Exam: SUBJECTIVE: Patient seen and examined. States he is feeling better today. OBJECTIVE: Vital Signs Period Temp Pulse Resp BP Sys/Esposito Pulse Ox Last 24 Hr 97.5 F-98.1 F 70-83 18-20 127-140/65-76 98 PHYSICAL EXAM GENERAL: The patient is awake, alert, in no acute distress. HEAD: Normal with no signs of trauma. EYES: EOMI, cataracts bilaterally ENT: dry mucous membranes NECK: Trachea midline, full range of motion, supple LUNGS: Breath sounds equal, clear to auscultation bilaterally, no wheezes, no crackles, no accessory muscle use. HEART: RRR, S1 S2 normal ABDOMEN: Soft, nontender, nondistended, normoactive bowel sounds, no guarding, no rebound EXTREMITIES: 2+ pulses, warm, +trace edema of lower extremities. trace edema of LUE, improved compared to prior. Improved ROM of left shoulder and elbow. NEUROLOGICAL: Normal speech, gait not observed. AAOx2 (self and place) SKIN: Warm, dry, normal turgor LABS Laboratory Results - last 24 hr 08/08/19 05:53 Sodium 143 Potassium 3.7 Chloride 99 Carbon Dioxide 36 H Anion Gap 8 BUN 28.5 H Creatinine 1.1 Est GFR (CKD-EPI)AfAm 69.10 Est GFR (CKD-EPI)NonAf 59.62 Random Glucose 111 H Calcium 9.7 HOSPITAL COURSE: Date of Admission:08/03/19 Date of Discharge: 08/08/19 89 y/o/m with a PMHx of CHFpEF (02/05 55-60% EF), CAD (s/p 2 stents in 1988), a fib (off coumadin due to frequent falls), and benign brain tumor who presented with worsening chronic leg swelling and LUE swelling X1 day. Diagnosed with CHF exacerbation. A CT was done of the LUE which showed only subcutaneous edema, U/ S of the LUE showed no DVT, CT chest showed no evidence of masses compressing the SVC. Head and neck CT negative for acute pathology. Patient had an ECHO done showing elevated pulmonary artery pressure likely 2/2 right sided heart failure. Patient was seen by Cardiology and treated with an increased dose of IV lasix with significant improvement. Patient was also seen by Orthopedics for left upper extremity swelling and pain. As per Ortho, patient diagnosed with olecranon bursitis and cellulitis of the elbow. Started on Keflex for abx coverage against cellulitis. On discharge patient transitioned to PO Lasix at an increased dose compared to admission, also patient's Potassium supplementation increased to 40meq daily. Patient's other home medications were continued appropriately. Patient stable for discharge at this time to SNF. Advised to follow up with Cardiology and Orthopedics for further management of his medical conditions. Minutes to complete discharge: 36 Discharge Summary Problems reviewed: Yes Reason For Visit: ACUTE ON CHRONIC CHF,SWELLING OF LT UPPER EXTREMIT Current Active Problems CHF exacerbation (Acute) Left arm swelling (Acute) Condition: Improved - Instructions Diet, Activity, Other Instructions: You presented to the hospital with swelling of your lower extremities and swelling of your left upper extremity and were found to have exacerbation of your heart failure. You were treated with IV Lasix. You were seen by Cardiology while in the hospital who recommended increasing your lasix dose while in the hospital and after discharge. Your swelling improved while in the hospital. You were also seen by Orthopedics for your left upper arm swelling and pain. You were started on antibiotics for cellulitis and olecranon bursitis with improvement of your left arm swelling. Please follow up with cardiology and orthopedics after discharge. Medication Changes: 1. Your Lasix dose is increased to 60mg twice a day. 2. Your potassium supplementation is increased to 40meq daily. 3. Continue taking Keflex (antibiotics) 500mg twice a day until completion. You should also take Bacid daily. Follow up with the following physicians: 1. Please follow up with your primary care provider within one week of discharge. 2. Follow up with Orthopedics, Dr. Cervantes, within one week of discharge. 3. Follow up with Dr. Petersen, Cardiology, within one week of discharge. Follow up labs: 1. Please have your basic metabolic panel checked on 08/12. Activity and Diet 1. You are being discharged to a rehab facility to strengthen your muscles. 2. Please continue to monitor your diet as you need to intake less sugar and salt. Please continue to monitor your weight daily; if you notice an increase in your weight >3 lbs, please call you physician to address your lasix dose. Continue all your other medications as prescribed Please return to the ER if you have any signs or symptoms of chest pain, shortness of breath, uncontrollable fever, chills, nausea, vomiting, numbness, tingling, or weakness in any part of your body, changes in vision, or slurred speech. Please return to the ER if symptoms persist, worsen, or new symptoms arise. Referrals: Amilcar Cervantes DO [Staff Physician] - Dottie Petersen MD [Staff Physician] - Titus Quijano MD [Staff Physician] - Disposition: [facility] - Home Medications Comprehensive Discharge Medication List: Ambulatory Orders Simvastatin [Zocor -] 40 mg PO HS 02/22/16 Potassium Chloride 20 meq PO DAILY 05/14/18 Acetaminophen [Tylenol] 325 mg PO DAILY PRN 02/13/19 Aspirin Coated [Ecotrin -] 81 mg PO DAILY #90 tablet.ec 06/18/19 Furosemide [Lasix -] 40 mg PO BID@0600,1400 #60 tablet 06/30/19 Quetiapine Fumarate [Seroquel -] 25 mg PO DAILY@2000 #30 tablet 06/30/19 This patient is new to me today: No Emergency Visit: Yes ED Registration Date: 08/03/19 Care time: The patient presented to the Emergency Department on the above date and was hospitalized for further evaluation of their emergent condition. Critical Care patient: No - Discharge Referral Referred to [facility] Yes Physician Referral: Titus Galeano MD ([facility]) ATTENDING PHYSICIAN STATEMENT I saw and evaluated the patient. I reviewed the resident's note and discussed the case with the resident. I agree with the resident's findings and plan as documented. SUBJECTIVE: OBJECTIVE: ASSESSMENT AND PLAN:
[2019-08-08] MEDS: PANTOPRAZOLE 40 MG TABLET (FP) PO SCH (09:18)
[2019-08-08] MEDS: LACTOBACILLUS ACIDOPHILUS 1 TABLET PO SCH (09:18)
--- NOTE | 2019-08-08 09:18 | PN ---
Progress Note, Physician Chief Complaint: no acute distress No CP or SOB History of Present Illness: diastolic CHF Weight is down on IV Lasix - Current Medication List Current Medications: Active Medications Aspirin (Ecotrin -) 81 mg PO DAILY [facility] Last Admin: 08/07/19 09:39 Dose: 81 mg Atorvastatin Calcium (Lipitor -) 20 mg PO HS [facility] Last Admin: 08/07/19 21:18 Dose: 20 mg Cephalexin HCl (Keflex -) 500 mg PO BID [facility] Last Admin: 08/07/19 21:18 Dose: 500 mg Furosemide (Lasix Injection -) 80 mg IVPUSH BID@0600,1400 [facility] Last Admin: 08/08/19 06:04 Dose: 80 mg Heparin Sodium (Porcine) (Heparin -) 5,000 unit SQ TID [facility] Last Admin: 08/08/19 06:04 Dose: 5,000 unit Ibuprofen (Motrin -) 400 mg PO Q6H PRN PRN Reason: PAIN LEVEL 1-5 Last Admin: 08/06/19 09:27 Dose: 400 mg Lactobacillus Acidophilus (Bacid -) 1 tab PO DAILY [facility] Last Admin: 08/07/19 09:40 Dose: 1 tab Pantoprazole Sodium (Protonix -) 40 mg PO DAILY [facility] Last Admin: 08/07/19 09:39 Dose: 40 mg Quetiapine Fumarate (Seroquel -) 25 mg PO DAILY@1999 [facility] Last Admin: 08/07/19 21:18 Dose: 25 mg - Objective Vital Signs: Vital Signs Temperature 98.1 F 08/08/19 06:00 Pulse Rate 81 08/08/19 06:00 Respiratory Rate 18 08/08/19 06:00 Blood Pressure 134/76 08/08/19 06:00 O2 Sat by Pulse Oximetry (%) 98 08/07/19 21:00 Constitutional: Yes: No Distress Cardiovascular: Yes: Regular Rate and Rhythm (paced) Respiratory: Yes: CTA Bilaterally, Other (decreased breath sounds bases.) Gastrointestinal: Yes: Soft Edema: Yes Edema: LLE: 1+, RLE: 1+ Neurological: Yes: Alert, Oriented Labs: CBC, BMP 08/06/19 05:50 08/08/19 05:53 INR, PTT INR 1.35 (0.83-1.09) H 08/04/19 05:40 - ....Imaging EKG: Image Reviewed Assessment/Plan Assessment/Plan 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, afib CT chest : tr maria eugenia pleural effusions, cardiomegaly and prominent main PA c/w pulm hypertension echo 07/2019 nl LV/RV function, LA mildly dilated, mild to mod MR, mild to mod TR, mild to mod AR, PASP at least 58 mmHg tele: afib, rate ok, occ [employer]ER acute on chronic diastolic HF, pulm HTN, edema: - nl LV/RV function on echo here, elevated pulm pressures likely in setting of CHF - weight down, cont iv lasix 80 mg BID with plan to convert to oral 08/09 - monitor Cr, lytes, daily standing weights CAD s/p PCI - cont aspirin, statin Afib - not on AC due to frequent falls - stopped last admission - cont aspirin s/p PPM - outpatient monitoring
[2019-08-08] MEDS: ASPIRIN COATED 81 MG TABLET.EC PO SCH (09:19)
[2019-08-08] MEDS: CEPHALEXIN MONOHYDRATE 500 MG CAPSULE (UD) PO SCH (09:19)
[2019-08-08 09:43] VITALS: BP 133/79; PULSE 71; TEMP 97.5
--- NOTE | 2019-08-08 14:30 | PN ---
Teaching Attending Note Name of Resident: Adrien Wild ATTENDING PHYSICIAN STATEMENT I saw and evaluated the patient. I reviewed the resident's note and discussed the case with the resident. I agree with the resident's findings and plan as documented. SUBJECTIVE: Complains of ongoing LUE/shoulder/elbow pain and decreased ROM. Continued improvement in limb edema. No CP/palpitations/dyspnea OBJECTIVE: Afebrile, Hemodynamically Stable. AAO x 1-2. Last Vital Signs Temp Pulse Resp BP Pulse Ox 97.5 F L 71 22 H 133/79 92 L 08/08/19 09:34 08/08/19 09:34 08/08/19 09:34 08/08/19 09:34 08/08/19 09:00 Heart - S1, S2, soft SM Lungs - clear to auscultation Abdomen -Soft, non-tender. Bowel Sounds normal. Extremities - LUE swelling improving. Bilateral LE edema, variosities. No calf tenderness. MS - decreased ROM about L shoulder/albow. Immobilized/Supported in sling. No warmth/erythema/tenderness. Laboratory Results - last 24 hr 08/08/19 05:53 Sodium 143 Potassium 3.7 Chloride 99 Carbon Dioxide 36 H Anion Gap 8 BUN 28.5 H Creatinine 1.1 Est GFR (CKD-EPI)AfAm 69.10 Est GFR (CKD-EPI)NonAf 59.62 Random Glucose 111 H Calcium 9.7 Discharge Medications Medication Instructions Recorded Simvastatin [Zocor -] 40 mg PO HS 02/22/16 Aspirin Coated [Ecotrin -] 81 mg PO DAILY #90 tablet.ec 06/18/19 Quetiapine Fumarate [Seroquel -] 25 mg PO DAILY@1999 #30 tablet 06/30/19 Cephalexin Monohydrate [Keflex -] 500 mg PO BID #7 capsule 08/08/19 Furosemide [Lasix] 60 mg PO BID #180 tablet 08/08/19 Lactobacillus Acidophilus [Bacid -] 1 tab PO DAILY #7 tab 08/08/19 Potassium Chloride [K-Dur -] 40 meq PO DAILY #60 tablet.er 08/08/19 ASSESSMENT AND PLAN: 89 year old male with PMH of Chronic Diastolic CHF, CAD (s/p PCI/Stent), Atrial Fibrillation (Coumadin stopped due to frequent falls), s/p PPM, and Benign brain tumor presents with 1 day history of left arm swelling and L shoulder pain , atop several days of worsening lower extremity edema. CT LUE - subcutaneous edema US Duplex LUE - no DVT CT Chest - no mass, bibasal effsuions, CArdiomegaly and dilated pul vasculature consistent with pulmonary HTN Head and Neck - normal on CT. Abdominal US - neg for acute pathology 1. Acute on Chronic Diastolic/R Sided HF sec to Pulmonary HTN Elevated BNP Echo - Normal EF 55%, Mod MR, Mod TR, Mod AR, Pul artery pressure 58mmHg Transitioned to oral Lasix 60mg BID For daily weights and out-patient Cardiology follow up next week with repeat labs/renal function check. 2. CAD s/p PCI/Stent Continue Aspirin/Statin 3. Atrial Fibrillation - not anticoagulated due to frequent falls (previously on Coumadin) Continue Aspirin. 4. Hyperbilirubinemia - resolved. Abdo US - normal, no biliary pathology. Continue Statin. 5. L Shoulder/Elbow Pain and ROM due to pain - Olecranon Bursitis as per Ortho CT head - no acute infarct. Decreased extension/abduction about shoulder/elbow due to pain Ortho evaluated - started Abx (Keflex) for cellulitis associated with olecranon bursitis as per ortho. No evidence of adhesive capsulitis as per Ortho. PT/WBAT 6. AAO x 2. Baseline mental status unknown ?Hx of Dementia (on Seroquel). AAO x 3 normally as per son. Reached out to PCP, unable to connect. CT Head - no acute intracranial findings. 7. Hypokalemia sec to IV Lasix diuresis - repleted. DVT Px - Heparin SQ Medically optimized for discharge on increased dose of home Lasix to 60mg BID, with labwork and Cardiology follow up next week.
== END 2019-08-08 14:08 | DRG 314 ==
LOC: JER 11:37 → JERBED 17:57 → J4W 08-04 14:57
PROVIDERS: ADMIT Internal Medicine
DX: I27.20 Pulmonary hypertension, unspecified (principal); I50.33 Acute on chronic diastolic (congestive) heart failure; L03.114 Cellulitis of left upper limb; I25.10 Atherosclerotic heart disease of native coronary artery without angina pectoris; I48.91 Unspecified atrial fibrillation; D32.0 Benign neoplasm of cerebral meninges; I11.0 Hypertensive heart disease with heart failure; E88.09 Other disorders of plasma-protein metabolism, not elsewhere classified; E87.6 Hypokalemia; E80.6 Other disorders of bilirubin metabolism; Z95.5 Presence of coronary angioplasty implant and graft; M70.22 Olecranon bursitis, left elbow; M25.512 Pain in left shoulder; Z95.0 Presence of cardiac pacemaker
CPT/HCPCS: 36415; 70450-TC; 71045-TC-FY; 71260-TC; 73030-TC-LT-FY; 73070-TC-LT-FY; 73201-TC-RT; 76705-TC; 80048; 80053; 80061; 82248; 82550; 83036; 83721; 83735; 83880; 84100; 84484; 85025; 85027; 85610; 93005; 93010; 93306-TC; 93971; 97116-GP; 97161-GP; 99285-25; J0131; J1644; Q9967

== ENCOUNTER 2020-01-24 15:25 | Inpatient (IN) | payer BC, OTHER ==
[2020-01-24] MEDS ORDERED: CEFTRIAXONE 1 GM in DEXTROSE 5%-WATER - 50 ML IVPB ONE (16:41)
[2020-01-24] MEDS ORDERED: VANCOMYCIN 1,000 MG in DEXTROSE 5%-WATER - 250 ML IVPB ONE (16:41)
[2020-01-24] MEDS ORDERED: VANCOMYCIN 1 GRAM (PRE-DOCKED) 1,000 MG/250 ML BAG IVPB ONE (16:46)
[2020-01-24] MEDS ORDERED: CEFTRIAXONE 1 GM/50 ML BAG ONE (16:46)
[2020-01-24 16:54] LABS: EOS % 0.9 % (0-4.5); HEMATOCRIT 35.2 % (35.4-49); HEMOGLOBIN 11.1 GM/dL (11.7-16.9); LYMPH % 14.5 % (8-40); MCH 27.2 pg (25.7-33.7); MCHC 31.7 g/dl (32.0-35.9); MEAN CELL VOLUME 86.1 fl (80-96); MEAN PLT VOLUME 9.2 fl (7.5-11.1); MONO % 11.7 % (3.8-10.2); NEUT % 71.9 % (42.8-82.8); PLATELET COUNT 182 K/MM3 (134-434); RBC 4.09 M/mm3 (4.00-5.60); RDW 19.9 % (11.9-15.9); WHITE BLOOD COUNT 7.6 K/mm3 (4.0-10.0)
[2020-01-24 17:20] LABS: ALBUMIN 3.1 g/dl (3.4-5.0); BILIRUBIN,TOTAL 1.4 mg/dL (0.2-1); CALCIUM 9.4 mg/dL (8.5-10.1); CREATININE 0.9 mg/dL (0.55-1.3); POTASSIUM 4.1 mmol/L (3.5-5.1); TOT PROT 6.2 g/dl (6.4-8.2)
[2020-01-24] MEDS ORDERED: VANCOMYCIN 1 GM in D5W (PRE-DOCKED) 1,000 MG/250 ML IVPB SCH (22:30)
[2020-01-25] MEDS ORDERED: cefTRIAXone SODIUM 1 GM VIAL ONE ×2 (03:16→08:43)
[2020-01-25] MEDS ORDERED: DEXTROSE 5%-WATER - 50 ML IVPB ONE ×2 (03:16→08:43)
[2020-01-25] MEDS: CEFTRIAXONE 1 GM in DEXTROSE 5%-WATER - 50 ML IVPB SCH ×2 (03:26→09:10)
[2020-01-25] MEDS ORDERED: VANCOMYCIN 1 GM in D5W (PRE-DOCKED) 1,000 MG/250 ML IVPB SCH (05:30)
[2020-01-25 08:19] LABS: INR 1.27 (0.83-1.09)
[2020-01-25 08:22] LABS: BASO % 1.8 % (0-2.0); EOS % 0.9 % (0-4.5); HEMATOCRIT 34.8 % (35.4-49); HEMOGLOBIN 11.1 GM/dL (11.7-16.9); LYMPH % 12.7 % (8-40); MCH 27.4 pg (25.7-33.7); MCHC 31.9 g/dl (32.0-35.9); MEAN PLT VOLUME 9.6 fl (7.5-11.1); MONO % 9.1 % (3.8-10.2); NEUT % 75.5 % (42.8-82.8); PLATELET COUNT 188 K/MM3 (134-434); RBC 4.05 M/mm3 (4.00-5.60); RDW 19.9 % (11.9-15.9); WHITE BLOOD COUNT 7.5 K/mm3 (4.0-10.0)
[2020-01-25 08:33] LABS: ALBUMIN 2.8 g/dl (3.4-5.0); BILIRUBIN,TOTAL 1.3 mg/dL (0.2-1); BLOOD UREA NITROGEN 14.6 mg/dL (7-18); CALCIUM 9.7 mg/dL (8.5-10.1); CREATININE 0.8 mg/dL (0.55-1.3); MAGNESIUM 2.1 mg/dL (1.8-2.4); POTASSIUM 3.6 mmol/L (3.5-5.1); TOT PROT 6.1 g/dl (6.4-8.2)
[2020-01-25 08:39] LABS: BILIRUBIN,DIRECT 0.8 mg/dL (0.0-0.2)
[2020-01-25] MEDS: ASPIRIN COATED 81 MG TABLET.EC PO SCH (09:11)
[2020-01-25] MEDS: ENOXAPARIN NA (PORCINE) 40 MG/0.4 ML DISP.SYRIN SQ SCH (09:11)
[2020-01-25] MEDS ORDERED: FUROSEMIDE 40 MG TABLET (FP) PO SCH (10:00)
[2020-01-25] MEDS: FUROSEMIDE 40 MG/4 ML INJECTABLE VIAL IVPUSH SCH ×2 (10:59→15:00)
[2020-01-25 11:14] VITALS: BMI 30.9
[2020-01-25] MEDS ORDERED: CEFTRIAXONE 2 GM in DEXTROSE 5%-WATER 50 ML IVPB SCH (14:00)
[2020-01-25] MEDS ORDERED: CEFTRIAXONE 1 GM in DEXTROSE 5%-WATER - 50 ML IVPB ONE (14:47)
[2020-01-25] MEDS: VANCOMYCIN 1 GRAM (PRE-DOCKED) 1,000 MG/250 ML BAG IVPB SCH (15:00)
[2020-01-25] MEDS ORDERED: VANCOMYCIN HCL 1,250 MG in DEXTROSE 5%-WATER - 250 ML IVPB SCH (16:00)
[2020-01-25] MEDS ORDERED: predniSONE 20 MG TABLET (UD) PO ONE (17:43)
[2020-01-25] MEDS: ATORVASTATIN CA 20 MG TABLET (FP) PO SCH (21:30)
[2020-01-26] MEDS: VANCOMYCIN 1 GRAM (PRE-DOCKED) 1,000 MG/250 ML BAG IVPB SCH ×2 (02:15→14:15)
[2020-01-26] MEDS ORDERED: PT OWN MED DRAWER 7, Y5N ONE (02:45)
[2020-01-26] MEDS: FUROSEMIDE 40 MG/4 ML INJECTABLE VIAL IVPUSH SCH ×2 (06:27→14:14)
[2020-01-26 07:54] LABS: BASO % 0.3 % (0-2.0); LYMPH % 8.9 % (8-40); MCHC 32.5 g/dl (32.0-35.9); MEAN CELL VOLUME 86.3 fl (80-96); MEAN PLT VOLUME 9.7 fl (7.5-11.1); MONO % 3.9 % (3.8-10.2); NEUT % 86.9 % (42.8-82.8); PLATELET COUNT 192 K/MM3 (134-434); RBC 4.28 M/mm3 (4.00-5.60); RDW 19.5 % (11.9-15.9); WHITE BLOOD COUNT 7.6 K/mm3 (4.0-10.0)
[2020-01-26 08:10] LABS: ALBUMIN 2.7 g/dl (3.4-5.0); BLOOD UREA NITROGEN 16.2 mg/dL (7-18); CALCIUM 9.1 mg/dL (8.5-10.1); CREATININE 0.9 mg/dL (0.55-1.3); MAGNESIUM 2.2 mg/dL (1.8-2.4); POTASSIUM 3.5 mmol/L (3.5-5.1); TOT PROT 5.8 g/dl (6.4-8.2)
[2020-01-26 08:12] LABS: BILIRUBIN,TOTAL 0.8 mg/dL (0.2-1)
[2020-01-26] MEDS: ENOXAPARIN NA (PORCINE) 40 MG/0.4 ML DISP.SYRIN SQ SCH (10:14)
[2020-01-26] MEDS: PANTOPRAZOLE 40 MG TABLET PO SCH (10:15)
[2020-01-26] MEDS: ASPIRIN COATED 81 MG TABLET.EC PO SCH (10:15)
[2020-01-26] MEDS ORDERED: DEXTROSE 5%-WATER 100 ML IVPB ONE (13:33)
[2020-01-26] MEDS: CEFTRIAXONE 2 GM in DEXTROSE 5%-WATER 50 ML IVPB SCH (14:14)
[2020-01-26] MEDS: predniSONE 20 MG TABLET (UD) PO SCH (14:14)
[2020-01-26] MEDS: ATORVASTATIN CA 20 MG TABLET (FP) PO SCH (21:54)
[2020-01-27] MEDS: MELATONIN 5 MG TABLETS PO SCH ×2 (00:22→21:38)
[2020-01-27] MEDS: VANCOMYCIN 1 GRAM (PRE-DOCKED) 1,000 MG/250 ML BAG IVPB SCH (01:38)
[2020-01-27] MEDS: FUROSEMIDE 40 MG/4 ML INJECTABLE VIAL IVPUSH SCH ×2 (05:44→14:37)
[2020-01-27 06:46] LABS: HEMATOCRIT 36.6 % (35.4-49); HEMOGLOBIN 11.7 GM/dL (11.7-16.9); MCH 27.6 pg (25.7-33.7); MEAN CELL VOLUME 86.3 fl (80-96); MEAN PLT VOLUME 9.5 fl (7.5-11.1); PLATELET COUNT 194 K/MM3 (134-434); RBC 4.25 M/mm3 (4.00-5.60); RDW 19.6 % (11.9-15.9); WHITE BLOOD COUNT 7.5 K/mm3 (4.0-10.0)
[2020-01-27 07:19] LABS: ALBUMIN 2.7 g/dl (3.4-5.0); BILIRUBIN,TOTAL 0.6 mg/dL (0.2-1); BLOOD UREA NITROGEN 18.6 mg/dL (7-18); CALCIUM 9.3 mg/dL (8.5-10.1); CREATININE 0.9 mg/dL (0.55-1.3); POTASSIUM 3.6 mmol/L (3.5-5.1); TOT PROT 5.8 g/dl (6.4-8.2)
[2020-01-27] MEDS ORDERED: DEXTROSE 5%-WATER 100 ML IVPB ONE (09:17)
[2020-01-27 09:37] LABS: EPI CELLS 22 /uL (0-25.1); HYALINE CASTS 14 /uL (0-3.1); URINE APPEARANCE CLOUDY; URINE BILIRUBIN NEGATIVE (NEGATIVE); URINE COLOR YELLOW; URINE GLUCOSE (UA) 2+ (NEGATIVE); URINE KETONE NEGATIVE (NEGATIVE); URINE LEUK ESTERASE 2+ (NEGATIVE); URINE NITRITE POSITIVE (NEGATIVE); URINE PROTEIN 2+ (NEGATIVE); URINE RBC 17 /uL (0-23.9); URINE WBC 264 /uL (0-25.8)
[2020-01-27] MEDS: ASPIRIN COATED 81 MG TABLET.EC PO SCH (10:17)
[2020-01-27] MEDS: CEFTRIAXONE 2 GM in DEXTROSE 5%-WATER 50 ML IVPB SCH (10:17)
[2020-01-27] MEDS: ENOXAPARIN NA (PORCINE) 40 MG/0.4 ML DISP.SYRIN SQ SCH (10:17)
[2020-01-27] MEDS: PANTOPRAZOLE 40 MG TABLET PO SCH (10:18)
[2020-01-27 10:55] LABS: URINE BACTERIA 585 /uL (0-1359)
[2020-01-27] MEDS: predniSONE 20 MG TABLET (UD) PO SCH (14:37)
[2020-01-27] MEDS: ATORVASTATIN CA 20 MG TABLET (FP) PO SCH (21:38)
[2020-01-28] MEDS: FUROSEMIDE 40 MG/4 ML INJECTABLE VIAL IVPUSH SCH (05:16)
[2020-01-28] MEDS ORDERED: DEXTROSE 5%-WATER 100 ML IVPB ONE (08:17)
[2020-01-28 09:11] LABS: HEMATOCRIT 37.4 % (35.4-49); HEMOGLOBIN 11.7 GM/dL (11.7-16.9); MCH 27.3 pg (25.7-33.7); MCHC 31.4 g/dl (32.0-35.9); MEAN CELL VOLUME 86.8 fl (80-96); MEAN PLT VOLUME 9.7 fl (7.5-11.1); PLATELET COUNT 215 K/MM3 (134-434); RDW 19.7 % (11.9-15.9); WHITE BLOOD COUNT 8.5 K/mm3 (4.0-10.0)
[2020-01-28 09:31] LABS: BILIRUBIN,TOTAL 0.6 mg/dL (0.2-1); BLOOD UREA NITROGEN 24.7 mg/dL (7-18); CALCIUM 9.6 mg/dL (8.5-10.1); CREATININE 1.2 mg/dL (0.55-1.3); POTASSIUM 3.8 mmol/L (3.5-5.1); TOT PROT 6.4 g/dl (6.4-8.2)
[2020-01-28] MEDS: ENOXAPARIN NA (PORCINE) 40 MG/0.4 ML DISP.SYRIN SQ SCH (09:45)
[2020-01-28] MEDS: PANTOPRAZOLE 40 MG TABLET PO SCH (09:45)
[2020-01-28] MEDS: ASPIRIN COATED 81 MG TABLET.EC PO SCH (09:45)
[2020-01-28] MEDS ORDERED: CEPHALEXIN MONOHYDRATE 500 MG CAPSULE (UD) PO SCH (10:00)
[2020-01-28] MEDS ORDERED: ALLOPURINOL 100 MG TABLET (FP) PO SCH (12:00)
[2020-01-28 14:39] VITALS: BP 139/74; PULSE 69; TEMP 97.3
[2020-01-28] MEDS: predniSONE 20 MG TABLET (UD) PO SCH (14:59)
[2020-01-29] MEDS ORDERED: FUROSEMIDE 40 MG TABLET (FP) PO SCH (06:00)
== END 2020-01-28 17:49 | disposition home or self-care (01) | DRG 553 ==
LOC: JER 15:25 → JERBED 17:29 → J7W 19:33
PROVIDERS: ADMIT Internal Medicine; ATTEND Internal Medicine
DX: M10.9 Gout, unspecified (principal); I50.33 Acute on chronic diastolic (congestive) heart failure; L03.113 Cellulitis of right upper limb; I27.20 Pulmonary hypertension, unspecified; I11.0 Hypertensive heart disease with heart failure; I25.10 Atherosclerotic heart disease of native coronary artery without angina pectoris; Z95.0 Presence of cardiac pacemaker; E78.5 Hyperlipidemia, unspecified; R29.6 Repeated falls; I48.91 Unspecified atrial fibrillation; E88.09 Other disorders of plasma-protein metabolism, not elsewhere classified; D64.9 Anemia, unspecified; M65.841 Other synovitis and tenosynovitis, right hand; Z98.61 Coronary angioplasty status; E87.70 Fluid overload, unspecified
CPT/HCPCS: 36415; 71045-TC-FY; 73110-TC-RT-FY; 73130-TC-RT-FY; 73200-TC-RT; 78315-TC; 80048; 80053; 81003; 82248; 82570; 82728; 83010; 83540; 83550; 83735; 84100; 84156; 84550; 85025; 85027; 85044; 85610; 85651; 86038; 86140; 86200; 86431; 86803; 86850; 86900; 86901; 87040; 87086; 87340; 93005; 93010; 97116-GP; 97161-GP; 99285-25; A9503; U0003